=== PATIENT | female | born 1940 | race Caucasian/White ===

== ENCOUNTER 2017-06-07 06:56 | Day surgery (SDC) | payer MEDICARE, OTHER, MEDICAID ==
[~2017-06-07] VITALS: Ht 157.5 cm; Wt 77.1 kg
[2017-06-07] VITALS (12 sets, daily range): BP systolic 109–137; BP diastolic 50–71
[~2017-06-07 06:56] MED LIST: ATEN25TA PO; CEPH-507 PO; CYCL1DRO OU; LEVO75TA6 PO; PANT40TA3 PO; PNEU0.5D SQ; TRAM50TA2 PO
[2017-06-07 07:28] LABS: MEAN PLATELET VOLUME 9.7 FL (7.4-10.4); RED BLOOD COUNT 4.81 10^6/uL (4.35-5.85); RED CELL DISTRIBUTION WIDTH 12.9 % (10.0-14.5); WHITE BLOOD COUNT 6.4 10^3/uL (4.3-11.0)
[2017-06-07 07:37] LABS: INR 0.9 (0.8-1.4); PROTHROMBIN TIME PATIENT 11.8 SEC (12.2-14.7)
[2017-06-07] MEDS ORDERED: ACETAMINOPHEN 500 MG TAB (TYLENOL) PO PRN (09:30)
--- NOTE | 2017-06-07 13:57 | Diagnostic Imaging Report ---
EXAMINATION: CT of the cervical, thoracic, and lumbar spine with contrast. INDICATION: Back pain. TECHNIQUE: Contiguous axial sections were taken through the cervical, thoracic, and lumbar spine. Sagittal and coronal reconstructed images were also performed. This exam was performed after the myelogram conducted earlier today. FINDINGS: There are no previous CT examinations available for comparison. The MRI lumbar spine exam of 08/27/2007 did note postsurgical changes consistent with a fusion of L4 and L5. On this exam, the bilateral pedicle screws within L4 and L5 seen previously are again evident. The orthopedic hardware seems to be in good position. The interbody device at the L4-5 level is also unchanged when compared to the prior study. As noted on the prior exam, there is a disc bulge centrally at L5-S1. The disc flattens the ventral aspect of the thecal sac and narrows the AP diameter to 12.5 mm. On the prior exam, the AP diameter of the thecal sac at this level measured approximately 13.2 mm. There does not appear to be any significant neural foraminal narrowing at this level. At the L4-5 level, there is minimal anterior translation of L4 with respect to L5 as well as narrowing of the disc space. There is also some deformity of the thecal sac due to the prior surgical procedure, but there is no sign of central stenosis. There is mild narrowing of the neural foramen bilaterally, particularly on the left. At the L3-4 level, there is borderline trefoil stenosis. The AP diameter of the thecal sac is narrowed to 10.5 mm as opposed to 15.6 mm on the prior study. There is also at least moderate narrowing of the neural foramen bilaterally, and there may be encroachment of both exiting nerve roots at this level. The remainder of the lumbar spine is unremarkable for spinal stenosis or nerve root encroachment. The thecal sac in the thoracic region is fairly generous. There is no evidence for spinal stenosis or nerve root encroachment at any level. The images through the cervical spine show that there is severe degenerative disc and bony disease at C6-7. Specifically, there is marked narrowing of the disc space, and there are osteophytes along the opposing surfaces of the endplates of C6 and C7. There is also a disc bulge centrally at this level. The disc flattens the ventral aspect of the thecal sac and narrows the AP diameter to approximately 9.7 mm. There is also narrowing of the neural foramen bilaterally, particularly on the left. There could be encroachment of the exiting left nerve root at this level. There is only mild narrowing of the neural foramen on the right. There is no evidence for spinal stenosis or nerve root encroachment at the C5-6 level. At the C4-5 level, there is slight anterior translation of C4 with respect to C5. There is a disc bulge centrally at this level as well, but the disc narrows the AP diameter of the thecal sac to 11.4 mm. There does not appear to be any significant neural foraminal narrowing at this level. The remainder of the cervical spine is unremarkable for spinal stenosis or nerve root encroachment. There is no fracture or acute bony abnormality of the cervical, thoracic, or lumbar spine. There is no mass or adenopathy involving the neck. The thyroid gland was not well visualized. The lungs, where visualized, are generally clear. There is no paraspinal mass in the lower thoracic and lumbar region. However, there is a calcified 0.9 x 1.1 cm area along the lateral aspect of the mid portion of the left kidney. This finding may well represent a benign process, and this could be a sequela of a prior inflammatory/infectious process or trauma. It would be possible, although unlikely, that this is neoplastic in nature. If previous studies are available, they would be helpful for comparison. If there are no prior studies, then a follow-up CT abdomen and pelvis exam would be recommended for further study. There is a dorsal stimulator device in place with the battery pack located in the subcutaneous fat along the posterior aspect of the L2-3 level on the right. The leads from the dorsal stimulator device extend between the spinous processes of T12 and L1 and course along the posterior aspect of the thecal sac. The tip of the leads terminates at the T8 level. IMPRESSION: 1. The postsurgical changes at L4-5 seen previously seem stable. There is no evidence for recurrent spinal stenosis or nerve root encroachment at this level. 2. There is borderline trefoil stenosis at L3-4, and there is narrowing of the neural foramen bilaterally. There may be encroachment of both exiting nerve roots at this level. 3. The remainder of the lumbar spine is unremarkable for spinal stenosis. There is no sign of spinal stenosis or nerve root encroachment involving the thoracic spine. 4. There is severe degenerative disc and bony disease at C6-7, and there is mild central stenosis at this level. There is also narrowing of the neural foramen bilaterally at this level, particularly on the left. There may be encroachment of the exiting left nerve root at C6-7. 5. The remainder of the cervical spine is unremarkable for spinal stenosis or nerve root encroachment. 6. There is no sign of an acute bony abnormality, and there is no paraspinal mass identified. 7. The small calcified area along the lateral aspect of the left kidney is of uncertain etiology. Considerations and recommendations as above. 8. There is a dorsal stimulator device in place with the leads terminating at the level of T8. Dictated by: Dictated on workstation # [id number]
--- NOTE | 2017-06-07 14:47 | Diagnostic Imaging Report ---
Lumbar myelogram. INDICATION: Back pain. The previous MRI lumbar spine exam performed on 08/27/2007, noted that there had been a fusion of L4 and L5. On this study the bilateral pedicle screws at L4 and L5 seem to be in good position. Also, in the interval since the prior study, a dorsal stimulator device has been inserted on the right. The leads extend to approximately T8. Following aseptic preparation of the skin and administration of local anesthesia a lumbar puncture was made at the L2-L3 level. Clear CSF was retrieved, and approximately 15 cc of Omnipaque-240 was infused. AP, oblique, and lateral images were obtained. There does appear to be a disc bulge centrally at the L3-L4 level. This produces mild spinal stenosis. There is also narrowing of the neural foramina bilaterally at this level. The remainder of the lumbar spine is unremarkable for spinal stenosis or nerve root encroachment although the L4-L5 and L5-S1 levels were not well opacified. Following the procedure, the patient was positioned so that the contrast in the lumbar spine could be transferred into the thoracic and cervical regions by gravity for further evaluation of the thecal sac and exiting nerve roots in the thoracic and cervical spine. The patient tolerated the procedure well and was transferred to the CT suite in good condition. IMPRESSION: 1. There is mild spinal stenosis at L3-L4, and there may be encroach of both nerve roots at this level. CT of the lumbar spine is pending for further evaluation. 2. CT of the thoracic and cervical spine is also pending. Dictated by: Dictated on workstation # [id number]
== END 2017-06-07 13:35 | disposition home or self-care (01) ==
LOC: RAD 06:56 → SURG 09:27 → RAD 13:35
PROVIDERS: ATTEND Orthopaedic Surgery
DX: M48.06 Spinal stenosis, lumbar region (principal); M51.26 Other intervertebral disc displacement, lumbar region; M50.323 Other cervical disc degeneration at C6-C7 level; Z98.1 Arthrodesis status; I10 Essential (primary) hypertension
CPT/HCPCS: 36415; 62304; 72126; 72129; 72132; 85027; 85610; 85730

== ENCOUNTER 2018-10-01 09:00 | Outpatient (CLI) | payer MEDICARE, OTHER, MEDICAID ==
[~2018-10-01] VITALS: Ht 157.5 cm; Wt 72.6 kg
[2018-10-01] MEDS ORDERED: ASPI-586 PO (10:45)
[2018-10-01] MEDS ORDERED: GABA-488 PO (10:45)
== END 2018-10-01 10:46 | disposition home or self-care (01) ==
LOC: PREOP 09:00
PROVIDERS: ATTEND Surgery
DX: Z01.818 Encounter for other preprocedural examination (principal)

== ENCOUNTER 2018-10-02 10:06 | Day surgery (SDC) | payer MEDICARE, OTHER ==
[~2018-10-02] VITALS: Ht 157.5 cm; Wt 72.6 kg
[~2018-10-02 10:06] MED LIST changes: +ASPI-586 PO; +GABA-488 PO
[2018-10-02 10:12] VITALS: BP 128/64
[2018-10-02] MEDS ORDERED: NS IV 500 ML 500 ML IV PRN (10:16)
[2018-10-02] MEDS ORDERED: MIDAZOLAM 2 MG/2 ML (VERSED) VIAL IVP ONE (10:30)
[2018-10-02] MEDS ORDERED: LIDOCAINE JELLY 2% 6 ML SYRINGE MM PRN (10:30)
[2018-10-02] MEDS ORDERED: fentaNYL INJECTION 100 MCG/2 ML AMP IVP ONE (10:30)
[2018-10-02] MEDS ORDERED: HURRICAINE EXT TUBE (BENZOCAINE) XX PRN (10:30)
--- NOTE | 2018-10-02 10:33 | Progress Note-Pre Operative ---
Pre-Operative Progress Note H&P Reviewed The H&P was reviewed, patient examined and no changes noted. Date Seen by Provider: Oct 02, 2018 Time Seen by Provider: 10:30 Date H&P Reviewed: Oct 02, 2018 Time H&P Reviewed: 10:30 Pre-Operative Diagnosis: heme positive stools SHEREE JORDAN MD Oct 02, 2018 10:33
--- NOTE | 2018-10-02 10:33 | Conscious Sedation/ASA ---
Conscious Sedation Pre-Proced Time 10:30 ASA Score 2 For ASA 3 and 4: Consider anesthesia and medical clearance. Also, for patients with a history of failed moderate sedation consider anesthesia. Airway Lungs Heart ASA score ASA 1: a normal healthy patient ASA 2: a patient with a mild systemic disease (mid diabetes, controlled hypertension, obesity ASA 3: a patient with a severe systemic disease that limits activity (angina , COPD, prior Myocardial infarction) ASA 4: a patient with an incapacitating disease that is a constant threat to life (CHF, renal failure) ASA 5: a moribund patient not expected to survive 24 hrs. (ruptured aneurysm) ASA 6: a declared brain patient whose organs are being harvested. For emergent operations, add the letter E after the classification Mallampati Classification Grade 2 Sedation Plan Analgesia, Amnesia, Plan communicated to team members, Discussed options with patient/fam, Discussed risks with patient/fam The patient is an appropriate candidate to undergo the planned procedure, sedation, and anesthesia. The patient immediately re-assessed prior to indication. SHEREE JORDAN MD Oct 02, 2018 10:33
[2018-10-02] MEDS ORDERED: morphine INJ 10 MG/ML 1ML (SYR OR VIAL) IV PRN (10:45)
[2018-10-02] MEDS ORDERED: HYDROcodone/APAP 5 MG/325 MG (LORTAB) TAB PO PRN (10:45)
[2018-10-02] MEDS ORDERED: ONDANSETRON 4 MG/2 ML (SDV) Z0FRAN IV PRN (10:45)
[2018-10-02] MEDS ORDERED: ACETAMINOPHEN 325 MG TABLET PO PRN (10:45)
[2018-10-02] MEDS ORDERED: MIDAZOLAM 2 MG/2 ML (VERSED) VIAL ONE ×4 (11:20)
[2018-10-02] MEDS ORDERED: fentaNYL INJECTION 100 MCG/2 ML AMP ONE ×2 (11:20)
[2018-10-02] MEDS ORDERED: LIDOCAINE JELLY 2% 6 ML SYRINGE ONE (11:20)
[2018-10-02] MEDS ORDERED: proPOfol 200 MG/20 ML (DIPRIVAN) VIAL IV ONE (12:09)
--- NOTE | 2018-10-02 13:08 | Progress Note-Post Operative ---
Post-Operative Progess Note Surgeon (s)/Plant Controller (s) Surgeon SHEREE JORDAN MD Plant Controller: none Pre-Operative Diagnosis heme positive stools Post-Operative Diagnosis chronic stage 2 ext and int hemorrhoids, mod-severe sigmoid diverticulosis, tortuous sigmoid colon. Procedure & Operative Findings Date of Procedure 10/02/18 Procedure Performed/Findings Colonoscopy. Anesthesia Type MAC Estimated Blood Loss Estimated blood loss (mL): minimal Specimens/Packing Specimens Removed none SHEREE JORDAN MD Oct 02, 2018 13:08
--- NOTE | 2018-10-02 13:09 | Discharge Inst-Surgical ---
D/C Lap Instructions-JULIAN Follow Up PRN Activity as tolerated High Fiber Diet 25g or more per day Avoid Alcohol, Caffeine, Spicy [place] and Acid foods. Drink 64 fluid oz or more of fluids per day. Symptoms to Report: Fever over 101 degree F, Nausea/Vomiting If any problems/questions: Contact your physician or go to Emergency Room SHEREE JORDAN MD Oct 02, 2018 13:09
[2018-10-02 13:20] VITALS: BP 97/68
--- OUTSIDE RECORDS SUMMARY | 2018-10-02 13:35 | XMS REPORT ---
Author Author MICHELLE MARTELL [facility] Address [address] [place] [address] Care Team Providers Care Acting Section Chief Name Role Phone MICHELLE MARTELL Unavailable PROBLEMS Unknown Problems ALLERGIES Substance Reaction Event Type Date Status Demerol vomiting Drug Allergy Jun, Active ENCOUNTERS Encounter Location Date Diagnosis [facility] [id number] [place] [phone] Jun, Acute bacterial conjunctivitis of left eye H10.32 [facility] [place] [id number] [place] [phone] Sep, [facility] [id number] [place] [phone] Aug, Decreased breath sounds R06.89 and Community acquired pneumonia J18.9 IMMUNIZATIONS No Known Immunizations SOCIAL HISTORY Never Assessed REASON FOR VISIT left eye is swollen et had yellow drainage. been like this since yesterday afternoon...reports it has gotten worse. not as much drainage this am. also has a slight cough. xiomy, denies pain et itching in left eye, pt reports she has been helping a friend move...thinks maybe she touched something et then touched her eye PLAN OF CARE Activity Details Follow Up prn Reason: VITAL SIGNS Height 62.5 in 2018-07-08 Weight 160.0 lbs 2018-07-08 Temperature 97.4 degrees Fahrenheit 2018-07-08 Heart Rate 80 bpm 2018-07-08 Respiratory Rate 20 2018-07-08 BMI 28.79 kg/m2 2018-07-08 Blood pressure systolic 116 mmHg 2018-07-08 Blood pressure diastolic 78 mmHg 2018-07-08 MEDICATIONS Medication Instructions Dosage Frequency Start Date End Date Duration Status Atenolol 100 MG Orally Once a day 1 tablet 24h Active Synthroid 25 MCG Orally Once a day 1 tablet 24h Active Gabapentin 300 MG Orally Once a day 1 capsule before bedtime 24h Active Gentamicin Sulfate 0.3 % Ophthalmic every 4 hrs while awake 1 drop into affected eye Jun, 5 days Active Ventolin HFA 108 (90 Base) MCG/ACT Inhalation every 6 hrs 2 puffs as needed 6h Aug, 14 days Active Restasis 0.05 % Ophthalmic Twice a day 1 drop into affected eye 12h Active Josie Allergy 60 MG Orally Twice a day 1 tablet as needed 12h Active RESULTS No Results PROCEDURES Procedure Date Ordered Result Body Site [facility] VISIT ESTABLISHED PATIENT Jul 08, 2018 INSTRUCTIONS MEDICATIONS ADMINISTERED No Known Medications MEDICAL (GENERAL) HISTORY Type Description Date Medical History hypothryoid Medical History hypertension Medical History allergies Medical History nerve pain Surgical History hernia 2006 Surgical History hemorrhoidectomy Surgical History back surgery Surgical History appendectomy Surgical History tonsillectomy Surgical History Back surgery 11/2017 Surgical History Back surgery 02/2018 Hospitalization History with surgeries
--- OUTSIDE RECORDS SUMMARY | 2018-10-02 13:35 | XMS REPORT ---
Author Author KRYSTAL EVANS Organization [facility] Address [address] [place] [address] Care Team Providers Care Inspector Filters Name Role Phone KRYSTAL EVANS Unavailable PROBLEMS Unknown Problems ALLERGIES No Information ENCOUNTERS Encounter Location Date Diagnosis [facility] [address] [facility] [id number] [place] [address] Sep, [facility] [address] [facility] [id number] [place] [address] Aug, Decreased breath sounds R06.89 and Community acquired pneumonia J18.9 IMMUNIZATIONS No Known Immunizations SOCIAL HISTORY Never Assessed REASON FOR VISIT Refill request PLAN OF CARE VITAL SIGNS MEDICATIONS Unknown Medications RESULTS No Results PROCEDURES No Known procedures INSTRUCTIONS MEDICATIONS ADMINISTERED No Known Medications MEDICAL (GENERAL) HISTORY Type Description Date Medical History hypothryoid Medical History hypertension Medical History allergies Medical History nerve pain Surgical History hernia 2007 Surgical History hemorrhoidectomy Surgical History back surgery Surgical History appendectomy Surgical History tonsillectomy Hospitalization History with surgeries
--- OUTSIDE RECORDS SUMMARY | 2018-10-02 13:35 | XMS REPORT | Clinical Summary ---
Author Author [facility] Organization [facility] Address Unknown Phone Unavailable Care Team Providers Care Campaign Analyst Name Role Phone Arie Whitmore PCP Source Comments Some departments are not documenting in the electronic medical record. If you do not see the information that you expected, contact Release of Information in the Health Information Management department at [phone] for further assistance in locating additional records.[facility] Allergies Comments Active Allergy Reactions Severity Noted Date Adhesive BLISTERS High 03/07/2018 Meperidine VOMITING Low 09/12/2017 Medications End Date Status Medication Sig Dispensed Refills Start Date Active levothyroxine (SYNTHROID) Take 75 mcg 0 75 mcg tablet by mouth at bedtime daily. Active atenolol (TENORMIN) 25 mg Take 25 mg by 0 tablet mouth at bedtime daily. Active cetirizine (ZYRTEC) 10 mg Take 10 mg by 0 tablet mouth twice daily. Active gabapentin (NEURONTIN) Take by 0 300 mg capsule mouth twice daily. 300mg in AM and 600mg at bedtime Active aspirin EC 81 mg tablet Take 81 mg by 0 mouth every 48 hours. Take with food. Administered at night Active triamcinolone (NASACORT) Apply 1-2 0 55 mcg nasal inhaler sprays to each nostril as directed at bedtime daily. Active Cholecalciferol (VITAMIN Take 5,000 0 D3) 5,000 unit capsule Units by mouth daily. Active ascorbic acid-vitamin Chew 1 tablet 0 E-biotin (HAIR, SKIN, by mouth NAILS WITH BIOTIN) daily. 7.5-7.5-1,250 mg-unit-mcg chew Active ascorbic acid(+) 1,000 mg Take 1 tablet 0 tablet by mouth daily. Active other medication Take 1 Dose 0 by mouth daily. [place] red oil Active docusate (COLACE) 100 mg Take 1 180 capsule 3 capsule capsule by 8 mouth twice daily. Active Biotin 5 mg cap Take 5 mg by 0 mouth daily. Active RESTASIS 0.05 % Apply 1 drop 0 ophthalmic emulsion to both eyes 8 twice daily. Active acetaminophen (TYLENOL) Take 2 0 325 mg tablet tablets by 8 mouth every 4 hours as needed. Active oxyCODONE (ROXICODONE, Take 1-2 150 tablet 0 OXY-IR) 5 mg tablet tablets by 8 mouth every 3 hours as needed Active HYDROcodone/acetaminophen Take 1 tablet 100 tablet 0 (NORCO) 5/325 mg tablet by mouth 8 every 4 hours as needed for Pain Earliest Fill Date: 04/10/18 Max 6 tabs/day Active Problems Problem Noted Date Lumbar stenosis with neurogenic claudication 02/14/2018 Overview: Added automatically from request for surgery [id number] Cervical spinal stenosis 10/23/2017 Overview: Added automatically from request for surgery [id number] Social History Date Tobacco Use Types Packs/Day Years Used Quit: 1991 Former Smoker Cigarettes 1 20 Smokeless Tobacco: Never Used Comments: QUIT SMOKING 30 YEARS AGO Alcohol Use Drinks/Week oz/Week Comments No Sex Assigned at Date Recorded Not on file Industry Job Start Date Occupation Not on file Not on file Not on file Travel End Travel History Travel Start No recent travel history available. 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 Respiratory Rate 16 06/20/2018 11:03 AM CDT Oxygen Saturation 98% - Inhaled Oxygen - Concentration 06/20/2018 11:03 AM CDT Weight 70.3 kg (155 lb) 06/20/2018 11:03 AM CDT Height 157.5 cm (5' 2.01") 06/20/2018 11:03 AM CDT Body Mass Index 28.34 Plan of Treatment Health Maintenance Due Date Last Done Comments PHYSICAL (COMPREHENSIVE) 1949 EXAM DTAP/TDAP VACCINES (1 - 1960 Tdap) SHINGLES RECOMBINANT 1992 VACCINE (1 of 2) OSTEOPOROSIS 2007 SCREENING/MONITORING PNEUMONIA (PCV13/PPSV23) 2007 VACCINES (1 of 2 - PCV13) INFLUENZA VACCINE 05/22/2018 Implants Device Identifier Shelf Expiration Date Model / Serial / Lot Implanted Type Area Manufactur er 12/29/2018 [id number] / [id number] / [id number] Graft Bone Cancellous Lordotic N/A: Spine ASHIA:ST Allograft [id number] Cervical - Cervical KARL MED [id number] Implanted: Qty: 1 on 11/09/2017 by Eduardo Mathis MD 01/02/2020 [id number] / [id number] / [id number] Graft Bone Allocraft Cancellous N/A: Spine ASHIA:ST Lordotic Allograft [id number] - Cervical KARL MED [id number] Implanted: Qty: 1 on 11/09/2017 by Eduardo Mathis MD [id number] / N/A / N/A Screw Bone 4mm 14mm Reflex Hybrid N/A: Spine ASHIA:ST Titanium Flute Spine - Sn/A Cervical KARL Implanted: Qty: 6 on 11/09/2017 by Eduardo Vincent MD [id number] / N/A / N/A Plate 32mm Titanium Level 2 Reflex N/A: Spine ASHIA:ST Zero Profile Bone Spine - Sn/A Cervical KARL Implanted: Qty: 1 on 11/09/2017 by Eduardo Vincent MD [id number] / N/A / N/A Screw Set Titanium Spine 1 Inner N/A: Spine J and J Monoaxial Expedium - Sn/A Lumbar [employer]ALTHCARE Implanted: Qty: 5 on 03/13/2018 : DEPUY SPINE [id number] / N/A / N/A Screw Bone 6mm 45mm Expedium N/A: Spine JandJ:DEPU Titanium Spine Cortical Fix 5.5 - Lumbar Y:DEPUY Sn/A SPINE Implanted: Qty: 1 on 03/13/2018 [id number] / N/A / N/A Screw Bone 7mm 45mm Expedium N/A: Spine UNIDENTIFI Titanium Spine Cortical Fix 5.5 - Lumbar ED MFG Sn/A Implanted: Qty: 2 on 03/13/2018 01/19/2019 [id number] / [id number] / [id number] Graft Bone 20ga Infuse Medium N/A: Spine MEDTRONIC: Bovine Collagen Rhbmp-2 Vial - Lumbar SOFAMOR [id number] Implanted: Qty: 1 on 03/13/2018 [id number] / N/A / N/A Anthony Spinal 60mm 5.5mm Expedium N/A: Spine J and J Titanium Prebent Line - Sn/A Lumbar HEALTHCARE Implanted: Qty: 1 on 03/13/2018 : DEPUY SPINE [id number] / N/A / N/A Anthony Spinal 65mm 5.5mm Expedium N/A: Spine UNIDENTIFI Titanium Prebent Line - Sn/A Lumbar ED MFG Implanted: Qty: 1 on 03/13/2018 01/01/2021 [id number] / [id number] / [id number] Filler Bone Void 30ml .1-4mm N/A: Spine MUSCULOSKE Cancellous Allograft Freeze - Lumbar LETAL [id number] TRANSPLANT Implanted: Qty: 1 on 03/13/2018 FND [id number] / N/A / N/A Connector Anthony Matrix 7 [id number] N/A: Spine SYNTHES:SY Od5.5/6mm Spine Trnsv Snapon - Sn/A Lumbar NTHES [facility] Implanted: Qty: 1 on 03/13/2018 [id number] / N/A / N/A Screw Bone 6mm 40mm Expedium N/A: Spine UNIDENTIFI Titanium Spine Cortical Fix 5.5 - Lumbar ED MFG Sn/A Implanted: Qty: 2 on 03/13/2018 Device Identifier Shelf Expiration Date Model / Serial / Lot Explanted Type Area Manufactur er / N/A / N/A Spinal Cord Stimulator N/A: Spine Explanted: Qty: 1 on 03/13/2018 by Eduardo Pierre MD / N/A / N/A Screw N/A: Spine Explanted: Qty: 4 on 03/13/2018 Lumbar / N/A / N/A Cap N/A: Spine Explanted: Qty: 4 on 03/13/2018 Lumbar / N/A / N/A Anthony N/A: Spine Explanted: Qty: 2 on 03/13/2018 Lumbar / N/A / N/A Cross Connector N/A: Spine Explanted: Qty: 1 on 03/13/2018 Lumbar Results Not on filefrom Last 3 Months Insurance Payer Benefit Subscriber ID Type Phone Address Plan / Group MEDICARE MEDICARE xxxxxxxxxxx Medicare PART A AND B GENERIC COMMERCIAL GENERIC xxxxxxxxxx Indemnity COMMERCIAL Advance Directives Patient has advance care planning documents, and code status on file. For more information, please contact: [facility] [address] [place] [address] Date Inactivated Comments Code Status Date Activated 03/17/2018 5:11 PM Full Code 03/13/2018 5:08 PM Provider has discussed Code Status No, more discussion w/Patient or Family? needed 11/10/2017 3:24 PM Full Code 11/09/2017 10:53 AM Provider has discussed Code Status No, more discussion w/Patient or Family? needed
[2018-10-02 13:50] VITALS: BP 110/65
--- NOTE | 2018-10-02 14:38 | Progress Note-Standard ---
Standard Progress Note Progress Notes/Assess & Plan Date Seen by a Provider: Oct 02, 2018 Time Seen by a Provider: 12:11 Progress/Assessment & Plan Anesthesia Note ([id number]) Called to endoscopy for a rescue sedation during colonoscopy. Pt already given Versed 6 mg IV and Fentanyl 150 mg IV prior to my arrival. Dr Estrada was attempting colonoscopy and pt not tolerating the procedure, per him and endo staff. Brief history obtained from Dr Estrada on my arrival. Propofol 75 mg IV given in divided doses for the remainder of the procedure and she tolerated the procedure well. VS remained stable throughout. Spontaneous ventilation monitored by EtCO2. Anesthesia Type: MAC (rescue sedation) ASA Class: 2 RUFINO DUMONT DO Oct 02, 2018 14:38
[2018-10-02 15:09] VITALS: BP 110/65
--- NOTE | 2018-10-02 19:47 | OPERATIVE REPORT ---
DATE OF SERVICE: 10/02/2018 ATTENDING PRIMARY CARE PHYSICIAN: Dr. Whitmore. PREOPERATIVE DIAGNOSIS: Heme positive stools. POSTOPERATIVE DIAGNOSES: Chronic stage II external and internal hemorrhoids, [id number] sigmoid diverticulosis, tortuous sigmoid colon, no polyps or any neoplasms identified. PROCEDURE: Colonoscopy. SURGEON: Sheree Estrada MD ANESTHESIA: Conscious sedation. ESTIMATED BLOOD LOSS: Minimal. ANESTHESIA: Monitored anesthesia care. ESTIMATED BLOOD LOSS: Minimal. FINDINGS: Chronic stage II external and internal hemorrhoids, not actively edematous nor inflamed and no bleeding. Moderate to severe sigmoid diverticulosis with redundant and tortuous sigmoid colon. The remainder of the colon was normal. There were no polyps or any neoplasms identified. No active bleeding identified. DISPOSITION: The patient tolerated the procedure well. INDICATIONS: The patient is a 78-year-old female known to us. She has had a longstanding history of gastroesophageal reflux disease, underwent a Jose A fundoplication in 2002. She did have issues with dysphagia and which required multiple EGDs as well as dilatations with the last one in 2014. She also had a colonoscopy at that time was found to have chronic stage II external and internal hemorrhoids as well as moderate sigmoid diverticulosis. She does not report any red blood per rectum nor any dark tarry stools. She also does not report any family history of colon cancer; however, she did have heme occult stool test, which was positive recently. DESCRIPTION OF PROCEDURE: The patient was brought to the endoscopy suite, laid in the left lateral decubitus position. After adequate IV pain and sedating medications and monitored anesthesia care administered by anesthesia, a digital rectal examination was performed. Chronic stage II external and internal hemorrhoids were identified, which were not actively edematous nor inflamed and no bleeding. Normal sphincter tone was felt and there were no palpable masses. The endoscope was then intubated to the anus and rectum gently insufflated. The endoscope was then advanced to the [facility] in the rectum. There was moderate to severe sigmoid diverticulosis identified. There was also a tortuous and redundant sigmoid colon. Multiple attempts were made to pass along this with a pediatric colonoscope; however, unsuccessful. The patient also had abdominal distention, most likely secondary to an insufflation induced volvulus. We then proceeded with proceeding with using a gastroscope. Under direct visualization, we were able to get passed through the tortuous sigmoid colon where no signs of diverticulosis identified as well as no active bleeding. We then proceeded to the descending, transverse, ascending colon to the cecum. These segments were normal. There were no polyps or any neoplasms identified. As we withdrew the endoscope, residual air was suctioned out and the abdominal distention decreased appropriately. The patient tolerated the procedure well. We will recommend continued medical management with a high fiber diet with at least 25 to 30 grams of fiber per day as well as 64 fluid ounces of water daily to promote soft stools on a daily basis. She does not have any family history of colon cancer and she does have diverticulosis as well as hemorrhoids, which are most likely the cause of intermittent episodes of heme positive stools. If she is not symptomatic, we will recommend a followup colonoscopies as needed for there were no polyps identified on this colonoscopy as well as what we believed to be previous colonoscopies; however, sooner if she becomes symptomatic in any way. Job ID: [id number] DocumentID: [id number] Dictated Date: 10/02/2018 13:00:48 Heat Treat Supervisor Date: 10/02/2018 19:47:09 Dictated By: SHEREE ESTRADA MD [facility]
== END 2018-10-02 15:00 | disposition home or self-care (01) ==
LOC: ENDO 10:06
PROVIDERS: ATTEND Surgery
DX: K57.30 Diverticulosis of large intestine without perforation or abscess without bleeding (principal); K64.1 Second degree hemorrhoids; K21.9 Gastro-esophageal reflux disease without esophagitis; E03.9 Hypothyroidism, unspecified; I10 Essential (primary) hypertension; F32.9 Major depressive disorder, single episode, unspecified; M79.7 Fibromyalgia; R19.7 Diarrhea, unspecified; K59.00 Constipation, unspecified; Z87.891 Personal history of nicotine dependence; Z98.1 Arthrodesis status; Z88.5 Allergy status to narcotic agent; Z80.1 Family history of malignant neoplasm of trachea, bronchus and lung; Z86.010 Personal history of colon polyps

== ENCOUNTER → 2019-03-08 | Outpatient (CLI) | payer MEDICARE, OTHER ==
--- NOTE | 2019-03-08 13:03 | Diagnostic Imaging Report ---
INDICATION: Cough and weakness. No prior examinations are available for comparison. PA and lateral views were obtained. FINDINGS: The heart size, mediastinal configuration, and pulmonary vascularity are within normal limits. There is no pleural effusion, pneumothorax, or pneumonia. The osseous structures are unremarkable. IMPRESSION: No acute cardiopulmonary abnormality. Dictated by: Dictated on workstation # [id number]
== END ==
LOC: RAD 12:44
PROVIDERS: ATTEND Nurse Practitioner Family
DX: R06.2 Wheezing (principal); R05 Cough; R53.1 Weakness
CPT/HCPCS: 71046

== ENCOUNTER → 2022-05-10 | Outpatient (CLI) | payer MEDICARE, OTHER ==
[~2022-05-10] VITALS: Ht 157.5 cm; Wt 77.6 kg
[~2022-05-10] MED LIST changes: -PANT40TA3 PO; +PANT40TA52 PO; -TRAM50TA2 PO; +TRM50T PO
== END | disposition home or self-care (01) ==
LOC: PREOP 05:34
PROVIDERS: ATTEND Surgery
DX: Z01.818 Encounter for other preprocedural examination (principal)

== ENCOUNTER 2022-05-18 17:53 | Inpatient (IN) | payer MEDICARE, OTHER ==
[~2022-05-18] VITALS: Ht 157.5 cm; Wt 87.7 kg
[2022-05-18] MEDS ORDERED: ONDANSETRON 4 MG/2 ML (SDV) Z0FRAN IV PRN (18:30)
[2022-05-18] MEDS ORDERED: ANTACID SUSP 30 ML UDC (MYLANTA) PO PRN (18:30)
[2022-05-18] MEDS ORDERED: MELATONIN 3 MG TABLET PO PRN (18:30)
[2022-05-18] MEDS ORDERED: BISACODYL 10 MG SUPP (DULCOLAX) PR PRN (18:30)
[2022-05-18] MEDS ORDERED: polyethylene glycoL POWDER 17 GM (MIRALAX) PACK PO PRN (18:30)
[2022-05-18] MEDS ORDERED: MILK OF MAGNESIA 400 MG/5 ML 30 ML UDC PO PRN (18:30)
[2022-05-18] MEDS ORDERED: diphenhydrAMINE 25 MG TAB (BENADRYL) PO PRN (18:30)
[2022-05-18] MEDS ORDERED: ACETAMINOPHEN 325 MG TABLET PO PRN (18:30)
[2022-05-18] MEDS ORDERED: LACTULOSE SYRUP 10GM/15ML (ENULOSE) 30ML UDC PO PRN (18:30)
[2022-05-18] MEDS ORDERED: diphenhydrAMINE 50 MG/ML INJ (BENADRYL) IVP PRN (18:30)
[2022-05-18] MEDS ORDERED: ONDANSETRON 4 MG (ZOFRAN) ORAL DISSOLVE TAB PO PRN (18:30)
[2022-05-18 20:05] VITALS: BP 148/58
[2022-05-18] MEDS ORDERED: PIPERACILLIN/TAZO 4.5 GM VIAL (ZOSYN) IV ONE (20:18)
[2022-05-18] MEDS ORDERED: NS IV 1000 ML 1,000 ML ONE (20:18)
[2022-05-18] MEDS ORDERED: NS (IVPB) 100 ML ONE (20:19)
[2022-05-18] MEDS: NS IV 1000 ML 1,000 ML IV SCH (20:28)
[2022-05-18] MEDS: PIPERACILLIN SODIUM/TAZOBACTAM 4.5 GM in NS (IVPB) 100 ML IV SCH (20:29)
[2022-05-18] MEDS ORDERED: DOCUSATE SODIUM 100 MG (COLACE) CAP PO ONE (20:35)
[2022-05-18] MEDS ORDERED: SENNOSIDES 8.6 MG (SENOKOT) TAB ONE (20:35)
[2022-05-18] MEDS: DOCUSATE SODIUM 100 MG (COLACE) CAP PO SCH (20:37)
[2022-05-18] MEDS: SENNOSIDES 8.6 MG (SENOKOT) TAB PO SCH (20:37)
[2022-05-18] MEDS ORDERED: metroNIDAZOLE 500MG/100ML IVPB 100 ML ONE (21:12)
[2022-05-18] MEDS: metroNIDAZOLE 500MG/100ML IVPB 100 ML IV SCH (21:45)
[2022-05-18] MEDS ORDERED: metroNIDAZOLE 500MG/100ML IVPB 100 ML IV SCH (22:00)
[2022-05-19] VITALS (17 sets, daily range): BP systolic 107–148; BP diastolic 59–78
[2022-05-19] MEDS: HYDROmorphone 2 MG/ML VIAL (DILAUDID) IVP PRN ×2 (00:22→22:06)
[2022-05-19] MEDS: PIPERACILLIN SODIUM/TAZOBACTAM 4.5 GM in NS (IVPB) 100 ML IV SCH ×4 (04:11→22:29)
[2022-05-19 05:49] LABS: BASOPHILS # (AUTO) 0.1 10^3/uL (0.0-0.1); BASOPHILS % (AUTO) 0 % (0-10); EOSINOPHILS # (AUTO) 0.2 10^3/uL (0.0-0.3); EOSINOPHILS % (AUTO) 1 % (0-10); HEMATOCRIT 26 % (35-52); HEMOGLOBIN 8.6 g/dL (11.5-16.0); LYMPHOCYTES # (AUTO) 1.2 10^3/uL (1.0-4.0); LYMPHOCYTES % (AUTO) 9 % (12-44); MEAN CORPUSCULAR HEMOGLOBIN 30 pg (25-34); MEAN CORPUSCULAR HGB CONC 34 g/dL (32-36); MEAN CORPUSCULAR VOLUME 90 fL (80-99); MEAN PLATELET VOLUME 9.5 fL (9.0-12.2); MONOCYTES # (AUTO) 0.8 10^3/uL (0.0-1.0); MONOCYTES % (AUTO) 6 % (0-12); NEUTROPHILS # (AUTO) 11.1 10^3/uL (1.8-7.8); NEUTROPHILS % (AUTO) 83 % (42-75); PLATELET COUNT 571 10^3/uL (130-400); WHITE BLOOD COUNT 13.4 10^3/uL (4.3-11.0)
[2022-05-19 06:11] LABS: BILIRUBIN,TOTAL 0.4 MG/DL (0.1-1.0); CALCIUM 7.8 MG/DL (8.5-10.1); CREATININE SERUM 0.63 MG/DL (0.60-1.30); POTASSIUM 3.1 MMOL/L (3.6-5.0)
[2022-05-19 06:12] LABS: ALBUMIN 2.4 GM/DL (3.2-4.5); TOTAL PROTEIN 5.1 GM/DL (6.4-8.2)
--- NOTE | 2022-05-19 08:39 | Progress Note - Surgery ---
STERLING COOMBS 05/19/22 0839: Subjective Date Seen by a Provider: May 19, 2022 Time Seen by a Provider: 07:48 Subjective/Events-last exam Ms. Wheatley is being seen after a partial colon resection and colostomy done at [facility]. She was recovering well initially but her ostomy output decreased and her abdominal pain increased. Imaging from [place] showed an abdominal abscess. Today she reports no ostomy output, pain in her LLQ in her abdomen, and distension of her abdomen. Otherwise she has no complaints. She says she is ready for surgery and ready to feel better. Review of Systems General: No Chills, No Fatigue HEENT: No Head Aches, No Visual Changes Pulmonary: No Dyspnea, No Cough Cardiovascular: No: Chest Pain, Palpitations Gastrointestinal: Abdominal Pain; No: Nausea, Vomiting Neurological: No: Weakness, Confusion Objective Exam Vital Signs Date Time Temp Pulse Resp B/P (MAP) Pulse Ox O2 Delivery O2 Flow Rate FiO2 05/19/22 08:00 Room Air 05/19/22 07:42 37.2 89 18 148/67 (94) 99 Room Air 05/19/22 04:18 36.7 88 18 130/59 (82) 95 Room Air 05/19/22 00:21 36.5 90 20 139/65 (89) 96 Room Air 05/18/22 21:11 Room Air 05/18/22 20:05 36.6 104 18 148/58 (88) 98 Room Air I & O 05/19/22 07:00 Intake Total 300 ml Output Total 1150 ml Balance -850 ml Capillary Refill : General Appearance: No Apparent Distress, WD/WN HEENT: PERRL/EOMI, Moist Mucous Membranes Neck: Non Tender, Supple Respiratory: Chest Non Tender, Lungs Clear, Normal Breath Sounds, No Accessory Muscle Use, No Respiratory Distress Cardiovascular: Regular Rate, Rhythm, No Murmur Peripheral Pulses: 2+ Radial Pulses (R), 2+ Radial Pulses (L) Gastrointestinal: distended; No guarding, No rebound; tenderness (More tender in LLQ) Extremity: Non Tender, No Calf Tenderness Neurologic/Psychiatric: Alert, Oriented x3, Normal Mood/Affect Skin: Normal Color, Warm/Dry Results Lab Laboratory Tests 05/19/22 05:40: White Blood Count 13.4H, Red Blood Count 2.87L, Hemoglobin 8.6L, Hematocrit 26L, Mean Corpuscular Volume 90, Mean Corpuscular Hemoglobin 30, Mean Corpuscular Hemoglobin Concent 34, Red Cell Distribution Width 15.1H, Platelet Count 571H, Mean Platelet Volume 9.5, Immature Granulocyte % (Auto) 1, Neutrophils (%) (Auto) 83H, Lymphocytes (%) (Auto) 9L, Monocytes (%) (Auto) 6, Eosinophils (%) (Auto) 1, Basophils (%) (Auto) 0, Neutrophils # (Auto) 11.1H, Lymphocytes # (Auto) 1.2, Monocytes # (Auto) 0.8, Eosinophils # (Auto) 0.2, Basophils # (Auto) 0.1, Immature Granulocyte # (Auto) 0.1, Sodium Level 137, Potassium Level 3.1L, Chloride Level 104, Carbon Dioxide Level 18L, Anion Gap 15H, Blood Urea Nitrogen 5L, Creatinine 0.63, Estimat Glomerular Filtration Rate 90, BUN/Creatinine Ratio 8, Glucose Level 68L, Calcium Level 7.8L, Corrected Calcium 9.1, Total Bilirubin 0.4, Aspartate Amino Transf (AST/SGOT) 14, Alanine Aminotransferase (ALT/SGPT) 9, Alkaline Phosphatase 102, Total Protein 5.1L, Albumin 2.4L Assessment/Plan Assessment/Plan Assessment/Plan S/p partial colon resection with colostomy Done at [facility] Abdominal abscess Abdominal tenderness Anemia Leukocytosis Hypokalemia Pain control and fluids as needed Plan for OR today for abdominal washout with possible colon resection Clinical Quality Measures DVT/VTE Risk/Contraindication: Contraindications-Pharm: Other *list below* Other: ALEJANDRO HERBERT DO 05/19/22 0937: Subjective Time Seen by a Provider: 08:59 Subjective/Events-last exam Pt seen and examined, she states she is actually feeling better today. Does have some pain in upper abd with deep breaths. States her urine is now brown. Review of Systems General: No Chills Pulmonary: No Dyspnea, No Cough Cardiovascular: No: Chest Pain, Palpitations Gastrointestinal: Abdominal Pain; No: Nausea, Vomiting Objective Exam General Appearance: No Apparent Distress, WD/WN HEENT: PERRL/EOMI, Moist Mucous Membranes Respiratory: Lungs Clear, Normal Breath Sounds, No Accessory Muscle Use, No Respiratory Distress Cardiovascular: Regular Rate, Rhythm, No Murmur Gastrointestinal: soft, distended; No guarding, No rebound; tenderness (More tender in LLQ), other (Ostomy has pulled away from skin edges, midline with drainage and starting to open) Assessment/Plan Assessment/Plan Assessment/Plan S/p partial colon resection with colostomy Done at [facility] Abdominal abscess Abdominal tenderness Anemia Leukocytosis Hypokalemia Plan for OR today for abdominal washout with possible colon resection and colostomy revision. Discussed the procedure with pt and went over risks and complications not limited to pain, bleeding, infection, scar damage to bowel and need for further procedure. All questions answered to her satisfaction. I reviewed the images myself and that is why she got transferred over to [place], my assessment was the same as Radiologist. Supervisory-Addendum Brief Verification & Attestation Participated in pt care: history, MDM, physical Personally performed: exam, history, MDM, supervision of care Care discussed with: Medical Student Procedures: n/a Verification and Attestation of Medical Student E/M Service A medical student performed and documented this service. I then reviewed and verified all information documented by the medical student and made modifications to such information, when appropriate. I personally performed a physical exam, medical decision making and then discussed any differences between the notes and made revisions as necessary to create one note. Alejandro Dumont , 05/19/22 , 09:36 STERLING COOMBS May 19, 2022 08:39 ALEJANDRO DUMONT DO May 19, 2022 09:37
--- NOTE | 2022-05-19 09:13 | History & Physical-Hospitalist ---
LATONYA MCLEAN A MED STUDENT 05/19/22 0913: History of Present Illness HPI/Chief Complaint Samantha is a 81 yo female who was admitted yesterday 05/18 from [facility]. Pt has past medical hx of GERD, HTN, COPD, hypothyroidism and osteoarthritis. She was [place] [facility] [place] for abdominal pain and distention and reportedly had not had a BM in 3 weeks. At [facility] she had a decompressive colonoscopy and partial colon resection with colostomy. She continued to have abdominal pain and distention and was found to have an abscess and she was transferred to [facility]. General surgery is following and plans to do washout with possible colon resection today. Pt reports she has minimal pain this morning and is ready for surgery so she can begin to feel better. Source: patient, other ([facility] Records) Date Seen 05/19/22 Time Seen by a Provider: 08:35 Attending Physician Arie Whitmore DO PCP Admitting Physician: Aurea Camp DO Attending Physician: Aurea Camp DO Referring Physician Date of Admission May 18, 2022 at 20:05 Home Medications & Allergies Home Medications Reviewed patient Home Medication Reconciliation performed by pharmacy medication reconciliations natural resources technician and/or nursing. Patients Allergies have been reviewed. Allergies Allergies Coded Allergies meperidine (Verified Allergy, Unknown, 12/15/08) Past Bzuhixq-Rtqptz-Nasjlo Hx Patient Social History Tobacco Use?: No Substance use?: No Alcohol Use?: No Pt feels they are or have been: No Immunizations Up To Date Date of Influenza Vaccine: Aug 01, 2018 Tetanus Booster (TDap): Unknown Date of Pneumonia Vaccine: Aug 01, 2018 Seasonal Allergies Seasonal Allergies: Yes Current Status status: No Advance Directives: No Communicates: Verbally Primary Language: French Is interpretation needed?: No Implanted or Applied Medical D: Orthopedic hardware Past Medical History Surgeries: Appendectomy, Gallbladder, 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, Tonsillectomy, Tubal Ligation 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 Sexually Transmitted Disease: No UTI-Chronic Gastroesophageal Reflux, Diverticulosis, Hemorrhoids, Irritable Bowel Arthritis, Chronic Back Pain Hypothyroidsim Adverse Reaction/Blood Tranf: No Review of Systems Constitutional: No chills, No fever EENTM: hearing loss (chronic); No blurred vision Respiratory: No cough, No short of breath Cardiovascular: No chest pain, No palpitations Gastrointestinal: abdominal pain (LLQ), nausea; No vomiting Genitourinary: No dysuria, No frequency Musculoskeletal: No muscle pain, No muscle weakness Skin: No lesions, No lumps Psychiatric/Neurological: Denies Anxiety, Denies Depressed Physical Exam Physical Exam Vital Signs Vital Signs - First Documented 05/18/22 20:05 Temp 36.6 Pulse 104 Resp 18 B/P (MAP) 148/58 (88) Pulse Ox 98 O2 Delivery Room Air Capillary Refill : Height, Weight, BMI Height: 5'2.00" Weight: 160lbs. 0.0oz. [id number]; 33.62 BMI Method:Stated General Appearance: No Apparent Distress, WD/WN HEENT: PERRL/EOMI, Pharynx Normal Neck: Full Range of Motion, Non Tender Respiratory: Chest Non Tender, Lungs Clear, Normal Breath Sounds Cardiovascular: Regular Rate, Rhythm, No Murmur Gastrointestinal: Other (midline abdominal incision banaged, colostomy) Extremity: Non Tender, Pedal Edema (nonpitting edema) Neurologic/Psychiatric: Alert, Oriented x3, Normal Mood/Affect Skin: Normal Color, Warm/Dry Lymphatic: No Adenopathy Results Results/Procedures Labs Laboratory Tests 05/19/22 05:40 Patient resulted labs reviewed. Assessment/Plan Admission Diagnosis Abdominal abscess Assessment and Plan S/p partial colon resection with colostomy -Done at [facility] Abdominal abscess -Flagyl and Zosyn -Cardiology consulted, plan to do washout and possible resection today -NaCl at 125 mls/hr -Pain control Acute blood loss anemia -Likely secondary to surgical blood loss -Will continue to monitor with daily labs Hypokalemia -K+ protocol Diet: NPO DVT prophylaxis: SCDs Disposition: Likely to stay 1-2 more days post surgery to monitor oral intake and BMs. Clinical Quality Measures DVT/VTE Risk/Contraindication: Contraindications-Pharm: Other *list below* Other: OR AUREA CMAP DO 05/19/222043: History of Present Illness HPI/Chief Complaint Patient well-known to me from prior 1 week at [facility] following colon resection with diverting colostomy Source: patient Exam Limitations: no limitations Past Ijolktr-Bdufop-Czutlk Hx Patient Social History Marrital Status: single Employed/Student: retired Physical Exam Physical Exam General Appearance: No Apparent Distress, Chronically ill Respiratory: Lungs Clear, Normal Breath Sounds Cardiovascular: Regular Rate, Rhythm Neurologic/Psychiatric: Alert, Oriented x3, No Motor/Sensory Deficits, Normal Mood/Affect Assessment/Plan Admission Diagnosis Washout abscess today Supportive care IV antibiotics Pain control Admission Status: Inpatient Order (span 2 midnights) Reason for Inpatient Admission: Abdominal abscess Supervisory-Addendum Brief Verification & Attestation Participated in pt care: history, MDM, physical Personally performed: exam, history, MDM, supervision of care Care discussed with: Medical Student Procedures: n/a Results interpretation: Verified all documentation Verification and Attestation of Medical Student E/M Service A medical student performed and documented this service in my presence. I reviewed and verified all information documented by the medical student and made modifications to such information, when appropriate. I personally performed the physical exam and medical decision making. Aurea Camp, May 19, 2022,20:44 LATONYA MCLEAN MED STUDENT May 19, 2022 09:13 AUREA CAMP DO May 19, 2022 20:44
[2022-05-19] MEDS: DOCUSATE SODIUM 100 MG (COLACE) CAP PO SCH ×2 (09:17→21:05)
[2022-05-19] MEDS: NS IV 1000 ML 1,000 ML IV SCH ×4 (09:17→21:21)
[2022-05-19] MEDS: SENNOSIDES 8.6 MG (SENOKOT) TAB PO SCH ×2 (09:17→21:05)
[2022-05-19] MEDS ORDERED: LIDOCAINE/EPI 2% 1:200,00 (XYLOCAINE) 20 ML VIAL ONE (09:34)
[2022-05-19] MEDS: metroNIDAZOLE 500MG/100ML IVPB 100 ML IV SCH ×2 (09:36→21:20)
[2022-05-19] MEDS ORDERED: LIDOCAINE PF 2% 5 ML (XYLOCAINE) VIAL ONE (09:58)
[2022-05-19] MEDS ORDERED: ROCURONIUM 50 MG/5 ML (ZEMURON) VIAL IV ONE (09:58)
[2022-05-19] MEDS ORDERED: SEVOFLURANE (ULTANE) 15 ML INHAL SOLN ONE ×2 (09:58→12:17)
[2022-05-19] MEDS ORDERED: fentaNYL INJ 100 MCG/2 ML AMP ONE ×2 (09:58→12:44)
[2022-05-19] MEDS ORDERED: proPOfol 200 MG/20 ML (DIPRIVAN) VIAL IV ONE (09:58)
[2022-05-19] MEDS ORDERED: ONDANSETRON 4 MG/2 ML (SDV) Z0FRAN ONE (09:58)
[2022-05-19] MEDS ORDERED: MIDAZOLAM 2 MG/2 ML (VERSED) VIAL ONE (09:58)
[2022-05-19] MEDS ORDERED: RT-ALBUTEROL SULF 2.5 MG/3 ML PRE-MIX VIAL INH ONE (10:00)
[2022-05-19] MEDS: LACTATED RINGERS 1,000 ML IV PRN ×2 (10:07→11:02)
[2022-05-19 10:55] LABS: CLARITY,URINE TURBID; COLOR,URINE BROWN; GLUCOSE, URINE (UA) NEGATIVE (NEGATIVE); KETONES,URINE 3+ (NEGATIVE); LEUKOCYTE ESTERASE ,URINE 3+ (NEGATIVE); NITRITE,URINE POSITIVE (NEGATIVE); PH,URINE 6.5 (5-9); PROTEIN,URINE 1+ (NEGATIVE)
[2022-05-19] MEDS ORDERED: RT-ALBUTEROL/IPRATROPIUM 3 ML (DUONEB) VIAL INH PRN (11:00)
[2022-05-19 11:08] LABS: AMORPHOUS SEDIMENT,UR LARGE AMOR URATES /LPF; BACTERIA,URINE LARGE /HPF; BILIRUBIN,URINE 3+ (NEGATIVE)
[2022-05-19] MEDS ORDERED: ROPIVACAINE 5MG/ML 30ML VIAL ONE (11:11)
[2022-05-19] MEDS ORDERED: NEOSTIGMINE (BLOXIVERZ ) 1 MG/1ML 10 ML VIAL ONE (12:18)
[2022-05-19] MEDS ORDERED: GLYCOPYRROLATE 0.2 MG/ML (ROBINUL) 2 ML VIAL ONE (12:18)
[2022-05-19] MEDS ORDERED: fentaNYL INJ 100 MCG/2 ML AMP IVP ONE (12:45)
[2022-05-19] MEDS ORDERED: PROMETHAZINE INJ 25 MG/ML (PHENERGAN) AMP IVP ONE (12:45)
[2022-05-19] MEDS ORDERED: ONDANSETRON 4 MG/2 ML (SDV) Z0FRAN IVP PRN (12:45)
--- NOTE | 2022-05-19 12:45 | Anesthesia-General Post-Op ---
General Patient Condition Mental Status/LOC: Same as Preop Cardiovascular: Satisfactory Nausea/Vomiting: Absent Respiratory: Satisfactory Pain: Controlled Complications: Absent Post Op Complications Complications None Follow Up Care/Instructions Patient Instructions None needed. Anesthesia/Patient Condition Patient Condition Patient is doing well, no complaints, stable vital signs, no apparent adverse anesthesia problems. No complications reported per nursing. JESSICA FARMER CRNA May 19, 2022 12:45
[2022-05-19] MEDS ORDERED: HYDROmorphone 2 MG/ML VIAL (DILAUDID) ONE (13:06)
[2022-05-19] MEDS ORDERED: HYDROmorphone 2 MG/ML VIAL (DILAUDID) IV ONE (13:15)
[2022-05-19] MEDS ORDERED: ASPI-1238 PO (15:24)
[2022-05-19] MEDS ORDERED: MELO7.5T46 PO (15:24)
[2022-05-19] MEDS ORDERED: LEVO100T7 PO (15:24)
[2022-05-19] MEDS ORDERED: MAGN400T39 PO (15:24)
[2022-05-19] MEDS ORDERED: TIOT4MIS2 IH (15:24)
[2022-05-19] MEDS ORDERED: SUCR1TAB36 PO (15:24)
[2022-05-19] MEDS ORDERED: CETI-458 PO (15:24)
[2022-05-19] MEDS ORDERED: TRIA10.8 NSEACH (15:24)
[2022-05-19] MEDS ORDERED: ASCO-262 PO (15:24)
[2022-05-19] MEDS ORDERED: CALC600T91 PO (15:24)
[2022-05-19] MEDS ORDERED: PANT40TA52 PO (15:24)
[2022-05-19] MEDS ORDERED: ATEN25TA PO (15:25)
--- NOTE | 2022-05-19 17:06 | OPERATIVE REPORT ---
DATE OF SERVICE: 05/19/2022 PREOPERATIVE DIAGNOSES: Abdominal abscess, possible UTI. POSTOPERATIVE DIAGNOSES: Abdominal abscess, cecal perforation, ischemic colostomy, and fascial dehiscence. PROCEDURES PERFORMED: 1. Partial colon resection, cecectomy. 2. Abdominal washout with drain placement. 3. Colostomy revision with partial colon resection. 4. Placement of abdominal wound VAC 23 cm long x 4 cm wide. SURGEON: Sofia Coulter DO SHIPFITTER: John Clifford DO. ANESTHESIA: General endotracheal tube. SPECIMEN: 1. Portion of cecum. 2. Portion of colostomy. 3. Urine sent for urinalysis. BLOOD LOSS: Less than 20 mL. FLUIDS: Per anesthesia. POSTOPERATIVE CONDITION: Stable. INDICATION FOR PROCEDURE: The patient is a 81-year-old female, who had a colon obstruction and had a colon resection with end colostomy at [facility], had gotten better on day #1, but then slowly got a little bit worse and then just never really progressed. CT initially showed a little bit of fluid in the pelvis. Repeat yesterday showed increased fluid and possibly contrast and abscess in the pelvis. She had always had some drainage from the midline of the incision and her colostomy had pulled away from the skin edges. FINDINGS: The patient had a colon perforation. She had a large abscess with stool in the pelvis and she had a colostomy that had pulled way. PROCEDURE NOTE: After informed consent was obtained, the patient was brought to the operating room and placed on the operating table in a supine position. She was sterilely prepped and draped in a normal fashion. The bartolo were removed from the skin. The skin was opened and we could see that there was a fascial dehiscence. The suture had torn right through the fascia. The previous PDS was removed. We then got into the abdomen and carefully moved the intestine out of the way and get down into the pelvis, got a little bit of purulent fluid and then down in the pelvis, we found basim fecal material and then we saw a hole in the cecum, able to clamp this with a [place] and then carefully finger fracture and pulled the cecum up out of the way as well as pulled the rest of the intestine out of the way. I then proceeded to get all of the fecal material out of the pelvis, copiously irrigated with about 7 liters of warm normal saline to wash this out. There was no fecal material anywhere in the upper abdomen. The urine had looked a little bit brown. We looked in the bladder in the peritoneal side and I could feel the balloon, I did not feel any holes. At this point, once we had gotten everything out of the pelvis, I then placed two gelfoams in the pelvis and then the Surgicel up under the cecum. We cut the distal portion of the cecum off with a TA, clamped, held for 30 seconds, fired and then cut this portion off, passed this off the table, this portion of the colon looked good. The rest of the intestine looked okay, let it fall back into the abdomen and at this point, then I also checked on the descending colon. We had good length, pulled this up a little bit more into the colostomy. At this point, we then closed the fascia. It was very ratty and weak, closed with a #1 double stranded PDS suture, one from the superior portion, one from the inferior portion running together very lightly and then tying to itself, closed the fascia very lightly with PDS and then placed a sponge in this opening. We went over to the colostomy, cut the rest of the sutures off, pulled up the colon a little bit more plenty of length, elected to cut the distal portion of the colostomy off, cut this off and then recreated the colostomy suturing at the 3, 9, and 12 o'clock position, a [place] type [place], sutured at the distal portion of the intestine and then along the intestine and then on the skin, the point at 6 o'clock was a little bit too firm, could not this portion of it. This was then sutured to the skin and then sutured in between with two to three simple sutures to mature this colostomy. I used 3-0 Vicryl popoff to do this. Once this was done, I covered this and then placed a wound VAC in the midline, black sponge and then protect the edges with adhesive within the adhesive barrier and then put over the top and put another adhesive barrier over the sponge and then hooked this up to suction nicely and then applied a colostomy device. The patient tolerated the procedure. Sponge and needle counts were correct at the end of the case. Dr. Clifford assisted in this case helping to make incisions, close incisions, identify anatomy, and help with the wound VAC. Job ID: [id number] DocumentID: [id number] Dictated Date: 05/19/2022 12:24:21 Ultrasonographer Date: 05/19/2022 17:05:01 Dictated By: SOFIA COULTER DO
[2022-05-19] MEDS: ALPRAZolam 0.25 MG (XANAX) TAB PO PRN (18:10)
[2022-05-19] MEDS: RT-ALBUTEROL/IPRATROPIUM 3 ML (DUONEB) VIAL INH SCH (21:06)
[2022-05-20] VITALS (7 sets, daily range): BP systolic 106–137; BP diastolic 58–88
[2022-05-20] MEDS: PIPERACILLIN SODIUM/TAZOBACTAM 4.5 GM in NS (IVPB) 100 ML IV SCH ×3 (05:09→22:22)
[2022-05-20] MEDS: HYDROmorphone 2 MG/ML VIAL (DILAUDID) IVP PRN ×3 (05:17→14:27)
[2022-05-20 05:54] LABS: BASOPHILS # (AUTO) 0.1 10^3/uL (0.0-0.1); BASOPHILS % (AUTO) 0 % (0-10); EOSINOPHILS % (AUTO) 0 % (0-10); HEMATOCRIT 25 % (35-52); HEMOGLOBIN 8.4 g/dL (11.5-16.0); LYMPHOCYTES # (AUTO) 1.3 10^3/uL (1.0-4.0); LYMPHOCYTES % (AUTO) 6 % (12-44); MEAN CORPUSCULAR HEMOGLOBIN 30 pg (25-34); MEAN CORPUSCULAR HGB CONC 33 g/dL (32-36); MEAN CORPUSCULAR VOLUME 89 fL (80-99); MEAN PLATELET VOLUME 9.1 fL (9.0-12.2); MONOCYTES # (AUTO) 0.8 10^3/uL (0.0-1.0); MONOCYTES % (AUTO) 3 % (0-12); NEUTROPHILS # (AUTO) 21.1 10^3/uL (1.8-7.8); NEUTROPHILS % (AUTO) 90 % (42-75); PLATELET COUNT 665 10^3/uL (130-400); WHITE BLOOD COUNT 23.5 10^3/uL (4.3-11.0)
[2022-05-20 06:03] LABS: ALBUMIN 2.1 GM/DL (3.2-4.5); POTASSIUM 3.2 MMOL/L (3.6-5.0)
--- NOTE | 2022-05-20 06:03 | Progress Note - Hospitalist ---
Subjective HPI/CC On Admission Date Seen by Provider: May 20, 2022 Time Seen by Provider: 06:00 Patient well-known to me from prior 1 week at [facility] following colon resection with diverting colostomy Subjective/Events-last exam Patient doing well postop Labs reviewed Pain better controlled on fentanyl so we will discontinue Dilaudid Minimal nausea Review of Systems Gastrointestinal: Nausea, Abdominal Pain Objective Exam Vital Signs Vital Signs Date Time Temp Pulse Resp B/P (MAP) Pulse Ox O2 Delivery O2 Flow Rate FiO2 05/20/22 18:38 98 Nasal Cannula 0.00 05/20/22 15:38 37.0 103 20 130/77 (94) 05/19/22 10:29 21 Capillary Refill : Less Than 3 Seconds General Appearance: No Apparent Distress, WD/WN, Chronically ill Respiratory: Lungs Clear, Normal Breath Sounds Cardiovascular: Regular Rate, Rhythm Neurologic/Psychiatric: Alert, Oriented x3, No Motor/Sensory Deficits, Normal Mood/Affect Results/Procedures Lab Laboratory Tests 05/20/22 05:19 Patient resulted labs reviewed. Assessment/Plan Assessment and Plan Assess & Plan/Chief Complaint Assessment: S/p partial colon resection with colostomy -Done at [facility] Abdominal abscess -Flagyl and Zosyn -Cardiology consulted, s/p washout and resection yesterday -NaCl at 125 mls/hr -Pain control Acute blood loss anemia -Likely secondary to surgical blood loss -Will continue to monitor with daily labs Hypokalemia -K+ protocol Plan: Supportive care Fentanyl for pain Clinical Quality Measures DVT/VTE Risk/Contraindication: Contraindications-Pharm: Other *list below* Other: OR MIKEY CAMP DO May 20, 2022 06:03
[2022-05-20 06:05] LABS: CALCIUM 7.6 MG/DL (8.5-10.1)
[2022-05-20 06:06] LABS: TOTAL PROTEIN 4.6 GM/DL (6.4-8.2)
[2022-05-20 06:08] LABS: BILIRUBIN,TOTAL 0.4 MG/DL (0.1-1.0)
[2022-05-20 06:09] LABS: CREATININE SERUM 0.76 MG/DL (0.60-1.30)
[2022-05-20] MEDS ORDERED: fentaNYL INJ 100 MCG/2 ML AMP IVP PRN (06:15)
[2022-05-20] MEDS: RT-ALBUTEROL/IPRATROPIUM 3 ML (DUONEB) VIAL INH SCH ×2 (06:35→18:37)
[2022-05-20] MEDS: SENNOSIDES 8.6 MG (SENOKOT) TAB PO SCH ×2 (08:13→19:50)
[2022-05-20] MEDS: DOCUSATE SODIUM 100 MG (COLACE) CAP PO SCH ×2 (08:13→19:50)
[2022-05-20] MEDS: NS IV 1000 ML 1,000 ML IV SCH ×2 (08:30→18:46)
[2022-05-20] MEDS: metroNIDAZOLE 500MG/100ML IVPB 100 ML IV SCH ×2 (09:12→21:19)
--- NOTE | 2022-05-20 12:12 | Progress Note - Surgery ---
Subjective Date Seen by a Provider: May 20, 2022 Time Seen by a Provider: 11:28 Subjective/Events-last exam Patient not having any bowel function yet. She is having little bit of nausea. Her pain is not quite controlled. It was earlier but then she tried taking some pain pills which did not seem to cover it. Patient white blood cell count increased. Her ostomy has normal appearance slightly edematous. Wound VAC in place. GILBERT drain as well. Objective Exam Vital Signs Date Time Temp Pulse Resp B/P (MAP) Pulse Ox O2 Delivery O2 Flow Rate FiO2 05/20/22 11:42 37.6 104 22 123/59 (80) 96 Room Air 05/20/22 08:38 37.2 105 18 137/70 (92) 97 Room Air 05/20/22 08:00 Room Air 05/20/22 06:35 98 Nasal Cannula 2.00 05/20/22 03:38 36.7 101 18 127/58 (81) 97 Room Air 05/19/22 23:45 37.2 103 18 107/61 (76) 98 Room Air 05/19/22 21:06 96 Nasal Cannula 2.00 05/19/22 20:54 37.9 104 18 134/77 (96) 98 Nasal Cannula 2.00 05/19/22 20:50 Room Air 05/19/22 16:11 36.5 101 18 147/77 (100) 97 Nasal Cannula 2.00 05/19/22 14:22 36.2 94 18 139/74 (95) 96 Room Air 05/19/22 13:55 Nasal Cannula 3.00 05/19/22 13:55 36.5 20 136/76 (96) 100 Nasal Cannula 3.00 05/19/22 13:45 Nasal Cannula 3.00 05/19/22 13:40 20 134/76 (95) 100 Nasal Cannula 3.00 05/19/22 13:30 Nasal Cannula 3.00 05/19/22 13:30 20 136/70 (92) 100 Nasal Cannula 3.00 05/19/22 13:20 20 146/78 (100) 100 Nasal Cannula 3.00 05/19/22 13:15 OxyMask 3.00 05/19/22 13:10 20 143/77 (99) 96 OxyMask 4.00 05/19/22 13:00 20 143/77 (99) 100 OxyMask 4.00 05/19/22 13:00 OxyMask 4.00 05/19/22 12:50 20 136/75 (95) 100 OxyMask 6.00 05/19/22 12:45 OxyMask 6.00 05/19/22 12:40 20 122/70 (87) 100 OxyMask 6.00 05/19/22 12:37 36.1 20 127/67 (87) 100 OxyMask 6.00 05/19/22 12:37 OxyMask 6.00 I & O 05/20/22 07:00 Intake Total 2200 ml Output Total 1505 ml Balance 695 ml Capillary Refill : Less Than 3 Seconds General Appearance: No Apparent Distress, Chronically ill HEENT: PERRL/EOMI, Moist Mucous Membranes Neck: Full Range of Motion, Non Tender Respiratory: Chest Non Tender, Normal Breath Sounds Cardiovascular: Regular Rate, Rhythm, No JVD Peripheral Pulses: 2+ Radial Pulses (R), 2+ Radial Pulses (L) Gastrointestinal: soft, distended; No guarding, No rebound; tenderness (More tender in LLQ), other (Slightly edematous ostomy pink no output) Extremity: Non Tender, Pedal Edema (nonpitting edema) Neurologic/Psychiatric: Alert, Oriented x3, No Motor/Sensory Deficits, Normal Mood/Affect Skin: Normal Color, Warm/Dry Lymphatic: No Adenopathy Results Lab Laboratory Tests 05/20/22 05:19: White Blood Count 23.5H, Red Blood Count 2.82L, Hemoglobin 8.4L, Hematocrit 25L, Mean Corpuscular Volume 89, Mean Corpuscular Hemoglobin 30, Mean Corpuscular Hemoglobin Concent 33, Red Cell Distribution Width 15.2H, Platelet Count 665H, Mean Platelet Volume 9.1, Immature Granulocyte % (Auto) 1, Neutrophils (%) (Auto) 90H, Lymphocytes (%) (Auto) 6L, Monocytes (%) (Auto) 3, Eosinophils (%) (Auto) 0, Basophils (%) (Auto) 0, Neutrophils # (Auto) 21.1H, Lymphocytes # (Auto) 1.3, Monocytes # (Auto) 0.8, Eosinophils # (Auto) 0.0, Basophils # (Auto) 0.1, Immature Granulocyte # (Auto) 0.2H, Sodium Level 138, Potassium Level 3.2L, Chloride Level 107, Carbon Dioxide Level 18L, Anion Gap 13, Blood Urea Nitrogen 5L, Creatinine 0.76, Estimat Glomerular Filtration Rate 80, BUN/Creatinine Ratio 7, Glucose Level 88, Calcium Level 7.6L, Corrected Calcium 9.1, Total Bilirubin 0.4, Aspartate Amino Transf (AST/SGOT) 14, Alanine Aminotransferase (ALT/SGPT) 6, Alkaline Phosphatase 91, Total Protein 4.6L, Albumin 2.1L Assessment/Plan Assessment/Plan Assessment/Plan S/p partial colon resection with colostomy Done at [facility] Abdominal abscess Abdominal tenderness Anemia Leukocytosis Hypokalemia Status post exploratory laparotomy with partial cecectomy revision of colostomy drainage of intra-abdominal abscess with drain placement and wound VAC placement. Patient pain" controlled. Adjust her pain medications. Patient NPO. IV fluids. Continue antibiotics. Await output from colostomy. Wound VAC management. Clinical Quality Measures DVT/VTE Risk/Contraindication: Contraindications-Pharm: Other *list below* Other: OR MONICA COYLE DO May 20, 2022 12:12
[2022-05-20] MEDS ORDERED: ATENOLOL 25 MG (TENORMIN) TAB ONE (21:03)
[2022-05-20] MEDS: ATENOLOL 25 MG (TENORMIN) TAB PO SCH (21:04)
[2022-05-21] MEDS: NS IV 1000 ML 1,000 ML IV SCH ×3 (01:17→23:13)
[2022-05-21 03:36] VITALS: BP 125/64
[2022-05-21] MEDS: ALPRAZolam 0.25 MG (XANAX) TAB PO PRN (03:42)
[2022-05-21] MEDS: PIPERACILLIN SODIUM/TAZOBACTAM 4.5 GM in NS (IVPB) 100 ML IV SCH ×3 (05:28→22:20)
[2022-05-21 05:58] LABS: BASOPHILS % (AUTO) 0 % (0-10); EOSINOPHILS % (AUTO) 0 % (0-10); HEMATOCRIT 25 % (35-52); LYMPHOCYTES # (AUTO) 1.1 10^3/uL (1.0-4.0); LYMPHOCYTES % (AUTO) 7 % (12-44); MEAN CORPUSCULAR HEMOGLOBIN 29 pg (25-34); MEAN CORPUSCULAR HGB CONC 33 g/dL (32-36); MEAN CORPUSCULAR VOLUME 90 fL (80-99); MEAN PLATELET VOLUME 8.9 fL (9.0-12.2); MONOCYTES # (AUTO) 0.7 10^3/uL (0.0-1.0); MONOCYTES % (AUTO) 4 % (0-12); NEUTROPHILS # (AUTO) 14.3 10^3/uL (1.8-7.8); NEUTROPHILS % (AUTO) 88 % (42-75); PLATELET COUNT 711 10^3/uL (130-400); WHITE BLOOD COUNT 16.3 10^3/uL (4.3-11.0)
--- NOTE | 2022-05-21 06:09 | Progress Note - Hospitalist ---
Subjective HPI/CC On Admission Date Seen by Provider: May 21, 2022 Time Seen by Provider: 06:00 Patient well-known to me from prior 1 week at [facility] following colon resection with diverting colostomy Subjective/Events-last exam Patient doing a lot better Oxycodone does not help with the pain much Start long-acting narcotic Restarted all meds yesterday Review of Systems General: Fatigue, Malaise Gastrointestinal: Abdominal Pain Objective Exam Vital Signs Vital Signs Date Time Temp Pulse Resp B/P (MAP) Pulse Ox O2 Delivery O2 Flow Rate FiO2 05/21/22 19:12 37.2 90 20 126/68 (87) 96 Room Air 05/21/22 18:13 0.00 05/19/22 10:29 21 Capillary Refill : Less Than 3 Seconds General Appearance: No Apparent Distress, WD/WN, Chronically ill Respiratory: Lungs Clear, Normal Breath Sounds Cardiovascular: Regular Rate, Rhythm Neurologic/Psychiatric: Alert, Oriented x3, No Motor/Sensory Deficits, Normal Mood/Affect Results/Procedures Lab Laboratory Tests 05/21/22 05:33 Patient resulted labs reviewed. Assessment/Plan Assessment and Plan Assess & Plan/Chief Complaint Assessment: S/p partial colon resection with colostomy -Done at [facility] Abdominal abscess -Flagyl and Zosyn -Cardiology consulted, s/p washout and resection yesterday -NaCl at 125 mls/hr -Pain control Acute blood loss anemia -Likely secondary to surgical blood loss -Will continue to monitor with daily labs Hypokalemia -K+ protocol Plan: Supportive care Fentanyl for pain Long-acting oxycodone with rapid acting for breakthrough Clinical Quality Measures DVT/VTE Risk/Contraindication: Contraindications-Pharm: Other *list below* Other: OR MIKEY CAMP DO May 21, 2022 06:09
[2022-05-21 06:16] LABS: ALBUMIN 2.1 GM/DL (3.2-4.5); POTASSIUM 2.9 MMOL/L (3.6-5.0)
[2022-05-21 06:18] LABS: CALCIUM 7.5 MG/DL (8.5-10.1)
[2022-05-21 06:19] LABS: TOTAL PROTEIN 4.8 GM/DL (6.4-8.2)
[2022-05-21 06:21] LABS: BILIRUBIN,TOTAL 0.4 MG/DL (0.1-1.0)
[2022-05-21 06:22] LABS: CREATININE SERUM 0.7 MG/DL (0.60-1.30)
[2022-05-21] MEDS: CALCIUM CARBONATE 500 MG (TUMS) TAB.CHEW PO PRN ×4 (06:55→17:25)
[2022-05-21] MEDS: SENNOSIDES 8.6 MG (SENOKOT) TAB PO SCH ×2 (08:08→20:06)
[2022-05-21] MEDS: oxyCODONE ER 10 MG (OxyCONTIN CR) TAB PO SCH ×2 (08:08→20:06)
[2022-05-21] MEDS: ATENOLOL 25 MG (TENORMIN) TAB PO SCH (08:08)
[2022-05-21] MEDS: DOCUSATE SODIUM 100 MG (COLACE) CAP PO SCH ×2 (08:08→20:06)
[2022-05-21] MEDS: LEVOTHYROXINE 100 MCG (LEVOTHROID) TAB PO SCH (08:08)
[2022-05-21 08:17] VITALS: BP 135/69
[2022-05-21] MEDS: metroNIDAZOLE 500MG/100ML IVPB 100 ML IV SCH ×2 (10:14→21:22)
[2022-05-21] MEDS: UMECLIDINIUM BROMIDE (INCRUSE ELLIPTA) 7'S IH SCH (11:06)
[2022-05-21] MEDS: RT-ALBUTEROL/IPRATROPIUM 3 ML (DUONEB) VIAL INH SCH ×2 (11:07→18:12)
[2022-05-21 12:53] VITALS: BP 120/78
[2022-05-21 15:36] VITALS: BP 126/77
[2022-05-21 19:12] VITALS: BP 126/68
--- NOTE | 2022-05-21 22:02 | Progress Note - Surgery ---
Subjective Date Seen by a Provider: May 21, 2022 Time Seen by a Provider: 11:44 Subjective/Events-last exam Patient feeling a littl better today. Sitting in chair. No colostomy output yet. Pain slightly better controlled today. Denies n/v fever sweats chills shortness of breath or chest pain. NPO carloen tlgraciela. Objective Exam Vital Signs Date Time Temp Pulse Resp B/P (MAP) Pulse Ox O2 Delivery O2 Flow Rate FiO2 05/21/22 20:05 Room Air 05/21/22 19:12 37.2 90 20 126/68 (87) 96 Room Air 05/21/22 18:13 97 Nasal Cannula 0.00 05/21/22 15:36 36.9 84 18 126/77 (93) 97 Room Air 05/21/22 12:53 36.9 92 19 120/78 (92) 95 Room Air 05/21/22 08:17 36.8 90 20 135/69 (91) 96 Room Air 05/21/22 08:00 Room Air 05/21/22 03:36 37.0 94 18 125/64 (84) 95 Room Air 05/20/22 23:30 36.8 99 18 128/88 (101) 95 Room Air I & O 05/21/22 07:00 Output Total 1085 ml Balance -1085 ml Capillary Refill : Less Than 3 Seconds General Appearance: No Apparent Distress, WD/WN, Chronically ill HEENT: PERRL/EOMI, Moist Mucous Membranes Neck: Full Range of Motion, Non Tender Respiratory: Chest Non Tender, No Accessory Muscle Use, No Respiratory Distress Cardiovascular: Regular Rate, Rhythm, No JVD Peripheral Pulses: 2+ Radial Pulses (R), 2+ Radial Pulses (L) Gastrointestinal: non tender, soft, distended; No guarding, No rebound; tenderness (More tender midline, wound vac at midline, marcy drain slgihtly brownish/serous fluid), other (Slightly edematous ostomy pink no output) Extremity: Non Tender, Pedal Edema (nonpitting edema) Neurologic/Psychiatric: Alert, Oriented x3, No Motor/Sensory Deficits, Normal Mood/Affect Skin: Normal Color, Warm/Dry Lymphatic: No Adenopathy Results Lab Laboratory Tests 05/21/22 05:33: White Blood Count 16.3H, Red Blood Count 2.75L, Hemoglobin 8.0L, Hematocrit 25L, Mean Corpuscular Volume 90, Mean Corpuscular Hemoglobin 29, Mean Corpuscular Hemoglobin Concent 33, Red Cell Distribution Width 15.4H, Platelet Count 711H, Mean Platelet Volume 8.9L, Immature Granulocyte % (Auto) 1, Neutrophils (%) (Auto) 88H, Lymphocytes (%) (Auto) 7L, Monocytes (%) (Auto) 4, Eosinophils (%) (Auto) 0, Basophils (%) (Auto) 0, Neutrophils # (Auto) 14.3H, Lymphocytes # (Auto) 1.1, Monocytes # (Auto) 0.7, Eosinophils # (Auto) 0.0, Basophils # (Auto) 0.0, Immature Granulocyte # (Auto) 0.1, Sodium Level 139, Potassium Level 2.9L, Chloride Level 107, Carbon Dioxide Level 19L, Anion Gap 13, Blood Urea Nitrogen 6L, Creatinine 0.70, Estimat Glomerular Filtration Rate 88, BUN/Creatinine Ratio 9, Glucose Level 81, Calcium Level 7.5L, Corrected Calcium 9.0, Total Bilirubin 0.4, Aspartate Amino Transf (AST/SGOT) 13, Alanine Aminotransferase (ALT/SGPT) 6, Alkaline Phosphatase 94, Total Protein 4.8L, Albumin 2.1L Microbiology 05/19/22 Urine Culture - Preliminary, Resulted YEAST Escherichia coli Enterococcus faecalis 05/19/22 MRSA Screen - Final, Complete Assessment/Plan Assessment/Plan Assessment/Plan S/p partial colon resection with colostomy Done at [facility] Abdominal abscess Abdominal tenderness Anemia Leukocytosis Hypokalemia Status post exploratory laparotomy with partial cecectomy revision of colostomy drainage of intra-abdominal abscess with drain placement and wound VAC placement. Patient NPO. IV fluids. Continue antibiotics. Await output from colostomy. Encourage IS Ambulate Wound VAC management. Clinical Quality Measures DVT/VTE Risk/Contraindication: Contraindications-Pharm: Other *list below* Other: OR MONICA COYLE DO May 21, 2022 22:02
[2022-05-22] VITALS (7 sets, daily range): BP systolic 127–159; BP diastolic 63–76
[2022-05-22] MEDS: NS IV 1000 ML 1,000 ML IV SCH ×4 (03:36→22:21)
[2022-05-22 05:57] LABS: BASOPHILS % (AUTO) 0 % (0-10); EOSINOPHILS # (AUTO) 0.1 10^3/uL (0.0-0.3); EOSINOPHILS % (AUTO) 1 % (0-10); HEMATOCRIT 24 % (35-52); HEMOGLOBIN 7.7 g/dL (11.5-16.0); LYMPHOCYTES # (AUTO) 1.1 10^3/uL (1.0-4.0); LYMPHOCYTES % (AUTO) 10 % (12-44); MEAN CORPUSCULAR HEMOGLOBIN 29 pg (25-34); MEAN CORPUSCULAR HGB CONC 33 g/dL (32-36); MEAN CORPUSCULAR VOLUME 89 fL (80-99); MONOCYTES # (AUTO) 0.7 10^3/uL (0.0-1.0); MONOCYTES % (AUTO) 6 % (0-12); NEUTROPHILS # (AUTO) 9.7 10^3/uL (1.8-7.8); NEUTROPHILS % (AUTO) 83 % (42-75); PLATELET COUNT 702 10^3/uL (130-400); WHITE BLOOD COUNT 11.7 10^3/uL (4.3-11.0)
[2022-05-22] MEDS: LEVOTHYROXINE 100 MCG (LEVOTHROID) TAB PO SCH (06:12)
[2022-05-22] MEDS: CALCIUM CARBONATE 500 MG (TUMS) TAB.CHEW PO PRN ×3 (06:12→20:38)
[2022-05-22] MEDS: PIPERACILLIN SODIUM/TAZOBACTAM 4.5 GM in NS (IVPB) 100 ML IV SCH ×3 (06:13→21:39)
[2022-05-22 06:39] LABS: ALBUMIN 2.2 GM/DL (3.2-4.5); BILIRUBIN,TOTAL 0.3 MG/DL (0.1-1.0); CREATININE SERUM 0.64 MG/DL (0.60-1.30); POTASSIUM 2.9 MMOL/L (3.6-5.0)
[2022-05-22] MEDS: RT-ALBUTEROL/IPRATROPIUM 3 ML (DUONEB) VIAL INH SCH ×2 (08:00→21:18)
[2022-05-22] MEDS: oxyCODONE ER 10 MG (OxyCONTIN CR) TAB PO SCH ×2 (08:35→19:33)
[2022-05-22] MEDS: DOCUSATE SODIUM 100 MG (COLACE) CAP PO SCH ×2 (08:35→19:32)
[2022-05-22] MEDS: SENNOSIDES 8.6 MG (SENOKOT) TAB PO SCH ×2 (08:35→19:32)
[2022-05-22] MEDS: metroNIDAZOLE 500MG/100ML IVPB 100 ML IV SCH ×3 (08:35→22:44)
[2022-05-22] MEDS: ATENOLOL 25 MG (TENORMIN) TAB PO SCH (08:35)
--- NOTE | 2022-05-22 09:13 | Physical Therapy Evaluation ---
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 9-Eaoyzmfwgx-wbrbdto completes the activity by him/herself with no assistance from a helper. 5-Set-up or Clean-up Assistance-helper sets up or cleans up; patient completes activity. Virgie assists only prior to or following the activity. 4-Supervision or Touching Assistance-helper provides verbal cues and/or touching/steadying and/or contact guard assistance as patient completes activity. Assistance may be provided throughout the activity or intermittently. 3-Partial/Moderate Assistance-helper does LESS THAN HALF the effort. Virgie lifts, holds or supports trunk or limbs, but provides less than half the effort. 2-Substantial/Maximal Assistance-helper does MORE THAN HALF the effort. Virgie lifts or holds trunk or limbs and provides more than half the effort. 1-Prjmaguqw-enmbdc does ALL the effort. Patient does none of the effort to complete the activity. Or, the assistance of 2 or more helpers is required for the patient to complete the activity. If activity was not attempted, code reason: 7-Patient Refused. 9-Not Applicable-not attempted and the patient did not perform the activity before the current illness, exacerbation or injury. 10-Not Attempted due to Environmental Limitations-(lack of equipment, weather restraints, etc.). 88-Not Attempted due to Medical Conditions or Safety Concerns. Bed Mobility: 6 Transfers (B,C,W/C): 6 Gait: 6 Stairs: 6 Indoor Mobility (Ambulation): Independent Stairs: Independent Prior Devices Use: Walker PT Evaluation-Current Subjective Patient in recliner pre tx, agrees to PT, has 5/10 pain in abdomen Pt/Family Goals to be independent at home Objective Patient Orientation: Person, Place, Mumbles Attachments: Colostomy/Ileostomy, Hunter Catheter, IV wound vac ROM/Strength ROM Lower Extremities WNL Strength Lower Extremities unable to test due to pain Sensory Hearing: Functional Sensation Right Lower Extremit: Intact Sensation Left Lower Extremity: Intact Transfers Patient is able to scoot to the edge of the recliner and stand with CGA but needs assist of 2 to scoot back into the recliner Balance Sitting Static: Fair Sitting Dynamic: Fair Standing Static: Fair Standing Dynamic: Fair Treatment sanding heel raises x10 Assessment/Needs Patient gets SOB easily, needs significant time to recover Rehab Potential: Fair PT Fdc Goals Fdc Goals PT Fdc Goals Time Frame: May 29, 2022 Roll Left & Right (QC): 4 Sit to Lying (QC): 4 Lying-Sitting on Side/Bed(QC): 4 Sit to Stand (QC): 6 Chair/Omg-ts-Pbefr Xfer(QC): 6 Walk 10 feet (QC): 6 Walk 50ft with 2 Turns (QC): 6 Walk 150 ft (QC): 6 PT Plan Problem List Problem List: Activity Tolerance, Functional Strength, Safety, Balance, Gait, Transfer, Bed Mobility, ROM Treatment/Plan Treatment Plan: Continue Plan of Care Treatment Plan: Bed Mobility, Education, Functional Activity Tj, Functional Strength, Gait, Safety, Therapeutic Exercise, Transfers Treatment Duration: May 29, 2022 Frequency: 6 times per week Estimated Hrs Per Day: .25 hour per day Patient and/or Family Agrees t: Yes Safety Risks/Education Patient Education: Correct Positioning, Safety Issues Teaching Recipient: Patient Teaching Methods: Demonstration, Discussion Response to Teaching: Reinforcement Needed Discharge Recommendations Plan Patient will perform bed mobility and transfer training, balance and endurance training, functional strengthening, stair training, gait training, and education, to improve functional mobility and independence at home. Therapy Discharge Recommendati: Home & Family, Post Acute PT Time/GCodes Time In: 0836 Time Out: 08 Total Billed Treatment Time: 15 Total Billed Treatment 1 visit BETSY 15' EVELYN GARCIA PT May 22, 2022 09:13
--- NOTE | 2022-05-22 10:54 | Occupational Therapy Eval ---
OT Evaluation-General/PLF Medical Diagnosis Admission Date May 18, 2022 at 20:05 Medical Diagnosis: colon resection with colostomy Onset Date: May 18, 2022 Therapy Diagnosis Therapy Diagnosis: reduced adl status Height/Weight Height (Feet): 5 Height (Inches): 2.00 Weight (Pounds): 160 Weight (Ounces): 0.0 Precautions Precautions/Isolations: Fall Prevention, Standard Precautions Referral Physician: Aurea Bell DO Referral Reason: Evaluation/Treatment Medical History Pertinent Medical History: COPD, GERD, HTN, OA Current History Pt admitted with abdominal pain and distension. Reports no BM in >3 weeks. Currently s/p partial colon resection with colostomy. Per patient, she lives with her daughter and granddaughter in a single story home. Even though her family lives with her, she reports that they are not able to provide any assistance. She was indep with adls and iadls prior to admission. She was using a walker or cane intermittently with fatigue. She reports owning a shower chair but was not using prior. Reviewed History: Yes Social History Home: Single Level Current Living Status: Children Entry Into Home: Stairs With Railing Steps Into Home: 3 ADL-Prior Level of Function SCALE: Activities may be completed with or without assistive devices. 7-Bxasyddvrt-usqivzz completes the activity by him/herself with no assistance from a helper. 5-Set-up or Clean-up Assistance-helper sets up or cleans up; patient completes activity. Matewan assists only prior to or following the activity. 4-Supervision or Touching Assistance-helper provides verbal cues and/or touching/steadying and/or contact guard assistance as patient completes activity. Assistance may be provided throughout the activity or intermittently. 3-Partial/Moderate Assistance-helper does LESS THAN HALF the effort. Matewan lifts, holds or supports trunk or limbs, but provides less than half the effort. 2-Substantial/Maximal Assistance-helper does MORE THAN HALF the effort. Matewan lifts or holds trunk or limbs and provides more than half the effort. 2-Hhfescsxe-nvnncd does ALL the effort. Patient does none of the effort to complete the activity. Or, the assistance of 2 or more helpers is required for the patient to complete the activity. If activity was not attempted, code reason: 7-Patient Refused. 9-Not Applicable-not attempted and the patient did not perform the activity before the current illness, exacerbation or injury. 10-Not Attempted due to Environmental Limitations-(lack of equipment, weather restraints, etc.). 88-Not Attempted due to Medical Conditions or Safety Concerns. Self Care: Independent Functional Cognition: Independent DME/Equipment: Bath Chair, Shower, Toilet/R[address] Drive Self: Yes OT Current Status Mental Status/Objective Patient Orientation: Person, Place, Situation Attachments: Colostomy/Ileostomy, IV, Other-See Comments (Wound vac) Current Glasses/Contacts: Yes Hearing Aids: No Dentures/Partials: No Hand Dominance: Right Upper Extremity ROM WNL ADL-Treatment Eating (QC): 88 (NPO, anticipate no physical assistance will be needed) Oral Hygiene (QC): 5 On/Off Footwear (QC): 1 Toileting Hygiene (QC): 1 (Colostomy) Pt sitting in chair at OT arrival. Dependent to don bilateral sock secondary to poor flexibility and increased incisional pain with slight bending. OT (verbally) educated pt on different forms of adaptive equipment and compensatory strategies to reduce bending until pain resolves. Further practice and education with AE will be provided in future sessions. Pt reports that she was finally comfortable in the chair and did not want to move. Significant swelling notable in BLE's. Per physical therapy, pt is CGA to stand but required 2 people to scoot self back into recliner. Education OT Patient Education: Correct positioning, Modified ADL techniques, Purpose of tx/functional activities, Reviewed precautions, Safety issues, Use of adapted equipment Teaching Recipient: Patient Teaching Methods: Demonstration, Discussion Response to Teaching: Verbalize Understanding, Reinforcement Needed OT Mold Construction Supervisor Goals Retirement Goals Time Frame: Jun 05, 2022 Eating (QC): 6 Oral Hygiene (QC): 6 Toileting Hygiene (QC): 4 Shower/Bathe Self (QC): 3 Upper Body Dressing (QC): 5 Lower Body Dressing (QC): 4 On/Off Footwear (QC): 3 1=Demonstrate adherence to instructed precautions during ADL tasks. 2=Patient will verbalize/demonstrate understanding of assistive devices/modifications for ADL. 3=Patient will improve strength/tolerance for activity to enable patient to perform ADL's. OT Education/Plan Problem List/Assessment Assessment: Decreased Activ Tolerance, Decreased UE Strength, Edema, Impaired Funct Balance, Impaired I ADL's, Impaired Self-Care Skills Discharge Recommendations Plan/Recommendations: Continue POC Therapy Discharge Recommendati: Post Acute OT Equpiment Recommendations-D/C: Staff Physical Therapy Assistant, Sock Aide Treatment Plan/Plan of Care Treatment,Training & Education: Yes Patient would benefit from OT for education, treatment and training to promote independence in ADL's, mobility, safety and/or upper extremity function for ADL's. Plan of Care: ADL Retraining, Functional Mobility, Group Exercise/Act as Ind, UE Funct Exercise/Act Treatment Duration: Jun 05, 2022 Frequency: 3 times per week (3-5x/week) Estimated Hrs Per Day: .25 hour per day Agreement: Yes Rehab Potential: Fair Time/GCodes Start Time: 09:32 Stop Time: 09:52 Total Time Billed (hr/min): 20 Billed Treatment Time 1 Tosha Sepulveda OT May 22, 2022 10:54
[2022-05-22] MEDS: UMECLIDINIUM BROMIDE (INCRUSE ELLIPTA) 7'S IH SCH (11:10)
--- NOTE | 2022-05-22 14:39 | Progress Note - Surgery ---
Subjective Date Seen by a Provider: May 22, 2022 Time Seen by a Provider: 14:33 Subjective/Events-last exam Pt s/p exploratory laporatory with partial cecetomy and revision of colostomy. Pt is comfortable sitting in chair. States that her pain is well controlled with medications at rest and has been ambulating with medical staff. Patient with colostomy output. Denies n/v fever sweats chills shortness of breath or chest pain. Objective Exam Vital Signs Date Time Temp Pulse Resp B/P (MAP) Pulse Ox O2 Delivery O2 Flow Rate FiO2 05/22/22 11:58 36.7 88 20 150/63 (92) 94 Room Air 05/22/22 08:01 36.8 88 18 155/67 (96) 97 Room Air 05/22/22 08:00 96 Room Air 05/22/22 08:00 Room Air 05/22/22 04:23 36.9 90 16 127/69 (88) 95 Room Air 05/22/22 00:00 37.2 88 16 127/76 (93) 95 Room Air 05/21/22 20:05 Room Air 05/21/22 19:12 37.2 90 20 126/68 (87) 96 Room Air 05/21/22 18:13 97 Nasal Cannula 0.00 05/21/22 15:36 36.9 84 18 126/77 (93) 97 Room Air I & O 05/22/22 07:00 Intake Total 120 ml Output Total 1310 ml Balance -1190 ml Capillary Refill : Less Than 3 Seconds General Appearance: No Apparent Distress, WD/WN, Chronically ill HEENT: PERRL/EOMI, Moist Mucous Membranes Neck: Full Range of Motion, Non Tender Respiratory: Chest Non Tender, No Accessory Muscle Use, No Respiratory Distress Cardiovascular: No JVD, Other (irregular HR) Peripheral Pulses: 2+ Radial Pulses (R), 2+ Radial Pulses (L) Gastrointestinal: non tender, soft, distended (less); No guarding, No rebound; tenderness (More tender midline, wound vac at midline, marcy drain slgihtly brownish/serous fluid, b/l flank tenderness), other (Slightly edematous ostomy pink with output) Extremity: Non Tender, Pedal Edema (nonpitting edema) Neurologic/Psychiatric: Alert, Oriented x3, No Motor/Sensory Deficits, Normal Mood/Affect Skin: Normal Color, Warm/Dry Lymphatic: No Adenopathy Results Lab Laboratory Tests 05/22/22 05:40: White Blood Count 11.7H, Red Blood Count 2.65L, Hemoglobin 7.7L, Hematocrit 24L, Mean Corpuscular Volume 89, Mean Corpuscular Hemoglobin 29, Mean Corpuscular Hemoglobin Concent 33, Red Cell Distribution Width 15.4H, Platelet Count 702H, Mean Platelet Volume 9.0, Immature Granulocyte % (Auto) 1, Neutrophils (%) (Auto) 83H, Lymphocytes (%) (Auto) 10L, Monocytes (%) (Auto) 6, Eosinophils (%) (Auto) 1, Basophils (%) (Auto) 0, Neutrophils # (Auto) 9.7H, Lymphocytes # (Auto) 1.1, Monocytes # (Auto) 0.7, Eosinophils # (Auto) 0.1, Basophils # (Auto) 0.0, Immature Granulocyte # (Auto) 0.1, Sodium Level 139, Potassium Level 2.9L, Chloride Level 105, Carbon Dioxide Level 18L, Anion Gap 16H, Blood Urea Nitrogen 5L, Creatinine 0.64, Estimat Glomerular Filtration Rate 90, BUN/Creatinine Ratio 8, Glucose Level 68L, Calcium Level 8.0L, Corrected Calcium 9.4, Total Bilirubin 0.3, Aspartate Amino Transf (AST/SGOT) 21, Alanine Aminotransferase (ALT/SGPT) 9, Alkaline Phosphatase 85, Total Protein 5.0L, Albumin 2.2L Microbiology 05/19/22 Urine Culture - Final, Complete YEAST Escherichia coli Enterococcus faecalis 05/19/22 MRSA Screen - Final, Complete Assessment/Plan Assessment/Plan Assessment/Plan S/p partial colon resection with colostomy Done at [facility] Abdominal abscess Abdominal tenderness Anemia Leukocytosis Hypokalemia Status post exploratory laparotomy with partial cecectomy revision of colostomy drainage of intra-abdominal abscess with drain placement and wound VAC placement. + stool out colostomy start clears IV fluids. Continue antibiotics. Encourage IS Ambulate Wound VAC management. Pt had colostomy output, can start liquid diet Clinical Quality Measures DVT/VTE Risk/Contraindication: Contraindications-Pharm: Other *list below* Other: OR MONICA COYLE DO May 22, 2022 14:39
[2022-05-22] MEDS ORDERED: MAGNESIUM 1 GM/100 ML IVPB 100 ML IV ONE (14:45)
--- NOTE | 2022-05-22 15:23 | Progress Note ---
DELANONARARILEY 05/22/22 1523: Subjective Date Seen by a Provider: May 22, 2022 Time Seen by a Provider: 14:37 Subjective/Events-last exam Samantha Wheatley is a 81y/o F being seen for follow up for partial colon resection w/ colostomy. Pt reports that her pain has been controlled recently. She is just having some abdominal discomfort. Denies passing any gas through her colostomy but she was burping while I was in the room with her. Has been eating ice chips. States that she has been having some SOB with activity. Review of Systems General: No Chills, No Other (fever) HEENT: No Head Aches, No Eye Pain Pulmonary: Dyspnea (w/ activity); No Cough Cardiovascular: No: Chest Pain, Palpitations Gastrointestinal: Abdominal Pain (discomfort); No: Nausea, Vomiting Genitourinary: Other (catheter in place) Musculoskeletal: back pain; No: neck pain Neurological: No: Numbness, Change in speech Objective Exam Last Set of Vital Signs Vital Signs Date Time Temp Pulse Resp B/P (MAP) Pulse Ox O2 Delivery O2 Flow Rate FiO2 05/22/22 11:58 36.7 88 20 150/63 (92) 94 Room Air 05/21/22 18:13 0.00 05/19/22 10:29 21 Capillary Refill : Less Than 3 Seconds I&O Intake and Output 05/22/22 00:00 Intake Total 120 ml Output Total 1050 ml Balance -930 ml Intake Oral 120 ml Output Urine Total 950 ml Drainage Total 100 ml General: Alert, Oriented X3 HEENT: PERRLA, EOMI Neck: Supple, No Thyromegaly Lungs: Clear to Auscultation, Normal Air Movement Heart: No Murmurs, Other (irregular rhythema heard) Abdomen: Soft, Other (colostomy was pink and appears viable) Extremities: No Cyanosis, Normal Pulses Skin: No Rashes, Other (b/l legs cool to touch) Neuro: Normal Speech Psych/Mental Status: Mental Status NL, Mood NL Results Lab Laboratory Tests 05/22/22 05:40: White Blood Count 11.7H, Red Blood Count 2.65L, Hemoglobin 7.7L, Hematocrit 24L, Mean Corpuscular Volume 89, Mean Corpuscular Hemoglobin 29, Mean Corpuscular Hemoglobin Concent 33, Red Cell Distribution Width 15.4H, Platelet Count 702H, Mean Platelet Volume 9.0, Immature Granulocyte % (Auto) 1, Neutrophils (%) (Auto) 83H, Lymphocytes (%) (Auto) 10L, Monocytes (%) (Auto) 6, Eosinophils (%) (Auto) 1, Basophils (%) (Auto) 0, Neutrophils # (Auto) 9.7H, Lymphocytes # (Auto) 1.1, Monocytes # (Auto) 0.7, Eosinophils # (Auto) 0.1, Basophils # (Auto) 0.0, Immature Granulocyte # (Auto) 0.1, Sodium Level 139, Potassium Level 2.9L, Chloride Level 105, Carbon Dioxide Level 18L, Anion Gap 16H, Blood Urea Nitrogen 5L, Creatinine 0.64, Estimat Glomerular Filtration Rate 90, BUN/Creatinine Ratio 8, Glucose Level 68L, Calcium Level 8.0L, Corrected Calcium 9.4, Total Bilirubin 0.3, Aspartate Amino Transf (AST/SGOT) 21, Alanine Aminotransferase (ALT/SGPT) 9, Alkaline Phosphatase 85, Total Protein 5.0L, Albumin 2.2L Microbiology 05/19/22 Urine Culture - Final, Complete YEAST Escherichia coli Enterococcus faecalis 05/19/22 MRSA Screen - Final, Complete Assessment/Plan Assessment/Plan Assess & Plan/Chief Complaint Assessment and Plan: S/p partial colon resection with colostomy -Done at [facility] -Followed by surgery -Continue incentive spirometer use Abdominal abscess -Flagyl (day 5/6) and Zosyn (day 4/) -Cardiology consulted, s/p washout and resection on 05/19 -NaCl at 125 mls/hr -Continue Pain control Acute blood loss anemia -Likely secondary to surgical blood loss -Will continue to monitor with daily labs Hypokalemia -K+ protocol, ordered 40 mEq of K+ via IV today -Magnesium supplementation to be given also -Continue to monitor Irregular heart beat -EKG done -Continue to monitor for changes -Will discontinue urinary catheter and start purewick -SCD for DVT prophylaxis Clinical Quality Measures DVT/VTE Risk/Contraindication: Contraindications-Pharm: Other *list below* Other: OR AUREA CAMP DO 05/23/22 0558: Subjective Subjective/Events-last exam Patient doing well We will discontinue catheter in place external catheter Ice chips only Labs reviewed Review of Systems Gastrointestinal: Abdominal Pain (discomfort) Objective Exam General: Alert, Oriented X3, Cooperative, No Acute Distress Lungs: Clear to Auscultation, Normal Air Movement Heart: Regular Rate, Normal S1, Normal S2, No Murmurs Psych/Mental Status: Mental Status NL, Mood NL Assessment/Plan Assessment/Plan Assess & Plan/Chief Complaint Discontinue catheter and replaced with external catheter Inpatient rehab soon Supervisory-Addendum Brief Verification & Attestation Participated in pt care: history, MDM, physical Personally performed: exam, history, MDM, supervision of care Care discussed with: Medical Student Procedures: n/a Results interpretation: Verified all documentation Verification and Attestation of Medical Student E/M Service A medical student performed and documented this service in my presence. I reviewed and verified all information documented by the medical student and made modifications to such information, when appropriate. I personally performed the physical exam and medical decision making. Aurea Camp May 23, 2022,05:56 RILEY REVELES May 22, 2022 15:23 AUREA CAMP DO May 23, 2022 05:58
[2022-05-22] MEDS: POTASSIUM CL 10MEQ/50ML IVPB 50 ML IV SCH ×4 (17:55→20:38)
[2022-05-22] MEDS: MICONAZOLE 2% POWDER (DESENEX AF) 90 GM TOP SCH (19:33)
[2022-05-23 00:54] VITALS: BP 116/68
[2022-05-23] MEDS: CALCIUM CARBONATE 500 MG (TUMS) TAB.CHEW PO PRN ×2 (03:21→08:49)
[2022-05-23 03:53] VITALS: BP 128/72
[2022-05-23] MEDS: PIPERACILLIN SODIUM/TAZOBACTAM 4.5 GM in NS (IVPB) 100 ML IV SCH (05:34)
[2022-05-23] MEDS: LEVOTHYROXINE 100 MCG (LEVOTHROID) TAB PO SCH (05:34)
[2022-05-23 05:44] LABS: BASOPHILS # (AUTO) 0.1 10^3/uL (0.0-0.1); BASOPHILS % (AUTO) 1 % (0-10); EOSINOPHILS # (AUTO) 0.2 10^3/uL (0.0-0.3); EOSINOPHILS % (AUTO) 2 % (0-10); HEMATOCRIT 24 % (35-52); HEMOGLOBIN 7.8 g/dL (11.5-16.0); LYMPHOCYTES % (AUTO) 10 % (12-44); MEAN CORPUSCULAR HEMOGLOBIN 29 pg (25-34); MEAN CORPUSCULAR HGB CONC 32 g/dL (32-36); MEAN CORPUSCULAR VOLUME 89 fL (80-99); MEAN PLATELET VOLUME 8.8 fL (9.0-12.2); MONOCYTES # (AUTO) 0.7 10^3/uL (0.0-1.0); MONOCYTES % (AUTO) 7 % (0-12); NEUTROPHILS # (AUTO) 7.8 10^3/uL (1.8-7.8); NEUTROPHILS % (AUTO) 80 % (42-75); PLATELET COUNT 726 10^3/uL (130-400); WHITE BLOOD COUNT 9.9 10^3/uL (4.3-11.0)
[2022-05-23 05:57] LABS: ALBUMIN 2.2 GM/DL (3.2-4.5)
[2022-05-23 05:58] LABS: CALCIUM 7.7 MG/DL (8.5-10.1)
[2022-05-23 05:59] LABS: TOTAL PROTEIN 4.8 GM/DL (6.4-8.2)
[2022-05-23 06:01] LABS: BILIRUBIN,TOTAL 0.3 MG/DL (0.1-1.0)
[2022-05-23 06:03] LABS: CREATININE SERUM 0.57 MG/DL (0.60-1.30)
[2022-05-23 07:30] VITALS: BP 135/72
--- NOTE | 2022-05-23 07:57 | Progress Note - Surgery ---
KARUNA GUZMAN 05/23/22 0756: Subjective Date Seen by a Provider: May 23, 2022 Time Seen by a Provider: 07:52 Subjective/Events-last exam Pt is relaxed and sitting in chair. Pt states that her pain is being well controlled with pain medication. Pt had 225ml of urine present in catheter bag. Pt states that she is till having colostomy output. MARCY drain is still draining brownish liquid but is decreased from yesterday. Objective Exam Vital Signs Date Time Temp Pulse Resp B/P (MAP) Pulse Ox O2 Delivery O2 Flow Rate FiO2 05/23/22 03:53 36.8 81 20 128/72 (90) 95 Room Air 05/23/22 00:54 36.9 78 18 116/68 (84) 96 Room Air 05/22/22 21:18 97 Room Air 05/22/22 20:10 36.4 85 20 141/64 (89) 97 Room Air 05/22/22 19:30 Room Air 05/22/22 15:43 36.4 86 20 159/69 (99) 98 Room Air 05/22/22 15:03 36.7 88 94 21 05/22/22 11:58 36.7 88 20 150/63 (92) 94 Room Air 05/22/22 08:01 36.8 88 18 155/67 (96) 97 Room Air 05/22/22 08:00 96 Room Air 05/22/22 08:00 Room Air I & O 05/23/22 07:00 Intake Total 400 ml Output Total 2365 ml Balance -1965 ml Capillary Refill : Less Than 3 Seconds General Appearance: No Apparent Distress, WD/WN, Chronically ill HEENT: PERRL/EOMI, Moist Mucous Membranes Neck: Full Range of Motion, Non Tender Respiratory: Chest Non Tender, No Accessory Muscle Use, No Respiratory Distress Cardiovascular: No JVD, Other (irregular HR) Peripheral Pulses: 2+ Radial Pulses (R), 2+ Radial Pulses (L) Gastrointestinal: non tender, soft, distended (less); No guarding, No rebound; tenderness (More tender midline, wound vac at midline, marcy drain slgihtly brownish/serous fluid, b/l flank tenderness), other (Slightly edematous ostomy pink with output) Extremity: Non Tender, Pedal Edema (nonpitting edema) Neurologic/Psychiatric: Alert, Oriented x3, No Motor/Sensory Deficits, Normal Mood/Affect Skin: Normal Color, Warm/Dry Lymphatic: No Adenopathy Results Lab Laboratory Tests 05/23/22 05:36: White Blood Count 9.9, Red Blood Count 2.71L, Hemoglobin 7.8L, Hematocrit 24L, Mean Corpuscular Volume 89, Mean Corpuscular Hemoglobin 29, Mean Corpuscular Hemoglobin Concent 32, Red Cell Distribution Width 15.4H, Platelet Count 726H, Mean Platelet Volume 8.8L, Immature Granulocyte % (Auto) 1, Neutrophils (%) (Auto) 80H, Lymphocytes (%) (Auto) 10L, Monocytes (%) (Auto) 7, Eosinophils (%) (Auto) 2, Basophils (%) (Auto) 1, Neutrophils # (Auto) 7.8, Lymphocytes # (Auto) 1.0, Monocytes # (Auto) 0.7, Eosinophils # (Auto) 0.2, Basophils # (Auto) 0.1, Immature Granulocyte # (Auto) 0.1, Sodium Level 136, Potassium Level 3.0L, Chloride Level 104, Carbon Dioxide Level 16L, Anion Gap 16H, Blood Urea Nitrogen 3L, Creatinine 0.57L, Estimat Glomerular Filtration Rate 92, BUN/Creatinine Ratio 5, Glucose Level 70, Calcium Level 7.7L, Corrected Calcium 9.1, Total Bilirubin 0.3, Aspartate Amino Transf (AST/SGOT) 14, Alanine Aminotransferase (ALT/SGPT) 8, Alkaline Phosphatase 67, Total Protein 4.8L, Albumin 2.2L Microbiology 05/19/22 Urine Culture - Final, Complete YEAST Escherichia coli Enterococcus faecalis 05/19/22 MRSA Screen - Final, Complete Assessment/Plan Assessment/Plan Assessment/Plan Discontinue catheter and replaced with external catheter Inpatient rehab soon continue with current plan Clinical Quality Measures DVT/VTE Risk/Contraindication: Contraindications-Pharm: Other *list below* Other: OR MONICA CLIFFORD DO 05/23/222103: Subjective Subjective/Events-last exam Sitting in chair. Pain controlled. Patient with colostomy output. Tolerating liquid diet. MARCY drain with brownish liquid drainage still. No new complaints. Denies nausea vomiting fever sweats chills shortness of breath or chest pain. Objective Exam General Appearance: No Apparent Distress, WD/WN, Chronically ill HEENT: PERRL/EOMI, Normal ENT Inspection Neck: Full Range of Motion, Non Tender Respiratory: Chest Non Tender, No Accessory Muscle Use, No Respiratory Distress Cardiovascular: Regular Rate, Rhythm, No JVD Gastrointestinal: non tender, soft, distended (less); No guarding, No rebound; tenderness (Minimal tender midline, wound vac at midline, marcy drain slgihtly brownish/serous fluid, b/l flank tenderness, ostomy productive with stool output) Extremity: Non Tender, Pedal Edema (nonpitting edema) Neurologic/Psychiatric: Alert, Oriented x3, No Motor/Sensory Deficits, Normal Mood/Affect Skin: Normal Color, Warm/Dry Lymphatic: No Adenopathy Assessment/Plan Assessment/Plan Assessment/Plan Status post cectomy with revision of colostomy and drainage of intra-abdominal abscess. Continue antibiotics Wound VAC change DC catheter Inpatient rehab Continue incentive spirometer Supervisory-Addendum Brief Verification & Attestation Participated in pt care: history, MDM, physical Personally performed: exam, history, MDM, supervision of care Care discussed with: Medical Student Procedures: n/a Results interpretation: Verified all documentation Verification and Attestation of Medical Student E/M Service A medical student performed and documented this service in my presence. I reviewed and verified all information documented by the medical student and made modifications to such information, when appropriate. I personally performed the physical exam and medical decision making. Monica Clifford, May 23, 2022,21:03 KARUNA GUZMAN May 23, 2022 07:56 MONICA CLIFFORD DO May 23, 2022 21:04
[2022-05-23] MEDS: RT-ALBUTEROL/IPRATROPIUM 3 ML (DUONEB) VIAL INH SCH (07:59)
[2022-05-23] MEDS: MICONAZOLE 2% POWDER (DESENEX AF) 90 GM TOP SCH (08:47)
[2022-05-23] MEDS: DOCUSATE SODIUM 100 MG (COLACE) CAP PO SCH (08:47)
[2022-05-23] MEDS: ATENOLOL 25 MG (TENORMIN) TAB PO SCH (08:47)
[2022-05-23] MEDS: oxyCODONE ER 10 MG (OxyCONTIN CR) TAB PO SCH (08:47)
[2022-05-23] MEDS: SENNOSIDES 8.6 MG (SENOKOT) TAB PO SCH (08:47)
[2022-05-23] MEDS: NS IV 1000 ML 1,000 ML IV SCH (08:49)
[2022-05-23] MEDS ORDERED: MAGNESIUM 1 GM/100 ML IVPB 100 ML IV ONE (09:45)
--- NOTE | 2022-05-23 09:46 | Occupational Ther Daily Note ---
OT Current Status-Daily Note Subjective Pt alert, sitting in recliner. Pt stated that she has just been able to drink liquids, getting Tums and pain pills from nrsg and would listen to MARTÍNEZ educate on AE for lower body dressing. Mental Status/Objective Patient Orientation: Person, Place, Time, Situation Attachments: Colostomy/Ileostomy, Hunter Catheter, IV, Telemetry ADL-Treatment Therapy Code Descriptions/Definitions Functional [place] Measure: 0=Not Assessed/NA 4=Minimal Assistance 1=Total Assistance 5=Supervision or Setup 2=Maximal Assistance 6=Modified [place] 3=Moderate Assistance 7=Complete IndependenceSCALE: Activities may be completed with or without assistive devices. 7-Vtxrnczzed-hodtjjw completes the activity by him/herself with no assistance from a helper. 5-Set-up or Clean-up Assistance-helper sets up or cleans up; patient completes activity. [place] assists only prior to or following the activity. 4-Supervision or Touching Assistance-helper provides verbal cues and/or touching/steadying and/or contact guard assistance as patient completes activity. Assistance may be provided throughout the activity or intermittently. 3-Partial/Moderate Assistance-helper does LESS THAN HALF the effort. [place] lifts, holds or supports trunk or limbs, but provides less than half the effort. 2-Substantial/Maximal Assistance-helper does MORE THAN HALF the effort. [place] lifts or holds trunk or limbs and provides more than half the effort. 4-Tnbwpnxqo-gzwojb does ALL the effort. Patient does none of the effort to complete the activity. Or, the assistance of 2 or more helpers is required for the patient to complete the activity. If activity was not attempted, code reason: 7-Patient Refused. 9-Not Applicable-not attempted and the patient did not perform the activity before the current illness, exacerbation or injury. 10-Not Attempted due to Environmental Limitations-(lack of equipment, weather restraints, etc.). 88-Not Attempted due to Medical Conditions or Safety Concerns. Other Treatment Pt educated on using commercial accountant for doffing socks and completing lower body dressing. Educated on using sock aide to don socks. Pt verbalized understanding of each piece of equipment and did attempt to use sock aide to don sock with feet elevated. Pt states that she has reachers at home. After session, pt made comfortable in recliner with call light/phone in reach. All needs met in room. OT [facility] Goals Sales Service Coordinator Goals Time Frame: Jun 05, 2022 Eating (QC): 6 Oral Hygiene (QC): 6 Toileting Hygiene (QC): 4 Shower/Bathe Self (QC): 3 Upper Body Dressing (QC): 5 Lower Body Dressing (QC): 4 On/Off Footwear (QC): 3 1=Demonstrate adherence to instructed precautions during ADL tasks. 2=Patient will verbalize/demonstrate understanding of assistive devices/modifications for ADL. 3=Patient will improve strength/tolerance for activity to enable patient to per form ADL's. OT Education/Plan Problem List/Assessment Assessment: Decreased Activ Tolerance, Decreased UE Strength, Impaired Self- Care Skills Discharge Recommendations Plan/Recommendations: Continue POC Treatment Plan/Plan of Care Patient would benefit from OT for education, treatment and training to promote independence in ADL's, mobility, safety and/or upper extremity function for ADL's. Plan of Care: ADL Retraining, Functional Mobility, Group Exercise/Act as Ind, UE Funct Exercise/Act Treatment Duration: Jun 05, 2022 Frequency: 3 times per week (3-5x/week) Estimated Hrs Per Day: .25 hour per day Agreement: Yes Rehab Potential: Fair Time/GCodes Start Time: 09:20 Stop Time: 09:35 Total Time Billed (hr/min): 15 Billed Treatment Time 1 visit-FA 1 (15 min) BRENDAN GONZALES May 23, 2022 09:46
--- NOTE | 2022-05-23 10:11 | Physical Therapy Daily Note ---
PT Daily Note-Current Subjective Patient sitting in chair upon PT arrival, agreeable to treatment. When asked about her pain patient states "I feel good, my doctor has really gotten my pain under control." Transfers SCALE: Activities may be completed with or without assistive devices. 7-Zqtnweboyo-jggxfuo completes the activity by him/herself with no assistance from a helper. 5-Set-up or Clean-up Assistance-helper sets up or cleans up; patient completes activity. [place] assists only prior to or following the activity. 4-Supervision or Touching Assistance-helper provides verbal cues and/or touching/steadying and/or contact guard assistance as patient completes activity. Assistance may be provided throughout the activity or intermittently. 3-Partial/Moderate Assistance-helper does LESS THAN HALF the effort. [place] lifts, holds or supports trunk or limbs, but provides less than half the effort. 2-Substantial/Maximal Assistance-helper does MORE THAN HALF the effort. [place] lifts or holds trunk or limbs and provides more than half the effort. 8-Bqsfweemt-wmszcg does ALL the effort. Patient does none of the effort to complete the activity. Or, the assistance of 2 or more helpers is required for the patient to complete the activity. If activity was not attempted, code reason: 7-Patient Refused. 9-Not Applicable-not attempted and the patient did not perform the activity before the current illness, exacerbation or injury. 10-Not Attempted due to Environmental Limitations-(lack of equipment, weather restraints, etc.). 88-Not Attempted due to Medical Conditions or Safety Concerns. Sit to Stand (QC): 4 Chair/Dgq-ju-Eqapc Xfer(QC): 4 Gait Training Does the Patient Walk?: Yes Distance: 150 feet Walk 10 feet (QC): 4 Walk 50 ft with 2 Turns(QC): 4 Walk 150 ft (QC): 4 Gait Persons Needed: 1 Gait Assistive Device: FWW Assessment Current Status: Fair Progress Patient performs all observed transfers with CGA. Patient ambulates 150 feet with 4WW, with CGA and verbal cues for posture, progression and conservation of energy. Patient ambulates with mild forward trunk posture, with wide ARLINE and fair endurance. Patient becomes mildly short of breath and requests to return to the room. Patient breathing improved upon sitting in bed. Patient returns to bed post treatment with all needs met, nursing notified, call light in reach. PT Piping Engineer Goals Piping Engineer Goals PT Correction Goals Time Frame: May 29, 2022 Roll Left & Right (QC): 4 Sit to Lying (QC): 4 Lying-Sitting on Side/Bed(QC): 4 Sit to Stand (QC): 6 Chair/Xgz-iv-Onleg Xfer(QC): 6 Walk 10 feet (QC): 6 Walk 50ft with 2 Turns (QC): 6 Walk 150 ft (QC): 6 PT Plan Treatment/Plan Treatment Plan: Continue Plan of Care Treatment Plan: Bed Mobility, Education, Functional Activity Tj, Functional Strength, Gait, Safety, Therapeutic Exercise, Transfers Treatment Duration: May 29, 2022 Frequency: 6 times per week Estimated Hrs Per Day: .25 hour per day Patient and/or Family Agrees t: Yes Safety Risks/Education Patient Education: Gait Training Teaching Recipient: Patient, Family Teaching Methods: Demonstration, Discussion Response to Teaching: Verbalize Understanding, Return Demonstration Time/GCodes Time In: 0942 Time Out: 1006 Total Billed Treatment Time: 24 Total Billed Treatment Visit, Gait (2) MARIA R MORENO PT May 23, 2022 10:11
[2022-05-23] MEDS: POTASSIUM CL 10MEQ/50ML IVPB 50 ML IV SCH ×3 (10:32→13:00)
--- NOTE | 2022-05-23 10:32 | Discharge Summary ---
Diagnosis/Chief Complaint Date of Admission May 18, 2022 at 20:05 Date of Discharge Discharge Date: May 23, 2022 Discharge Diagnosis Assessment: S/p partial colon resection with colostomy -Done at [facility] Abdominal abscess -Franco and [place] -Cardiology consulted, s/p washout and resection yesterday -NaCl at 125 mls/hr -Pain control Acute blood loss anemia -Likely secondary to surgical blood loss -Will continue to monitor with daily labs Hypokalemia -K+ protocol Plan: Supportive care Fentanyl for pain Long-acting oxycodone with rapid acting for breakthrough Discharge Summary Discharge Physical Examination Allergies: Coded Allergies: meperidine (Verified Allergy, Unknown, 12/15/08) Vitals & I&Os Vital Signs Date Time Temp Pulse Resp B/P (MAP) Pulse Ox O2 Delivery O2 Flow Rate FiO2 05/23/22 13:26 36.8 91 18 131/66 95 Room Air 0.00 05/22/22 15:03 21 General Appearance: Alert, Oriented X3, Cooperative Respiratory: Clear to Auscultation Cardiovascular: Regular Rate Psych/Mental Status: Mental Status NL Hospital Course Was the Problem List Reviewed?: Yes Lengthy course after admitted from [facility] to higher level of care due to abdominal abscess following a complex colon resection with diverting colostomy performed at [facility]. She had done well until abdominal pain increased and CT revealed abscess. Patient underwent wash out and revision of colostomy and was maintained on IV abx and aggressive IVF. Home meds were ultimately restarted and patient was deemed stable for transfer to IRF. Labs (last 24 hrs) Laboratory Tests 05/19/22 05:40: White Blood Count 13.4H, Red Blood Count 2.87L, Hemoglobin 8.6L, Hematocrit 26L, Mean Corpuscular Volume 90, Mean Corpuscular Hemoglobin 30, Mean Corpuscular Hemoglobin Concent 34, Red Cell Distribution Width 15.1H, Platelet Count 571H, Mean Platelet Volume 9.5, Immature Granulocyte % (Auto) 1, Neutrophils (%) (Auto) 83H, Lymphocytes (%) (Auto) 9L, Monocytes (%) (Auto) 6, Eosinophils (%) (Auto) 1, Basophils (%) (Auto) 0, Neutrophils # (Auto) 11.1H, Lymphocytes # (Auto) 1.2, Monocytes # (Auto) 0.8, Eosinophils # (Auto) 0.2, Basophils # (Auto) 0.1, Immature Granulocyte # (Auto) 0.1, Sodium Level 137, Potassium Level 3.1L, Chloride Level 104, Carbon Dioxide Level 18L, Anion Gap 15H, Blood Urea Nitrogen 5L, Creatinine 0.63, Estimat Glomerular Filtration Rate 90, BUN/Creatinine Ratio 8, Glucose Level 68L, Calcium Level 7.8L, Corrected Calcium 9.1, Total Bilirubin 0.4, Aspartate Amino Transf (AST/SGOT) 14, Alanine Aminotransferase (ALT/SGPT) 9, Alkaline Phosphatase 102, Total Protein 5.1L, Albumin 2.4L 05/19/22 10:44: Urine Color BROWNH, Urine Clarity TURBID, Urine pH 6.5, Urine Specific [place] 1.020, Urine Protein 1+H, Urine Glucose (UA) NEGATIVE, Urine Ketones 3+H, Urine Nitrite POSITIVEH, Urine Bilirubin 3+H, Urine Urobilinogen 4.0, Urine Leukocyte Esterase 3+H, Urine RBC (Auto) 3+H, Urine RBC 2-5H, Urine WBC 10-25H, Urine Squamous Epithelial Cells NONE, Urine Crystals NONE, Urine Amorphous Sediment LARGE SAIMA URATESH, Urine Bacteria LARGEH, Urine Casts NONE, Urine Mucus NEGATIVE, Urine Culture Indicated YES 05/20/22 05:19: White Blood Count 23.5H, Red Blood Count 2.82L, Hemoglobin 8.4L, Hematocrit 25L, Mean Corpuscular Volume 89, Mean Corpuscular Hemoglobin 30, Mean Corpuscular Hemoglobin Concent 33, Red Cell Distribution Width 15.2H, Platelet Count 665H, Mean Platelet Volume 9.1, Immature Granulocyte % (Auto) 1, Neutrophils (%) (Auto) 90H, Lymphocytes (%) (Auto) 6L, Monocytes (%) (Auto) 3, Eosinophils (%) (Auto) 0, Basophils (%) (Auto) 0, Neutrophils # (Auto) 21.1H, Lymphocytes # (Auto) 1.3, Monocytes # (Auto) 0.8, Eosinophils # (Auto) 0.0, Basophils # (Auto) 0.1, Immature Granulocyte # (Auto) 0.2H, Sodium Level 138, Potassium Level 3.2L, Chloride Level 107, Carbon Dioxide Level 18L, Anion Gap 13, Blood Urea Nitrogen 5L, Creatinine 0.76, Estimat Glomerular Filtration Rate 80, BUN/Creatinine Ratio 7, Glucose Level 88, Calcium Level 7.6L, Corrected Calcium 9.1, Total Bilirubin 0.4, Aspartate Amino Transf (AST/SGOT) 14, Alanine Aminotransferase (ALT/SGPT) 6 , Alkaline Phosphatase 91, Total Protein 4.6L, Albumin 2.1L 05/21/22 05:33: White Blood Count 16.3H, Red Blood Count 2.75L, Hemoglobin 8.0L, Hematocrit 25L, Mean Corpuscular Volume 90, Mean Corpuscular Hemoglobin 29, Mean Corpuscular Hemoglobin Concent 33, Red Cell Distribution Width 15.4H, Platelet Count 711H, Mean Platelet Volume 8.9L, Immature Granulocyte % (Auto) 1, Neutrophils (%) (Auto) 88H, Lymphocytes (%) (Auto) 7L, Monocytes (%) (Auto) 4, Eosinophils (%) (Auto) 0, Basophils (%) (Auto) 0, Neutrophils # (Auto) 14.3H, Lymphocytes # (Auto) 1.1, Monocytes # (Auto) 0.7, Eosinophils # (Auto) 0.0, Basophils # (Auto) 0.0, Immature Granulocyte # (Auto) 0.1, Sodium Level 139, Potassium Level 2.9L, Chloride Level 107, Carbon Dioxide Level 19L, Anion Gap 13, Blood Urea Nitrogen 6L, Creatinine 0.70, Estimat Glomerular Filtration Rate 88, BUN/Creatinine Ratio 9, Glucose Level 81, Calcium Level 7.5L, Corrected Calcium 9.0, Total Bilirubin 0.4, Aspartate Amino Transf (AST/SGOT) 13, Alanine Aminotransferase (ALT/SGPT) 6, Alkaline Phosphatase 94, Total Protein 4.8L, Albumin 2.1L 05/22/22 05:40: White Blood Count 11.7H, Red Blood Count 2.65L, Hemoglobin 7.7L, Hematocrit 24L, Mean Corpuscular Volume 89, Mean Corpuscular Hemoglobin 29, Mean Corpuscular Hemoglobin Concent 33, Red Cell Distribution Width 15.4H, Platelet Count 702H, Mean Platelet Volume 9.0, Immature Granulocyte % (Auto) 1, Neutrophils (%) (Auto) 83H, Lymphocytes (%) (Auto) 10L, Monocytes (%) (Auto) 6, Eosinophils (%) (Auto) 1, Basophils (%) (Auto) 0, Neutrophils # (Auto) 9.7H, Lymphocytes # (Auto) 1.1, Monocytes # (Auto) 0.7, Eosinophils # (Auto) 0.1, Basophils # (Auto) 0.0, Immature Granulocyte # (Auto) 0.1, Sodium Level 139, Potassium Level 2.9L, Chloride Level 105, Carbon Dioxide Level 18L, Anion Gap 16H, Blood Urea Nitrogen 5L, Creatinine 0.64, Estimat Glomerular Filtration Rate 90, BUN/Creatinine Ratio 8, Glucose Level 68L, Calcium Level 8.0L, Corrected Calcium 9.4, Total Bilirubin 0.3, Aspartate Amino Transf (AST/SGOT) 21, Alanine Aminotransferase (ALT/SGPT) 9, Alkaline Phosphatase 85, Total Protein 5.0L, Albumin 2.2L 05/23/22 05:36: White Blood Count 9.9, Red Blood Count 2.71L, Hemoglobin 7.8L, Hematocrit 24L, Mean Corpuscular Volume 89, Mean Corpuscular Hemoglobin 29, Mean Corpuscular Hemoglobin Concent 32, Red Cell Distribution Width 15.4H, Platelet Count 726H, Mean Platelet Volume 8.8L, Immature Granulocyte % (Auto) 1, Neutrophils (%) (Auto) 80H, Lymphocytes (%) (Auto) 10L, Monocytes (%) (Auto) 7, Eosinophils (%) (Auto) 2, Basophils (%) (Auto) 1, Neutrophils # (Auto) 7.8, Lymphocytes # (Auto) 1.0, Monocytes # (Auto) 0.7, Eosinophils # (Auto) 0.2, Basophils # (Auto) 0.1, Immature Granulocyte # (Auto) 0.1, Sodium Level 136, Potassium Level 3.0L, Chloride Level 104, Carbon Dioxide Level 16L, Anion Gap 16H, Blood Urea Nitrogen 3L, Creatinine 0.57L, Estimat Glomerular Filtration Rate 92, BUN/Creatinine Ratio 5, Glucose Level 70, Calcium Level 7.7L, Corrected Calcium 9.1, Total Bilirubin 0.3, Aspartate Amino Transf (AST/SGOT) 14, Alanine Aminotransferase (ALT/SGPT) 8, Alkaline Phosphatase 67, Total Protein 4.8L, Albumin 2.2L, Ferritin 212.6H Microbiology 05/19/22 Urine Culture - Final, Complete YEAST Escherichia coli Enterococcus faecalis 05/19/22 MRSA Screen - Final, Complete Pending Labs Microbiology Date/Time Source Procedure Growth Status 05/19/22 10:44 Urine Hunter Cath Urine Culture - Final YEAST Escherichia coli Enterococcus faecalis Complete 05/19/22 00:10 Nasal MRSA Screen - Final Complete Laboratory Tests 05/19/22 05:40: White Blood Count 13.4, Red Blood Count 2.87, Hemoglobin 8.6, Hematocrit 26, Mean Corpuscular Volume 90, Mean Corpuscular Hemoglobin 30, Mean Corpuscular Hemoglobin Concent 34, Red Cell Distribution Width 15.1, Platelet Count 571, Mean Platelet Volume 9.5, Immature Granulocyte % (Auto) 1, Neutrophils (%) (Auto) 83, Lymphocytes (%) (Auto) 9, Monocytes (%) (Auto) 6, Eosinophils (%) (Au to) 1, Basophils (%) (Auto) 0, Neutrophils # (Auto) 11.1, Lymphocytes # (Auto) 1.2, Monocytes # (Auto) 0.8, Eosinophils # (Auto) 0.2, Basophils # (Auto) 0.1, Immature Granulocyte # (Auto) 0.1, Sodium Level 137, Potassium Level 3.1, Chloride Level 104, Carbon Dioxide Level 18, Anion Gap 15, Blood Urea Nitrogen 5, Creatinine 0.63, Estimat Glomerular Filtration Rate 90, BUN/Creatinine Ratio 8, Glucose Level 68, Calcium Level 7.8, Corrected Calcium 9.1, Total Bilirubin 0.4, Aspartate Amino Transf (AST/SGOT) 14, Alanine Aminotransferase (ALT/SGPT) 9, Alkaline Phosphatase 102, Total Protein 5.1, Albumin 2.4 05/19/22 10:44: Urine Color BROWN, Urine Clarity TURBID, Urine pH 6.5, Urine Specific [place] 1.020, Urine Protein 1+, Urine Glucose (UA) NEGATIVE, Urine Ketones 3+, Urine Nitrite POSITIVE, Urine Bilirubin 3+, Urine Urobilinogen 4.0, Urine Leukocyte Esterase 3+, Urine RBC (Auto) 3+, Urine RBC 2-5, Urine WBC 10-25, Urine Squamous Epithelial Cells NONE, Urine Crystals NONE, Urine Amorphous Sediment LARGE SAIMA URATES, Urine Bacteria LARGE, Urine Casts NONE, Urine Mucus NEGATIVE, Urine Culture Indicated YES 05/20/22 05:19: White Blood Count 23.5, Red Blood Count 2.82, Hemoglobin 8.4, Hematocrit 25, Mean Corpuscular Volume 89, Mean Corpuscular Hemoglobin 30, Mean Corpuscular Hemoglobin Concent 33, Red Cell Distribution Width 15.2, Platelet Count 665, M heidi Platelet Volume 9.1, Immature Granulocyte % (Auto) 1, Neutrophils (%) (Auto) 90, Lymphocytes (%) (Auto) 6, Monocytes (%) (Auto) 3, Eosinophils (%) (Auto) 0, Basophils (%) (Auto) 0, Neutrophils # (Auto) 21.1, Lymphocytes # (Auto) 1.3, Monocytes # (Auto) 0.8, Eosinophils # (Auto) 0.0, Basophils # (Auto) 0.1, Immature Granulocyte # (Auto) 0.2, Sodium Level 138, Potassium Level 3.2, Chloride Level 107, Carbon Dioxide Level 18, Anion Gap 13, Blood Urea Nitrogen 5, Creatinine 0.76, Estimat Glomerular Filtration Rate 80, BUN/Creatinine Ratio 7, Glucose Level 88, Calcium Level 7.6, Corrected Calcium 9.1, Total Bilirubin 0.4, Aspartate Amino Transf (AST/SGOT) 14, Alanine Aminotransferase (ALT/SGPT) 6, Alkaline Phosphatase 91, Total Protein 4.6, Albumin 2.1 05/21/22 05:33: White Blood Count 16.3, Red Blood Count 2.75, Hemoglobin 8.0, Hematocrit 25, Mean Corpuscular Volume 90, Mean Corpuscular Hemoglobin 29, Mean Corpuscular Hemoglobin Concent 33, Red Cell Distribution Width 15.4, Platelet Count 711, Mean Platelet Volume 8.9, Immature Granulocyte % (Auto) 1, Neutrophils (%) (Auto) 88, Lymphocytes (%) (Auto) 7, Monocytes (%) (Auto) 4, Eosinophils (%) (Auto) 0, Basophils (%) (Auto) 0, Neutrophils # (Auto) 14.3, Lymphocytes # (Auto) 1.1, Monocytes # (Auto) 0.7, Eosinophils # (Auto) 0.0, Basophils # (Auto) 0.0, Immature Granulocyte # (Auto) 0.1, Sodium Level 139, Potassium Level 2.9, Chloride Level 107, Carbon Dioxide Level 19, Anion Gap 13, Blood Urea Nitrogen 6, Creatinine 0.70, Estimat Glomerular Filtration Rate 88, BUN/Creatinine Ratio 9, Glucose Level 81, Calcium Level 7.5, Corrected Calcium 9.0, Total Bilirubin 0.4, Aspartate Amino Transf (AST/SGOT) 13, Alanine Aminotransferase (ALT/SGPT) 6, Alkaline Phosphatase 94, Total Protein 4.8, Albumin 2.1 05/22/22 05:40: White Blood Count 11.7, Red Blood Count 2.65, Hemoglobin 7.7, Hematocrit 24, Mean Corpuscular Volume 89, Mean Corpuscular Hemoglobin 29, Mean Corpuscular Hemoglobin Concent 33, Red Cell Distribution Width 15.4, Platelet Count 702, Mean Platelet Volume 9.0, Immature Granulocyte % (Auto) 1, Neutrophils (%) (Auto) 83, Lymphocytes (%) (Auto) 10, Monocytes (%) (Auto) 6, Eosinophils (%) (Auto) 1, Basophils (%) (Auto) 0, Neutrophils # (Auto) 9.7, Lymphocytes # (Auto) 1.1, Monocytes # (Auto) 0.7, Eosinophils # (Auto) 0.1, Basophils # (Auto) 0.0, Immature Granulocyte # (Auto) 0.1, Sodium Level 139, Potassium Level 2.9, Chloride Level 105, Carbon Dioxide Level 18, Anion Gap 16, Blood Urea Nitrogen 5, Creatinine 0.64, Estimat Glomerular Filtration Rate 90, BUN/Creatinine Ratio 8, Glucose Level 68, Calcium Level 8.0, Corrected Calcium 9.4, Total Bilirubin 0.3, Aspartate Amino Transf (AST/SGOT) 21, Alanine Aminotransferase (ALT/SGPT) 9, Alkaline Phosphatase 85, Total Protein 5.0, Albumin 2.2 05/23/22 05:36: White Blood Count 9.9, Red Blood Count 2.71, Hemoglobin 7.8, Hematocrit 24, Mean Corpuscular Volume 89, Mean Corpuscular Hemoglobin 29, Mean Corpuscular Hemoglobin Concent 32, Red Cell Distribution Width 15.4, Platelet Count 726, Mean Platelet Volume 8.8, Immature Granulocyte % (Auto) 1, Neutrophils (%) (Auto) 80, Lymphocytes (%) (Auto) 10, Monocytes (%) (Auto) 7, Eosinophils (%) (Auto) 2, Basophils (%) (Auto) 1, Neutrophils # (Auto) 7.8, Lymphocytes # (Auto) 1.0, Monocytes # (Auto) 0.7, Eosinophils # (Auto) 0.2, Basophils # (Auto) 0.1, Immature Granulocyte # (Auto) 0.1, Sodium Level 136, Potassium Level 3.0, Chloride Level 104, Carbon Dioxide Level 16, Anion Gap 16, Blood Urea Nitrogen 3, Creatinine 0.57, Estimat Glomerular Filtration Rate 92, BUN/Creatinine Ratio 5, Glucose Level 70, Calcium Level 7.7, Corrected Calcium 9.1, Total Bilirubin 0.3, Aspartate Amino Transf (AST/SGOT) 14, Alanine Aminotransferase (ALT/SGPT) 8, Alkaline Phosphatase 67, Total Protein 4.8, Albumin 2.2, Iron Level [Pending], Total Iron Binding Capacity [Pending], Unsaturated Iron Binding Capacity [Pending], Transferrin % Saturation [Pending], Ferritin 212.6, Vitamin B12 Level [Pending] Discharge Home Medications: Active Scripts Active Reported Atenolol 25 Mg Tablet 25 Mg PO DAILY Spiriva Respimat 2.5MCG/ACTUATION (Tiotropium Bellflower) 2.5 Mcg/Actuation Mist.inhal 2 Puff IH DAILY Nasacort (Triamcinolone Acetonide) 55 Mcg Woodridge 1 Woodridge NSEACH BID Aspirin EC (Aspirin) 81 Mg Tablet.dr 81 Mg PO DAILY Allergy Relief (Cetirizine HCl) 10 Mg Tablet 10 Mg PO HS Magnesium (Magnesium Oxide) 400 Mg Magnesium Tablet 400 Mg PO DAILY Calcium (Calcium Carbonate) 600 Mg Calcium (1500 Mg) Tablet 600 Mg PO DAILY Vitamin C (Ascorbate Calcium) 500 Mg Tablet 1,000 Mg PO DAILY Pantoprazole Sodium 40 Mg Tablet.dr 40 Mg PO DAILY Levothyroxine Sodium 100 Mcg Tablet 100 Mcg PO DAILY Meloxicam 7.5 Mg Tablet 7.5 Mg PO BID Carafate (Sucralfate) 1 Gram Tablet 1 Gm PO QID Instructions to patient/family Please see electronic discharge instructions given to patient. Clinical Quality Measures DVT/VTE Risk/Contraindication: Contraindications-Pharm: Other *list below* Other: OR MIKEY CAMP DO May 23, 2022 10:32
[2022-05-23] MEDS: metroNIDAZOLE 500MG/100ML IVPB 100 ML IV SCH (10:40)
[2022-05-23 11:18] VITALS: BP 131/66
--- NOTE | 2022-05-23 12:12 | Progress Note ---
RILEY REVELES 05/23/22 1212: Progress Note CC: Abdominal pain HPI: Samantha is a 81 yo female who was admitted 05/18 from [facility]. Pt has past medical hx of GERD, HTN, COPD, hypothyroidism and osteoarthritis. She was admitted to [facility] on 05/09 for abdominal pain and distention and reportedly had not had a BM in 3 weeks. At [facility] she had a dec ompressive colonoscopy and partial colon resection with colostomy. She continued to have abdominal pain and distention and was found to have an abscess and she was transferred to [facility]. On 05/19 she underwent an exlap abdominal washout, partial cecectomy, colostomy revision, wound vac placement. She was placed on a NPO diet until today (05/23) and she has started to be on liquids. Pain has been well controlled in the last few days since she was started on oxycotin CR 10mg BID on 05/21. She will be moving down to the inpt rehab floor today. PMH: diverticulosis hemorrhoids irritable bowel HTN arthritis hypothyroidism chronic back pain PSH: Appendectomy cholecystectomy hysterectomy tonsillectomy tubal ligation All: meperidine Med: dilaudid 0.25mg Q2 PRN, metronidazole Q12h for 6 days, calcium carbonate 500mg PRN, miconazole nitrate topical BID, oxycotin CR 10mg BID, atenolol 25mg QD, senna 8.6mg BID, colace 100mg BID, duoneb TID, levothyroxine 100mcg QD, zosyn Q8H for 5 days, potassium chloride 40mEQ IV on 05/22 and 80mEq on 05/23, magnesium sulfate 1 gram on 05/23, xanex 0.25mg Q4H PRN SH: no tobacco, substance, or alcohol use lives at home FH ROS gen: no fevers, chills heent: no vision changes, eye pain cardiac: no chest pain, palpitations lungs: endorses SOB and cough GI: no abdominal pain, N/V : no dysuria, hematuria MSK: endorses weakness, no joint pains neuro: no numbness or tingling in extremities Exam vitals: T-36.8, P-81, RR-20, BP-128/72, SpO2- 95% gen: appears stated age, well groomed heent: EOMI, PERRL cardiac: irregular rhythym, no murmurs lungs: CTAB, normal rate GI- RLQ and LLQ tender to palpitation, abdomen soft LE- b/l pedal edema, rt calf tender neuro: A&Ox3, speech normal Labs WBC- 23.5 (05/20), 16.3 (05/21), 11.7 (05/22), 9.9 (05/23) Hgb- 8.4 (05/20), 8.0 (05/21), 7.7 (05/22), 7.8 (05/23) Platelets- 655(05/20), 711 (05/21), 702 (05/22), 726 (05/23) Potassium- 3.2 (05/20), 2.9 (05/21), 2.9 (05/22), 3 (05/23) A&P S/p partial colon resection with colostomy -Done at [facility] -started on liquids today -vit B12 to be checked today -continue incentive spirometer use -will be moving down to inpt rehab floor today Abdominal abscess -Flagyl (day 03/27) and Zosyn (day 02/23) --On 05/19 she underwent an exlap abdominal washout, partial cecectomy, colostomy revision, wound vac placement here at [facility] -NaCl at 125 mls/hr -Continue current pain control medications Acute blood loss anemia -Likely secondary to surgical blood loss -iron studies have been ordered, results pending -Will continue to monitor with daily labs Hypokalemia -K+ protocol, ordered 40 mEq of K+ via IV on 05/22 -80mEq of K+ given via IV today (05/23) -Magnesium supplementation given also -Magnesium was 1.8 today -Continue to monitor Irregular heart beat -EKG done -Continue to monitor for changes HTN -continue atenolol -Started on Purewick for incontinence -SCD for DVT prophylaxis AUREA CAMP DO 05/23/222051: Supervisory-Addendum Brief Verification & Attestation Participated in pt care: history, MDM, physical Personally performed: exam, history, MDM, supervision of care Care discussed with: Medical Student Procedures: n/a Results interpretation: Verified all documentation Verification and Attestation of Medical Student E/M Service A medical student performed and documented this service in my presence. I reviewed and verified all information documented by the medical student and made modifications to such information, when appropriate. I personally performed the physical exam and medical decision making. Aurea Camp, May 23, 2022,20:51 RILEY REVELES May 23, 2022 12:12 AUREA CAMP DO May 23, 2022 20:52
[2022-05-23] MEDS: HYDROmorphone 2 MG/ML VIAL (DILAUDID) IVP PRN (12:20)
[2022-05-23 13:26] VITALS: BP 131/66
== END 2022-05-23 13:10 | DRG 330 ==
LOC: 4TH 20:05
PROVIDERS: ADMIT Internal Medicine; ATTEND Internal Medicine
PROC: 0H97X0Z Drainage of Abdomen Skin with Drainage Device, External Approach (ICD-10-PCS; 2022-05-19)
PROC: 0DBH0ZZ Excision of Cecum, Open Approach (ICD-10-PCS; principal; 2022-05-19 10:26)
DX: K94.02 Colostomy infection (principal); D62 Acute posthemorrhagic anemia; L02.211 Cutaneous abscess of abdominal wall; K21.9 Gastro-esophageal reflux disease without esophagitis; I10 Essential (primary) hypertension; J44.9 Chronic obstructive pulmonary disease, unspecified; E03.9 Hypothyroidism, unspecified; M19.90 Unspecified osteoarthritis, unspecified site; K57.90 Diverticulosis of intestine, part unspecified, without perforation or abscess without bleeding; G89.29 Other chronic pain; M54.9 Dorsalgia, unspecified; K58.9 Irritable bowel syndrome, unspecified; E87.6 Hypokalemia
CPT/HCPCS: 36415; 80053; 81000; 82607; 82728; 83540; 83550; 85025; 86850; 86900; 86901; 87077; 87081; 87088; 87186; 93005; 94640; 94664; 94760

== ENCOUNTER 2022-05-23 10:09 | Inpatient (IN) | payer MEDICARE, OTHER ==
[~2022-05-23] VITALS: Ht 157.5 cm; Wt 89.5 kg
[~2022-05-23 10:09] MED LIST changes: +ASCO-262 PO; +ASPI-1238 PO; +CALC600T91 PO; +CETI-458 PO; +LEVO100T7 PO; +MAGN400T39 PO; +MELO7.5T46 PO; +SUCR1TAB36 PO; +TIOT4MIS2 IH; +TRIA10.8 NSEACH
[2022-05-23 13:52] VITALS: BP 131/85
[2022-05-23] MEDS ORDERED: FLEET ENEMA ADULT 1 EA BTL PR PRN (14:15)
[2022-05-23] MEDS ORDERED: ACETAMINOPHEN 325 MG TABLET PO PRN ×2 (14:15→15:00)
[2022-05-23] MEDS ORDERED: diphenhydrAMINE 25 MG TAB (BENADRYL) PO PRN ×2 (14:15→15:00)
[2022-05-23] MEDS ORDERED: LACTULOSE SYRUP 10GM/15ML (ENULOSE) 30ML UDC PO PRN ×2 (14:15→15:00)
[2022-05-23] MEDS ORDERED: guaiFENesin/CODEINE (ROBITUSSIN AC) 10ML UDC PO PRN (14:15)
[2022-05-23] MEDS ORDERED: ONDANSETRON 4 MG (ZOFRAN) ORAL DISSOLVE TAB PO PRN ×2 (14:15→15:00)
[2022-05-23] MEDS ORDERED: BISACODYL 10 MG SUPP (DULCOLAX) PR PRN ×2 (14:15→15:00)
[2022-05-23] MEDS ORDERED: DOCUSATE SODIUM 100 MG (COLACE) CAP PO PRN (14:15)
[2022-05-23] MEDS ORDERED: LOPERAMIDE 2 MG (IMODIUM) TABLET PO PRN (14:15)
[2022-05-23] MEDS ORDERED: MELATONIN 3 MG TABLET PO PRN ×2 (14:15→15:00)
--- NOTE | 2022-05-23 14:18 | PM&R Post Admission Assessment ---
PM&R HP Date of Visit: May 23, 2022 Time of Visit: 14:00 History of Present Illness CC: Myopathy following complicated bowel surgery HPI: This is a 81yoWF clinic patient of Dr Whitmore who I transferred over from [facility] due to abdominal abscess complication following a partial colon resection due to severe diverticulitis with adhesions causing severe obstruction. No evidence of cancer noted on pathology. Patient underwent washout and is currently still on broad spectrum abx and remains on IVF and is slowly advancing to a CLD. She remains very weak and is in need of aggressive therapy in order to return to independent living. PLOF was independent without the use of any AD. RILEY REVELES 05/23/22 1212: CC: Abdominal pain HPI: Samantha is a 81 yo female who was admitted 05/18 from [facility]. Pt has past medical hx of GERD, HTN, COPD, hypothyroidism and osteoarthritis. She was admitted to [facility] on 05/09 for abdominal pain and distention and reportedly had not had a BM in 3 weeks. At [facility] she had a decompressive colonoscopy and partial colon resection with colostomy. She continued to have abdominal pain and distention and was found to have an abscess and she was transferred to [facility] [place], operated by [facility]. On 05/19 she underwent an exlap abdominal washout, partial cecectomy, colostomy revision, wound vac placement. She was placed on a NPO diet until today (05/23) and she has started to be on liquids. Pain has been well controlled in the last few days since she was started on oxycotin CR 10mg BID on 05/21. She will be moving down to the inpt rehab floor today. PMH: diverticulosis hemorrhoids irritable bowel HTN arthritis hypothyroidism chronic back pain PSH: Appendectomy cholecystectomy hysterectomy tonsillectomy tubal ligation All: meperidine Med: dilaudid 0.25mg Q2 PRN, metronidazole Q12h for 6 days, calcium carbonate 500mg PRN, miconazole nitrate topical BID, oxycotin CR 10mg BID, atenolol 25mg QD, senna 8.6mg BID, colace 100mg BID, duoneb TID, levothyroxine 100mcg QD, zosyn Q8H for 5 days, potassium chloride 40mEQ IV on 05/22 and 80mEq on 05/23, magnesium sulfate 1 gram on 8/2, xanex 0.25mg Q4H PRN SH: no tobacco, substance, or alcohol use lives at home FH ROS gen: no fevers, chills heent: no vision changes, eye pain cardiac: no chest pain, palpitations lungs: endorses SOB and cough GI: no abdominal pain, N/V : no dysuria, hematuria MSK: endorses weakness, no joint pains neuro: no numbness or tingling in extremities Exam vitals: T-36.8, P-81, RR-20, BP-128/72, SpO2- 95% gen: appears stated age, well groomed heent: EOMI, PERRL cardiac: irregular rhythym, no murmurs lungs: CTAB, normal rate GI- RLQ and LLQ tender to palpitation, abdomen soft LE- b/l pedal edema, rt calf tender neuro: A&Ox3, speech normal Labs WBC- 23.5 (05/20), 16.3 (05/21), 11.7 (05/22), 9.9 (05/23) Hgb- 8.4 (05/20), 8.0 (05/21), 7.7 (05/22), 7.8 (05/23) Platelets- 655(05/20), 711 (05/21), 702 (05/22), 726 (05/23) Potassium- 3.2 (05/20), 2.9 (05/21), 2.9 (05/22), 3 (05/23) A&P S/p partial colon resection with colostomy -Done at [facility] -started on liquids today -vit B12 to be checked today -continue incentive spirometer use -will be moving down to inpt rehab floor today Abdominal abscess -Flagyl (day 03/27) and Zosyn (day 02/23) --On 05/19 she underwent an exlap abdominal washout, partial cecectomy, colostomy revision, wound vac placement here at [facility] -NaCl at 125 mls/hr -Continue current pain control medications Acute blood loss anemia -Likely secondary to surgical blood loss -iron studies have been ordered, results pending -Will continue to monitor with daily labs Hypokalemia -K+ protocol, ordered 40 mEq of K+ via IV on 05/22 -80mEq of K+ given via IV today (05/23) -Magnesium supplementation given also -Magnesium was 1.8 today -Continue to monitor Irregular heart beat -EKG done -Continue to monitor for changes HTN -continue atenolol -Started on Purewick for incontinence -SCD for DVT prophylaxis Past Bhnxsgh-Fsuste-Pdsgxj Hx Past Med/Social Hx: Reviewed Nursing Past Med/Soc Hx, Reviewed and Corrections made Patient Social History Marrital Status: single Employed/Student: retired Alcohol Use: Denies Use Smoking Status: Former Smoker Former Smoker, Quit: Oct 01, 1986 Recent Hopitalizations: No Immunizations Up To Date Tetanus Booster (TDap): Unknown Date of Pneumonia Vaccine: Aug 01, 2018 Date of Influenza Vaccine: Aug 01, 2018 Seasonal Allergies Seasonal Allergies: Yes Past Medical History Surgeries: Abdominal, Appendectomy, Gallbladder, 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, Tonsillectomy, Tubal Ligation Currently Using CPAP: No Currently Using BIPAP: No Cardiac: Hypertension Reproductive: No Sexually Transmitted Disease: No 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 Genitourinary: UTI-Chronic Gastrointestinal: Gastroesophageal Reflux, Diverticulosis, Hemorrhoids, Irritable Bowel Musculoskeletal: Arthritis, Chronic Back Pain Endocrine: Hypothyroidsim Adverse Reaction to Blood Pro: No PM&R Allergy/Meds/Data Review Allergies Coded Allergies: meperidine (Verified Allergy, Unknown, 12/15/08) Home Medications Scheduled Ascorbate Calcium (Vitamin C), 1,000 MG PO DAILY, (Reported) Aspirin (Aspirin EC), 81 MG PO DAILY, (Reported) Atenolol (Atenolol), 25 MG PO DAILY, (Reported) Calcium Carbonate (Calcium), 600 MG PO DAILY, (Reported) Cetirizine HCl (Allergy Relief), 10 MG PO HS, (Reported) Levothyroxine Sodium (Levothyroxine Sodium), 100 MCG PO DAILY, (Reported) Magnesium Oxide (Magnesium), 400 MG PO DAILY, (Reported) Meloxicam (Meloxicam), 7.5 MG PO BID, (Reported) Pantoprazole Sodium (Pantoprazole Sodium), 40 MG PO DAILY, (Reported) Sucralfate (Carafate), 1 GM PO QID, (Reported) Tiotropium [place] (Spiriva Respimat 2.5MCG/ACTUATION), 2 PUFF IH DAILY, (Reported) Triamcinolone Acetonide (Nasacort), 1 SPRAY NSEACH BID, (Reported) Discontinued Medications Aspirin (Aspir 81), 81 MG PO Q48H, (Reported) Discontinued Reason: No Longer Taking Atenolol (Atenolol), 25 MG PO HS, (Reported) Discontinued Reason: No Longer Taking Cyclosporine (Restasis), 1 DROP OU BID, (Reported) Discontinued Reason: No Longer Taking Gabapentin (Gabapentin), 600 MG PO HS, (Reported) Discontinued Reason: No Longer Taking Levothyroxine Sodium (Levothyroxine Sodium), 75 MCG PO HS, (Reported) Discontinued Reason: No Longer Taking Current Medications Current Medications Reviewed Review of Systems Constitutional: see HPI, malaise, weakness EENTM: no symptoms reported Respiratory: no symptoms reported Cardiovascular: no symptoms reported Gastrointestinal: abdominal pain, loss of appetite, nausea Genitourinary: no symptoms reported Musculoskeletal: back pain, joint pain Skin: no symptoms reported Psychiatric/Neurological: Depressed All Other Systems Reviewed Negative Unless Noted: Yes Physical Exam Physical Exam Vital Signs Vital Signs - First Documented 05/23/22 13:52 Temp 36.8 Pulse 101 Resp 20 B/P (MAP) 131/85 (100) Pulse Ox 95 O2 Delivery Room Air Capillary Refill : Height, Weight, BMI Height: 5'2.00" Weight: 160lbs. 0.0oz. [id number]; 35.35 BMI Method:Stated General Appearance: No Apparent Distress, WD/WN, Chronically ill Eyes: Bilateral Eye Normal Inspection, Bilateral Eye PERRL HEENT: PERRL/EOMI, Normal ENT Inspection, Pharynx Normal Neck: Full Range of Motion, Normal Inspection, Non Tender, Supple, Carotid Bruit Respiratory: Chest Non Tender, Lungs Clear, Normal Breath Sounds, No Accessory Muscle Use, No Respiratory Distress Cardiovascular: Regular Rate, Rhythm, No Edema, No Gallop, No JVD, No Murmur, Normal Peripheral Pulses Gastrointestinal: Normal Bowel Sounds, No Organomegaly, No Pulsatile Mass, Soft, Other (colostomy) Back: Normal Inspection, No CVA Tenderness, No Vertebral Tenderness Extremity: Normal Capillary Refill, Normal Inspection, Normal Range of Motion, Non Tender, No Calf Tenderness, No Pedal Edema Neurologic/Psychiatric: Alert, Oriented x3, 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 Norm as Tested, Abnormal Gait, Depressed Affect, Motor Weakness (generalized) Skin: Normal Color, Warm/Dry Lymphatic: No Adenopathy PM&R Medical Assessment & Plan REHAB/MEDICAL ASSESSMENT AND PLAN: REHAB IMPAIRMENT GROUP: Myopathy ETIOLOGIC DIAGNOSIS: Myopathy The comorbidities that impact the patients function and/or functional outcome by: recent complicated bowel surgery then complication of abscess, severe protein deficit, COPD REHAB PLAN: The patient is being admitted to our comprehensive inpatient rehabilitation facility and can tolerate the intensity of service consisting of at least: 180 minutes of therapy a day, 5 out of 7 days a week Rehab treatment will consist of: PT OT will focus on regaining function in order to return to independent living with use of AD and increasing stamina in order to ambulate safely The patient/family has a good understanding of our discharge process and will benefit from an interdisciplinary inpatient rehabilitation program. The patient has potential to make improvement and is in need of at least two of the following multidisciplinary therapies including but not limited to physical, occupational, speech, and prosthetics and orthotics. Additionally the patient will need services from respiratory, nutritional services, wound care, psychology, etc. (Customize this to each patient). Given the patients complex condition and risk of further medical complications, rehabilitation services cannot be safely or effectively provided at a lower level of care such as a retirement facility. BARRIERS TO DISCHARGE: Severe debility ESTIMATED LOS: 12 days DISPOSITION: Home RELEVANT CHANGES SINCE PREADMISSION SCREENING: I have compared the patients medical and functional status at the time of the preadmission screening and there are: no changes PROGNOSIS: Good REHABILITATION GOALS: 1. PT OT will focus on regaining function in order to return to independent living with use of AD and increasing stamina in order to ambulate safely All the above goals were reviewed with the patient and he/she is in agreement. By signing this document, I acknowledge that I have personally performed a full physical examination on this patient within 24 hours of admission to this inpatient rehabilitation facility and have determined the patient to be able to tolerate the above course of treatment at an intensive level for a reasonable pe riod of time. I will be completing a detailed individualized Plan of Care for this patient by day #4 of the patients stay based upon the Preadmission Screen, the Post-Admission Evaluation, and the therapy evaluations. Admission Dx/Comorbidities: (1) Myopathy ICD Codes: G72.9 - Myopathy, unspecified (2) Abdominal abscess (3) COPD (chronic obstructive pulmonary disease) ICD Codes: J44.9 - Chronic obstructive pulmonary disease, unspecified Assessment/Plan Assessment and Plan Assess & Plan/Chief Complaint Assessment: S/p partial colon resection with colostomy due to severe colon obstruction from adhesions from recurrent silent diverticulitis -Done at [facility] Abdominal abscess -Flagyl and Zosyn maintained -s/p washout -NaCl at 125 mls/hr -Pain control Acute blood loss anemia -Likely secondary to surgical blood loss -Will await iron studies Hypokalemia -K+ protocol COPD Plan: Pain control Monitor closely IRF protocol MIKEY CAMP DO May 23, 2022 14:18
--- NOTE | 2022-05-23 14:29 | Physical Therapy Evaluation ---
PT Evaluation-General Medical Diagnosis Admission Date May 23, 2022 at 13:00 Medical Diagnosis: colon resection with colostomy Onset Date: May 18, 2022 Therapy Diagnosis Therapy Diagnosis: impaired mobility Height/Weight Height (Feet): 5 Height (Inches): 2.00 Weight (Pounds): 160 Weight (Ounces): 0.0 Precautions Precautions/Isolations: Fall Prevention, Standard Precautions Referral Physician: Aurea Bell DO Reason for Referral: Evaluation/Treatment Medical History Pertinent Medical History: COPD, GERD, HTN, OA Additional Medical History Past Medical History Surgeries: Appendectomy, Gallbladder, 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, Tonsillectomy, Tubal Ligation 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 4-Ceqeajdgxb-vevhiqw completes the activity by him/herself with no assistance from a helper. 5-Set-up or Clean-up Assistance-helper sets up or cleans up; patient completes activity. [place] assists only prior to or following the activity. 4-Supervision or Touching Assistance-helper provides verbal cues and/or touching/steadying and/or contact guard assistance as patient completes activity. Assistance may be provided throughout the activity or intermittently. 3-Partial/Moderate Assistance-helper does LESS THAN HALF the effort. [place] lifts, holds or supports trunk or limbs, but provides less than half the effort. 2-Substantial/Maximal Assistance-helper does MORE THAN HALF the effort. [place] lifts or holds trunk or limbs and provides more than half the effort. 3-Blcdwdilz-cfvthj does ALL the effort. Patient does none of the effort to complete the activity. Or, the assistance of 2 or more helpers is required for the patient to complete the activity. If activity was not attempted, code reason: 7-Patient Refused. 9-Not Applicable-not attempted and the patient did not perform the activity before the current illness, exacerbation or injury. 10-Not Attempted due to Environmental Limitations-(lack of equipment, weather restraints, etc.). 88-Not Attempted due to Medical Conditions or Safety Concerns. Bed Mobility: 6 Transfers (B,C,W/C): 6 Gait: 6 Stairs: 6 Indoor Mobility (Ambulation): Independent Stairs: Independent Prior Devices Use: Walker PT Evaluation-Current Subjective Patient in bed pre tx, agrees to PT, has 2/10 pain in abdomen. Will be co- treating with OT for part of tx due to poor patient mobility, strength, endurance, severe debility, coordinate UE and LE during activity, safety and reduce risk of falls. Pre tx, patient's BP is 131/85, HR 101bpm, O2 95% Pt/Family Goals to be independent at home Objective Patient Orientation: Person, Place, Situation Attachments: Colostomy/Ileostomy, Drains, IV wound vac ROM/Strength ROM Lower Extremities WNL Strength Lower Extremities grossly 3+/5 BLE Sensory Hearing: Impaired Sensation Right Lower Extremit: Intact Sensation Left Lower Extremity: Intact Transfers Roll Left & Right (QC): 3 Sit to Lying (QC): 3 Lying to Sitting/Side of Bed(Q: 3 Sit to Stand (QC): 3 Chair/Kmx-lc-Jshwv Xfer(QC): 4 Toilet Transfer (QC): 4 Car Transfer (QC): 3 Patient performs rolling and supine <-> sit with min assist, sit <-> stand min assist, transfers CGA, car transfer mod assist. Patient needs occasional cues for positioning and safety. Gait Does the Patient Walk?: Yes Mode of Locomotion: Walk Anticipated Mode of Locomotion: Walk Walk 10 feet (QC): 4 Walk 50 ft with 2 Turns(QC): 4 Walk 150 ft (QC): 4 Walking 10ft/uneven surface-QC: 4 Distance: 150'x2, 100' Gait Assistive Device: FWW Comments/Gait Description Patient can ambulate 150' with a rolling walker with CGA (including 50' with at least 2 turns of 90 degrees and 10' over an uneven surface), patient ambulates very slowly, needs occasional standing rest breaks due to fatigue Wheelchair Training Does the Pt Use a Wheelchair?: No Wheel 50 ft with 2 turns (QC): 9 Wheel 150 ft (QC): 9 Stairs 1 Step (curb) (QC): 88 4 Steps (QC): 88 12 Steps (QC): 88 Balance Sitting Static: Fair Sitting Dynamic: Fair Standing Static: Fair Standing Dynamic: Fair Picking up an Object (QC): 4 (CGA using a range manager) Treatment Patient also bathed and dressed, used the toilet for a BM twice. PT performed bed mobility and transfers, ambulation, standing and positioning during dressing and bathing, toilet transfers, OT performed bathing, dressing, toileting, UE positioning and safety during activity. Assessment/Needs Patient in bed post tx with nurse call, phone, tray, all needs met. Patient has impaired mobility, strength, endurance. Needs some assist with supine <-> sit and sit <-> stand. Rehab Potential: Fair PT Short Term Goals Short Term Goals Time Frame: May 30, 2022 Roll Left & Right: 4 (SBA) Sit to lyin (SBA) Lying to sitting on side of be: 4 (SBA) Sit to stand: 4 (CGA) Chair/tjq-sg-rhcpi transfer: 4 (SBA) Toilet transfer: 4 (SBA) Walk 10 feet: 4 (SBA) Walk 50 feet with two turns: 4 (SBA) Walk 150 feet: 4 (SBA) PT Usp Goals Operator Prefinish Goals PT Usp Goals Time Frame: Jun 13, 2022 Roll Left & Right (QC): 6 Sit to Lying (QC): 6 Lying-Sitting on Side/Bed(QC): 6 Sit to Stand (QC): 6 Chair/Ewm-zi-Ywahc Xfer(QC): 6 Toilet Transfer (QC): 6 Car Transfer (QC): 4 Does the Patient Walk: Yes Walk 10 feet (QC): 6 Walk 50ft with 2 Turns (QC): 6 Walk 150 ft (QC): 6 Walking 10ft on Uneven Surface: 6 1 Step (curb) (QC): 4 4 Steps (QC): 4 12 Steps (QC): 88 Picking up an Object (QC): 6 (using range manager) Wheel 50 feet with 2 turns (QC: 9 Wheel 150 feet: 9 PT Plan Problem List Problem List: Activity Tolerance, Functional Strength, Safety, Balance, Gait, Transfer, Bed Mobility, ROM Treatment/Plan Treatment Plan: Continue Plan of Care Treatment Plan: Bed Mobility, Education, Functional Activity Tj, Functional Strength, Group Therapy, Gait, Safety, Therapeutic Exercise, Transfers Treatment Duration: Jun 13, 2022 Frequency: At least 5 of 7 days/Wk (IRF) Estimated Hrs Per Day: 1.5 hours per day Patient and/or Family Agrees t: Yes Safety Risks/Education Patient Education: Gait Training, Transfer Techniques, Correct Positioning, Safety Issues Teaching Recipient: Patient Teaching Methods: Demonstration, Discussion Response to Teaching: Reinforcement Needed Discharge Recommendations Plan Patient will perform bed mobility and transfer training, balance and endurance training, functional strengthening, stair training, gait training, and education, to improve functional mobility and independence at home. Therapy Discharge Recommendati: Scheduled Assistance, Home & Family, Post Acute PT Time/GCodes Time In: 1300 Time Out: 1425 Total Billed Treatment Time: 75 Total Billed Treatment 1 visit EVM 10' FA 65' PT eval from [id number], OT eval from [id number], co-treat from [id number] EVELYN GARCIA PT May 23, 2022 14:29
--- NOTE | 2022-05-23 14:32 | Occupational Therapy Eval ---
OT Evaluation-General/PLF Medical Diagnosis Admission Date May 23, 2022 at 13:00 Medical Diagnosis: debility Onset Date: May 23, 2022 Therapy Diagnosis Therapy Diagnosis: decreased ADL status and weakness Height/Weight Height (Feet): 5 Height (Inches): 2.00 Weight (Pounds): 160 Weight (Ounces): 0.0 Precautions Precautions/Isolations: Fall Prevention, Standard Precautions Referral Physician: Arabella Referral Reason: Evaluation/Treatment Medical History Pertinent Medical History: COPD, GERD, HTN, OA Additional Medical History HTN, chronic UTI, GERD, diverticulitis, IBS, CBP, hypothyroidism, hemorrhoids, COPD, and osteoarthritis. Current History Pt admitted on 05/18 fron [facility] for abdominal pain and distention and no BM for ~3weeks. s/p partial colon resection with colostomy Social History Home: Single Level Current Living Status: Other Family (Granddaughter and great granddaughter ) Steps Into Home: 3 (in the garage) ADL-Prior Level of Function SCALE: Activities may be completed with or without assistive devices. 8-Jmidkbdgqc-yaiqwrs completes the activity by him/herself with no assistance from a helper. 5-Set-up or Clean-up Assistance-helper sets up or cleans up; patient completes activity. [place] assists only prior to or following the activity. 4-Supervision or Touching Assistance-helper provides verbal cues and/or touching/steadying and/or contact guard assistance as patient completes activity. Assistance may be provided throughout the activity or intermittently. 3-Partial/Moderate Assistance-helper does LESS THAN HALF the effort. [place] lifts, holds or supports trunk or limbs, but provides less than half the effort. 2-Substantial/Maximal Assistance-helper does MORE THAN HALF the effort. [place] lifts or holds trunk or limbs and provides more than half the effort. 8-Xbcabmepu-elconv does ALL the effort. Patient does none of the effort to complete the activity. Or, the assistance of 2 or more helpers is required for the patient to complete the activity. If activity was not attempted, code reason: 7-Patient Refused. 9-Not Applicable-not attempted and the patient did not perform the activity before the current illness, exacerbation or injury. 10-Not Attempted due to Environmental Limitations-(lack of equipment, weather restraints, etc.). 88-Not Attempted due to Medical Conditions or Safety Concerns. ADL PLOF Comments Pt reports being IND with ADLs and IADLs at PLOF, although she has had increasing difficulty with LBD and footwear d/t L knee pain. She uses a SPC for functional mobility when she feels dizzy or unsteady, but she has been using a 4WW since she's been hospitalized. Pt says she does all the cooking, cleaning, laundry, and errands for the household. Her granddaughter (24yrs) and great granddaughter (7yrs) do not provide any assistance. 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 She has misdraw hand and sock aide from L knee surgery, but says she's "too independent" to use them. 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 Mental Status/Objective Patient Orientation: Person, Place, Situation Attachments: Drains, IV, Other-See Comments (wound vac) Current Glasses/Contacts: Yes Hearing Aids: Yes Dentures/Partials: Yes Hand Dominance: Right Upper Extremity ROM WFL bilaterally Upper Extremity Sensation Pt denies any BUE numbness or tingling Upper Extremity Strength grossly 3+/5 bilaterally ADL-Treatment Eating (QC): 5 Oral Hygiene (QC): 4 (CGA-SBA for standing balance) Shower/Bathe Self (QC): 3 (Min A to wash buttocks and below the knees bilaterally) Upper Body Dressing (QC): 5 Lower Body Dressing (QC): 3 (Min A to thread BLE through briefs, CGA for standing balance during hike) On/Off Footwear (QC): 2 (Max A per clinical judgement ) Toileting Hygiene (QC): 3 (Min A to wipe buttocks and for standing balance while wiping periarea and pant hike) Other Treatments OT evaluation complete, OT/PT cotreat due to skill of 2 clinicians required that a rehabilitation program manager could not perform in order to coordinate UE/LEs, decrease fall risk, focus on higher level balance tasks, and due to pt's limitations in strength, activity tolerance, mobility, and transfers. OT focused on UE placement, cues for sequencing and safety and ADLs, PT focused on LE placement, gross overall movement, and transfers/mobility. Pt required min A to transfer supine<>seated EOB. Pt walked into bathroom to complete toileting, sponge bath, dressing, and oral care. Afterwards, she took a seated RB on EOB and provided information about PLOF and living situation. She walked to therapy gym with 4WW, CGA, and participated in functional mobility/transfer assessments and BUE screen. Pt required several standing RBs to catch breath and she was noticeably SOB. She declined seated RB during walk to/from therapy gym. Pt also educated on 4WW safety during transfers as pt would keep 4WW at a distance from herself and would push 4WW away prior to sitting down. Pt requested to use restroom again, so she returned to room. Post tx, pt left in recliner with call light in reach and all needs met. Education OT Patient Education: Correct positioning, Energy conservation, Exercise program, Modified ADL techniques, Progress toward Goal/Update tx plan, Purpose of tx/functional activities, Rehab process, Safety issues, Transfer techniques, Use of adapted equipment Teaching Recipient: Patient Teaching Methods: Discussion Response to Teaching: Verbalize Understanding OT Short Term Goals Short Term Goals Time Frame: May 31, 2022 Toileting hygiene: 4 Shower/bathe self: 4 Lower body dressin Putting on/taking off footwear: 3 OT Supervisor Cutting And Boning Goals Supervisor Cutting And Boning Goals Time Frame: Jun 16, 2022 Eating (QC): 6 Oral Hygiene (QC): 6 Toileting Hygiene (QC): 6 Shower/Bathe Self (QC): 5 Upper Body Dressing (QC): 6 Lower Body Dressing (QC): 6 On/Off Footwear (QC): 6 Additional Goals: 1-Demonstrate ADL Tasks, 2-Verbalize Understanding, 3- ImproveStrength/Tj 1=Demonstrate adherence to instructed precautions during ADL tasks. 2=Patient will verbalize/demonstrate understanding of assistive devices/modifications for ADL. 3=Patient will improve strength/tolerance for activity to enable patient to perform ADL's. OT Education/Plan Problem List/Assessment Assessment: Decreased Activ Tolerance, Decreased UE Strength, Impaired Funct Balance, Impaired I ADL's, Impaired Self-Care Skills Discharge Recommendations Plan/Recommendations: Continue POC Treatment Plan/Plan of Care Patient would benefit from OT for education, treatment and training to promote independence in ADL's, mobility, safety and/or upper extremity function for ADL's. Plan of Care: ADL Retraining, Functional Mobility, Group Exercise/Act as Ind, UE Funct Exercise/Act Treatment Duration: Jun 16, 2022 Frequency: At least 5 of 7 days/Wk (IRF) Estimated Hrs Per Day: 1.5 hours per day Rehab Potential: Fair Time/GCodes Start Time: 13:10 Stop Time: 14:25 Total Time Billed (hr/min): 75 Billed Treatment Time OT eval: 2848-2879, OT/PT cotreat: 3500-5877 1, EVM (10'), ADL 2 (35'), FA 2 (30') AMARILIS MONTIEL OT May 23, 2022 14:32
[2022-05-23] MEDS ORDERED: HYDROmorphone 2 MG/ML VIAL (DILAUDID) IVP PRN (15:00)
[2022-05-23] MEDS ORDERED: ALPRAZolam 0.25 MG (XANAX) TAB PO PRN (15:00)
[2022-05-23] MEDS ORDERED: diphenhydrAMINE 50 MG/ML INJ (BENADRYL) IVP PRN (15:00)
[2022-05-23] MEDS ORDERED: MILK OF MAGNESIA 400 MG/5 ML 30 ML UDC PO PRN (15:00)
[2022-05-23] MEDS ORDERED: ANTACID SUSP 30 ML UDC (MYLANTA) PO PRN (15:00)
[2022-05-23] MEDS ORDERED: ONDANSETRON 4 MG/2 ML (SDV) Z0FRAN IV PRN (15:00)
[2022-05-23] MEDS ORDERED: polyethylene glycoL POWDER 17 GM (MIRALAX) PACK PO PRN (15:00)
[2022-05-23] MEDS ORDERED: CALCIUM CARBONATE 500 MG (TUMS) TAB.CHEW PO PRN (15:00)
--- NOTE | 2022-05-23 15:11 | ST Cognitive Linguistic Eval ---
Speech Evaluation-General Medical Diagnosis Abdominal Abcess Onset Date: May 23, 2022 Therapy Diagnosis Therapy Diagnosis: Intact Neurocognitive Skills Precautions Precautions: Fall, Pressure Ulcer Precautions/Isolations: Fall Prevention, Standard Precautions, Pressure Ulcer Referral Referring Physician: Dr. Bell Reason for Referral: Evaluation/Treatment Medical History Pertinent Medical History: COPD, GERD, HTN, OA Current History The patient is a 81 year-old female with a past medical history of COPD, GERD, HTN, OA, HTN, chronic UTI, diverticulitis, IBS, CBP, hypothyroidism, hemorrhoids, and osteoarthritis, who presented to acute rehabilitation following a partial colon resection with colostomy. Reviewed History: Yes Social History Current Living Status: Other Family (Granddaughter and great granddaughter ) Speech PLF-Current Status Prior Level of Function The patient denied any challenges or concerns with her speech, language or cognition. Subjective The patient was seated upright in her recliner, awake and alert upon entrance to her room by the clinician. The patient greeted the clinician appropriately and was agreeable to participation in the cognitive linguistic assessment. Language Eval: Auditory Comprehends Simple Yes/No Ques: Functional Indent/Objects Multiple Qureshi: Functional Ident/Pics in Multiple Qureshi: Functional Follows 1-Step Commands: Functional Follows Complex Directions: Functional Follows General Conversations: Functional Language Eval: Verbal Language Completes Spontaneous Greeting: Functional Produces Auto, Serial Info: Functional Imitates Simple Words/Phrases: Functional Word Finding: Functional Requests Basic Needs: Functional States Basic Personal Info: Functional Expresses Complex Ideas: Functional Language Evaluation: Reading Follows Simple Written Direct: Functional Cognitive Patient Orientation The patient was independently oriented to self, location, month, day of week, date, and year. Objective Cognitive Domain Attention: WNL Memory: WNL Problem Solving: Functional Executive Functions: WNL Visuospatial Skills: WNL Composite Severity Rating: WNL Objective Formal/Standardized Tests [facility] Mental Status Exam (UMS) Results The patient demonstrated a result of +30/30 on the SLUMS correlating to a result of neurocognitive skills within normal limits. Oral Motor/Speech Production The patient does not demonstrate dysarthria or apraxia of speech. The patient is 100% intelligible in known and unknown contexts. Impression The patient demonstrated neurocognitive skills within normal limits. Speech Patient Assess Expression of Ideas/Wants: Expression (4) Understanding Verbal Content: Understands (4) Brief Interview-Mental Status: Yes Repetition of Three Words: Three (3) Temporal Orientation: Year: Correct (3) Temporal Orientation: Month: Accurate within 5 days(2) Temporal Orientation: Day: Correct (1) Recall : Wear to say "Sock": Yes, no cue required (2) Recall : Color: Yes, no cue required (2) Recall : Bed: Yes, no cue required (2) Memory/Recall Ability: Current season, That he or she is in a hsp/hsp unit Speech-Plan Patient/Family Goals Patient/Family Goals: The patient wishes to return home independently. Treatment Plan Speech Therapy Treatment Plan: Discontinue ST Treatment Duration: May 23, 2022 Frequency: 1 time per week Estimated Hrs Per Day: .5 hour per day Rehab Potential: Fair Safety Risks/Education Teaching Recipient: Patient Teaching Methods: Discussion Response to Teaching: Verbalize Understanding Education Topics Provided: Results of BRENNON MENDEZ Speech Therapy Time In: 14:25 Speech Therapy Time Out: 14:55 Total Billed Time: 30 Billed Treatment Time 1, OLIVE SÁNCHEZ ELIZ[address] ST May 23, 2022 15:11
[2022-05-23] MEDS: POTASSIUM CL 10MEQ/50ML IVPB 50 ML IV SCH ×9 (15:49→23:00)
[2022-05-23] MEDS: ENOXAPARIN 40 MG/0.4 ML (LOVENOX) SYR SC SCH (15:49)
[2022-05-23] MEDS: NS IV 1000 ML 1,000 ML IV SCH (15:56)
[2022-05-23] MEDS: metroNIDAZOLE 500MG/100ML IVPB 100 ML IV SCH (16:14)
[2022-05-23] MEDS: CALCIUM CARBONATE 500 MG (TUMS) TAB.CHEW PO PRN ×2 (16:17→18:45)
[2022-05-23] MEDS: PIPERACILLIN SODIUM/TAZOBACTAM 4.5 GM in NS (IVPB) 100 ML IV SCH ×2 (18:00→23:44)
[2022-05-23 20:00] VITALS: BP 143/72
[2022-05-23] MEDS: DOCUSATE SODIUM 100 MG (COLACE) CAP PO SCH (20:00)
[2022-05-23] MEDS: polyethylene glycoL POWDER 17 GM (MIRALAX) PACK PO SCH (20:00)
[2022-05-23] MEDS: MICONAZOLE 2% POWDER (DESENEX AF) 90 GM TOP SCH (20:01)
[2022-05-23] MEDS: oxyCODONE ER 10 MG (OxyCONTIN CR) TAB PO SCH (20:49)
[2022-05-23] MEDS: SENNOSIDES 8.6 MG (SENOKOT) TAB PO SCH (21:00)
[2022-05-23] MEDS: SENNA W/DOCUSATE (SENOKOT S) TABLET PO SCH (21:00)
[2022-05-23] MEDS ORDERED: DOCUSATE SODIUM 100 MG (COLACE) CAP PO SCH (21:00)
[2022-05-23] MEDS: RT-ALBUTEROL/IPRATROPIUM 3 ML (DUONEB) VIAL INH SCH (21:50)
[2022-05-24] MEDS: POTASSIUM CL 10MEQ/50ML IVPB 50 ML IV SCH ×10 (00:03→18:24)
[2022-05-24] MEDS: NS IV 1000 ML 1,000 ML IV SCH ×3 (00:04→10:05)
[2022-05-24] MEDS: metroNIDAZOLE 500MG/100ML IVPB 100 ML IV SCH ×2 (05:05→17:08)
--- NOTE | 2022-05-24 06:03 | PM&R Progress Note ---
Subjective HPI/CC On Admission Date Seen by Provider: May 24, 2022 Time Seen by Provider: 09:00 Subjective/Events-last exam 05/24/2022: Doing better IVF decreased to 30cc/hr Third spacing will require CYNTHIA wraps Potassium low so IV supplement Pain improved Working with therapy Review of Systems General: Fatigue, Malaise Objective Exam Vital Signs Vital Signs Date Time Temp Pulse Resp B/P (MAP) Pulse Ox O2 Delivery O2 Flow Rate FiO2 05/24/22 15:10 Room Air 05/24/22 09:20 95 05/24/22 07:37 36.7 100 18 108/51 (70) Capillary Refill : General Appearance: No Apparent Distress, WD/WN, Chronically ill HEENT: PERRL/EOMI, Normal ENT Inspection, Pharynx Normal Neck: Full Range of Motion, Normal Inspection, Non Tender, Supple, Carotid B ruit Respiratory: Chest Non Tender, Lungs Clear, Normal Breath Sounds, No Accessory Muscle Use, No Respiratory Distress Cardiovascular: Regular Rate, Rhythm, No Edema, No Gallop, No JVD, No Murmur, Normal Peripheral Pulses Gastrointestinal: Normal Bowel Sounds, No Organomegaly, No Pulsatile Mass, Soft, Other (colostomy) Back: Normal Inspection, No CVA Tenderness, No Vertebral Tenderness Extremity: Normal Capillary Refill, Normal Inspection, Normal Range of Motion, Non Tender, No Calf Tenderness, No Pedal Edema Neurologic/Psychiatric: Alert, Oriented x3, watch hairspring assembler II-XII Norm as Tested, Abnormal Gait, Depressed Affect, Motor Weakness (generalized) Skin: Normal Color, Warm/Dry Lymphatic: No Adenopathy Results/Procedures Lab Laboratory Tests 05/24/22 05:55 Patient resulted labs reviewed. FIM Transfers Therapy Code Descriptions/Definitions Functional [place] Measure: 0=Not Assessed/NA 4=Minimal Assistance 1=Total Assistance 5=Supervision or Setup 2=Maximal Assistance 6=Modified [place] 3=Moderate Assistance 7=Complete IndependenceSCALE: Activities may be completed with or without assistive devices. 1-Fxpywonxls-xkkxawk completes the activity by him/herself with no assistance from a helper. 5-Set-up or Clean-up Assistance-helper sets up or cleans up; patient completes activity. [place] assists only prior to or following the activity. 4-Supervision or Touching Assistance-helper provides verbal cues and/or touching/steadying and/or contact guard assistance as patient completes activity. Assistance may be provided throughout the activity or intermittently. 3-Partial/Moderate Assistance-helper does LESS THAN HALF the effort. [place] lifts, holds or supports trunk or limbs, but provides less than half the effort. 2-Substantial/Maximal Assistance-helper does MORE THAN HALF the effort. [place] lifts or holds trunk or limbs and provides more than half the effort. 4-Oxlcanyde-bmmabw does ALL the effort. Patient does none of the effort to complete the activity. Or, the assistance of 2 or more helpers is required for the patient to complete the activity. If activity was not attempted, code reason: 7-Patient Refused. 9-Not Applicable-not attempted and the patient did not perform the activity before the current illness, exacerbation or injury. 10-Not Attempted due to Environmental Limitations-(lack of equipment, weather restraints, etc.). 88-Not Attempted due to Medical Conditions or Safety Concerns. Roll Left to Right (QC): 3 Sit to Lying (QC): 3 Sit to Stand (QC): 3 Chair/Xwq-to-Khwsv Xfer(QC): 4 Car Transfer (QC): 3 Gait Training Does the Patient Walk?: Yes Walk 10 feet (QC): 4 Walk 50 ft with 2 Turns(QC): 4 Walk 150 ft (QC): 4 Walking 10ft/uneven surface-QC: 4 Gait Assistive Device: FWW Wheelchair Training Does the Pt Use a Wheelchair?: No Wheel 50 ft with 2 turns (QC): 9 Wheel 150 ft (QC): 9 Stair Training 1 Step (curb) (QC): 88 4 Steps (QC): 88 12 Steps (QC): 88 Balance Picking up an Object (QC): 4 (CGA using a foil operator) ADL-Treatment Eating (QC): 5 Oral Hygiene (QC): 4 (CGA-SBA for standing balance) Shower/Bathe Self (QC): 3 (Min A to wash buttocks and below the knees bilaterally) Upper Body Dressing (QC): 5 Lower Body Dressing (QC): 3 (Min A to thread BLE through briefs, CGA for standing balance during hike) On/Off Footwear (QC): 2 (Max A per clinical judgement ) Toileting Hygiene (QC): 3 (Min A to wipe buttocks and for standing balance while wiping periarea and pant hike) Assessment/Plan Assessment and Plan Assess & Plan/Chief Complaint Assessment: S/p partial colon resection with colostomy due to severe colon obstruction from adhesions from recurrent silent diverticulitis -Done at [facility] Abdominal abscess -Flagyl and Zosyn maintained -s/p washout at [facility] -NaCl at 125 mls/hr decreased to 30cc/hr -Pain control Acute blood loss anemia -Likely secondary to surgical blood loss -Iron studies show low Iron so ordered IV Venofer, B12 ok Hypokalemia -K+ protocol via IV COPD Plan: Pain control Monitor closely IRF protocol 05/24/2022: IVF decrease CYNTHIA wraps (1) Myopathy (2) Abdominal abscess (3) COPD (chronic obstructive pulmonary disease) MIKEY CAMP DO May 24, 2022 06:03
[2022-05-24 06:04] LABS: BASOPHILS % (AUTO) 1 % (0-10); EOSINOPHILS # (AUTO) 0.1 10^3/uL (0.0-0.3); EOSINOPHILS % (AUTO) 1 % (0-10); HEMATOCRIT 24 % (35-52); HEMOGLOBIN 7.8 g/dL (11.5-16.0); LYMPHOCYTES # (AUTO) 0.9 10^3/uL (1.0-4.0); LYMPHOCYTES % (AUTO) 14 % (12-44); MEAN CORPUSCULAR HEMOGLOBIN 29 pg (25-34); MEAN CORPUSCULAR HGB CONC 33 g/dL (32-36); MEAN CORPUSCULAR VOLUME 89 fL (80-99); MEAN PLATELET VOLUME 8.6 fL (9.0-12.2); MONOCYTES # (AUTO) 0.6 10^3/uL (0.0-1.0); MONOCYTES % (AUTO) 9 % (0-12); NEUTROPHILS # (AUTO) 4.8 10^3/uL (1.8-7.8); NEUTROPHILS % (AUTO) 75 % (42-75); PLATELET COUNT 681 10^3/uL (130-400); WHITE BLOOD COUNT 6.4 10^3/uL (4.3-11.0)
--- NOTE | 2022-05-24 06:04 | Individualized Plan of Care ---
Individualized Plan of Care Rehab Nursing IPOC Order Admission Date May 23, 2022 at 13:00 Current Orders Orders Admission Arrival Bed Request (05/23/22 13:16) Admission Order(Inpt,Obs,Sdc) (05/23/22 14:15) Vital Signs: Per Unit Policy ( 08,16,00 (05/23/22 14:15) Sekou [place] (05/23/22 14:15) Sequential Compression Device (05/23/22 14:15) Bicycle Repair Technician-Inpt Rehab Con (05/23/22 14:15) Rehab Nursing Orders-Ipoc (05/23/22 14:15) Physical Therapy Rehab Orders (05/23/22 14:15) Occupational Therapy Rehab Ord (05/23/22 14:15) Speech Therapy Rehab Orders (05/23/22 14:15) Cbc With Automated Diff (05/24/22 06:00) Comprehensive Metabolic Panel (05/24/22 06:00) Precautions (Aru) (05/23/22 14:15) Weekly Weight WEEK (05/23/22 14:15) Rehab-Intensity Of Therapy (05/23/22 14:15) Initiate Admission Nursing Pro .admission (05/23/22 14:15) Alprazolam Tablet (Xanax Tablet) (05/23/22 14:15) Calcium Carbonate Chew Tablet (Antacid C (05/23/22 14:15) Diphenhydramine Tablet (Benadryl Tablet) (05/23/22 14:15) Docusate Sodium Capsule (Colace Capsule) (05/23/22 21:00) Docusate Sodium Capsule (Colace Capsule) (05/23/22 14:15) Bisacodyl Suppository (Dulcolax Supposit (05/23/22 14:15) Lactulose Oral Solution (Enulose Oral So (05/23/22 14:15) Na Phos/Na Biphos Enema (Fleet Enema Todd (05/23/22 14:15) Guaifenesin/Codeine Syrup (Robitussin Ac (05/23/22 14:15) Loperamide Tablet (Imodium Tablet) (05/23/22 14:15) Enoxaparin Injection (Lovenox Injection) (05/23/22 15:00) Melatonin Tablet (Melatonin Tablet) (05/23/22 14:15) Polyethylene Glycol Powder Pkt (Miralax (05/23/22 21:00) Ondansetron Oral Dissolve Tab (Zofran (05/23/22 14:15) Senna S Tablet (Senokot S Tablet) (05/23/22 21:00) Acetaminophen Tablet/Caplet (Tylenol T (05/23/22 14:15) Initiate Admission Nursing Pro .admission (05/23/22 14:15) Code/Resuscitation (05/23/22 14:51) Incentive Spirometry (Nursing) Q2H (05/23/22 14:51) Sekou Hose (05/23/22 14:51) Clear Liquid (05/23/22 Lunch) Alprazolam Tablet (Xanax Tablet) (05/23/22 15:00) Albuterol/Ipra Inhalation Soln (Duoneb I (05/23/22 21:00) Atenolol Tablet (Tenormin Tablet) (05/24/22 09:00) Diphenhydramine Injection (Benadryl Inje (05/23/22 15:00) Diphenhydramine Tablet (Benadryl Tablet) (05/23/22 15:00) Docusate Sodium Capsule (Colace Capsule) (05/23/22 21:00) Bisacodyl Suppository (Dulcolax Supposit (05/23/22 15:00) Lactulose Oral Solution (Enulose Oral So (05/23/22 15:00) Hydromorphone Injection (Dilaudid Inject (05/23/22 15:00) Levothyroxine Tablet (Synthroid Tablet) (05/24/22 07:00) Melatonin Tablet (Melatonin Tablet) (05/23/22 15:00) Miconazole 2% Powder (Phytoplex Af 2% Po (05/23/22 21:00) Magnesium Hydroxide Oral Susp (Mom Oral (05/23/22 15:00) Polyethylene Glycol Powder Pkt (Miralax (05/23/22 15:00) Antacid Suspension (Mylanta Suspension (05/23/22 15:00) Ns Iv 1000 Ml (Sodium Chloride 0.9%) (05/23/22 15:00) Potassium Cl 10meq/50ml Ivpb (Kcl 10 Meq (05/23/22 15:00) Piperacillin Sodium/Tazobactam (Zosyn Vi (05/23/22 15:00) Sennosides Tablet (Senokot Tablet) (05/23/22 21:00) Calcium Carbonate Chew Tablet (Antacid C (05/23/22 15:00) Acetaminophen Tablet/Caplet (Tylenol T (05/23/22 15:00) Ondansetron Injection (Zofran Injectio (05/23/22 15:00) Ondansetron Oral Dissolve Tab (Zofran (05/23/22 15:00) Metronidazole 500mg/100ml Ivpb (Flagyl 5 (05/23/22 15:00) Oxycodone Extended Release Tab (Oxyconti (05/23/22 21:00) Oxycodone Immediate Rel Tablet (Oxyir Ta (05/23/22 15:00) Consult General Surgery (05/23/22 14:51) Incentive Spirometry Initial (05/23/22 14:51) Mat Initiate Protocol (05/23/22 14:51) Oxygen Delivery Set Up (05/23/22 14:51) Svn Small Volume Nebulizer (05/23/22 14:51) Svn Small Volume Nebulizer (05/23/22 14:51) Incentive Spirometry (Nursing) Q2H (05/23/22 14:51) Patient Visit (05/23/22 ) Pt Eval Moderate Complexity (05/23/22 ) Functional Activities, Ea 15 (05/23/22 ) Patient Visit (05/23/22 ) Speech Sound Lang Comp (05/23/22 ) Treat. Speech/Lang/Voice (05/23/22 ) Dys2 Mechanically Altered (05/24/22 Breakfast) Potassium Cl 10meq/50ml Ivpb (Kcl 10 Meq (05/24/22 09:30) Venous Access Request Order (05/24/22 09:19) Magnesium (05/24/22 09:19) Magnesium 1 Gm/100 Ml Ivpb (Magnesium [place] (05/24/22 09:30) Iron Sucrose Injection (Venofer Injectio (05/24/22 09:30) Potassium Cl 10meq/50ml Ivpb (Kcl 10 Meq (05/24/22 10:01) Patient Visit (05/24/22 ) Functional Activities, Ea 15 (05/24/22 ) Exercise Therap, Ea 15 Min (05/24/22 ) Gait Training, Ea 15 Min (05/24/22 ) Picc Dressing/Securement Devic Q7D (05/31/22 16:30) Picc Cap(S) Change Q7D (05/31/22 17:01) Rehab Nursing Orders: Ongoing Assess. of Cognitive Status, Ongoing Assess. of Function Status, Bladder Management, Bladder Scan, Bladder Training, Bowel Management, Bowel Training, Disease Management & Educaiton, DVT Prophylaxis, Fall Prevention, Fluid/Electrolyte/Nutrition Mgmt, Infection Prevention, Medication Management & Education, Management of Risks & Complications, Nutrition Management, Pain Management, Patient/Family Support, Safety Management, Wound Management Intensity of Therapy to be met Patient to be seen: Min.3h per day/5 of 7d PT IPOC Problem List: Activity Tolerance, Functional Strength, Safety, Balance, Gait, Transfer, Bed Mobility, ROM Treatment Plan: Continue Plan of Care Bed Mobility, Education, Functional Activity Tj, Functional Strength, Group Therapy, Gait, Safety, Therapeutic Exercise, Transfers Treatment Duration: Jun 13, 2022 Frequency: At least 5 of 7 days/Wk (IRF) Estimated Hrs Per Day: 1.5 hours per day OT IPOC Problems: Decreased Activ Tolerance, Decreased UE Strength, Impaired Funct Balance, Impaired I ADL's, Impaired Self-Care Skills OT Treatment, Training and Edu: Yes Plan of Care: ADL Retraining, Functional Mobility, Group Exercise/Act as Ind, UE Funct Exercise/Act Treatment Duration: Jun 16, 2022 Frequency: At least 5 of 7 days/Wk (IRF) Estimated Hrs Per Day: 1.[address] IPOC Speech Therapy Treatment Plan: Discontinue ST Treatment Duration: May 23, 2022 Frequency: 1 time per week Estimated Hrs Per Day: .5 hour per day Bicycle Repair Technician/Case Mgmt Bicycle Repair Technician/Case Managemen: Discharge Planning Dietitian/Junior Copywriter Dietitian/Junior Copywriter to monitor nutritional status and make changes and/or recommendations as needed and work with speech pathology on dietary upgrades as the occur. Physician IPOC Medical Issues being managed closely and that require the 24 hour availability of a physician: Recent complicated abdominal surgeries x [address] and third spacing and high risk for decompensation Medical Issues: Bowel/Bladder Function, DVT Prophylaxis, Falls Precautions, Fluid/Electrolyte/Nutrition Balance, Infection Protection, Pain Management, Wound Care Brief Synthesis of Preadmission Screen, Post-Admission Evaluation, and Therapy Evaluations: PT OT will focus on regaining function and strength along with wound vac management in order to return back to independent living Medical Prognosis: Good Anticipated Length of Stay: 14 days MIKEY CAMP DO May 24, 2022 06:03
[2022-05-24] MEDS: LEVOTHYROXINE 100 MCG (LEVOTHROID) TAB PO SCH (06:06)
[2022-05-24] MEDS: PIPERACILLIN SODIUM/TAZOBACTAM 4.5 GM in NS (IVPB) 100 ML IV SCH ×3 (06:06→23:45)
[2022-05-24 06:15] LABS: ALBUMIN 2.1 GM/DL (3.2-4.5); POTASSIUM 3.2 MMOL/L (3.6-5.0)
[2022-05-24 06:16] LABS: CALCIUM 7.8 MG/DL (8.5-10.1)
[2022-05-24] MEDS: RT-ALBUTEROL/IPRATROPIUM 3 ML (DUONEB) VIAL INH SCH ×3 (06:16→21:47)
[2022-05-24 06:17] LABS: TOTAL PROTEIN 4.6 GM/DL (6.4-8.2)
[2022-05-24 06:19] LABS: BILIRUBIN,TOTAL 0.3 MG/DL (0.1-1.0)
[2022-05-24 06:21] LABS: CREATININE SERUM 0.58 MG/DL (0.60-1.30)
--- NOTE | 2022-05-24 07:17 | Progress Note - Surgery ---
LANCEKARUNA Alcaraz 05/24/22 0717: Subjective Date Seen by a Provider: May 24, 2022 Time Seen by a Provider: 07:11 Subjective/Events-last exam Pt is awake and states that she is in no pain. Had 700ml of dark yellow fluid out of MARCY drain overnight. Pt has had numerous liquid stools via colostomy and s tates that her feet have become swollen. Pt notes that she has been voiding urine but is unsure how much. Pt has been tolerating clear liquid diet. Pt denies n/v, and sweats. Objective Exam Vital Signs Date Time Temp Pulse Resp B/P (MAP) Pulse Ox O2 Delivery O2 Flow Rate FiO2 05/24/22 06:19 98 Room Air 05/23/22 21:51 95 Room Air 05/23/22 21:00 95 Room Air 05/23/22 20:00 37.0 92 18 143/72 (95) 97 Room Air 05/23/22 15:17 Room Air 05/23/22 13:52 36.8 101 20 131/85 (100) 95 Room Air I & O 05/24/22 07:00 Intake Total 600 ml Output Total 335 ml Balance 265 ml Capillary Refill : General Appearance: No Apparent Distress, WD/WN, Chronically ill HEENT: PERRL/EOMI, Normal ENT Inspection Neck: Full Range of Motion, Normal Inspection, Non Tender, Supple Respiratory: Chest Non Tender, No Accessory Muscle Use, No Respiratory Distress Cardiovascular: Regular Rate, Rhythm, No Edema, No JVD Gastrointestinal: other (wound vac present and colostomy that is product and MARCY drain is yellow/serous color fluid) Extremity: Normal Range of Motion, Swelling (b/l LE ) Neurologic/Psychiatric: Alert, Oriented x3 Skin: Normal Color, Warm/Dry Lymphatic: No Adenopathy Results Lab Laboratory Tests 05/24/22 05:55: White Blood Count 6.4, Red Blood Count 2.70L, Hemoglobin 7.8L, Hematocrit 24L, Mean Corpuscular Volume 89, Mean Corpuscular Hemoglobin 29, Mean Corpuscular Hemoglobin Concent 33, Red Cell Distribution Width 15.4H, Platelet Count 681H, Mean Platelet Volume 8.6L, Immature Granulocyte % (Auto) 1, Neutrophils (%) (Auto) 75, Lymphocytes (%) (Auto) 14, Monocytes (%) (Auto) 9, Eosinophils (%) (Auto) 1, Basophils (%) (Auto) 1, Neutrophils # (Auto) 4.8, Lymphocytes # (Auto) 0.9L, Monocytes # (Auto) 0.6, Eosinophils # (Auto) 0.1, Basophils # (Auto) 0.0, Immature Granulocyte # (Auto) 0.0, Sodium Level 131L, Potassium Level 3.2L, Chloride Level 103, Carbon Dioxide Level 18L, Anion Gap 10, Blood Urea Nitrogen 3L, Creatinine 0.58L, Estimat Glomerular Filtration Rate 92, BUN/Creatinine Ratio 5, Glucose Level 74, Calcium Level 7.8L, Corrected Calcium 9.3, Total Bilirubin 0.3, Aspartate Amino Transf (AST/SGOT) 13, Alanine Aminotransferase (ALT/SGPT) 8, Alkaline Phosphatase 59, Total Protein 4.6L, Albumin 2.1L Assessment/Plan Assessment/Plan Assessment/Plan S/p partial colon resection with colostomy Abdominal abscess Anemia Hypokalemia S/P exploratory laparotomy with partial cecetomy revision of colostomy drainage of intra-abdominal abscess with drain placement and wound VAC placement COPD Slowly advance diet Monitor MARCY drain output Continue with medical management MONICA CLIFFORD DO 05/24/22 1138: Subjective Subjective/Events-last exam Patient pain controlled. Dark yellow output from marcy. Large stool from colostomy. Wound vac midline. Denies n/v fever sweats chills shortness of breath or chest pain. Objective Exam General Appearance: No Apparent Distress, Chronically ill HEENT: PERRL/EOMI, Normal ENT Inspection Neck: Normal Inspection, Non Tender Respiratory: Chest Non Tender, No Accessory Muscle Use, No Respiratory Distress Cardiovascular: Regular Rate, Rhythm, No JVD Gastrointestinal: non tender, soft, other (wound vac present and colostomy that is product and MARCY drain is yellow/serous color fluid) Extremity: Normal Range of Motion Neurologic/Psychiatric: Alert, Oriented x3 Skin: Normal Color, Warm/Dry Lymphatic: No Adenopathy Assessment/Plan Assessment/Plan Assessment/Plan S/p partial colon resection with colostomy Abdominal abscess Anemia Hypokalemia S/P exploratory laparotomy with partial cecetomy revision of colostomy drainage of intra-abdominal abscess with drain placement and wound VAC placement COPD Slowly advance diet Monitor MARCY drain output Continue with medical management Supervisory-Addendum Brief Verification & Attestation Participated in pt care: history, MDM, physical Personally performed: exam, history, MDM, supervision of care Care discussed with: Medical Student Procedures: n/a Results interpretation: Verified all documentation Verification and Attestation of Medical Student E/M Service A medical student performed and documented this service in my presence. I reviewed and verified all information documented by the medical student and made modifications to such information, when appropriate. I personally performed the physical exam and medical decision making. Monica Clifford, May 24, 2022,11:38 KARUNA GUZMAN May 24, 2022 07:17 MONICA CLIFFORD DO May 24, 2022 11:38
[2022-05-24 07:37] VITALS: BP 108/51
[2022-05-24] MEDS: MICONAZOLE 2% POWDER (DESENEX AF) 90 GM TOP SCH ×2 (08:26→19:59)
[2022-05-24] MEDS: ATENOLOL 25 MG (TENORMIN) TAB PO SCH (08:32)
[2022-05-24] MEDS: oxyCODONE ER 10 MG (OxyCONTIN CR) TAB PO SCH ×2 (08:32→19:56)
[2022-05-24] MEDS: CALCIUM CARBONATE 500 MG (TUMS) TAB.CHEW PO PRN (08:37)
[2022-05-24] MEDS ORDERED: MAGNESIUM 1 GM/100 ML IVPB 100 ML IV ONE (09:30)
[2022-05-24] MEDS ORDERED: POTASSIUM CL 10MEQ/50ML IVPB 300 ML IV ONE (10:01)
[2022-05-24] MEDS: SENNA W/DOCUSATE (SENOKOT S) TABLET PO SCH ×2 (11:04→19:47)
[2022-05-24] MEDS: polyethylene glycoL POWDER 17 GM (MIRALAX) PACK PO SCH ×2 (11:04→19:47)
[2022-05-24] MEDS: DOCUSATE SODIUM 100 MG (COLACE) CAP PO SCH ×2 (11:05→19:46)
[2022-05-24] MEDS: SENNOSIDES 8.6 MG (SENOKOT) TAB PO SCH ×2 (11:05→19:47)
--- NOTE | 2022-05-24 11:09 | Physical Therapy Daily Note ---
PT Daily Note-Current Subjective Pt sitting in recliner upon arrival. Pt agrees to PT. Mental Status Patient Orientation: Person, Place, Time, Situation Attachments: Colostomy/Ileostomy, Drains, IV Transfers SCALE: Activities may be completed with or without assistive devices. 9-Mqlaaaqemv-rhqypwp completes the activity by him/herself with no assistance from a helper. 5-Set-up or Clean-up Assistance-helper sets up or cleans up; patient completes activity. [place] assists only prior to or following the activity. 4-Supervision or Touching Assistance-helper provides verbal cues and/or touching/steadying and/or contact guard assistance as patient completes activity. Assistance may be provided throughout the activity or intermittently. 3-Partial/Moderate Assistance-helper does LESS THAN HALF the effort. [place] lifts, holds or supports trunk or limbs, but provides less than half the effort. 2-Substantial/Maximal Assistance-helper does MORE THAN HALF the effort. [place] lifts or holds trunk or limbs and provides more than half the effort. 8-Vkiftrfvh-bbvzuc does ALL the effort. Patient does none of the effort to complete the activity. Or, the assistance of 2 or more helpers is required for the patient to complete the activity. If activity was not attempted, code reason: 7-Patient Refused. 9-Not Applicable-not attempted and the patient did not perform the activity before the current illness, exacerbation or injury. 10-Not Attempted due to Environmental Limitations-(lack of equipment, weather restraints, etc.). 88-Not Attempted due to Medical Conditions or Safety Concerns. Exercises Supine Ex: Ankle pumps, Quad Set, Glut sets, Heel Slides Supine Reps: 15 Treatments CORPORATE LAWYER has known pt for sometime so pt gives more recent medical history that led to hospital stay. Pt is able to complete Supine EX w/instruction from CORPORATE LAWYER and frequent RB. Dr Bell checks on pt and orders CYNTHIA wraps for B LE swelling and pt will have PIC line put in later today. CORPORATE LAWYER and pt discuss ARU expectations and what Therapy is hoping to accomplish for progress during ARU stay. Pt is concerned as while pt & granddaughter live together, granddaughter is not expected to assist in any way with pt as was prior arrangement. Pt is resting in recliner, all needs met & OT is arriving for tx. Assessment Current Status: Fair Progress Pain and B LE swelling limits what pt is capable to do at this time. CYNTHIA wraps ordered at this time to aid with swelling. Pt reports discomfort in abdomen with some EX. PT Short Term Goals Short Term Goals Time Frame: May 30, 2022 Roll Left & Right: 4 (SBA) Sit to lyin (SBA) Lying to sitting on side of be: 4 (SBA) Sit to stand: 4 (CGA) Chair/gbd-bu-hudew transfer: 4 (SBA) Toilet transfer: 4 (SBA) Walk 10 feet: 4 (SBA) Walk 50 feet with two turns: 4 (SBA) Walk 150 feet: 4 (SBA) PT Child Health Associate Goals Alf Goals PT Child Health Associate Goals Time Frame: Jun 13, 2022 Roll Left & Right (QC): 6 Sit to Lying (QC): 6 Lying-Sitting on Side/Bed(QC): 6 Sit to Stand (QC): 6 Chair/Hqg-dy-Qvloo Xfer(QC): 6 Toilet Transfer (QC): 6 Car Transfer (QC): 4 Does the Patient Walk: Yes Walk 10 feet (QC): 6 Walk 50ft with 2 Turns (QC): 6 Walk 150 ft (QC): 6 Walking 10ft on Uneven Surface: 6 1 Step (curb) (QC): 4 4 Steps (QC): 4 12 Steps (QC): 88 Picking up an Object (QC): 6 (using weed controller) Wheel 50 feet with 2 turns (QC: 9 Wheel 150 feet: 9 PT Plan Problem List Problem List: Activity Tolerance, Functional Strength, Gait, Transfer Treatment/Plan Treatment Plan: Continue Plan of Care Treatment Plan: Bed Mobility, Education, Functional Activity Tj, Functional Strength, Group Therapy, Gait, Safety, Therapeutic Exercise, Transfers Treatment Duration: Jun 13, 2022 Frequency: At least 5 of 7 days/Wk (IRF) Estimated Hrs Per Day: 1.5 hours per day Patient and/or Family Agrees t: Yes Safety Risks/Education Patient Education: Transfer Techniques, Correct Positioning Teaching Recipient: Patient Teaching Methods: Discussion Response to Teaching: Verbalize Understanding Time/GCodes Time In: 900 Time Out: 1000 Total Billed Treatment Time: 60 Total Billed Treatment 1, FA x2 (30m) & EX x2 (30m) CHANDA GUALLPA CORPORATE LAWYER May 24, 2022 11:09
[2022-05-24] MEDS: IRON SUCROSE 200 MG/10 ML (VENOFER) VIAL IV SCH (11:15)
--- NOTE | 2022-05-24 12:07 | Occupational Ther Daily Note ---
OT Current Status-Daily Note Subjective Pt seated in recliner with nursing staff and PT present, agreeable to tx. Pt c/o BLE edema and rates her pain at 5/10. Mental Status/Objective Patient Orientation: Person, Place, Situation Attachments: Colostomy/Ileostomy, Drains, IV (x2), Other-See Comments (wound vac) ADL-Treatment Therapy Code Descriptions/Definitions Functional [place] Measure: 0=Not Assessed/NA 4=Minimal Assistance 1=Total Assistance 5=Supervision or Setup 2=Maximal Assistance 6=Modified [place] 3=Moderate Assistance 7=Complete IndependenceSCALE: Activities may be completed with or without assistive devices. 2-Qpxrzoouem-bwgvohb completes the activity by him/herself with no assistance from a helper. 5-Set-up or Clean-up Assistance-helper sets up or cleans up; patient completes activity. [place] assists only prior to or following the activity. 4-Supervision or Touching Assistance-helper provides verbal cues and/or touching/steadying and/or contact guard assistance as patient completes activity. Assistance may be provided throughout the activity or intermittently. 3-Partial/Moderate Assistance-helper does LESS THAN HALF the effort. [place] lifts, holds or supports trunk or limbs, but provides less than half the effort. 2-Substantial/Maximal Assistance-helper does MORE THAN HALF the effort. [place] lifts or holds trunk or limbs and provides more than half the effort. 2-Wxmoicsez-xclqnq does ALL the effort. Patient does none of the effort to complete the activity. Or, the assistance of 2 or more helpers is required for the patient to complete the activity. If activity was not attempted, code reason: 7-Patient Refused. 9-Not Applicable-not attempted and the patient did not perform the activity before the current illness, exacerbation or injury. 10-Not Attempted due to Environmental Limitations-(lack of equipment, weather restraints, etc.). 88-Not Attempted due to Medical Conditions or Safety Concerns. Shower/Bathe Self (QC): 3 (Mod A overall. Pt required assistance to wash both feet and her buttocks as well as CGA-Min A for standing balance during periarea hygiene.) Upper Body Dressing (QC): 5 (Thread IV) Lower Body Dressing (QC): 3 (Min A to thread BLE through brief) On/Off Footwear: 2 (Max A to don both gripper socks) Other Treatment Pt required CGA to stand from recliner, and then she walked with 4WW into bathroom, CGA, to complete sponge bath seated at sink and dressing. Pt required increased time to complete tasks today d/t maneuvering multiple attachments throughout self-care tasks. Pt's IV in R hand came lose during dressing and her abdominal drain filled up, nursing was notified of both. After she completed self-care tasks in the bathroom, pt walked back to bed to apply cream to periarea rash and to don BLE CYNTHIA wraps. Pt remained in bed for rest of tx duration. She participated in several bed-level exercises to increase BUE strength and endurance needed for ADLs and functional transfers. She completed 2x10 RUE bicep curls with 2lb dumbbell and 2x10 BUE shoulder flexion with 1lb wrist weights. Pt is in agreement that she needs to do BUE exercises because she can tell she is using them more during functional transfers with her 4WW. Post tx, pt left in bed with call light in reach and all needs met. Education OT Patient Education: Correct positioning, Energy conservation, Exercise program, Modified ADL techniques, Progress toward Goal/Update tx plan, Purpose of tx/functional activities, Rehab process, Safety issues, Use of adapted equipment Teaching Recipient: Patient Teaching Methods: Discussion Response to Teaching: Verbalize Understanding OT Short Term Goals Short Term Goals Time Frame: May 31, 2022 Toileting hygiene: 4 Shower/bathe self: 4 Lower body dressin Putting on/taking off footwear: 3 OT Custodial Goals Custodial Goals Time Frame: Jun 16, 2022 Eating (QC): 6 Oral Hygiene (QC): 6 Toileting Hygiene (QC): 6 Shower/Bathe Self (QC): 5 Upper Body Dressing (QC): 6 Lower Body Dressing (QC): 6 On/Off Footwear (QC): 6 Additional Goals: 1-Demonstrate ADL Tasks, 2-Verbalize Understanding, 3- ImproveStrength/Tj 1=Demonstrate adherence to instructed precautions during ADL tasks. 2=Patient will verbalize/demonstrate understanding of assistive devices/modifications for ADL. 3=Patient will improve strength/tolerance for activity to enable patient to perform ADL's. OT Education/Plan Problem List/Assessment Assessment: Decreased Activ Tolerance, Decreased UE Strength, Impaired Funct Balance, Impaired I ADL's, Impaired Self-Care Skills Discharge Recommendations Plan/Recommendations: Continue POC Treatment Plan/Plan of Care Patient would benefit from OT for education, treatment and training to promote independence in ADL's, mobility, safety and/or upper extremity function for ADL's. Plan of Care: ADL Retraining, Functional Mobility, Group Exercise/Act as Ind, UE Funct Exercise/Act Treatment Duration: Jun 16, 2022 Frequency: At least 5 of 7 days/Wk (IRF) Estimated Hrs Per Day: 1.5 hours per day Rehab Potential: Fair Time/GCodes Start Time: 10:00 Stop Time: 11:30 Total Time Billed (hr/min): 90 Billed Treatment Time 1, ADL 5 (75'), Ex (15') AMARILIS MONTIEL OT May 24, 2022 12:07
--- NOTE | 2022-05-24 15:14 | Physical Therapy Daily Note ---
PT Daily Note-Current Subjective Pt laying Supine in bed upon arrival. Pt agrees to PT and asks to use BR. Pain Location Body Site: Abdomen Pain Description: Ache Mental Status Patient Orientation: Person, Place, Time, Situation Attachments: Colostomy/Ileostomy, Drains, IV Transfers SCALE: Activities may be completed with or without assistive devices. 8-Wdqbohwiqb-gqtcxic completes the activity by him/herself with no assistance from a helper. 5-Set-up or Clean-up Assistance-helper sets up or cleans up; patient completes activity. [place] assists only prior to or following the activity. 4-Supervision or Touching Assistance-helper provides verbal cues and/or touching/steadying and/or contact guard assistance as patient completes activity. Assistance may be provided throughout the activity or intermittently. 3-Partial/Moderate Assistance-helper does LESS THAN HALF the effort. [place] lifts, holds or supports trunk or limbs, but provides less than half the effort. 2-Substantial/Maximal Assistance-helper does MORE THAN HALF the effort. [place] lifts or holds trunk or limbs and provides more than half the effort. 3-Lnrqlafof-doiwdq does ALL the effort. Patient does none of the effort to c omplete the activity. Or, the assistance of 2 or more helpers is required for the patient to complete the activity. If activity was not attempted, code reason: 7-Patient Refused. 9-Not Applicable-not attempted and the patient did not perform the activity before the current illness, exacerbation or injury. 10-Not Attempted due to Environmental Limitations-(lack of equipment, weather restraints, etc.). 88-Not Attempted due to Medical Conditions or Safety Concerns. Lying to Sitting/Side of Bed(Q: 3 Sit to Stand (QC): 4 Toilet Transfer (QC): 4 Weight Bearing Full Weight Bearing Full Weight Bearing Gait Training Does the Patient Walk?: Yes Distance: 10' x2, 100' Walk 10 feet (QC): 4 Walk 50 ft with 2 Turns(QC): 4 Walk 150 ft (QC): 4 Gait Persons Needed: 1 Gait Assistive Device: Walker 4 Wheeled Treatments TF to EOB then to Standing and amb. to BR. Pt amb. in hallway before returning to recliner as pt fatigues. All needs met, call light in hand. Assessment Current Status: Good Progress Pt needs RB as pt fatigues. PT Short Term Goals Short Term Goals Time Frame: May 30, 2022 Roll Left & Right: 4 (SBA) Sit to lyin (SBA) Lying to sitting on side of be: 4 (SBA) Sit to stand: 4 (CGA) Chair/jfc-br-bpkcd transfer: 4 (SBA) Toilet transfer: 4 (SBA) Walk 10 feet: 4 (SBA) Walk 50 feet with two turns: 4 (SBA) Walk 150 feet: 4 (SBA) PT Counseling Psychologist Goals Counseling Psychologist Goals PT Counseling Psychologist Goals Time Frame: Jun 13, 2022 Roll Left & Right (QC): 6 Sit to Lying (QC): 6 Lying-Sitting on Side/Bed(QC): 6 Sit to Stand (QC): 6 Chair/Gsa-hv-Wjdhu Xfer(QC): 6 Toilet Transfer (QC): 6 Car Transfer (QC): 4 Does the Patient Walk: Yes Walk 10 feet (QC): 6 Walk 50ft with 2 Turns (QC): 6 Walk 150 ft (QC): 6 Walking 10ft on Uneven Surface: 6 1 Step (curb) (QC): 4 4 Steps (QC): 4 12 Steps (QC): 88 Picking up an Object (QC): 6 (using complaint clerk) Wheel 50 feet with 2 turns (QC: 9 Wheel 150 feet: 9 PT Plan Problem List Problem List: Activity Tolerance, Functional Strength Treatment/Plan Treatment Plan: Continue Plan of Care Treatment Plan: Bed Mobility, Education, Functional Activity Tj, Functional Strength, Group Therapy, Gait, Safety, Therapeutic Exercise, Transfers Treatment Duration: Jun 13, 2022 Frequency: At least 5 of 7 days/Wk (IRF) Estimated Hrs Per Day: 1.5 hours per day Patient and/or Family Agrees t: Yes Safety Risks/Education Patient Education: Gait Training, Transfer Techniques, Correct Positioning Teaching Recipient: Patient Teaching Methods: Discussion Response to Teaching: Verbalize Understanding Time/GCodes Time In: 1300 Time Out: 1330 Total Billed Treatment Time: 30 Total Billed Treatment 1, FA (15m) & GT (15m) CHANDA GUALLPA NURSE COORDINATOR May 24, 2022 15:14
[2022-05-24] MEDS: ENOXAPARIN 40 MG/0.4 ML (LOVENOX) SYR SC SCH (17:08)
[2022-05-24 19:45] VITALS: BP 132/60
[2022-05-25] MEDS: metroNIDAZOLE 500MG/100ML IVPB 100 ML IV SCH ×2 (03:39→15:15)
--- NOTE | 2022-05-25 05:44 | PM&R Progress Note ---
Subjective HPI/CC On Admission Date Seen by Provider: May 25, 2022 Subjective/Events-last exam 05/25/2022: Patient tearful today Dr Clifford at chairside reassuring Labs good CYNTHIA wraps for 2 hours then off 2 hours due to uncomfortable DC abx 05/24/2022: Doing better IVF decreased to 30cc/hr Third spacing will require CYNTHIA wraps Potassium low so IV supplement Pain improved Working with therapy Review of Systems General: Fatigue, Malaise Gastrointestinal: Abdominal Pain Objective Exam Vital Signs Vital Signs Date Time Temp Pulse Resp B/P (MAP) Pulse Ox O2 Delivery O2 Flow Rate FiO2 05/25/22 09:57 36.4 80 98 21 05/25/22 09:51 Room Air 0.00 05/25/22 07:49 16 163/81 (108) Capillary Refill : General Appearance: No Apparent Distress, WD/WN, Chronically ill HEENT: PERRL/EOMI, Normal ENT Inspection, Pharynx Normal Neck: Full Range of Motion, Normal Inspection, Non Tender, Supple, Carotid Bruit Respiratory: Chest Non Tender, Lungs Clear, Normal Breath Sounds, No Accessory Muscle Use, No Respiratory Distress Cardiovascular: Regular Rate, Rhythm, No Gallop, No JVD, No Murmur, Normal Peripheral Pulses Gastrointestinal: Normal Bowel Sounds, No Organomegaly, No Pulsatile Mass, Soft, Other (colostomy) Back: Normal Inspection, No CVA Tenderness, No Vertebral Tenderness Extremity: Normal Capillary Refill, Normal Inspection, Normal Range of Motion, Non Tender, No Calf Tenderness, Pedal Edema Neurologic/Psychiatric: Alert, Oriented x3, food mixer repairer II-XII Norm as Tested, Abnormal Gait, Depressed Affect, Motor Weakness (generalized) Skin: Normal Color, Warm/Dry Lymphatic: No Adenopathy Results/Procedures Lab Laboratory Tests 05/25/22 06:20 Patient resulted labs reviewed. FIM Transfers Therapy Code Descriptions/Definitions Functional [place] Measure: 0=Not Assessed/NA 4=Minimal Assistance 1=Total Assistance 5=Supervision or Setup 2=Maximal Assistance 6=Modified [place] 3=Moderate Assistance 7=Complete IndependenceSCALE: Activities may be completed with or without assistive devices. 6-Yabcqxhlyx-esyzdvl completes the activity by him/herself with no assistance from a helper. 5-Set-up or Clean-up Assistance-helper sets up or cleans up; patient completes activity. [place] assists only prior to or following the activity. 4-Supervision or Touching Assistance-helper provides verbal cues and/or touching/steadying and/or contact guard assistance as patient completes activity . Assistance may be provided throughout the activity or intermittently. 3-Partial/Moderate Assistance-helper does LESS THAN HALF the effort. [place] lifts, holds or supports trunk or limbs, but provides less than half the effort. 2-Substantial/Maximal Assistance-helper does MORE THAN HALF the effort. [place] lifts or holds trunk or limbs and provides more than half the effort. 2-Rbtihkzlw-omgbgi does ALL the effort. Patient does none of the effort to complete the activity. Or, the assistance of 2 or more helpers is required for the patient to complete the activity. If activity was not attempted, code reason: 7-Patient Refused. 9-Not Applicable-not attempted and the patient did not perform the activity before the current illness, exacerbation or injury. 10-Not Attempted due to Environmental Limitations-(lack of equipment, weather restraints, etc.). 88-Not Attempted due to Medical Conditions or Safety Concerns. Roll Left to Right (QC): 3 Sit to Lying (QC): 3 Sit to Stand (QC): 4 Chair/Muh-gr-Mobnq Xfer(QC): 4 Car Transfer (QC): 3 Gait Training Does the Patient Walk?: Yes Distance: 10' x2, 100' Walk 10 feet (QC): 4 Walk 50 ft with 2 Turns(QC): 4 Walk 150 ft (QC): 4 Walking 10ft/uneven surface-QC: 4 Gait Persons Needed: 1 Gait Assistive Device: Walker 4 Wheeled Wheelchair Training Does the Pt Use a Wheelchair?: No Wheel 50 ft with 2 turns (QC): 9 Wheel 150 ft (QC): 9 Stair Training 1 Step (curb) (QC): 88 4 Steps (QC): 88 12 Steps (QC): 88 Balance Picking up an Object (QC): 4 (CGA using a certified medical assistant) ADL-Treatment Eating (QC): 5 Oral Hygiene (QC): 4 (CGA-SBA for standing balance) Shower/Bathe Self (QC): 3 (Mod A overall. 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 recurrent silent diverticulitis -Done at [facility] Abdominal abscess -Flagyl and Zosyn maintained -s/p washout at [facility] -NaCl at 125 mls/hr decreased to 30cc/hr -Pain control Acute blood loss anemia -Likely secondary to surgical blood loss -Iron studies show low Iron so ordered IV Venofer, B12 ok Hypokalemia -K+ protocol via IV COPD Plan: Pain control Monitor closely IRF protocol 05/24/2022: IVF decrease CYNTHIA wraps 05/25/2022: DC abx CYNTHIA wraps (1) Myopathy (2) Abdominal abscess (3) COPD (chronic obstructive pulmonary disease) MIKEY CAMP DO May 25, 2022 05:44
[2022-05-25] MEDS: PIPERACILLIN SODIUM/TAZOBACTAM 4.5 GM in NS (IVPB) 100 ML IV SCH ×2 (06:35→15:15)
[2022-05-25] MEDS: LEVOTHYROXINE 100 MCG (LEVOTHROID) TAB PO SCH (06:35)
[2022-05-25 06:36] LABS: BASOPHILS % (AUTO) 0 % (0-10); EOSINOPHILS # (AUTO) 0.1 10^3/uL (0.0-0.3); EOSINOPHILS % (AUTO) 2 % (0-10); HEMATOCRIT 23 % (35-52); HEMOGLOBIN 7.6 g/dL (11.5-16.0); LYMPHOCYTES # (AUTO) 0.8 10^3/uL (1.0-4.0); LYMPHOCYTES % (AUTO) 13 % (12-44); MEAN CORPUSCULAR HEMOGLOBIN 29 pg (25-34); MEAN CORPUSCULAR HGB CONC 33 g/dL (32-36); MEAN CORPUSCULAR VOLUME 88 fL (80-99); MEAN PLATELET VOLUME 8.7 fL (9.0-12.2); MONOCYTES # (AUTO) 0.7 10^3/uL (0.0-1.0); MONOCYTES % (AUTO) 10 % (0-12); NEUTROPHILS % (AUTO) 74 % (42-75); PLATELET COUNT 677 10^3/uL (130-400); WHITE BLOOD COUNT 6.7 10^3/uL (4.3-11.0)
[2022-05-25 06:45] LABS: ALBUMIN 2.2 GM/DL (3.2-4.5); POTASSIUM 3.6 MMOL/L (3.6-5.0)
[2022-05-25 06:46] LABS: CALCIUM 8.1 MG/DL (8.5-10.1)
[2022-05-25 06:47] LABS: TOTAL PROTEIN 4.5 GM/DL (6.4-8.2)
[2022-05-25 06:49] LABS: BILIRUBIN,TOTAL 0.2 MG/DL (0.1-1.0)
[2022-05-25 06:51] LABS: CREATININE SERUM 0.63 MG/DL (0.60-1.30)
[2022-05-25 06:54] LABS: MAGNESIUM 1.7 MG/DL (1.6-2.4)
--- NOTE | 2022-05-25 07:20 | Progress Note - Surgery ---
[place] 05/25/22 0720: Subjective Date Seen by a Provider: May 25, 2022 Time Seen by a Provider: 07:16 Subjective/Events-last exam Pt is awake and resting in bed comfortably. Pt notes an slight increase in pain from yesterday and rates it a 3/10 but states that she is still comfortable. Pt had 750ml output from GILBERT drain overnight. Fluid is financial services education consultant yellow and clearer than yesterday, per nurse. Pt's urine output is .42ml/kg/hr. Pt continues to colostomy output. Pt has been having difficulties with diet and would like to try ensure again. Denies n/v, SOB, CP. Objective Exam Vital Signs Date Time Temp Pulse Resp B/P (MAP) Pulse Ox O2 Delivery O2 Flow Rate FiO2 05/24/22 20:03 97 Room Air 05/24/22 19:45 36.9 94 18 132/60 (84) 97 Room Air 05/24/22 15:10 Room Air 05/24/22 09:20 95 Room Air 05/24/22 07:37 36.7 100 18 108/51 (70) 95 Room Air I & O 05/25/22 07:00 Intake Total 2880 ml Output Total 3715 ml Balance -835 ml Capillary Refill : General Appearance: No Apparent Distress, WD/WN, Chronically ill HEENT: PERRL/EOMI, Normal ENT Inspection Neck: Full Range of Motion, Normal Inspection, Non Tender, Supple, Carotid Bruit Respiratory: No Accessory Muscle Use, No Respiratory Distress Cardiovascular: Regular Rate, Rhythm, No JVD Gastrointestinal: soft, tenderness (over colostomy (LLQ)), other (wound vac present and colostomy that is product and GILBERT drain is yellow/serous color fluid) Extremity: Normal Capillary Refill, Normal Inspection, Normal Range of Motion, Non Tender, No Calf Tenderness, No Pedal Edema Neurologic/Psychiatric: Alert, Oriented x3, Depressed Affect, Motor Weakness (generalized) Skin: Normal Color, Warm/Dry Lymphatic: No Adenopathy Results Lab Laboratory Tests 05/25/22 06:20: White Blood Count 6.7, Red Blood Count 2.64L, Hemoglobin 7.6L, Hematocrit 23L, Mean Corpuscular Volume 88, Mean Corpuscular Hemoglobin 29, Mean Corpuscular Hemoglobin Concent 33, Red Cell Distribution Width 15.7H, Platelet Count 677H, Mean Platelet Volume 8.7L, Immature Granulocyte % (Auto) 1, Neutrophils (%) (Auto) 74, Lymphocytes (%) (Auto) 13, Monocytes (%) (Auto) 10, Eosinophils (%) (Auto) 2, Basophils (%) (Auto) 0, Neutrophils # (Auto) 5.0, Lymphocytes # (Auto) 0.8L, Monocytes # (Auto) 0.7, Eosinophils # (Auto) 0.1, Basophils # (Auto) 0.0, Immature Granulocyte # (Auto) 0.1, Sodium Level 135, Potassium Level 3.6, Chloride Level 102, Carbon Dioxide Level 19L, Anion Gap 14, Blood Urea Nitrogen 2L, Creatinine 0.63, Estimat Glomerular Filtration Rate 90, BUN/Creatinine Ratio 3, Glucose Level 79, Calcium Level 8.1L, Corrected Calcium 9.5, Magnesium Level 1.7, Total Bilirubin 0.2, Aspartate Amino Transf (AST/SGOT) 16, Alanine Aminotransferase (ALT/SGPT) 9, Alkaline Phosphatase 64, Total Protein 4.5L, Albumin 2.2L Assessment/Plan Assessment/Plan Assessment/Plan S/p partial colon resection with colostomy Abdominal abscess Anemia Hypokalemia S/P exploratory laparotomy with partial cecetomy revision of colostomy drainage of intra-abdominal abscess with drain placement and wound VAC placement COPD Monitor GILBERT drain output Continue with diet Discontinue antibiotics MONICA CLIFFORD DO 05/25/22 1650: Subjective Subjective/Events-last exam Patient a little more pain today. Comes and goes. She has had a lot of serous output from her GILBERT drain. She states that she is having a hard time tolerating diet currently. She states that she tried salmon and it was lower cooked and not palatable. She realized that she needs to try to increase her oral intake nutritionally. She states that she would like to try Ensure. She is having colostomy output. Her wound VAC is in place. No other complaints except for lower extremity edema. Denies nausea vomiting fever sweats chills shortness of breath or chest pain at this time. Objective Exam General Appearance: No Apparent Distress, Chronically ill HEENT: PERRL/EOMI, Normal ENT Inspection Neck: Full Range of Motion, Normal Inspection, Non Tender, Supple Respiratory: Chest Non Tender, No Accessory Muscle Use, No Respiratory Distress Cardiovascular: Regular Rate, Rhythm, No JVD Gastrointestinal: soft, tenderness (over colostomy (LLQ)), other (wound vac pre sent and colostomy that is product and GILBERT drain is yellow/serous color fluid) Extremity: Non Tender, Swelling Neurologic/Psychiatric: Alert, Oriented x3, Depressed Affect, Motor Weakness (generalized) Skin: Normal Color, Warm/Dry Lymphatic: No Adenopathy Assessment/Plan Assessment/Plan Assessment/Plan S/p partial colon resection with colostomy Abdominal abscess Anemia Hypokalemia S/P exploratory laparotomy with partial cecetomy revision of colostomy drainage of intra-abdominal abscess with drain placement and wound VAC placement COPD Continue wound vac PT can dc abx IS pain control Supervisory-Addendum Brief Verification & Attestation Participated in pt care: history, MDM, physical Personally performed: exam, history, MDM, supervision of care Care discussed with: Medical Student Procedures: n/a Results interpretation: Verified all documentation Verification and Attestation of Medical Student E/M Service A medical student performed and documented this service in my presence. I reviewed and verified all information documented by the medical student and made modifications to such information, when appropriate. I personally performed the physical exam and medical decision making. Monica Clifford, May 25, 2022,16:50 KARUNA GUZMAN May 25, 2022 07:20 MONICA CLIFFORD DO May 25, 2022 16:50
[2022-05-25 07:49] VITALS: BP 163/81
--- NOTE | 2022-05-25 09:03 | Occupational Ther Daily Note ---
OT Current Status-Daily Note Subjective Pt reclining in bed on phone call upon OT arrival, agreeable to tx. Pt reports continued BLE edema and discomfort, n/v after breakfast, and concerns of sepsis. Nurse notified of concerns. Mental Status/Objective Patient Orientation: Person, Place Attachments: Colostomy/Ileostomy, Drains, IV (PICC), Other-See Comments (wound vac) ADL-Treatment Therapy Code Descriptions/Definitions Functional [place] Measure: 0=Not Assessed/NA 4=Minimal Assistance 1=Total Assistance 5=Supervision or Setup 2=Maximal Assistance 6=Modified [place] 3=Moderate Assistance 7=Complete IndependenceSCALE: Activities may be completed with or without assistive devices. 4-Jxiaryzjpy-qqvkiis completes the activity by him/herself with no assistance from a helper. 5-Set-up or Clean-up Assistance-helper sets up or cleans up; patient completes activity. [place] assists only prior to or following the activity. 4-Supervision or Touching Assistance-helper provides verbal cues and/or touching/steadying and/or contact guard assistance as patient completes activity. Assistance may be provided throughout the activity or intermittently. 3-Partial/Moderate Assistance-helper does LESS THAN HALF the effort. [place] lifts, holds or supports trunk or limbs, but provides less than half the effort. 2-Substantial/Maximal Assistance-helper does MORE THAN HALF the effort. [place] lifts or holds trunk or limbs and provides more than half the effort. 8-Teckglegs-zbzbkp does ALL the effort. Patient does none of the effort to complete the activity. Or, the assistance of 2 or more helpers is required for the patient to complete the activity. If activity was not attempted, code reason: 7-Patient Refused. 9-Not Applicable-not attempted and the patient did not perform the activity before the current illness, exacerbation or injury. 10-Not Attempted due to Environmental Limitations-(lack of equipment, weather restraints, etc.). 88-Not Attempted due to Medical Conditions or Safety Concerns. Oral Hygiene (QC): 4 (SBA for standing balance) Shower/Bathe Self (QC): 3 (Mod A. Pt requires assistance to wipe buttocks and below the knees bilaterally) Upper Body Dressing (QC): 3 (Min A to thread RUE d/t IV line) Lower Body Dressing (QC): 3 (Mod A. Pt required assistance to doff brief and thread BLE through brief. Able to hike brief once past knees.) On/Off Footwear: 2 (Max A) Toileting Hygiene (QC): 3 (Min A. Assistance to wipe buttocks) Other Treatment Pt required Mod A to transfer supine<>EOB. Pt walked to bathroom, SBA, to complete toileting, sponge bath, dressing, and oral care. After completing tasks, pt walked back to recliner to don BLE CYNTHIA wraps. OT/PT cotreat due to s kill of 2 clinicians required that a regional rehabilitation director could not perform in order to coordinate UE/LEs, decrease fall risk, focus on higher level balance tasks, and due to pt's limitations in strength, activity tolerance, mobility, and transfers. OT focused on UE placement, cues for sequencing and safety and ADLs, PT focused on LE placement, gross overall movement, and transfers/mobility. Pt performed functional mobility in the halls, SBA, from her room to ARU hr receptionist desk before needing a seated RB. Pt requested to use bathroom, so she walked back to room. After completing toileting, pt transferred back to recliner. Pt left with PT, end of cotreat, all needs met. Education OT Patient Education: Correct positioning, Energy conservation, Exercise program, Modified ADL techniques, Progress toward Goal/Update tx plan, Purpose of tx/functional activities, Rehab process, Transfer techniques Teaching Recipient: Patient Teaching Methods: Discussion Response to Teaching: Verbalize Understanding OT Short Term Goals Short Term Goals Time Frame: May 31, 2022 Toileting hygiene: 4 Shower/bathe self: 4 Lower body dressin Putting on/taking off footwear: 3 OT Lavatory Attendant Goals [place] Goals Time Frame: Jun 16, 2022 Eating (QC): 6 Oral Hygiene (QC): 6 Toileting Hygiene (QC): 6 Shower/Bathe Self (QC): 5 Upper Body Dressing (QC): 6 Lower Body Dressing (QC): 6 On/Off Footwear (QC): 6 Additional Goals: 1-Demonstrate ADL Tasks, 2-Verbalize Understanding, 3-Improv eStrength/Tj 1=Demonstrate adherence to instructed precautions during ADL tasks. 2=Patient will verbalize/demonstrate understanding of assistive devices/modifications for ADL. 3=Patient will improve strength/tolerance for activity to enable patient to p erform ADL's. OT Education/Plan Problem List/Assessment Assessment: Decreased Activ Tolerance, Decreased UE Strength, Impaired Funct Balance, Impaired I ADL's, Impaired Self-Care Skills Discharge Recommendations Plan/Recommendations: Continue POC Treatment Plan/Plan of Care Patient would benefit from OT for education, treatment and training to promote independence in ADL's, mobility, safety and/or upper extremity function for ADL's. Plan of Care: ADL Retraining, Functional Mobility, Group Exercise/Act as Ind, U E Funct Exercise/Act Treatment Duration: Jun 16, 2022 Frequency: At least 5 of 7 days/Wk (IRF) Estimated Hrs Per Day: 1.5 hours per day Rehab Potential: Fair Time/GCodes Start Time: 08:00 Stop Time: 09:00 Total Time Billed (hr/min): 60 Billed Treatment Time 6053-3469: OT tx, 8042-5120: OT/PT cotreat 1, ADL 3 (50'), FA (10') AMARILIS MONTIEL OT May 25, 2022 09:03
[2022-05-25] MEDS: ATENOLOL 25 MG (TENORMIN) TAB PO SCH (09:15)
[2022-05-25] MEDS: MICONAZOLE 2% POWDER (DESENEX AF) 90 GM TOP SCH ×2 (09:15→21:22)
[2022-05-25] MEDS: SENNA W/DOCUSATE (SENOKOT S) TABLET PO SCH ×2 (09:24→20:52)
[2022-05-25] MEDS: DOCUSATE SODIUM 100 MG (COLACE) CAP PO SCH ×2 (09:24→20:52)
[2022-05-25] MEDS: polyethylene glycoL POWDER 17 GM (MIRALAX) PACK PO SCH ×2 (09:24→20:52)
[2022-05-25] MEDS: SENNOSIDES 8.6 MG (SENOKOT) TAB PO SCH ×2 (09:24→20:52)
[2022-05-25] MEDS: oxyCODONE ER 10 MG (OxyCONTIN CR) TAB PO SCH ×2 (09:26→20:20)
--- NOTE | 2022-05-25 09:26 | Physical Therapy Daily Note ---
PT Daily Note-Current Subjective Pt in BR with OT present upon arrival. Pt agrees to PT/OT co-treat. Pt reports continued BLE edema and discomfort, n/v after breakfast, and concerns of sepsis. Nurse notified of concerns. Mental Status Attachments: Colostomy/Ileostomy, Other-See Comments (Wound Vac.), IV (PICC) Transfers SCALE: Activities may be completed with or without assistive devices. 6-Aklwwvhuhp-ogudxbw completes the activity by him/herself with no assistance from a helper. 5-Set-up or Clean-up Assistance-helper sets up or cleans up; patient completes activity. [place] assists only prior to or following the activity. 4-Supervision or Touching Assistance-helper provides verbal cues and/or touching/steadying and/or contact guard assistance as patient completes activity. Assistance may be provided throughout the activity or intermittently. 3-Partial/Moderate Assistance-helper does LESS THAN HALF the effort. [place] lifts, holds or supports trunk or limbs, but provides less than half the effort. 2-Substantial/Maximal Assistance-helper does MORE THAN HALF the effort. [place] lifts or holds trunk or limbs and provides more than half the effort. 3-Pctoxakjv-gnavze does ALL the effort. Patient does none of the effort to complete the activity. Or, the assistance of 2 or more helpers is required for the patient to complete the activity. If activity was not attempted, code reason: 7-Patient Refused. 9-Not Applicable-not attempted and the patient did not perform the activity before the current illness, exacerbation or injury. 10-Not Attempted due to Environmental Limitations-(lack of equipment, weather restraints, etc.). 88-Not Attempted due to Medical Conditions or Safety Concerns. Sit to Stand (QC): 4 Toilet Transfer (QC): 3 Weight Bearing Full Weight Bearing Full Weight Bearing Gait Training Does the Patient Walk?: Yes Distance: 100' x2 Walk 10 feet (QC): 4 Walk 50 ft with 2 Turns(QC): 4 Gait Assistive Device: FWW Exercises Supine Ex: Quad Set, Heel Slides, Hip abd/add Supine Reps: 10 Seated Therapy Exercises: Ankle pumps, Long arc quads, Hip flexion, Glut set Seated Reps: 10 Treatments 830-930: Pt walked to bathroom, SBA, to complete toileting, sponge bath, dressing, and oral care. After completing tasks, pt walked back to recliner to don BLE CYNTHIA wraps. OT/PT cotreat due to skill of 2 clinicians required that a rehabilitation assistant could not perform in order to coordinate UE/LEs, decrease fall risk, focus on higher level balance tasks, and due to pt's limitations in strength, activity tolerance, mobility, and transfers. OT focused on UE placement, cues for sequencing and safety and ADLs, PT focused on LE placement, gross overall movement, and transfers/mobility. Pt performed functional mobility in the halls, SBA, from her room to ARU office manager receptionist desk before needing a seated RB. Pt requested to use bathroom, so she walked back to room. After completing toiletin g, pt transferred back to recliner. End of co-treat & OT departs. Pt completes Seated & Supine EX at recliner to pt's toleration. Pt resting in recliner with all needs met, call light in hand. [id number]: After ST departs, GUEST SERVICES ASSISTANT checks on pt & pt wants to use BR. GUEST SERVICES ASSISTANT assists pt with managing IV pole & Wound Vac. Pt requires assistance for pericare. All needs met, call light in hand. Assessment Current Status: Fair Progress Pt remains anxious and and concerned about feet burning as well as continued nausea & vomiting. PT Short Term Goals Short Term Goals Time Frame: May 30, 2022 Roll Left & Right: 4 (SBA) Sit to lyin (SBA) Lying to sitting on side of be: 4 (SBA) Sit to stand: 4 (CGA) Chair/dgw-dh-bhuyv transfer: 4 (SBA) Toilet transfer: 4 (SBA) Walk 10 feet: 4 (SBA) Walk 50 feet with two turns: 4 (SBA) Walk 150 feet: 4 (SBA) PT Superintendent Custodian Janitor Goals [facility] Goals PT Superintendent Custodian Janitor Goals Time Frame: Jun 13, 2022 Roll Left & Right (QC): 6 Sit to Lying (QC): 6 Lying-Sitting on Side/Bed(QC): 6 Sit to Stand (QC): 6 Chair/Cfo-mn-Yymdi Xfer(QC): 6 Toilet Transfer (QC): 6 Car Transfer (QC): 4 Does the Patient Walk: Yes Walk 10 feet (QC): 6 Walk 50ft with 2 Turns (QC): 6 Walk 150 ft (QC): 6 Walking 10ft on Uneven Surface: 6 1 Step (curb) (QC): 4 4 Steps (QC): 4 12 Steps (QC): 88 Picking up an Object (QC): 6 (using firefighting equipment specialist) Wheel 50 feet with 2 turns (QC: 9 Wheel 150 feet: 9 PT Plan Problem List Problem List: Activity Tolerance, Functional Strength Treatment/Plan Treatment Plan: Continue Plan of Care Treatment Plan: Bed Mobility, Education, Functional Activity Tj, Functional Strength, Group Therapy, Gait, Safety, Therapeutic Exercise, Transfers Treatment Duration: Jun 13, 2022 Frequency: At least 5 of 7 days/Wk (IRF) Estimated Hrs Per Day: 1.5 hours per day Patient and/or Family Agrees t: Yes Safety Risks/Education Patient Education: Gait Training, Transfer Techniques, Correct Positioning, Safety Issues Teaching Recipient: Patient Teaching Methods: Discussion Response to Teaching: Verbalize Understanding Time/GCodes Time In: 830 Time Out: 930 Total Billed Treatment Time: 60 Total Billed Treatment Co-treat w/ OT for 30m (830-900) 1, FA x2 (25m), GT (20m) & EX (15m) 0219-2841: 1, FA (15m) CHANDA GUALLPA GUEST SERVICES ASSISTANT May 25, 2022 09:26
[2022-05-25] MEDS: RT-ALBUTEROL/IPRATROPIUM 3 ML (DUONEB) VIAL INH SCH ×2 (09:51→21:43)
[2022-05-25 09:57] VITALS: BP 163/81
[2022-05-25] MEDS ORDERED: RT-ALBUTEROL/IPRATROPIUM 3 ML (DUONEB) VIAL INH PRN (11:00)
--- NOTE | 2022-05-25 12:00 | Occupational Ther Daily Note ---
OT Current Status-Daily Note Subjective Pt seated in recliner on phone call upon OT arrival, agreeable to tx. Mental Status/Objective Patient Orientation: Person, Place, Situation Attachments: Colostomy/Ileostomy, Drains, IV (PICC), Other-See Comments (wound vac) ADL-Treatment Therapy Code Descriptions/Definitions Functional [place] Measure: 0=Not Assessed/NA 4=Minimal Assistance 1=Total Assistance 5=Supervision or Setup 2=Maximal Assistance 6=Modified [place] 3=Moderate Assistance 7=Complete IndependenceSCALE: Activities may be completed with or without assistive devices. 2-Zqcnvrueup-vqlnzlj completes the activity by him/herself with no assistance from a helper. 5-Set-up or Clean-up Assistance-helper sets up or cleans up; patient completes activity. [place] assists only prior to or following the activity. 4-Supervision or Touching Assistance-helper provides verbal cues and/or touching/steadying and/or contact guard assistance as patient completes activity. Assistance may be provided throughout the activity or intermittently. 3-Partial/Moderate Assistance-helper does LESS THAN HALF the effort. [place] lifts, holds or supports trunk or limbs, but provides less than half the effort. 2-Substantial/Maximal Assistance-helper does MORE THAN HALF the effort. [place] lifts or holds trunk or limbs and provides more than half the effort. 4-Ccxxoiqzg-kgrxhj does ALL the effort. Patient does none of the effort to complete the activity. Or, the assistance of 2 or more helpers is required for the patient to complete the activity. If activity was not attempted, code reason: 7-Patient Refused. 9-Not Applicable-not attempted and the patient did not perform the activity before the current illness, exacerbation or injury. 10-Not Attempted due to Environmental Limitations-(lack of equipment, weather restraints, etc.). 88-Not Attempted due to Medical Conditions or Safety Concerns. Lower Body Dressing (QC): 4 (V/c's to use director of physical education appropriately to don/doff brief up to knee level) On/Off Footwear: 4 (V/c's to use sock aide appropriately) Other Treatment Pt remained in recliner for duration of tx. OT provided skilled instruction on use of AE (sock aide and director of physical education) to increase IND with LBD and footwear, pt verbalized understanding and used AE appropriately to don/doff brief and gripper socks. Pt then completed nuts and bolts board while sitting in recliner to increase BUE activity tolerance. Pt did not take RB during task but verbalized that she "could feel it in her arms" and that her "arms felt heavy" after activity. Post tx, pt left in recliner with call light in reach and all needs met. Education OT Patient Education: Correct positioning, Energy conservation, Exercise program, Modified ADL techniques, Progress toward Goal/Update tx plan, Purpose of tx/functional activities, Rehab process, Use of adapted equipment Teaching Recipient: Patient Teaching Methods: Demonstration, Discussion Response to Teaching: Verbalize Understanding, Return Demonstration OT Short Term Goals Short Term Goals Time Frame: May 31, 2022 Toileting hygiene: 4 Shower/bathe self: 4 Lower body dressin Putting on/taking off footwear: 3 OT [facility] Goals Promotion Manager Goals Time Frame: Jun 16, 2022 Eating (QC): 6 Oral Hygiene (QC): 6 Toileting Hygiene (QC): 6 Shower/Bathe Self (QC): 5 Upper Body Dressing (QC): 6 Lower Body Dressing (QC): 6 On/Off Footwear (QC): 6 Additional Goals: 1-Demonstrate ADL Tasks, 2-Verbalize Understanding, 3- ImproveStrength/Tj 1=Demonstrate adherence to instructed precautions during ADL tasks. 2=Patient will verbalize/demonstrate understanding of assistive de vices/modifications for ADL. 3=Patient will improve strength/tolerance for activity to enable patient to perform ADL's. OT Education/Plan Problem List/Assessment Assessment: Decreased Activ Tolerance, Decreased UE Strength, Impaired Funct Balance, Impaired I ADL's, Impaired Self-Care Skills Discharge Recommendations Plan/Recommendations: Continue POC Treatment Plan/Plan of Care Patient would benefit from OT for education, treatment and training to promote independence in ADL's, mobility, safety and/or upper extremity function for AD L's. Plan of Care: ADL Retraining, Functional Mobility, Group Exercise/Act as Ind, UE Funct Exercise/Act Treatment Duration: Jun 16, 2022 Frequency: At least 5 of 7 days/Wk (IRF) Estimated Hrs Per Day: 1.5 hours per day Rehab Potential: Fair Time/GCodes Start Time: 11:30 Stop Time: 12:00 Total Time Billed (hr/min): 30 Billed Treatment Time 1, ADL (20'), FA (10') AMARILIS MONTIEL OT May 25, 2022 12:00
[2022-05-25] MEDS: ALPRAZolam 0.25 MG (XANAX) TAB PO PRN (12:40)
--- NOTE | 2022-05-25 13:50 | ST Dysphagia Evaluation ---
Speech Evaluation-General Medical Diagnosis Abdominal Abcess Onset Date: May 23, 2022 Therapy Diagnosis Therapy Diagnosis: Globus Sensation Precautions Precautions: Fall, Pressure Ulcer, Aspiration Precautions/Isolations: Aspiration, Fall Prevention, Standard Precautions, Pressure Ulcer Referral Referring Physician: Dr. Bell Reason for Referral: Evaluation/Treatment Medical History Pertinent Medical History: COPD, GERD, HTN, OA Current History The patient is a 81 year-old female with a past medical history of COPD, GERD, HTN, OA, HTN, chronic UTI, diverticulitis, IBS, CBP, hypothyroidism, hemorrhoids, and osteoarthritis, who presented to acute rehabilitation following a partial colon resection with colostomy. Reviewed History: Yes Social History Current Living Status: Other Family (Granddaughter and great granddaughter ) Speech PLF/Current-Dysphagia Prior Level of Function The patient's RN contacted the clinician requesting the appropriateness and safety of upgrading the patient's diet consistency from a dysphagia two to a regular. Per patient, "I would like to chew my food by myself." As the clinician has not made diet modifications or assessments of the patient's oropharyngeal swallowing function, the clinician completed a chart review prior to visiting with the patient. Following a chart review, the patient mentioned "difficulty with swallowing" throughout her discussion with the elementary reading tutor. The clinician followed up with the patient, who described a globus sensation to the laryngeal region "every so often" with dry, hard consistencies. Additionally, the patient stated she has undergone two dilation procedures and has a known hiatal hernia as she recently completed an upper GI series. The patient stated hard, dry consistencies with intermittently "get stuck" near the laryngeal region. When this occurs, she uses todd emilee to remove the item or regurgitates the item. The patient stated the occurrences do not happen when she consumes small bites and sips. The patient denied s/s of suspected aspiration with any consistency she currently consumes. Subjective The patient was seated upright in her recliner, awake and alert upon entrance to her room by the clinician. The patient greeted the clinician and was agreeable to participation in the clinical bedside swallowing evaluation. Cognitive Status Patient Orientation: Person, Place, Situation Oral Motor Skills Dentition: Natural Current Food Consistancy: Dysphagia Soft, Thin Liquids Ability to Follow Directions: Excellent Oral Expression Ability: No Impairment Voice Voice Phonatory-Based Quality: Normal Voice Pitch: Normal Voice Loudness: Normal Face Facial Symmetry: Symmetrical Oral-Facial Assessment Oral-Facial Dentition: Normal Labial Seal Description: Normal Smile: Normal Puff Cheeks: Normal Lingual Protrusion: Normal Lingual ROM: Normal Lingual Strength: Normal Volitional Dry Swallow: Yes Voluntary Cough: Yes Can Clear Throat Volitionally: Yes Productive Cough: Yes Productive Throat Clear: Yes Dysphagia Evaluation Consistencies Presented: Regular, Thin Liquid, Pureed The patient does not demonstrate oral deficits to the swallowing function. The patient does not display pharyngeal deficits to the swallowing function. Additionally, the patient does not report the presence of a globus sensation. Dietary Recommendations: Regular (Pending surgery team's approval.) Liquid Recommendations: Thin * All recommendations are pending approval of the patient's surgeon. Recommendations: - Regular consistency diet with thin liquids, as tolerated. - Fully upright and alert for all P.O. intake. - Small, single bites and sips, only. - Alternate bites and sips on a 1:1 ratio to ease pharyngeal transport. - Provide additional sauces and gravies to dry solid consistencies to ease pharyngeal transport. - Avoid problematic consistencies. - Crush medication and place in puree for administration (the patient politely refused this recommendation). - Remain upright for a minimum of 30 minutes following P.O. intake. - Monitor for s/s of suspected aspiration with P.O. intake. If demonstrated, contact speech pathology. The patient's reports (previous esophageal dilations) and known medical conditions (hiatal hernia) lead the clinician to suspect esophageal etiology of the patient's swallowing discomforts. The patient stated she follows the above recommendations closely and experiences the globus sensation during periods where she does not following the above strategies. The patient verbalized comprehension of the material. The information was discussed with the RN following completion. If the patient's globus sensation continues, a referral to GI would be appropriate. Dysphagia Evaluation Summary The patient demonstrated an intact oropharyngeal swallow function at this time. Speech-Plan Treatment Plan Speech Therapy Treatment Plan: Discontinue ST Treatment Duration: May 25, 2022 Frequency: 1 time per week Estimated Hrs Per Day: .5 hour per day Rehab Potential: Fair Safety Risks/Education Teaching Recipient: Patient Teaching Methods: Discussion Response to Teaching: Verbalize Understanding Education Topics Provided: Results, S/s of Suspected Aspiration, Swallowing Strategies Time Speech Therapy Time In: 13:00 Speech Therapy Time Out: 13:30 Total Billed Time: 30 Billed Treatment Time 1, LAURA ERNST ELIZABETH ST May 25, 2022 13:50
[2022-05-25] MEDS: ENOXAPARIN 40 MG/0.4 ML (LOVENOX) SYR SC SCH (15:15)
[2022-05-25 20:08] VITALS: BP 115/56
[2022-05-25] MEDS: NS IV 1000 ML 1,000 ML IV SCH (20:20)
[2022-05-25] MEDS: CALCIUM CARBONATE 500 MG (TUMS) TAB.CHEW PO PRN (21:21)
[2022-05-26] MEDS: LEVOTHYROXINE 100 MCG (LEVOTHROID) TAB PO SCH (06:09)
--- NOTE | 2022-05-26 06:31 | PM&R Progress Note ---
Subjective HPI/CC On Admission Date Seen by Provider: May 26, 2022 Time Seen by Provider: 12:30 Subjective/Events-last exam 05/26/2022: Pt dramatically improved No N/V on regular diet CYNTHIA wraps are tolerated now Wound vac changed by Leo at wound care A lot of output on the drain still Morale is better 05/25/2022: Patient tearful today Dr Clifford at chairside reassuring Labs good CYNTHIA wraps for 2 hours then off 2 hours due to uncomfortable DC abx 05/24/2022: Doing better IVF decreased to 30cc/hr Third spacing will require CYNTHIA wraps Potassium low so IV supplement Pain improved Working with therapy Review of Systems General: Fatigue, Malaise Objective Exam Vital Signs Vital Signs Date Time Temp Pulse Resp B/P (MAP) Pulse Ox O2 Delivery O2 Flow Rate FiO2 05/26/22 09:55 Room Air 05/26/22 08:32 97 05/26/22 07:42 37.0 102 18 136/71 (92) 05/25/22 21:43 0.00 05/25/22 09:57 21 Capillary Refill : General Appearance: No Apparent Distress, WD/WN, Chronically ill HEENT: PERRL/EOMI, Normal ENT Inspection, Pharynx Normal Neck: Full Range of Motion, Normal Inspection, Non Tender, Supple, Carotid Bruit Respiratory: Chest Non Tender, Lungs Clear, Normal Breath Sounds, No Accessory Muscle Use, No Respiratory Distress Cardiovascular: Regular Rate, Rhythm, No Gallop, No JVD, No Murmur, Normal Peripheral Pulses Gastrointestinal: Normal Bowel Sounds, No Organomegaly, No Pulsatile Mass, Soft, Other (colostomy) Back: Normal Inspection, No CVA Tenderness, No Vertebral Tenderness Extremity: Normal Capillary Refill, Normal Inspection, Normal Range of Motion, Non Tender, No Calf Tenderness, Pedal Edema Neurologic/Psychiatric: Alert, Oriented x3, senior writer II-XII Norm as Tested, Abnormal Gait, Depressed Affect, Motor Weakness (generalized) Skin: Normal Color, Warm/Dry Lymphatic: No Adenopathy Results/Procedures Lab Patient resulted labs reviewed. FIM Transfers Therapy Code Descriptions/Definitions Functional [place] Measure: 0=Not Assessed/NA 4=Minimal Assistance 1=Total Assistance 5=Supervision or Setup 2=Maximal Assistance 6=Modified [place] 3=Moderate Assistance 7=Complete IndependenceSCALE: Activities may be completed with or without assistive devices. 3-Rsvkapvtzo-zdjixii completes the activity by him/herself with no assistance from a helper. 5-Set-up or Clean-up Assistance-helper sets up or cleans up; patient completes activity. [place] assists only prior to or following the activity. 4-Supervision or Touching Assistance-helper provides verbal cues and/or touching/steadying and/or contact guard assistance as patient completes activity. Assistance may be provided throughout the activity or intermittently. 3-Partial/Moderate Assistance-helper does LESS THAN HALF the effort. [place] lifts, holds or supports trunk or limbs, but provides less than half the effort. 2-Substantial/Maximal Assistance-helper does MORE THAN HALF the effort. [place] lifts or holds trunk or limbs and provides more than half the effort. 8-Vvmfsgvao-qfsdxl does ALL the effort. Patient does none of the effort to complete the activity. Or, the assistance of 2 or more helpers is required for the patient to complete the activity. If activity was not attempted, code reason: 7-Patient Refused. 9-Not Applicable-not attempted and the patient did not perform the activity before the current illness, exacerbation or injury. 10-Not Attempted due to Environmental Limitations-(lack of equipment, weather restraints, etc.). 88-Not Attempted due to Medical Conditions or Safety Concerns. Roll Left to Right (QC): 3 Sit to Lying (QC): 3 Sit to Stand (QC): 4 Chair/Dod-sd-Rfoqx Xfer(QC): 4 Car Transfer (QC): 3 Gait Training Does the Patient Walk?: Yes Distance: 100' x2 Walk 10 feet (QC): 4 Walk 50 ft with 2 Turns(QC): 4 Walk 150 ft (QC): 4 Walking 10ft/uneven surface-QC: 4 Gait Assistive Device: FWW Wheelchair Training Does the Pt Use a Wheelchair?: No Wheel 50 ft with 2 turns (QC): 9 Wheel 150 ft (QC): 9 Stair Training 1 Step (curb) (QC): 88 4 Steps (QC): 88 12 Steps (QC): 88 Balance Picking up an Object (QC): 4 (CGA using a priming mixture carrier) ADL-Treatment Eating (QC): 5 Oral Hygiene (QC): 4 (SBA for standing balance) Shower/Bathe Self (QC): 3 (Mod A. Pt requires assistance to wipe buttocks and below the knees bilaterally) Upper Body Dressing (QC): 3 (Min A to thread RUE d/t IV line) Lower Body Dressing (QC): 4 (V/c's to use priming mixture carrier appropriately to don/doff brief up to knee level) On/Off Footwear (QC): 4 (V/c's to use sock aide appropriately) Toileting Hygiene (QC): 3 (Min A. Assistance to wipe buttocks) Assessment/Plan Assessment and Plan Assess & Plan/Chief Complaint Assessment: S/p partial colon resection with colostomy due to severe colon obstruction from adhesions from recurrent silent diverticulitis -Done at [facility] Abdominal abscess -Flagyl and Zosyn maintained -s/p washout at [facility] -NaCl at 125 mls/hr decreased to 30cc/hr -Pain control Acute blood loss anemia -Likely secondary to surgical blood loss -Iron studies show low Iron so ordered IV Venofer, B12 ok Hypokalemia -K+ protocol via IV COPD Plan: Pain control Monitor closely IRF protocol 05/24/2022: IVF decrease CYNTHIA wraps 05/25/2022: DC abx CYNTHIA wraps 05/26/2022: Dramatically improved Venofer (1) Myopathy (2) Abdominal abscess (3) COPD (chronic obstructive pulmonary disease) MIKEY CAMP DO May 26, 2022 06:31
[2022-05-26 07:42] VITALS: BP 136/71
[2022-05-26] MEDS: RT-ALBUTEROL/IPRATROPIUM 3 ML (DUONEB) VIAL INH SCH ×2 (08:30→19:57)
[2022-05-26] MEDS: IRON SUCROSE 200 MG/10 ML (VENOFER) VIAL IV SCH (08:50)
[2022-05-26] MEDS: oxyCODONE ER 10 MG (OxyCONTIN CR) TAB PO SCH ×2 (08:50→20:28)
[2022-05-26] MEDS: DOCUSATE SODIUM 100 MG (COLACE) CAP PO SCH ×2 (09:02→21:27)
[2022-05-26] MEDS: polyethylene glycoL POWDER 17 GM (MIRALAX) PACK PO SCH ×2 (09:04→21:27)
[2022-05-26] MEDS: SENNA W/DOCUSATE (SENOKOT S) TABLET PO SCH ×2 (09:04→21:28)
[2022-05-26] MEDS: SENNOSIDES 8.6 MG (SENOKOT) TAB PO SCH ×2 (09:05→21:28)
[2022-05-26] MEDS: ATENOLOL 25 MG (TENORMIN) TAB PO SCH (09:08)
[2022-05-26] MEDS: MICONAZOLE 2% POWDER (DESENEX AF) 90 GM TOP SCH ×2 (09:08→22:37)
--- NOTE | 2022-05-26 09:10 | Occupational Ther Daily Note ---
OT Current Status-Daily Note Subjective Pt alert, sitting in recliner. Pt agrees to therapy. No c/o pain. Mental Status/Objective Patient Orientation: Person, Place, Time, Situation Attachments: IV ADL-Treatment Pt agrees to shower. Pt ambulates to bathroom using 4WW by self though assist for IV and tubing. Pt transferred into shower with SBA uisng grabbars. Sitting on shower bench, pt able to complete shower sitting on shower bench 100% of the time using grabbars, hand held shower and LH sponge. Pt demonstrated ability to dry lower legs with modified technique. Assist to complete upper body dressing due to IV tubing. Pt declined to don lower body clothing. Assist to lift B LE's into bed then to position knees in flexed position to push self up in bed. MARTÍNEZ completed edema massage to B LE's prior to applying CYNTHIA wraps. After therapy, pt lying in bed with call light/phone in reach. Nrsg in room. All needs met. Therapy Code Descriptions/Definitions Functional [place] Measure: 0=Not Assessed/NA 4=Minimal Assistance 1=Total Assistance 5=Supervision or Setup 2=Maximal Assistance 6=Modified [place] 3=Moderate Assistance 7=Complete IndependenceSCALE: Activities may be completed with or without assistive devices. 1-Vejxjjyprq-drpepbs completes the activity by him/herself with no assistance from a helper. 5-Set-up or Clean-up Assistance-helper sets up or cleans up; patient completes activity. [place] assists only prior to or following the activity. 4-Supervision or Touching Assistance-helper provides verbal cues and/or touching/steadying and/or contact guard assistance as patient completes activity. Assistance may be provided throughout the activity or intermittently. 3-Partial/Moderate Assistance-helper does LESS THAN HALF the effort. [place] lifts, holds or supports trunk or limbs, but provides less than half the effort. 2-Substantial/Maximal Assistance-helper does MORE THAN HALF the effort. [place] lifts or holds trunk or limbs and provides more than half the effort. 6-Klqzwffmg-qtzqpw does ALL the effort. Patient does none of the effort to complete the activity. Or, the assistance of 2 or more helpers is required for the patient to complete the activity. If activity was not attempted, code reason: 7-Patient Refused. 9-Not Applicable-not attempted and the patient did not perform the activity before the current illness, exacerbation or injury. 10-Not Attempted due to Environmental Limitations-(lack of equipment, weather restraints, etc.). 88-Not Attempted due to Medical Conditions or Safety Concerns. Eating (QC): 6 Oral Hygiene (QC): 6 (Per clinical judgment, pt able to stand at sink with support of counter to complete oral care.) Shower/Bathe Self (QC): 4 (SBA for safety) Upper Body Dressing (QC): 3 Lower Body Dressing (QC): 7 On/Off Footwear: 7 OT Short Term Goals Short Term Goals Time Frame: May 31, 2022 Toileting hygiene: 4 Shower/bathe self: 4 Lower body dressin Putting on/taking off footwear: 3 OT Land Agent Goals Land Agent Goals Time Frame: Jun 16, 2022 Eating (QC): 6 Oral Hygiene (QC): 6 Toileting Hygiene (QC): 6 Shower/Bathe Self (QC): 5 Upper Body Dressing (QC): 6 Lower Body Dressing (QC): 6 On/Off Footwear (QC): 6 Additional Goals: 1-Demonstrate ADL Tasks, 2-Verbalize Understanding, 3- ImproveStrength/Tj 1=Demonstrate adherence to instructed precautions during ADL tasks. 2=Patient will verbalize/demonstrate understanding of assistive devices/modifications for ADL. 3=Patient will improve strength/tolerance for activity to enable patient to perform ADL's. OT Education/Plan Problem List/Assessment Assessment: Decreased Activ Tolerance, Decreased UE Strength, Impaired Bed Mobility, Impaired Self-Care Skills Discharge Recommendations Plan/Recommendations: Continue POC Treatment Plan/Plan of Care Patient would benefit from OT for education, treatment and training to promote independence in ADL's, mobility, safety and/or upper extremity function for ADL's. Plan of Care: ADL Retraining, Functional Mobility, Group Exercise/Act as Ind, UE Funct Exercise/Act Treatment Duration: Jun 16, 2022 Frequency: At least 5 of 7 days/Wk (IRF) Estimated Hrs Per Day: 1.5 hours per day Rehab Potential: Fair Time/GCodes Start Time: 07:30 Stop Time: 09:00 Total Time Billed (hr/min): 90 Billed Treatment Time 1 visit-ADL 6 (90 min) BRENDAN GONZALES May 26, 2022 09:10
[2022-05-26] MEDS: CALCIUM CARBONATE 500 MG (TUMS) TAB.CHEW PO PRN ×2 (09:19→18:45)
--- NOTE | 2022-05-26 11:20 | Progress Note - Surgery ---
THOM[place]UNA 05/26/22 1120: Subjective Date Seen by a Provider: May 26, 2022 Time Seen by a Provider: 11:05 Subjective/Events-last exam Pt is resting comfortably in bed. Pt is in good spirits. States that her pain is improved from yesterday. Pt has some tenderness around the MARCY drain but notes improvement once it was pinned to her side. Pt was able to eat solid food last night and this morning with no difficulties. Pt continues to have colostomy output and void. Per wound care nurse, pt's colostomy revision is granulating well. Wound care nurse notes that there is remnants of a yeast infection located in the fold between the patient's stomach and leg directly under her colostomy that is currently being controlled with stroma powder. Pt had 535ml of light yellow fluid from MARCY drain from 7am this morning to 11am. Pt denies n/v, CP, SOB,and sweats. Objective Exam Vital Signs Date Time Temp Pulse Resp B/P (MAP) Pulse Ox O2 Delivery O2 Flow Rate FiO2 05/26/22 09:55 Room Air 05/26/22 08:32 97 Room Air 05/26/22 07:42 37.0 102 18 136/71 (92) 94 Room Air 05/25/22 21:43 97 Room Air 0.00 05/25/22 21:00 Room Air 05/25/22 20:08 36.8 83 20 115/56 (75) 96 Room Air I & O 05/26/22 06:59 Intake Total 1155 ml Output Total 2260 ml Balance -1105 ml Capillary Refill : General Appearance: No Apparent Distress, WD/WN, Chronically ill HEENT: PERRL/EOMI, Normal ENT Inspection Neck: Full Range of Motion, Normal Inspection, Carotid Bruit Respiratory: No Accessory Muscle Use, No Respiratory Distress Cardiovascular: Regular Rate, Rhythm, No JVD, Normal Peripheral Pulses Gastrointestinal: soft, tenderness (over colostomy (LLQ) and MARCY drain (RLQ)), other (wound vac present and colostomy that is product and MARCY drain is yellow/serous color fluid) Extremity: Normal Capillary Refill, Normal Inspection, Normal Range of Motion, Non Tender, No Calf Tenderness, Pedal Edema Neurologic/Psychiatric: Alert, Oriented x3, Abnormal Gait, Motor Weakness (generalized) Skin: Normal Color, Warm/Dry Lymphatic: No Adenopathy Assessment/Plan Assessment/Plan Assessment/Plan S/p partial colon resection with colostomy Abdominal abscess Anemia Hypokalemia S/P exploratory laparotomy with partial cecetomy revision of colostomy drainage of intra-abdominal abscess with drain placement and wound VAC placement COPD Continue wound vac PT IS pain control MONICA CLIFFORD DO 05/26/222040: Subjective Subjective/Events-last exam Feeling better than yesterday. Better mentally as well she states. Large output from marcy drain. having colostomy output. She is urinating good she states. Tolerating diet today. Denies n/v fever sweats chills shortness of breath or ch est pain at this time. Objective Exam General Appearance: No Apparent Distress, Chronically ill HEENT: PERRL/EOMI, Normal ENT Inspection Neck: Full Range of Motion, Normal Inspection Respiratory: Chest Non Tender, No Accessory Muscle Use, No Respiratory Distress Cardiovascular: Regular Rate, Rhythm, No JVD Gastrointestinal: soft, tenderness (over colostomy (LLQ) and MARCY drain (RLQ), wound vac at midline), other (wound vac present and colostomy that is product and MRACY drain is yellow/serous color fluid) Extremity: Pedal Edema, Swelling Neurologic/Psychiatric: Alert, Oriented x3, Motor Weakness (generalized) Skin: Normal Color, Warm/Dry Lymphatic: No Adenopathy Assessment/Plan Assessment/Plan Assessment/Plan S/p partial colon resection with colostomy Abdominal abscess Anemia Hypokalemia S/P exploratory laparotomy with partial cecetomy revision of colostomy drainage of intra-abdominal abscess with drain placement and wound VAC placement COPD Continue wound vac PT IS pain control diet as tolerates high output drain, feel it will improve with improvement of diet Supervisory-Addendum Brief Verification & Attestation Participated in pt care: history, MDM, physical Personally performed: exam, history, MDM, supervision of care Care discussed with: Medical Student Procedures: n/a Results interpretation: Verified all documentation Verification and Attestation of Medical Student E/M Service A medical student performed and documented this service in my presence. I reviewed and verified all information documented by the medical student and made modifications to such information, when appropriate. I personally performed the physical exam and medical decision making. Monica Clifford, May 26, 2022,20:43 KARUNA GUZMAN May 26, 2022 11:20 MONICA CLIFFORD DO May 26, 2022 20:41
--- NOTE | 2022-05-26 11:56 | Physical Therapy Daily Note ---
PT Daily Note-Current Subjective Pt. agrees to Rx but states she is getting tired and has pain in abdomen at 6/10 and increasing. Pain Numeric Pain Scale: 6 Location: Medial Location Body Site: Abdomen Pain Description: Pressure, Burning Mental Status Patient Orientation: Normal For Age Attachments: Other-See Comments ([place]), IV Transfers SCALE: Activities may be completed with or without assistive devices. 3-Wxfreewtww-ifzmxgw completes the activity by him/herself with no assistance from a helper. 5-Set-up or Clean-up Assistance-helper sets up or cleans up; patient completes activity. [place] assists only prior to or following the activity. 4-Supervision or Touching Assistance-helper provides verbal cues and/or touching/steadying and/or contact guard assistance as patient completes activity. Assistance may be provided throughout the activity or intermittently. 3-Partial/Moderate Assistance-helper does LESS THAN HALF the effort. [place] lifts, holds or supports trunk or limbs, but provides less than half the effort. 2-Substantial/Maximal Assistance-helper does MORE THAN HALF the effort. [place] lifts or holds trunk or limbs and provides more than half the effort. 2-Kbkhdyiip-avztec does ALL the effort. Patient does none of the effort to complete the activity. Or, the assistance of 2 or more helpers is required for the patient to complete the activity. If activity was not attempted, code reason: 7-Patient Refused. 9-Not Applicable-not attempted and the patient did not perform the activity before the current illness, exacerbation or injury. 10-Not Attempted due to Environmental Limitations-(lack of equipment, weather restraints, etc.). 88-Not Attempted due to Medical Conditions or Safety Concerns. Roll Left & Right (QC): 5 Lying to Sitting/Side of Bed(Q: 4 Sit to Stand (QC): 4 Chair/Svb-ht-Nsrlc Xfer(QC): 4 uses rail and HOB up to get out of bed Weight Bearing Full Weight Bearing Full Weight Bearing Gait Training Does the Patient Walk?: Yes Walk 10 feet (QC): 4 Walk 50 ft with 2 Turns(QC): 4 Walk 150 ft (QC): 4 Gait Persons Needed: 1 Gait Assistive Device: Walker 4 Wheeled slow, pt. fatiguing with gait and has increased pain c/o Exercises Supine Ex: Bridging, Ankle pumps, Quad Set, Rolling, Glut sets, Heel Slides, Hip abd/add Supine Reps: 15 Seated Therapy Exercises: Ankle pumps, Sit to stand, Long arc quads, Hip abd/add Seated Reps: 15 Treatments sup ex, rollng and log roll TRFs, gait , up in recliner aftr Rx Assessment Current Status: Good Progress PT Short Term Goals Short Term Goals Time Frame: May 30, 2022 Roll Left & Right: 4 (SBA) Sit to lyin (SBA) Lying to sitting on side of be: 4 (SBA) Sit to stand: 4 (CGA) Chair/adc-od-yxegp transfer: 4 (SBA) Toilet transfer: 4 (SBA) Walk 10 feet: 4 (SBA) Walk 50 feet with two turns: 4 (SBA) Walk 150 feet: 4 (SBA) PT Asphalt Smoother Goals Penitentiary Goals PT Asphalt Smoother Goals Time Frame: Jun 13, 2022 Roll Left & Right (QC): 6 Sit to Lying (QC): 6 Lying-Sitting on Side/Bed(QC): 6 Sit to Stand (QC): 6 Chair/Dqi-rb-Pxatd Xfer(QC): 6 Toilet Transfer (QC): 6 Car Transfer (QC): 4 Does the Patient Walk: Yes Walk 10 feet (QC): 6 Walk 50ft with 2 Turns (QC): 6 Walk 150 ft (QC): 6 Walking 10ft on Uneven Surface: 6 1 Step (curb) (QC): 4 4 Steps (QC): 4 12 Steps (QC): 88 Picking up an Object (QC): 6 (using head of visual merchandising) Wheel 50 feet with 2 turns (QC: 9 Wheel 150 feet: 9 PT Plan Treatment/Plan Treatment Plan: Continue Plan of Care Treatment Plan: Bed Mobility, Education, Functional Activity Tj, Functional Strength, Group Therapy, Gait, Safety, Therapeutic Exercise, Transfers Treatment Duration: Jun 13, 2022 Frequency: At least 5 of 7 days/Wk (IRF) Estimated Hrs Per Day: 1.5 hours per day Patient and/or Family Agrees t: Yes Safety Risks/Education Patient Education: Gait Training, Transfer Techniques, Correct Positioning, Disease Process, Safety Issues Teaching Recipient: Patient Teaching Methods: Demonstration, Discussion Response to Teaching: Verbalize Understanding, Return Demonstration, Reinforcement Needed Time/GCodes Time In: 1100 Time Out: 1200 Total Billed Treatment Time: 60 Total Billed Treatment 1,EX25m,FA15m,GT20 TERE GOMEZ COAL CUTTING MACHINE OPERATOR May 26, 2022 11:56
--- NOTE | 2022-05-26 14:37 | Therapy Group Daily Note ---
Therapy Daily Group Note Patient Education Topic Home Safety Exercises Sit to/from Stand Session Ratio (pt:therapist): 4:1 Goal of Session: Education on ARU Expectations, Home Safety Strategies Goal Met for this Session: Yes Pt Benefit of Group: Contributions to Others, F/U Use of Strategies @Home, Socialization Other/Notes Pt participated in group PT OT session this date . Pt. c/o feeling weak and a little lightheaded this PM and was transported to from group via wheel chiar. Pt did walk in room from door of room to bed and to bathroom after group. Pt. introduced self and shared appropriately with group . Education regarding purpose and goals of ARU were explained, Home safety spanning many different topic was covered with pts sharing their strategies for home safety. Pts participated in memory activity matching images from memory. Pt. in room in bathroom after Rx leyva at hand, needs met Start Time: 13:00 Stop Time: 14:15 Total Billed Treatment Time: 75 Total Billed Treatment 1,GRP TERE GOMEZ CLOTHING PATTERN PREPARER May 26, 2022 14:37
[2022-05-26] MEDS: ENOXAPARIN 40 MG/0.4 ML (LOVENOX) SYR SC SCH (15:53)
[2022-05-26 20:16] VITALS: BP 102/55
[2022-05-27] MEDS: NS IV 1000 ML 1,000 ML IV SCH (05:25)
[2022-05-27] MEDS: LEVOTHYROXINE 100 MCG (LEVOTHROID) TAB PO SCH (05:59)
--- NOTE | 2022-05-27 06:56 | PM&R Progress Note ---
Subjective HPI/CC On Admission Date Seen by Provider: May 27, 2022 Time Seen by Provider: 10:00 Subjective/Events-last exam 05/27/2022: Patient doing well Potassium 2.7 so we will be receiving aggressive supplementation IV and p.o. Pain is controlled Ambulating around really well 05/26/2022: Pt dramatically improved No N/V on regular diet CYNTHIA wraps are tolerated now Wound vac changed by Leo at wound care A lot of output on the drain still Morale is better 05/25/2022: Patient tearful today Dr Clifford at chairside reassuring Labs good CYNTHIA wraps for 2 hours then off 2 hours due to uncomfortable DC abx 05/24/2022: Doing better IVF decreased to 30cc/hr Third spacing will require CYNTHIA wraps Potassium low so IV supplement Pain improved Working with therapy Review of Systems General: Fatigue, Malaise Gastrointestinal: Abdominal Pain Objective Exam Vital Signs Vital Signs Date Time Temp Pulse Resp B/P (MAP) Pulse Ox O2 Delivery O2 Flow Rate FiO2 05/27/22 08:58 Room Air 05/27/22 07:11 36.9 84 18 150/67 (94) 99 05/25/22 21:43 0.00 05/25/22 09:57 21 Capillary Refill : General Appearance: No Apparent Distress, Chronically ill HEENT: PERRL/EOMI, Normal ENT Inspection Neck: Full Range of Motion, Normal Inspection Respiratory: Chest Non Tender, Lungs Clear, Normal Breath Sounds, No Accessory Muscle Use, No Respiratory Distress Cardiovascular: Regular Rate, Rhythm, No JVD Gastrointestinal: Normal Bowel Sounds, No Organomegaly, No Pulsatile Mass, Soft, Other (colostomy) Back: Normal Inspection, No CVA Tenderness, No Vertebral Tenderness Extremity: Pedal Edema, Swelling Neurologic/Psychiatric: Alert, Oriented x3, Normal Mood/Affect, cemetery workers supervisor II-XII Norm as Tested, Motor Weakness (generalized) Skin: Normal Color, Warm/Dry Lymphatic: No Adenopathy Results/Procedures Lab Laboratory Tests 05/27/22 07:49 Patient resulted labs reviewed. FIM Transfers Therapy Code Descriptions/Definitions Functional [place] Measure: 0=Not Assessed/NA 4=Minimal Assistance 1=Total Assistance 5=Supervision or Setup 2=Maximal Assistance 6=Modified [place] 3=Moderate Assistance 7=Complete IndependenceSCALE: Activities may be completed with or without assistive devices. 9-Magzctdean-wyigpzz completes the activity by him/herself with no assistance from a helper. 5-Set-up or Clean-up Assistance-helper sets up or cleans up; patient completes activity. [place] assists only prior to or following the activity. 4-Supervision or Touching Assistance-helper provides verbal cues and/or touching/steadying and/or contact guard assistance as patient completes acti vity. Assistance may be provided throughout the activity or intermittently. 3-Partial/Moderate Assistance-helper does LESS THAN HALF the effort. [place] lifts, holds or supports trunk or limbs, but provides less than half the effort. 2-Substantial/Maximal Assistance-helper does MORE THAN HALF the effort. [place] lifts or holds trunk or limbs and provides more than half the effort. 7-Gowislibb-itnsgb does ALL the effort. Patient does none of the effort to complete the activity. Or, the assistance of 2 or more helpers is required for the patient to complete the activity. If activity was not attempted, code reason: 7-Patient Refused. 9-Not Applicable-not attempted and the patient did not perform the activity before the current illness, exacerbation or injury. 10-Not Attempted due to Environmental Limitations-(lack of equipment, weather restraints, etc.). 88-Not Attempted due to Medical Conditions or Safety Concerns. Roll Left to Right (QC): 5 Sit to Lying (QC): 3 Sit to Stand (QC): 4 Chair/Wfl-dj-Husoc Xfer(QC): 4 Car Transfer (QC): 3 Gait Training Does the Patient Walk?: Yes Distance: 100' x2 Walk 10 feet (QC): 4 Walk 50 ft with 2 Turns(QC): 4 Walk 150 ft (QC): 4 Walking 10ft/uneven surface-QC: 4 Gait Persons Needed: 1 Gait Assistive Device: Walker 4 Wheeled Wheelchair Training Does the Pt Use a Wheelchair?: No Wheel 50 ft with 2 turns (QC): 9 Wheel 150 ft (QC): 9 Stair Training 1 Step (curb) (QC): 88 4 Steps (QC): 88 12 Steps (QC): 88 Balance Picking up an Object (QC): 4 (CGA using a caregiver services home) ADL-Treatment Eating (QC): 6 Oral Hygiene (QC): 6 (Per clinical judgment, pt able to stand at sink with support of counter to complete oral care.) Shower/Bathe Self (QC): 4 (SBA for safety) Upper Body Dressing (QC): 3 Lower Body Dressing (QC): 7 On/Off Footwear (QC): 7 Toileting Hygiene (QC): 3 (Min A. 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 COPD Plan: Pain control Monitor closely IRF protocol 05/24/2022: IVF decrease CYNTHIA wraps 05/25/2022: DC abx CYNTHIA wraps 05/26/2022: Dramatically improved Venofer 05/27/2022: Supplement potassium IV iron (1) Myopathy (2) Abdominal abscess (3) COPD (chronic obstructive pulmonary disease) MIKEY CAMP DO May 27, 2022 06:55
[2022-05-27] MEDS: RT-ALBUTEROL/IPRATROPIUM 3 ML (DUONEB) VIAL INH SCH ×2 (07:07→21:07)
[2022-05-27 07:11] VITALS: BP 150/67
[2022-05-27] MEDS: DOCUSATE SODIUM 100 MG (COLACE) CAP PO SCH ×2 (08:32→20:16)
[2022-05-27] MEDS: oxyCODONE ER 10 MG (OxyCONTIN CR) TAB PO SCH ×2 (08:32→20:16)
[2022-05-27] MEDS: SENNA W/DOCUSATE (SENOKOT S) TABLET PO SCH ×2 (08:32→20:16)
[2022-05-27] MEDS: MICONAZOLE 2% POWDER (DESENEX AF) 90 GM TOP SCH ×2 (08:33→20:17)
[2022-05-27 08:34] LABS: BASOPHILS % (AUTO) 0 % (0-10); EOSINOPHILS # (AUTO) 0.1 10^3/uL (0.0-0.3); EOSINOPHILS % (AUTO) 2 % (0-10); HEMATOCRIT 25 % (35-52); HEMOGLOBIN 8.3 g/dL (11.5-16.0); LYMPHOCYTES # (AUTO) 1.5 10^3/uL (1.0-4.0); LYMPHOCYTES % (AUTO) 17 % (12-44); MEAN CORPUSCULAR HEMOGLOBIN 29 pg (25-34); MEAN CORPUSCULAR HGB CONC 33 g/dL (32-36); MEAN CORPUSCULAR VOLUME 89 fL (80-99); MEAN PLATELET VOLUME 9.3 fL (9.0-12.2); MONOCYTES # (AUTO) 0.8 10^3/uL (0.0-1.0); MONOCYTES % (AUTO) 9 % (0-12); NEUTROPHILS # (AUTO) 6.1 10^3/uL (1.8-7.8); NEUTROPHILS % (AUTO) 71 % (42-75); PLATELET COUNT 683 10^3/uL (130-400); WHITE BLOOD COUNT 8.6 10^3/uL (4.3-11.0)
[2022-05-27] MEDS: polyethylene glycoL POWDER 17 GM (MIRALAX) PACK PO SCH ×3 (08:35→20:17)
[2022-05-27] MEDS: SENNOSIDES 8.6 MG (SENOKOT) TAB PO SCH ×2 (08:36→20:17)
[2022-05-27 08:48] LABS: ALBUMIN 2.3 GM/DL (3.2-4.5); BILIRUBIN,TOTAL 0.2 MG/DL (0.1-1.0); CALCIUM 8.5 MG/DL (8.5-10.1); CREATININE SERUM 0.7 MG/DL (0.60-1.30); POTASSIUM 2.7 MMOL/L (3.6-5.0)
[2022-05-27] MEDS: ATENOLOL 25 MG (TENORMIN) TAB PO SCH (09:19)
--- NOTE | 2022-05-27 12:30 | Physical Therapy Daily Note ---
PT Daily Note-Current Subjective Pt sitting in recliner upon arrival. Pt agrees to PT. Pt reports "I really just need to walk. I will do more at home." Mental Status Patient Orientation: Person, Place, Situation Attachments: Colostomy/Ileostomy, Drains, Other-See Comments (Wound Vac.), IV Transfers SCALE: Activities may be completed with or without assistive devices. 0-Jqxmihxayz-hpmoeeb completes the activity by him/herself with no assistance from a helper. 5-Set-up or Clean-up Assistance-helper sets up or cleans up; patient completes activity. [place] assists only prior to or following the activity. 4-Supervision or Touching Assistance-helper provides verbal cues and/or touching/steadying and/or contact guard assistance as patient completes activity. Assistance may be provided throughout the activity or intermittently. 3-Partial/Moderate Assistance-helper does LESS THAN HALF the effort. [place] lifts, holds or supports trunk or limbs, but provides less than half the effort. 2-Substantial/Maximal Assistance-helper does MORE THAN HALF the effort. [place] lifts or holds trunk or limbs and provides more than half the effort. 1-Kqohptmkm-gxaoma does ALL the effort. Patient does none of the effort to complete the activity. Or, the assistance of 2 or more helpers is required for the patient to complete the activity. If activity was not attempted, code reason: 7-Patient Refused. 9-Not Applicable-not attempted and the patient did not perform the activity before the current illness, exacerbation or injury. 10-Not Attempted due to Environmental Limitations-(lack of equipment, weather restraints, etc.). 88-Not Attempted due to Medical Conditions or Safety Concerns. Sit to Stand (QC): 4 Toilet Transfer (QC): 4 Weight Bearing Full Weight Bearing Full Weight Bearing Gait Training Does the Patient Walk?: Yes Distance: 15' Walk 10 feet (QC): 4 Gait Persons Needed: 1 Gait Assistive Device: FWW Pt needs assistance managing IV pole & Wound Vac. Exercises Supine Ex: Ankle pumps, Quad Set, Glut sets, Heel Slides Supine Reps: 10 Treatments Pt & RIBBON LAP MACHINE TENDER discuss pt will need to continue to move to continue to make progress to get home. Pt uses BR before returning to recliner to rest. Pt completes limited Seated EX. All needs met, call light in hand. Assessment Current Status: Fair Progress Lack of motivation demonstrated during tx. PT Short Term Goals Short Term Goals Time Frame: May 30, 2022 Roll Left & Right: 4 (SBA) Sit to lyin (SBA) Lying to sitting on side of be: 4 (SBA) Sit to stand: 4 (CGA) Chair/pfx-ww-lqgvr transfer: 4 (SBA) Toilet transfer: 4 (SBA) Walk 10 feet: 4 (SBA) Walk 50 feet with two turns: 4 (SBA) Walk 150 feet: 4 (SBA) PT Social Media Marketer Goals Social Media Marketer Goals PT Social Media Marketer Goals Time Frame: Jun 13, 2022 Roll Left & Right (QC): 6 Sit to Lying (QC): 6 Lying-Sitting on Side/Bed(QC): 6 Sit to Stand (QC): 6 Chair/Zfn-bs-Frlna Xfer(QC): 6 Toilet Transfer (QC): 6 Car Transfer (QC): 4 Does the Patient Walk: Yes Walk 10 feet (QC): 6 Walk 50ft with 2 Turns (QC): 6 Walk 150 ft (QC): 6 Walking 10ft on Uneven Surface: 6 1 Step (curb) (QC): 4 4 Steps (QC): 4 12 Steps (QC): 88 Picking up an Object (QC): 6 (using shipping lead) Wheel 50 feet with 2 turns (QC: 9 Wheel 150 feet: 9 PT Plan Problem List Problem List: Activity Tolerance, Functional Strength Treatment/Plan Treatment Plan: Continue Plan of Care Treatment Plan: Bed Mobility, Education, Functional Activity Tj, Functional Strength, Group Therapy, Gait, Safety, Therapeutic Exercise, Transfers Treatment Duration: Jun 13, 2022 Frequency: At least 5 of 7 days/Wk (IRF) Estimated Hrs Per Day: 1.5 hours per day Patient and/or Family Agrees t: Yes Time/GCodes Time In: 1150 Time Out: 1215 Total Billed Treatment Time: 25 Total Billed Treatment 1, FA (15m) & EX (10m) CHANDA GUALLPA RIBBON LAP MACHINE TENDER May 27, 2022 12:30
[2022-05-27] MEDS: KCL 20 MEQ TAB (K-DUR) PO SCH ×2 (12:51→17:36)
[2022-05-27] MEDS: POTASSIUM CL 10MEQ/50ML IVPB 50 ML IV SCH ×8 (12:52→21:09)
[2022-05-27] MEDS: CALCIUM CARBONATE 500 MG (TUMS) TAB.CHEW PO PRN ×2 (14:16→15:28)
[2022-05-27] MEDS: ENOXAPARIN 40 MG/0.4 ML (LOVENOX) SYR SC SCH (14:17)
[2022-05-27 20:54] VITALS: BP 139/63
[2022-05-28] MEDS: NS IV 1000 ML 1,000 ML IV SCH (06:37)
[2022-05-28] MEDS: LEVOTHYROXINE 100 MCG (LEVOTHROID) TAB PO SCH (06:37)
--- NOTE | 2022-05-28 06:39 | PM&R Progress Note ---
Subjective HPI/CC On Admission Date Seen by Provider: May 28, 2022 Time Seen by Provider: 12:00 Subjective/Events-last exam 05/28/2022: Doing well Improved ambulation Minimal pain Eating slowly 05/27/2022: Patient doing well Potassium 2.7 so we will be receiving aggressive supplementation IV and p.o. Pain is controlled Ambulating around really well 05/26/2022: Pt dramatically improved No N/V on regular diet CYNTHIA wraps are tolerated now Wound vac changed by Leo at wound care A lot of output on the drain still Morale is better 05/25/2022: Patient tearful today Dr Clifford at chairside reassuring Labs good CYNTHIA wraps for 2 hours then off 2 hours due to uncomfortable DC abx 05/24/2022: Doing better IVF decreased to 30cc/hr Third spacing will require CYNTHIA wraps Potassium low so IV supplement Pain improved Working with therapy Review of Systems General: Fatigue, Malaise Objective Exam Vital Signs Vital Signs Date Time Temp Pulse Resp B/P (MAP) Pulse Ox O2 Delivery O2 Flow Rate FiO2 05/28/22 21:52 99 Room Air 05/28/22 20:00 36.9 100 20 137/60 (85) 05/25/22 21:43 0.00 05/25/22 09:57 21 Capillary Refill : General Appearance: No Apparent Distress, Chronically ill HEENT: PERRL/EOMI, Normal ENT Inspection Neck: Full Range of Motion, Normal Inspection Respiratory: Chest Non Tender, Lungs Clear, Normal Breath Sounds, No Accessory Muscle Use, No Respiratory Distress Cardiovascular: Regular Rate, Rhythm, No JVD Gastrointestinal: Normal Bowel Sounds, No Organomegaly, No Pulsatile Mass, Soft, Other (colostomy) Back: Normal Inspection, No CVA Tenderness, No Vertebral Tenderness Extremity: Pedal Edema, Swelling Neurologic/Psychiatric: Alert, Oriented x3, Normal Mood/Affect, bladder changer II-XII Norm as Tested, Motor Weakness (generalized) Skin: Normal Color, Warm/Dry Lymphatic: No Adenopathy Results/Procedures Lab Laboratory Tests 05/28/22 08:00 Patient resulted labs reviewed. FIM Transfers Therapy Code Descriptions/Definitions Functional [place] Measure: 0=Not Assessed/NA 4=Minimal Assistance 1=Total Assistance 5=Supervision or Setup 2=Maximal Assistance 6=Modified [place] 3=Moderate Assistance 7=Complete IndependenceSCALE: Activities may be completed with or without assistive devices. 9-Zfqtxsoaxe-cfnydbp completes the activity by him/herself with no assistance from a helper. 5-Set-up or Clean-up Assistance-helper sets up or cleans up; patient completes activity. [place] assists only prior to or following the activity. 4-Supervision or Touching Assistance-helper provides verbal cues and/or touching/steadying and/or contact guard assistance as patient completes activity. Assistance may be provided throughout the activity or intermittently. 3-Partial/Moderate Assistance-helper does LESS THAN HALF the effort. [place] lifts, holds or supports trunk or limbs, but provides less than half the effort. 2-Substantial/Maximal Assistance-helper does MORE THAN HALF the effort. [place] lifts or holds trunk or limbs and provides more than half the effort. 7-Mumdeaocd-ogbarm does ALL the effort. Patient does none of the effort to complete the activity. Or, the assistance of 2 or more helpers is required for the patient to complete the activity. If activity was not attempted, code reason: 7-Patient Refused. 9-Not Applicable-not attempted and the patient did not perform the activity before the current illness, exacerbation or injury. 10-Not Attempted due to Environmental Limitations-(lack of equipment, weather restraints, etc.). 88-Not Attempted due to Medical Conditions or Safety Concerns. Roll Left to Right (QC): 5 Sit to Lying (QC): 3 Sit to Stand (QC): 4 Chair/Kol-er-Kluig Xfer(QC): 4 Car Transfer (QC): 3 Gait Training Does the Patient Walk?: Yes Distance: 15' Walk 10 feet (QC): 4 Walk 50 ft with 2 Turns(QC): 4 Walk 150 ft (QC): 4 Walking 10ft/uneven surface-QC: 4 Gait Persons Needed: 1 Gait Assistive Device: FWW Wheelchair Training Does the Pt Use a Wheelchair?: No Wheel 50 ft with 2 turns (QC): 9 Wheel 150 ft (QC): 9 Stair Training 1 Step (curb) (QC): 88 4 Steps (QC): 88 12 Steps (QC): 88 Balance Picking up an Object (QC): 4 (CGA using a wellness consultant) ADL-Treatment Eating (QC): 6 Oral Hygiene (QC): 6 (Per clinical judgment, pt able to stand at sink with support of counter to complete oral care.) Shower/Bathe Self (QC): 4 (SBA for safety) Upper Body Dressing (QC): 3 Lower Body Dressing (QC): 7 On/Off Footwear (QC): 7 Toileting Hygiene (QC): 3 (Min A. 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 -NaCl at 125 mls/hr decreased to 30cc/hr then DC completely -Pain control Acute blood loss anemia -Likely secondary to surgical blood loss -Iron studies show low Iron so ordered IV Venofer, B12 ok Hypokalemia -K+ protocol via IV and p.o. COPD Edema from third-spacing, encouraged PO nutrition Plan: Pain control Monitor closely IRF protocol 05/24/2022: IVF decrease CYNTHIA wraps 05/25/2022: DC abx CYNTHIA wraps 05/26/2022: Dramatically improved Venofer 05/27/2022: Supplement potassium IV iron 05/28/2022: Continue po potassium Labs in am (1) Myopathy (2) Abdominal abscess (3) COPD (chronic obstructive pulmonary disease) MIKEY CAMP DO May 28, 2022 06:39
[2022-05-28 07:12] VITALS: BP 130/66
[2022-05-28] MEDS: DOCUSATE SODIUM 100 MG (COLACE) CAP PO SCH ×2 (08:21→20:20)
[2022-05-28] MEDS: polyethylene glycoL POWDER 17 GM (MIRALAX) PACK PO SCH ×3 (08:21→20:25)
[2022-05-28] MEDS: IRON SUCROSE 200 MG/10 ML (VENOFER) VIAL IV SCH (08:21)
[2022-05-28] MEDS: oxyCODONE ER 10 MG (OxyCONTIN CR) TAB PO SCH ×2 (08:22→20:21)
[2022-05-28] MEDS: ATENOLOL 25 MG (TENORMIN) TAB PO SCH (08:22)
[2022-05-28] MEDS: KCL 20 MEQ TAB (K-DUR) PO SCH ×2 (08:22→18:45)
[2022-05-28] MEDS: SENNA W/DOCUSATE (SENOKOT S) TABLET PO SCH ×2 (08:22→20:20)
[2022-05-28] MEDS: SENNOSIDES 8.6 MG (SENOKOT) TAB PO SCH ×2 (08:22→20:20)
[2022-05-28] MEDS: MICONAZOLE 2% POWDER (DESENEX AF) 90 GM TOP SCH ×2 (08:30→20:21)
[2022-05-28 08:33] LABS: ALBUMIN 2.4 GM/DL (3.2-4.5); BILIRUBIN,TOTAL 0.3 MG/DL (0.1-1.0); CALCIUM 8.7 MG/DL (8.5-10.1); CREATININE SERUM 0.65 MG/DL (0.60-1.30); POTASSIUM 3.7 MMOL/L (3.6-5.0); TOTAL PROTEIN 5.2 GM/DL (6.4-8.2)
[2022-05-28] MEDS: CALCIUM CARBONATE 500 MG (TUMS) TAB.CHEW PO PRN ×2 (08:46→15:25)
[2022-05-28] MEDS: RT-ALBUTEROL/IPRATROPIUM 3 ML (DUONEB) VIAL INH SCH ×2 (10:12→21:52)
[2022-05-28] MEDS: ENOXAPARIN 40 MG/0.4 ML (LOVENOX) SYR SC SCH (15:28)
[2022-05-28 16:14] VITALS: BP 130/66
[2022-05-28 20:00] VITALS: BP 137/60
--- NOTE | 2022-05-29 05:53 | PM&R Progress Note ---
Subjective HPI/CC On Admission Date Seen by Provider: May 29, 2022 Time Seen by Provider: 08:30 Subjective/Events-last exam 05/29/2022: Pt is doing really well Hemoglobin is 8.6, Potassium is 3.6 Change Potassium to TID 05/28/2022: Doing well Improved ambulation Minimal pain Eating slowly 05/27/2022: Patient doing well Potassium 2.7 so we will be receiving aggressive supplementation IV and p.o. Pain is controlled Ambulating around really well 05/26/2022: Pt dramatically improved No N/V on regular diet CYNTHIA wraps are tolerated now Wound vac changed by Leo at wound care A lot of output on the drain still Morale is better 05/25/2022: Patient tearful today Dr Clifford at chairside reassuring Labs good CYNTHIA wraps for 2 hours then off 2 hours due to uncomfortable DC abx 05/24/2022: Doing better IVF decreased to 30cc/hr Third spacing will require CYNTHIA wraps Potassium low so IV supplement Pain improved Working with therapy Review of Systems General: Fatigue, Malaise Objective Exam Vital Signs Vital Signs Date Time Temp Pulse Resp B/P (MAP) Pulse Ox O2 Delivery O2 Flow Rate FiO2 05/29/22 19:56 36.9 96 18 139/65 (89) 95 Room Air 05/29/22 08:08 0.00 05/25/22 09:57 21 Capillary Refill : General Appearance: No Apparent Distress, Chronically ill HEENT: PERRL/EOMI, Normal ENT Inspection Neck: Full Range of Motion, Normal Inspection Respiratory: Chest Non Tender, Lungs Clear, Normal Breath Sounds, No Accessory Muscle Use, No Respiratory Distress Cardiovascular: Regular Rate, Rhythm, No JVD Gastrointestinal: Normal Bowel Sounds, No Organomegaly, No Pulsatile Mass, Soft, Other (colostomy) Back: Normal Inspection, No CVA Tenderness, No Vertebral Tenderness Extremity: Pedal Edema, Swelling Neurologic/Psychiatric: Alert, Oriented x3, Normal Mood/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 FIM Transfers Therapy Code Descriptions/Definitions Functional [place] Measure: 0=Not Assessed/NA 4=Minimal Assistance 1=Total Assistance 5=Supervision or Setup 2=Maximal Assistance 6=Modified [place] 3=Moderate Assistance 7=Complete IndependenceSCALE: Activities may be completed with or without assistive devices. 8-Nlpfajlzoe-awbabpa completes the activity by him/herself with no assistance from a helper. 5-Set-up or Clean-up Assistance-helper sets up or cleans up; patient completes activity. [place] assists only prior to or following the activity. 4-Supervision or Touching Assistance-helper provides verbal cues and/or touching/steadying and/or contact guard assistance as patient completes activity. Assistance may be provided throughout the activity or intermittently. 3-Partial/Moderate Assistance-helper does LESS THAN HALF the effort. [place] lifts, holds or supports trunk or limbs, but provides less than half the effort. 2-Substantial/Maximal Assistance-helper does MORE THAN HALF the effort. [place] lifts or holds trunk or limbs and provides more than half the effort. 3-Flfdqaxrw-wgwodj does ALL the effort. Patient does none of the effort to complete the activity. Or, the assistance of 2 or more helpers is required for the patient to complete the activity. If activity was not attempted, code reason: 7-Patient Refused. 9-Not Applicable-not attempted and the patient did not perform the activity before the current illness, exacerbation or injury. 10-Not Attempted due to Environmental Limitations-(lack of equipment, weather restraints, etc.). 88-Not Attempted due to Medical Conditions or Safety Concerns. Roll Left to Right (QC): 5 Sit to Lying (QC): 3 Sit to Stand (QC): 4 Chair/Tta-qk-Bpmzk Xfer(QC): 4 Car Transfer (QC): 3 Gait Training Does the Patient Walk?: Yes Distance: 15' Walk 10 feet (QC): 4 Walk 50 ft with 2 Turns(QC): 4 Walk 150 ft (QC): 4 Walking 10ft/uneven surface-QC: 4 Gait Persons Needed: 1 Gait Assistive Device: FWW Wheelchair Training Does the Pt Use a Wheelchair?: No Wheel 50 ft with 2 turns (QC): 9 Wheel 150 ft (QC): 9 Stair Training 1 Step (curb) (QC): 88 4 Steps (QC): 88 12 Steps (QC): 88 Balance Picking up an Object (QC): 4 (CGA using a saw maker) ADL-Treatment Eating (QC): 6 Oral Hygiene (QC): 6 (Per clinical judgment, pt able to stand at sink with support of counter to complete oral care.) Shower/Bathe Self (QC): 4 (SBA for safety) Upper Body Dressing (QC): 3 Lower Body Dressing (QC): 7 On/Off Footwear (QC): 7 Toileting Hygiene (QC): 3 (Min A. 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 COPD Edema from third-spacing, encouraged PO nutrition Plan: Pain control Monitor closely IRF protocol 05/24/2022: IVF decrease CYNTHIA wraps 05/25/2022: DC abx CYNTHIA wraps 05/26/2022: Dramatically improved Venofer 05/27/2022: Supplement potassium IV iron 05/28/2022: Continue po potassium Labs in am 05/29/2022: Monitor closely Increase potassium (1) Myopathy (2) Abdominal abscess (3) COPD (chronic obstructive pulmonary disease) MIKEY CAMP DO May 29, 2022 05:53
[2022-05-29 06:08] LABS: BASOPHILS % (AUTO) 1 % (0-10); EOSINOPHILS # (AUTO) 0.2 10^3/uL (0.0-0.3); EOSINOPHILS % (AUTO) 2 % (0-10); HEMATOCRIT 27 % (35-52); HEMOGLOBIN 8.6 g/dL (11.5-16.0); LYMPHOCYTES # (AUTO) 1.4 10^3/uL (1.0-4.0); LYMPHOCYTES % (AUTO) 19 % (12-44); MEAN CORPUSCULAR HEMOGLOBIN 30 pg (25-34); MEAN CORPUSCULAR HGB CONC 33 g/dL (32-36); MEAN CORPUSCULAR VOLUME 92 fL (80-99); MONOCYTES % (AUTO) 14 % (0-12); NEUTROPHILS # (AUTO) 4.8 10^3/uL (1.8-7.8); NEUTROPHILS % (AUTO) 64 % (42-75); PLATELET COUNT 574 10^3/uL (130-400); WHITE BLOOD COUNT 7.5 10^3/uL (4.3-11.0)
[2022-05-29 06:24] LABS: ALBUMIN 2.5 GM/DL (3.2-4.5)
[2022-05-29 06:25] LABS: CHLORIDE 101 MMOL/L (98-107); POTASSIUM 3.6 MMOL/L (3.6-5.0); SODIUM 135 MMOL/L (135-145)
[2022-05-29 06:26] LABS: CALCIUM 8.6 MG/DL (8.5-10.1)
[2022-05-29 06:27] LABS: GLUCOSE 102 MG/DL (70-105); TOTAL PROTEIN 5.3 GM/DL (6.4-8.2)
[2022-05-29 06:28] LABS: CARBON DIOXIDE 22 MMOL/L (21-32)
[2022-05-29 06:29] LABS: BILIRUBIN,TOTAL 0.3 MG/DL (0.1-1.0)
[2022-05-29] MEDS: NS IV 1000 ML 1,000 ML IV SCH (06:29)
[2022-05-29] MEDS: LEVOTHYROXINE 100 MCG (LEVOTHROID) TAB PO SCH (06:29)
[2022-05-29 06:30] LABS: ALKALINE PHOSPHATASE 65 U/L (40-136)
[2022-05-29 06:31] LABS: CREATININE SERUM 0.63 MG/DL (0.60-1.30); GFR ESTIMATED 90
[2022-05-29 06:32] LABS: BUN/CREATININE RATIO 3
[2022-05-29 06:33] LABS: ALANINE AMINOTRANSFERASE 10 U/L (0-55)
[2022-05-29 07:29] VITALS: BP 124/62
[2022-05-29] MEDS: KCL 20 MEQ TAB (K-DUR) PO SCH ×3 (07:57→17:19)
[2022-05-29] MEDS: ATENOLOL 25 MG (TENORMIN) TAB PO SCH (07:57)
[2022-05-29] MEDS: oxyCODONE ER 10 MG (OxyCONTIN CR) TAB PO SCH ×2 (07:57→21:06)
[2022-05-29] MEDS: SENNOSIDES 8.6 MG (SENOKOT) TAB PO SCH ×2 (07:58→19:46)
[2022-05-29] MEDS: polyethylene glycoL POWDER 17 GM (MIRALAX) PACK PO SCH ×2 (07:58→19:46)
[2022-05-29] MEDS: DOCUSATE SODIUM 100 MG (COLACE) CAP PO SCH ×2 (07:58→21:06)
[2022-05-29] MEDS: SENNA W/DOCUSATE (SENOKOT S) TABLET PO SCH ×2 (07:58→21:06)
[2022-05-29] MEDS: MICONAZOLE 2% POWDER (DESENEX AF) 90 GM TOP SCH ×2 (07:59→21:10)
[2022-05-29] MEDS: RT-ALBUTEROL/IPRATROPIUM 3 ML (DUONEB) VIAL INH SCH ×2 (08:08→19:15)
--- NOTE | 2022-05-29 09:49 | Occupational Ther Daily Note ---
OT Current Status-Daily Note Subjective Pt alert, sitting in recliner. Pt agrees to therapy. Mental Status/Objective Patient Orientation: Person, Place, Time, Situation Attachments: Drains (woundvac), IV ADL-Treatment Pt to have shower and wound vac change tomorrow. Pt states that she has already had sponge bath this morning. Independent with toileting, 2x's. Independent standing at sink to complete oral care and grooming. Pt able to doff socks with dressing stick and don socks after education with sock aide, assist to straighten socks. Therapy Code Descriptions/Definitions Functional [place] Measure: 0=Not Assessed/NA 4=Minimal Assistance 1=Total Assistance 5=Supervision or Setup 2=Maximal Assistance 6=Modified [place] 3=Moderate Assistance 7=Complete IndependenceSCALE: Activities may be completed with or without assistive devices. 8-Ygjdbqrmhc-suogkde completes the activity by him/herself with no assistance from a helper. 5-Set-up or Clean-up Assistance-helper sets up or cleans up; patient completes activity. [place] assists only prior to or following the activity. 4-Supervision or Touching Assistance-helper provides verbal cues and/or touching/steadying and/or contact guard assistance as patient completes activity. Assistance may be provided throughout the activity or intermittently. 3-Partial/Moderate Assistance-helper does LESS THAN HALF the effort. [place] lifts, holds or supports trunk or limbs, but provides less than half the effort. 2-Substantial/Maximal Assistance-helper does MORE THAN HALF the effort. [place] lifts or holds trunk or limbs and provides more than half the effort. 5-Pvcdvtmkk-xkbaaa does ALL the effort. Patient does none of the effort to complete the activity. Or, the assistance of 2 or more helpers is required for the patient to complete the activity. If activity was not attempted, code reason: 7-Patient Refused. 9-Not Applicable-not attempted and the patient did not perform the activity before the current illness, exacerbation or injury. 10-Not Attempted due to Environmental Limitations-(lack of equipment, weather restraints, etc.). 88-Not Attempted due to Medical Conditions or Safety Concerns. Eating (QC): 6 Oral Hygiene (QC): 6 On/Off Footwear: 4 Toileting Hygiene (QC): 6 Toilet Transfer (QC): 6 Other Treatment Pt takes increased time to complete all tasks due to decreased activity tolerance, slow movements and recovery breaks. Pt ambulated to therapy gym with 1 recovery break. Pt completed B UE exercises in therapy gym to increase gross/fine motor strength for daily functional tasks. Arm bike for 9 min at 10 webber resistance with 1 recovery break. Resistive clothes pins 2x's with each hand. Wrist flex/ext/rad dev/uln dev with 1/2# wt, 2 sets 15 reps. After therapy, pt sitting in recliner with call light/phone in reach. All needs met in room. Education OT Patient Education: Modified ADL techniques Teaching Recipient: Patient Teaching Methods: Demonstration, Discussion Response to Teaching: Verbalize Understanding, Return Demonstration, Reinforcement Needed OT Short Term Goals Short Term Goals Time Frame: May 31, 2022 Toileting hygiene: 4 Shower/bathe self: 4 Lower body dressin Putting on/taking off footwear: 3 OT Soft Metals Hand Engraver Goals Soft Metals Hand Engraver Goals Time Frame: Jun 16, 2022 Eating (QC): 6 Oral Hygiene (QC): 6 Toileting Hygiene (QC): 6 Shower/Bathe Self (QC): 5 Upper Body Dressing (QC): 6 Lower Body Dressing (QC): 6 On/Off Footwear (QC): 6 Additional Goals: 1-Demonstrate ADL Tasks, 2-Verbalize Understanding, 3-ImproveStrength/Tj 1=Demonstrate adherence to instructed precautions during ADL tasks. 2=Patient will verbalize/demonstrate understanding of assistive devices/modifications for ADL. 3=Patient will improve strength/tolerance for activity to enable patient to perform ADL's. OT Education/Plan Problem List/Assessment Assessment: Decreased Activ Tolerance, Decreased UE Strength, Impaired Self- Care Skills Discharge Recommendations Plan/Recommendations: Continue POC Treatment Plan/Plan of Care Patient would benefit from OT for education, treatment and training to promote independence in ADL's, mobility, safety and/or upper extremity function for ADL's. Plan of Care: ADL Retraining, Functional Mobility, Group Exercise/Act as Ind, UE Funct Exercise/Act Treatment Duration: Jun 16, 2022 Frequency: At least 5 of 7 days/Wk (IRF) Estimated Hrs Per Day: 1.5 hours per day Rehab Potential: Fair Time/GCodes Start Time: 08:20 Stop Time: 09:50 Total Time Billed (hr/min): 90 Billed Treatment Time 1 visit-ADL 3 (45 min) EX 3 (45 min) BRENDAN GONZALES May 29, 2022 09:49
--- NOTE | 2022-05-29 12:27 | Physical Therapy Daily Note ---
PT Daily Note-Current Subjective Pt sitting in recliner upon arrival. Pt agrees to PT. Pain Location: No Pain Reported Mental Status Patient Orientation: Person, Place, Time, Situation Attachments: Drains, Other-See Comments (Wound Vac.), IV Transfers SCALE: Activities may be completed with or without assistive devices. 5-Uszlspaeme-yscorrq completes the activity by him/herself with no assistance from a helper. 5-Set-up or Clean-up Assistance-helper sets up or cleans up; patient completes activity. [place] assists only prior to or following the activity. 4-Supervision or Touching Assistance-helper provides verbal cues and/or touching/steadying and/or contact guard assistance as patient completes activity. Assistance may be provided throughout the activity or intermittently. 3-Partial/Moderate Assistance-helper does LESS THAN HALF the effort. [place] lifts, holds or supports trunk or limbs, but provides less than half the effort. 2-Substantial/Maximal Assistance-helper does MORE THAN HALF the effort. [place] lifts or holds trunk or limbs and provides more than half the effort. 5-Xtqypvczt-cvitfb does ALL the effort. Patient does none of the effort to complete the activity. Or, the assistance of 2 or more helpers is required for the patient to complete the activity. If activity was not attempted, code reason: 7-Patient Refused. 9-Not Applicable-not attempted and the patient did not perform the activity before the current illness, exacerbation or injury. 10-Not Attempted due to Environmental Limitations-(lack of equipment, weather restraints, etc.). 88-Not Attempted due to Medical Conditions or Safety Concerns. Sit to Stand (QC): 5 Toilet Transfer (QC): 5 Weight Bearing Full Weight Bearing Full Weight Bearing Gait Training Does the Patient Walk?: Yes Distance: 150' x2 Walk 10 feet (QC): 5 Walk 50 ft with 2 Turns(QC): 5 Walk 150 ft (QC): 5 Gait Assistive Device: Walker 4 Wheeled Treatments Pt reports how food is affecting sometimes good & sometimes more difficult digestion and moving of bowels which affects activity tolerance. TF to standing and pt asks to use BR. HOSPITAL LIBRARIAN completes pericare as pt reports not being able to reach. Pt amb. in hallway, taking RB as needed. Pt amb in hallway, returning to room at end of tx to rest in recliner. Pt is repositioned to comfort with 2 pillows at back/head, 1 pillow at each arm & 1 pillow under each leg. All needs met, call light in hand. Assessment Current Status: Fair Progress Pt fatigues quickly and at times needs motivation. PT Short Term Goals Short Term Goals Time Frame: May 30, 2022 Roll Left & Right: 4 (SBA) Sit to lyin (SBA) Lying to sitting on side of be: 4 (SBA) Sit to stand: 4 (CGA) Chair/rkz-yy-nttek transfer: 4 (SBA) Toilet transfer: 4 (SBA) Walk 10 feet: 4 (SBA) Walk 50 feet with two turns: 4 (SBA) Walk 150 feet: 4 (SBA) PT Halfway Goals Halfway Goals PT Data Operations Leader Goals Time Frame: Jun 13, 2022 Roll Left & Right (QC): 6 Sit to Lying (QC): 6 Lying-Sitting on Side/Bed(QC): 6 Sit to Stand (QC): 6 Chair/Pto-gj-Lwuro Xfer(QC): 6 Toilet Transfer (QC): 6 Car Transfer (QC): 4 Does the Patient Walk: Yes Walk 10 feet (QC): 6 Walk 50ft with 2 Turns (QC): 6 Walk 150 ft (QC): 6 Walking 10ft on Uneven Surface: 6 1 Step (curb) (QC): 4 4 Steps (QC): 4 12 Steps (QC): 88 Picking up an Object (QC): 6 (using door to door salesman) Wheel 50 feet with 2 turns (QC: 9 Wheel 150 feet: 9 PT Plan Problem List Problem List: Activity Tolerance, Gait Treatment/Plan Treatment Plan: Continue Plan of Care Treatment Plan: Bed Mobility, Education, Functional Activity Tj, Functional Strength, Group Therapy, Gait, Safety, Therapeutic Exercise, Transfers Treatment Duration: Jun 13, 2022 Frequency: At least 5 of 7 days/Wk (IRF) Estimated Hrs Per Day: 1.5 hours per day Patient and/or Family Agrees t: Yes Safety Risks/Education Patient Education: Gait Training, Correct Positioning Teaching Recipient: Patient Teaching Methods: Discussion Response to Teaching: Verbalize Understanding Time/GCodes Time In: 1000 Time Out: 1100 Total Billed Treatment Time: 60 Total Billed Treatment 1, FA x2 (30m) & GT x2 (30m) CHANDA GUALLPA HOSPITAL LIBRARIAN May 29, 2022 12:27
--- NOTE | 2022-05-29 14:55 | Physical Therapy Daily Note ---
PT Daily Note-Current Subjective Pt reclined in chair upon arrival. Pt agrees to PT. Mental Status Patient Orientation: Person, Place, Time, Situation Attachments: Drains, Other-See Comments (Wound Vac.), IV Transfers SCALE: Activities may be completed with or without assistive devices. 2-Bclyazrani-rhwojig completes the activity by him/herself with no assistance from a helper. 5-Set-up or Clean-up Assistance-helper sets up or cleans up; patient completes activity. [place] assists only prior to or following the activity. 4-Supervision or Touching Assistance-helper provides verbal cues and/or touching/steadying and/or contact guard assistance as patient completes activity. Assistance may be provided throughout the activity or intermittently. 3-Partial/Moderate Assistance-helper does LESS THAN HALF the effort. [place] lifts, holds or supports trunk or limbs, but provides less than half the effort. 2-Substantial/Maximal Assistance-helper does MORE THAN HALF the effort. [place] lifts or holds trunk or limbs and provides more than half the effort. 2-Iwejltbhr-xutxao does ALL the effort. Patient does none of the effort to complete the activity. Or, the assistance of 2 or more helpers is required for the patient to complete the activity. If activity was not attempted, code reason: 7-Patient Refused. 9-Not Applicable-not attempted and the patient did not perform the activity before the current illness, exacerbation or injury. 10-Not Attempted due to Environmental Limitations-(lack of equipment, weather restraints, etc.). 88-Not Attempted due to Medical Conditions or Safety Concerns. Sit to Lying (QC): 2 Sit to Stand (QC): 5 Toilet Transfer (QC): 5 Weight Bearing Full Weight Bearing Full Weight Bearing Gait Training Does the Patient Walk?: Yes Distance: 100' x2 Walk 10 feet (QC): 5 Walk 50 ft with 2 Turns(QC): 5 Gait Persons Needed: 1 Gait Assistive Device: Walker 4 Wheeled Treatments TF to standing and uses BR. Pt completes pericare w/o assist from REGIONAL DIRECTOR OF FINANCE. Pt amb. in hallway, taking standing RB as needed. Pt returns to EOB to rest then REGIONAL DIRECTOR OF FINANCE assists lifting B LE into bed. Pt repositioned with 2 pillows at head & back, 1 pillow at each arm and 1 pillow under each leg to float heels for prevention of pressure sores. Pt resting at end of tx. All needs met, call l ight in hand. Assessment Current Status: Fair Progress Pt fatigues easily due to tiredness & poor nutrition as reported by pt. PT Short Term Goals Short Term Goals Time Frame: May 30, 2022 Roll Left & Right: 4 (SBA) Sit to lyin (SBA) Lying to sitting on side of be: 4 (SBA) Sit to stand: 4 (CGA) Chair/kcs-gi-cdrzo transfer: 4 (SBA) Toilet transfer: 4 (SBA) Walk 10 feet: 4 (SBA) Walk 50 feet with two turns: 4 (SBA) Walk 150 feet: 4 (SBA) PT White Sugar Syrup Operator Goals Custodial Goals PT White Sugar Syrup Operator Goals Time Frame: Jun 13, 2022 Roll Left & Right (QC): 6 Sit to Lying (QC): 6 Lying-Sitting on Side/Bed(QC): 6 Sit to Stand (QC): 6 Chair/Twu-vk-Pogiy Xfer(QC): 6 Toilet Transfer (QC): 6 Car Transfer (QC): 4 Does the Patient Walk: Yes Walk 10 feet (QC): 6 Walk 50ft with 2 Turns (QC): 6 Walk 150 ft (QC): 6 Walking 10ft on Uneven Surface: 6 1 Step (curb) (QC): 4 4 Steps (QC): 4 12 Steps (QC): 88 Picking up an Object (QC): 6 (using white mixing operator) Wheel 50 feet with 2 turns (QC: 9 Wheel 150 feet: 9 PT Plan Problem List Problem List: Activity Tolerance, Functional Strength Treatment/Plan Treatment Plan: Continue Plan of Care Treatment Plan: Bed Mobility, Education, Functional Activity Tj, Functional Strength, Group Therapy, Gait, Safety, Therapeutic Exercise, Transfers Treatment Duration: Jun 13, 2022 Frequency: At least 5 of 7 days/Wk (IRF) Estimated Hrs Per Day: 1.5 hours per day Patient and/or Family Agrees t: Yes Safety Risks/Education Patient Education: Transfer Techniques, Correct Positioning Teaching Recipient: Patient Teaching Methods: Discussion Response to Teaching: Verbalize Understanding Time/GCodes Time In: 1400 Time Out: 1430 Total Billed Treatment Time: 30 Total Billed Treatment 1, GT (15m) & FA (15m) CHANDA GUALLPA REGIONAL DIRECTOR OF FINANCE May 29, 2022 14:55
[2022-05-29] MEDS: ENOXAPARIN 40 MG/0.4 ML (LOVENOX) SYR SC SCH (15:33)
[2022-05-29] MEDS: CALCIUM CARBONATE 500 MG (TUMS) TAB.CHEW PO PRN (16:43)
[2022-05-29 19:56] VITALS: BP 139/65
[2022-05-29] MEDS: CATHETER FLUSH 10 ML SYR IVP SCH (21:10)
[2022-05-30] MEDS: CATHETER FLUSH 10 ML SYR IVP SCH ×3 (05:44→20:02)
[2022-05-30] MEDS: CALCIUM CARBONATE 500 MG (TUMS) TAB.CHEW PO PRN (05:44)
[2022-05-30] MEDS: LEVOTHYROXINE 100 MCG (LEVOTHROID) TAB PO SCH (05:44)
--- NOTE | 2022-05-30 05:52 | PM&R Progress Note ---
Subjective HPI/CC On Admission Date Seen by Provider: May 30, 2022 Time Seen by Provider: 12:30 Subjective/Events-last exam 05/30/2022: Patient doing much better Had a lot of abdominal pain and had some real difficulty earlier this morning and then she had an explosion and evacuation of bowel through her rectum Now she is doing much better Increased urination we will monitor closely but that is likely diuresis No concerns at this point otherwise 05/29/2022: Pt is doing really well Hemoglobin is 8.6, Potassium is 3.6 Change Potassium to TID 05/28/2022: Doing well Improved ambulation Minimal pain Eating slowly 05/27/2022: Patient doing well Potassium 2.7 so we will be receiving aggressive supplementation IV and p.o. Pain is controlled Ambulating around really well 05/26/2022: Pt dramatically improved No N/V on regular diet CYNTHIA wraps are tolerated now Wound vac changed by Leo at wound care A lot of output on the drain still Morale is better 05/25/2022: Patient tearful today Dr Clifford at chairside reassuring Labs good CYNTHIA wraps for 2 hours then off 2 hours due to uncomfortable DC abx 05/24/2022: Doing better IVF decreased to 30cc/hr Third spacing will require CYNTHIA wraps Potassium low so IV supplement Pain improved Working with therapy Review of Systems General: Fatigue, Malaise Objective Exam Vital Signs Vital Signs Date Time Temp Pulse Resp B/P (MAP) Pulse Ox O2 Delivery O2 Flow Rate FiO2 05/30/22 19:06 36.8 97 20 112/55 (74) 97 Room Air 05/29/22 08:08 0.00 05/25/22 09:57 21 Capillary Refill : General Appearance: No Apparent Distress, Chronically ill HEENT: PERRL/EOMI, Normal ENT Inspection Neck: Full Range of Motion, Normal Inspection Respiratory: Chest Non Tender, Lungs Clear, Normal Breath Sounds, No Accessory Muscle Use, No Respiratory Distress Cardiovascular: Regular Rate, Rhythm, No JVD Gastrointestinal: Normal Bowel Sounds, No Organomegaly, No Pulsatile Mass, Soft, Other (colostomy) Back: Normal Inspection, No CVA Tenderness, No Vertebral Tenderness Extremity: Pedal Edema, Swelling Neurologic/Psychiatric: Alert, Oriented x3, Normal Mood/Affect, powder guard II-XII Norm as Tested, Motor Weakness (generalized) Skin: Normal Color, Warm/Dry Lymphatic: No Adenopathy Results/Procedures Lab Patient resulted labs reviewed. FIM Transfers Therapy Code Descriptions/Definitions Functional [place] Measure: 0=Not Assessed/NA 4=Minimal Assistance 1=Total Assistance 5=Supervision or Setup 2=Maximal Assistance 6=Modified [place] 3=Moderate Assistance 7=Complete IndependenceSCALE: Activities may be completed with or without assistive devices. 4-Dvaucrgabj-lsqzyrs completes the activity by him/herself with no assistance from a helper. 5-Set-up or Clean-up Assistance-helper sets up or cleans up; patient completes activity. [place] assists only prior to or following the activity. 4-Supervision or Touching Assistance-helper provides verbal cues and/or touching/steadying and/or contact guard assistance as patient completes activity. Assistance may be provided throughout the activity or intermittently. 3-Partial/Moderate Assistance-helper does LESS THAN HALF the effort. [place] lifts, holds or supports trunk or limbs, but provides less than half the effort. 2-Substantial/Maximal Assistance-helper does MORE THAN HALF the effort. [place] lifts or holds trunk or limbs and provides more than half the effort. 3-Zggvciano-obpmwy does ALL the effort. Patient does none of the effort to complete the activity. Or, the assistance of 2 or more helpers is required for the patient to complete the activity. If activity was not attempted, code reason: 7-Patient Refused. 9-Not Applicable-not attempted and the patient did not perform the activity before the current illness, exacerbation or injury. 10-Not Attempted due to Environmental Limitations-(lack of equipment, weather restraints, etc.). 88-Not Attempted due to Medical Conditions or Safety Concerns. Roll Left to Right (QC): 5 Sit to Lying (QC): 2 Sit to Stand (QC): 5 Chair/Iur-zo-Lwguz Xfer(QC): 4 Car Transfer (QC): 3 Gait Training Does the Patient Walk?: Yes Distance: 100' x2 Walk 10 feet (QC): 5 Walk 50 ft with 2 Turns(QC): 5 Walk 150 ft (QC): 5 Walking 10ft/uneven surface-QC: 4 Gait Persons Needed: 1 Gait Assistive Device: Walker 4 Wheeled Wheelchair Training Does the Pt Use a Wheelchair?: No Wheel 50 ft with 2 turns (QC): 9 Wheel 150 ft (QC): 9 Stair Training 1 Step (curb) (QC): 88 4 Steps (QC): 88 12 Steps (QC): 88 Balance Picking up an Object (QC): 4 (CGA using a lining repairer) ADL-Treatment Eating (QC): 6 Oral Hygiene (QC): 6 Shower/Bathe Self (QC): 4 (SBA for safety) Upper Body Dressing (QC): 3 Lower Body Dressing (QC): 7 On/Off Footwear (QC): 4 Toileting Hygiene (QC): 6 Toilet Transfer (QC): 6 Assessment/Plan Assessment and Plan Assess & Plan/Chief Complaint Assessment: 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 COPD Edema from third-spacing, encouraged PO nutrition Plan: Pain control Monitor closely IRF protocol 05/24/2022: IVF decrease CYNTHIA wraps 05/25/2022: DC abx CYNTHIA wraps 05/26/2022: Dramatically improved Venofer 05/27/2022: Supplement potassium IV iron 05/28/2022: Continue po potassium Labs in am 05/29/2022: Monitor closely Increase potassium 05/30/2022: Supportive care Pain control (1) Myopathy (2) Abdominal abscess (3) COPD (chronic obstructive pulmonary disease) MIKEY CAMP DO May 30, 2022 05:52
[2022-05-30 07:40] VITALS: BP 114/54
[2022-05-30] MEDS: ATENOLOL 25 MG (TENORMIN) TAB PO SCH (08:14)
[2022-05-30] MEDS: SENNA W/DOCUSATE (SENOKOT S) TABLET PO SCH ×2 (08:14→20:01)
[2022-05-30] MEDS: DOCUSATE SODIUM 100 MG (COLACE) CAP PO SCH ×2 (08:14→20:01)
[2022-05-30] MEDS: oxyCODONE ER 10 MG (OxyCONTIN CR) TAB PO SCH ×2 (08:14→20:01)
[2022-05-30] MEDS: SENNOSIDES 8.6 MG (SENOKOT) TAB PO SCH ×2 (08:14→20:02)
[2022-05-30] MEDS: KCL 20 MEQ TAB (K-DUR) PO SCH ×3 (08:14→18:39)
[2022-05-30] MEDS: MICONAZOLE 2% POWDER (DESENEX AF) 90 GM TOP SCH ×2 (08:15→20:02)
[2022-05-30] MEDS: IRON SUCROSE 200 MG/10 ML (VENOFER) VIAL IV SCH (08:16)
[2022-05-30] MEDS: polyethylene glycoL POWDER 17 GM (MIRALAX) PACK PO SCH ×2 (08:17→19:39)
--- NOTE | 2022-05-30 08:53 | Occupational Ther Daily Note ---
OT Current Status-Daily Note Subjective Pt alert, sitting in recliner. Pt agrees to therapy. Pt stated that she had a rough night, pain 9/10 and needing to go to the bathroom frequently. Pt having difficulty with granddaughter coming to observe wound vac/ostomy change today, granddaughter let pt know that she has 100* temp and diarrhea. Reported this to SW. Mental Status/Objective Patient Orientation: Person, Place, Time, Situation Attachments: Drains (wound vac/drain), IV ADL-Treatment Pt able to void independently. Sitting in 4WW seat, completes oral care independently. Completes shower independently after areas are covered, assist to dry lower legs though did discuss letting air dry at home. Pt able to doff sock using dressing stick and has demonstrated ability to don with sock aide. Assist to CYNTHIA wrap lower legs/feet to decrease edema. Pt donned/doffed briefs by self, using library science instructor to don. Pt able to complete upper body dressing with assist only for tubing/IV. After session, pt lying in bed with call light/phone in reach. All needs met in room. Therapy Code Descriptions/Definitions Functional [place] Measure: 0=Not Assessed/NA 4=Minimal Assistance 1=Total Assistance 5=Supervision or Setup 2=Maximal Assistance 6=Modified [place] 3=Moderate Assistance 7=Complete IndependenceSCALE: Activities may be completed with or without assistive devices. 0-Cpdnqwpxxr-vtlwnlp completes the activity by him/herself with no assistance from a helper. 5-Set-up or Clean-up Assistance-helper sets up or cleans up; patient completes activity. [place] assists only prior to or following the activity. 4-Supervision or Touching Assistance-helper provides verbal cues and/or nadege elliot/steadying and/or contact guard assistance as patient completes activity. Assistance may be provided throughout the activity or intermittently. 3-Partial/Moderate Assistance-helper does LESS THAN HALF the effort. [place] lifts, holds or supports trunk or limbs, but provides less than half the effort. 2-Substantial/Maximal Assistance-helper does MORE THAN HALF the effort. [place] lifts or holds trunk or limbs and provides more than half the effort. 4-Ttorjniny-lsyati does ALL the effort. Patient does none of the effort to complete the activity. Or, the assistance of 2 or more helpers is required for the patient to complete the activity. If activity was not attempted, code reason: 7-Patient Refused. 9-Not Applicable-not attempted and the patient did not perform the activity before the current illness, exacerbation or injury. 10-Not Attempted due to Environmental Limitations-(lack of equipment, weather restraints, etc.). 88-Not Attempted due to Medical Conditions or Safety Concerns. Eating (QC): 6 Oral Hygiene (QC): 6 Shower/Bathe Self (QC): 6 Upper Body Dressing (QC): 3 Lower Body Dressing (QC): 5 On/Off Footwear: 5 Toileting Hygiene (QC): 6 (voiding only) Toilet Transfer (QC): 6 OT Short Term Goals Short Term Goals Time Frame: May 31, 2022 Toileting hygiene: 4 Shower/bathe self: 4 Lower body dressin Putting on/taking off footwear: 3 OT Half-Way Goals Computer Trainer Goals Time Frame: Jun 16, 2022 Eating (QC): 6 (met) Oral Hygiene (QC): 6 (met) Toileting Hygiene (QC): 6 (met) Shower/Bathe Self (QC): 5 (met) Upper Body Dressing (QC): 6 (not met) Lower Body Dressing (QC): 6 (not met) On/Off Footwear (QC): 6 (not met) Additional Goals: 1-Demonstrate ADL Tasks, 2-Verbalize Understanding, 3- ImproveStrength/Tj 1=Demonstrate adherence to instructed precautions during ADL tasks. 2=Patient will verbalize/demonstrate understanding of assistive devices/modifications for ADL. 3=Patient will improve strength/tolerance for activity to enable patient to perform ADL's. OT Education/Plan Problem List/Assessment Assessment: Decreased Activ Tolerance, Impaired Self-Care Skills Discharge Recommendations Plan/Recommendations: Continue POC Treatment Plan/Plan of Care Patient would benefit from OT for education, treatment and training to promote independence in ADL's, mobility, safety and/or upper extremity function for ADL's. Plan of Care: ADL Retraining, Functional Mobility, Group Exercise/Act as Ind, UE Funct Exercise/Act Treatment Duration: Jun 16, 2022 Frequency: At least 5 of 7 days/Wk (IRF) Estimated Hrs Per Day: 1.5 hours per day Rehab Potential: Fair Time/GCodes Start Time: 07:30 Stop Time: 09:00 Total Time Billed (hr/min): 90 Billed Treatment Time 1 visit-ADL 6 (90 min) BRENDAN GONZALES May 30, 2022 08:53
[2022-05-30] MEDS: RT-ALBUTEROL/IPRATROPIUM 3 ML (DUONEB) VIAL INH SCH ×2 (10:51→21:00)
--- NOTE | 2022-05-30 14:47 | Physical Therapy Daily Note ---
PT Daily Note-Current Subjective Pt finishing with Wound Care Nurse upon arrival. Pt's close friend is present. Pt agrees to PT but does report frequent trips to BR needed. Mental Status Patient Orientation: Person, Place, Situation Attachments: Colostomy/Ileostomy, Drains, Other-See Comments (Wound Vac.), IV Transfers SCALE: Activities may be completed with or without assistive devices. 1-Veyofjuxze-qpqvtbn completes the activity by him/herself with no assistance from a helper. 5-Set-up or Clean-up Assistance-helper sets up or cleans up; patient completes activity. [place] assists only prior to or following the activity. 4-Supervision or Touching Assistance-helper provides verbal cues and/or touching/steadying and/or contact guard assistance as patient completes activity. Assistance may be provided throughout the activity or intermittently. 3-Partial/Moderate Assistance-helper does LESS THAN HALF the effort. [place] lifts, holds or supports trunk or limbs, but provides less than half the effort. 2-Substantial/Maximal Assistance-helper does MORE THAN HALF the effort. [place] lifts or holds trunk or limbs and provides more than half the effort. 8-Znnnxugsy-zukqaz does ALL the effort. Patient does none of the effort to complete the activity. Or, the assistance of 2 or more helpers is required for the patient to complete the activity. If activity was not attempted, code reason: 7-Patient Refused. 9-Not Applicable-not attempted and the patient did not perform the activity before the current illness, exacerbation or injury. 10-Not Attempted due to Environmental Limitations-(lack of equipment, weather restraints, etc.). 88-Not Attempted due to Medical Conditions or Safety Concerns. Sit to Stand (QC): 5 Toilet Transfer (QC): 5 Weight Bearing Full Weight Bearing Full Weight Bearing Gait Training Does the Patient Walk?: Yes Distance: 15' x2, 200' x2 Walk 10 feet (QC): 4 Walk 50 ft with 2 Turns(QC): 4 Walk 150 ft (QC): 4 Gait Persons Needed: 1 Gait Assistive Device: Walker 4 Wheeled Exercises Seated Therapy Exercises: Ankle pumps, Long arc quads, Hip flexion, Hip abd/add Seated Reps: 15 Treatments [id number]: TF to standing and amb. to BR. Pt completes pericare but PIPE FITTER GAS PIPE assists w/donning & doffing brief change. Pt amb. back to recliner to rest. Pt & friend ask questions regarding food/nutrient needs, HH & Meals on Wheels set up. Advised pt that C[employer] Con[employer] Plant Worker can visit & did during tx as well as SW can visit about HH & Meals on Wheels set up. Pt again returns to BR. Pt returns to recliner and completes Seated Ex. All needs met, call light in hand. [id number]: TF to standing and amb to BR. Pt amb in hallway and returns room to rest in recliner. PIPE FITTER GAS PIPE assists pt with positioning with pillows (2 at head & back, 1 at each arm & 1 at each leg). All needs met, call light in hand. Assessment Current Status: Fair Progress Pt nervous about upcoming d/c in a couple days, hyperfocused about concerns stephenie. BM. PT Short Term Goals Short Term Goals Time Frame: May 30, 2022 Roll Left & Right: 4 (SBA) Sit to lyin (SBA) Lying to sitting on side of be: 4 (SBA) Sit to stand: 4 (CGA) Chair/vtc-sa-uqifb transfer: 4 (SBA) Toilet transfer: 4 (SBA) Walk 10 feet: 4 (SBA) Walk 50 feet with two turns: 4 (SBA) Walk 150 feet: 4 (SBA) PT Garage Worker Goals Group Home Goals PT Group Home Goals Time Frame: Jun 13, 2022 Roll Left & Right (QC): 6 Sit to Lying (QC): 6 Lying-Sitting on Side/Bed(QC): 6 Sit to Stand (QC): 6 Chair/Flc-gn-Etkwp Xfer(QC): 6 Toilet Transfer (QC): 6 Car Transfer (QC): 4 Does the Patient Walk: Yes Walk 10 feet (QC): 6 Walk 50ft with 2 Turns (QC): 6 Walk 150 ft (QC): 6 Walking 10ft on Uneven Surface: 6 1 Step (curb) (QC): 4 4 Steps (QC): 4 12 Steps (QC): 88 Picking up an Object (QC): 6 (using skin former) Wheel 50 feet with 2 turns (QC: 9 Wheel 150 feet: 9 PT Plan Problem List Problem List: Activity Tolerance Treatment/Plan Treatment Plan: Continue Plan of Care Treatment Plan: Bed Mobility, Education, Functional Activity Tj, Functional Strength, Group Therapy, Gait, Safety, Therapeutic Exercise, Transfers Treatment Duration: Jun 13, 2022 Frequency: At least 5 of 7 days/Wk (IRF) Estimated Hrs Per Day: 1.5 hours per day Patient and/or Family Agrees t: Yes Safety Risks/Education Patient Education: Gait Training, Correct Positioning Teaching Recipient: Patient Teaching Methods: Discussion Response to Teaching: Verbalize Understanding Time/GCodes Time In: 1000 Time Out: 1100 Total Billed Treatment Time: 60 Total Billed Treatment [id number]: 1, EX (20m) & FA x3 (40m) [id number]: 1, GT (15m) & FA (15m) CHANDA GUALLPA PIPE FITTER GAS PIPE May 30, 2022 14:47
[2022-05-30] MEDS: ENOXAPARIN 40 MG/0.4 ML (LOVENOX) SYR SC SCH (18:38)
[2022-05-30 19:06] VITALS: BP 112/55
[2022-05-31] MEDS: CATHETER FLUSH 10 ML SYR IVP SCH ×3 (06:03→20:31)
[2022-05-31] MEDS: LEVOTHYROXINE 100 MCG (LEVOTHROID) TAB PO SCH (06:03)
--- NOTE | 2022-05-31 06:37 | PM&R Progress Note ---
Subjective HPI/CC On Admission Date Seen by Provider: May 31, 2022 Time Seen by Provider: 09:00 Subjective/Events-last exam 05/31/2022: Doing much better No falls Abdominal pain continues Pain meds given 05/30/2022: Patient doing much better Had a lot of abdominal pain and had some real difficulty earlier this morning and then she had an explosion and evacuation of bowel through her rectum Now she is doing much better Increased urination we will monitor closely but that is likely diuresis No concerns at this point otherwise 05/29/2022: Pt is doing really well Hemoglobin is 8.6, Potassium is 3.6 Change Potassium to TID 05/28/2022: Doing well Improved ambulation Minimal pain Eating slowly 05/27/2022: Patient doing well Potassium 2.7 so we will be receiving aggressive supplementation IV and p.o. Pain is controlled Ambulating around really well 05/26/2022: Pt dramatically improved No N/V on regular diet CYNTHIA wraps are tolerated now Wound vac changed by Leo at wound care A lot of output on the drain still Morale is better 05/25/2022: Patient tearful today Dr Clifford at chairside reassuring Labs good CYNTHIA wraps for 2 hours then off 2 hours due to uncomfortable DC abx 05/24/2022: Doing better IVF decreased to 30cc/hr Third spacing will require CYNTHIA wraps Potassium low so IV supplement Pain improved Working with therapy Review of Systems General: Fatigue, Malaise Objective Exam Vital Signs Vital Signs Date Time Temp Pulse Resp B/P (MAP) Pulse Ox O2 Delivery O2 Flow Rate FiO2 05/31/22 09:00 Room Air 05/31/22 07:53 36.5 122 18 123/58 (79) 96 05/29/22 08:08 0.00 05/25/22 09:57 21 Capillary Refill : General Appearance: No Apparent Distress, Chronically ill HEENT: PERRL/EOMI, Normal ENT Inspection Neck: Full Range of Motion, Normal Inspection Respiratory: Chest Non Tender, Lungs Clear, Normal Breath Sounds, No Accessory Muscle Use, No Respiratory Distress Cardiovascular: Regular Rate, Rhythm, No JVD Gastrointestinal: Normal Bowel Sounds, No Organomegaly, No Pulsatile Mass, Soft, Other (colostomy) Back: Normal Inspection, No CVA Tenderness, No Vertebral Tenderness Extremity: Pedal Edema, Swelling Neurologic/Psychiatric: Alert, Oriented x3, Normal Mood/Affect, rotary envelope machine operator II-XII Norm as Tested, Motor Weakness (generalized) Skin: Normal Color, Warm/Dry Lymphatic: No Adenopathy Results/Procedures Lab Patient resulted labs reviewed. FIM Transfers Therapy Code Descriptions/Definitions Functional [place] Measure: 0=Not Assessed/NA 4=Minimal Assistance 1=Total Assistance 5=Supervision or Setup 2=Maximal Assistance 6=Modified [place] 3=Moderate Assistance 7=Complete IndependenceSCALE: Activities may be completed with or without assistive devices. 3-Gxdezokhlk-dsllndc completes the activity by him/herself with no assistance from a helper. 5-Set-up or Clean-up Assistance-helper sets up or cleans up; patient completes activity. [place] assists only prior to or following the activity. 4-Supervision or Touching Assistance-helper provides verbal cues and/or touching/steadying and/or contact guard assistance as patient completes activity. Assistance may be provided throughout the activity or intermittently. 3-Partial/Moderate Assistance-helper does LESS THAN HALF the effort. [place] l ifts, holds or supports trunk or limbs, but provides less than half the effort. 2-Substantial/Maximal Assistance-helper does MORE THAN HALF the effort. [place] lifts or holds trunk or limbs and provides more than half the effort. 3-Pnqlzjirr-lcemoe does ALL the effort. Patient does none of the effort to complete the activity. Or, the assistance of 2 or more helpers is required for t he patient to complete the activity. If activity was not attempted, code reason: 7-Patient Refused. 9-Not Applicable-not attempted and the patient did not perform the activity before the current illness, exacerbation or injury. 10-Not Attempted due to Environmental Limitations-(lack of equipment, weather restraints, etc.). 88-Not Attempted due to Medical Conditions or Safety Concerns. Roll Left to Right (QC): 5 Sit to Lying (QC): 2 Sit to Stand (QC): 5 Chair/Mpz-sk-Pdkph Xfer(QC): 4 Car Transfer (QC): 3 Gait Training Does the Patient Walk?: Yes Distance: 15' x2, 200' x2 Walk 10 feet (QC): 4 Walk 50 ft with 2 Turns(QC): 4 Walk 150 ft (QC): 4 Walking 10ft/uneven surface-QC: 4 Gait Persons Needed: 1 Gait Assistive Device: Walker 4 Wheeled Wheelchair Training Does the Pt Use a Wheelchair?: No Wheel 50 ft with 2 turns (QC): 9 Wheel 150 ft (QC): 9 Stair Training 1 Step (curb) (QC): 88 4 Steps (QC): 88 12 Steps (QC): 88 Balance Picking up an Object (QC): 4 (CGA using a substation operator automatic) ADL-Treatment Eating (QC): 6 Oral Hygiene (QC): 6 Shower/Bathe Self (QC): 6 Upper Body Dressing (QC): 3 Lower Body Dressing (QC): 5 On/Off Footwear (QC): 5 Toileting Hygiene (QC): 6 (voiding only) Toilet Transfer (QC): 6 Assessment/Plan Assessment and Plan Assess & Plan/Chief Complaint Assessment: 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 COPD Edema from third-spacing, encouraged PO nutrition Plan: Pain control Monitor closely IRF protocol 05/24/2022: IVF decrease CYNTHIA wraps 05/25/2022: DC abx CYNTHIA wraps 05/26/2022: Dramatically improved Venofer 05/27/2022: Supplement potassium IV iron 05/28/2022: Continue po potassium Labs in am 05/29/2022: Monitor closely Increase potassium 05/30/2022: Supportive care Pain control 05/31/2022: DC tomorrow (1) Myopathy (2) Abdominal abscess (3) COPD (chronic obstructive pulmonary disease) MIKEY CAMP DO May 31, 2022 06:37
[2022-05-31] MEDS: RT-ALBUTEROL/IPRATROPIUM 3 ML (DUONEB) VIAL INH SCH ×2 (06:39→22:12)
[2022-05-31 07:53] VITALS: BP 123/58
[2022-05-31] MEDS: KCL 20 MEQ TAB (K-DUR) PO SCH ×3 (09:07→17:38)
[2022-05-31] MEDS: DOCUSATE SODIUM 100 MG (COLACE) CAP PO SCH ×2 (09:07→20:30)
[2022-05-31] MEDS: SENNA W/DOCUSATE (SENOKOT S) TABLET PO SCH ×2 (09:07→20:30)
[2022-05-31] MEDS: oxyCODONE ER 10 MG (OxyCONTIN CR) TAB PO SCH ×2 (09:08→20:30)
[2022-05-31] MEDS: MICONAZOLE 2% POWDER (DESENEX AF) 90 GM TOP SCH ×2 (09:10→20:30)
[2022-05-31] MEDS: polyethylene glycoL POWDER 17 GM (MIRALAX) PACK PO SCH ×2 (09:14→20:30)
[2022-05-31] MEDS: SENNOSIDES 8.6 MG (SENOKOT) TAB PO SCH ×2 (09:14→20:30)
--- NOTE | 2022-05-31 10:00 | Occupational Ther Daily Note ---
OT Current Status-Daily Note Subjective Pt alert, sitting in recliner. Pt agrees to therapy. Pt c/o pain 01/29, nrsg brought meds. Mental Status/Objective Patient Orientation: Person, Place, Time, Situation Attachments: Colostomy/Ileostomy, Drains (drain/wound vac) ADL-Treatment Independent with oral care, grooming and toileting. Therapy Code Descriptions/Definitions Functional [place] Measure: 0=Not Assessed/NA 4=Minimal Assistance 1=Total Assistance 5=Supervision or Setup 2=Maximal Assistance 6=Modified [place] 3=Moderate Assistance 7=Complete IndependenceSCALE: Activities may be completed with or without assistive devices. 5-Yjfclezbwg-tozhkdw completes the activity by him/herself with no assistance from a helper. 5-Set-up or Clean-up Assistance-helper sets up or cleans up; patient completes activity. [place] assists only prior to or following the activity. 4-Supervision or Touching Assistance-helper provides verbal cues and/or touching/steadying and/or contact guard assistance as patient completes activity. Assistance may be provided throughout the activity or intermittently. 3-Partial/Moderate Assistance-helper does LESS THAN HALF the effort. [place] l ifts, holds or supports trunk or limbs, but provides less than half the effort. 2-Substantial/Maximal Assistance-helper does MORE THAN HALF the effort. [place] lifts or holds trunk or limbs and provides more than half the effort. 8-Jxxulvypu-tnyjbj does ALL the effort. Patient does none of the effort to complete the activity. Or, the assistance of 2 or more helpers is required for t he patient to complete the activity. If activity was not attempted, code reason: 7-Patient Refused. 9-Not Applicable-not attempted and the patient did not perform the activity before the current illness, exacerbation or injury. 10-Not Attempted due to Environmental Limitations-(lack of equipment, weather restraints, etc.). 88-Not Attempted due to Medical Conditions or Safety Concerns. Eating (QC): 6 Oral Hygiene (QC): 6 Toileting Hygiene (QC): 6 (voiding only) Toilet Transfer (QC): 6 Other Treatment Pt ambulated to/from therapy gym using 4WW independently. Pt completes B UE exercises to increase gross/fine motor strength for daily functional tasks. Arm bike for 10 min at 15 webber resistance without breaks. 1# wt attached to wrists while completing resistive pegs, 50 each hand. Pt takes increased time to complete tasks due to slow movements and lengthy recovery breaks during session. After therapy, pt sitting in recliner with call light/phone in reach. All needs met in room. OT Short Term Goals Short Term Goals Time Frame: May 31, 2022 Toileting hygiene: 4 Shower/bathe self: 4 Lower body dressin Putting on/taking off footwear: 3 OT [facility] Goals [facility] Goals Time Frame: Jun 16, 2022 Eating (QC): 6 (met) Oral Hygiene (QC): 6 (met) Toileting Hygiene (QC): 6 (met) Shower/Bathe Self (QC): 5 (met) Upper Body Dressing (QC): 6 (not met) Lower Body Dressing (QC): 6 (not met) On/Off Footwear (QC): 6 (not met) Additional Goals: 1-Demonstrate ADL Tasks, 2-Verbalize Understanding, 3- ImproveStrength/Tj 1=Demonstrate adherence to instructed precautions during ADL tasks. 2=Patient will verbalize/demonstrate understanding of assistive devices/modifications for ADL. 3=Patient will improve strength/tolerance for activity to enable patient to perform ADL's. OT Education/Plan Problem List/Assessment Assessment: Decreased Activ Tolerance, Decreased UE Strength Discharge Recommendations Plan/Recommendations: Continue POC Treatment Plan/Plan of Care Patient would benefit from OT for education, treatment and training to promote independence in ADL's, mobility, safety and/or upper extremity function for ADL's. Plan of Care: ADL Retraining, Functional Mobility, Group Exercise/Act as Ind, UE Funct Exercise/Act Treatment Duration: Jun 16, 2022 Frequency: At least 5 of 7 days/Wk (IRF) Estimated Hrs Per Day: 1.5 hours per day Rehab Potential: Fair Time/GCodes Start Time: 09:00 Stop Time: 10:00 Total Time Billed (hr/min): 60 Billed Treatment Time 1 visit-ADL 2 (25 min) EX 2 (35 min) BRENDAN GONZALES May 31, 2022 10:00
[2022-05-31] MEDS: ATENOLOL 25 MG (TENORMIN) TAB PO SCH (10:11)
[2022-05-31] MEDS: CALCIUM CARBONATE 500 MG (TUMS) TAB.CHEW PO PRN (10:11)
--- NOTE | 2022-05-31 11:01 | Physical Therapy Daily Note ---
PT Daily Note-Current Subjective Pt sitting in recliner upon arrival. Pt agrees to PT. Pain Location: No Pain Reported Mental Status Patient Orientation: Person, Place, Time, Situation Attachments: Colostomy/Ileostomy, Drains, Other-See Comments (Wound Vac.), IV Transfers SCALE: Activities may be completed with or without assistive devices. 4-Bjkdcvmatd-mmcserx completes the activity by him/herself with no assistance from a helper. 5-Set-up or Clean-up Assistance-helper sets up or cleans up; patient completes activity. [place] assists only prior to or following the activity. 4-Supervision or Touching Assistance-helper provides verbal cues and/or touching/steadying and/or contact guard assistance as patient completes activity. Assistance may be provided throughout the activity or intermittently. 3-Partial/Moderate Assistance-helper does LESS THAN HALF the effort. [place] lifts, holds or supports trunk or limbs, but provides less than half the effort. 2-Substantial/Maximal Assistance-helper does MORE THAN HALF the effort. [place] lifts or holds trunk or limbs and provides more than half the effort. 7-Fymhjbokz-lqnlio does ALL the effort. Patient does none of the effort to complete the activity. Or, the assistance of 2 or more helpers is required for the patient to complete the activity. If activity was not attempted, code reason: 7-Patient Refused. 9-Not Applicable-not attempted and the patient did not perform the activity before the current illness, exacerbation or injury. 10-Not Attempted due to Environmental Limitations-(lack of equipment, weather restraints, etc.). 88-Not Attempted due to Medical Conditions or Safety Concerns. Roll Left & Right (QC): 5 Sit to Lying (QC): 3 Lying to Sitting/Side of Bed(Q: 3 Sit to Stand (QC): 6 Chair/Izk-bq-Sfgsl Xfer(QC): 6 Toilet Transfer (QC): 6 Car Transfer (QC): 3 Weight Bearing Full Weight Bearing Full Weight Bearing Gait Training Does the Patient Walk?: Yes Distance: 150' Walk 10 feet (QC): 5 Walk 50 ft with 2 Turns(QC): 5 Walk 150 ft (QC): 5 Walking 10ft/uneven surface-QC: 5 Gait Assistive Device: Walker 4 Wheeled Wheelchair Training Does the Pt Use a Wheelchair?: No Stair Training Stair Training: Handrails/: 2 handrails #of Steps: 4 1 Step (curb) (QC): 5 4 Steps (QC): 5 12 Steps (QC): 7 Stairs: Pattern: Step to Balance Picking up an Object (QC): 7 Special Test Comments Pt reports can bend but not fully over due to discomfort abdominally. Pt will use covering machine operator. Treatments Pt completes QC scoring items listed above including toileting and walking. Pt returns to room to rest in bed and complete bed mobility. Pt has difficulty lifting B LE into bed so NUCLEAR LOGGING ENGINEER will work with pt in afternoon session on ways this can be achieved. All needs met, positioned to comfort and call light in hand. Assessment Current Status: Good Progress Pt needs occasional RB for fatigue but is able to manage ambulating and tasks given except lifting legs into bed. PT Short Term Goals Short Term Goals Time Frame: May 30, 2022 Roll Left & Right: 4 (SBA) Sit to lyin (SBA) Lying to sitting on side of be: 4 (SBA) Sit to stand: 4 (CGA) Chair/ztz-os-aqtzm transfer: 4 (SBA) Toilet transfer: 4 (SBA) Walk 10 feet: 4 (SBA) Walk 50 feet with two turns: 4 (SBA) Walk 150 feet: 4 (SBA) PT Computer Teacher Goals Snf Goals PT Snf Goals Time Frame: Jun 13, 2022 Roll Left & Right (QC): 6 Sit to Lying (QC): 6 Lying-Sitting on Side/Bed(QC): 6 Sit to Stand (QC): 6 Chair/Frv-mo-Pvhkl Xfer(QC): 6 Toilet Transfer (QC): 6 Car Transfer (QC): 4 Does the Patient Walk: Yes Walk 10 feet (QC): 6 Walk 50ft with 2 Turns (QC): 6 Walk 150 ft (QC): 6 Walking 10ft on Uneven Surface: 6 1 Step (curb) (QC): 4 4 Steps (QC): 4 12 Steps (QC): 88 Picking up an Object (QC): 6 (using covering machine operator) Wheel 50 feet with 2 turns (QC: 9 Wheel 150 feet: 9 PT Plan Problem List Problem List: Activity Tolerance Treatment/Plan Treatment Plan: Continue Plan of Care Treatment Plan: Bed Mobility, Education, Functional Activity Tj, Functional Strength, Group Therapy, Gait, Safety, Therapeutic Exercise, Transfers Treatment Duration: Jun 13, 2022 Frequency: At least 5 of 7 days/Wk (IRF) Estimated Hrs Per Day: 1.5 hours per day Patient and/or Family Agrees t: Yes Safety Risks/Education Patient Education: Transfer Techniques, Correct Positioning Teaching Recipient: Patient Teaching Methods: Discussion Response to Teaching: Verbalize Understanding Time/GCodes Time In: 1000 Time Out: 1100 Total Billed Treatment Time: 60 Total Billed Treatment 1, GT (20m) & FA x3 (40m) CHANDA GUALLPA NUCLEAR LOGGING ENGINEER May 31, 2022 11:01
--- NOTE | 2022-05-31 11:37 | Occupational Ther Daily Note ---
OT Current Status-Daily Note Subjective Pt alert, lying in bed. Visitor present in room. Pt agrees to therapy. Pt c/o pain, upper R abdominal area, nrsg aware and gave pain meds. Mental Status/Objective Patient Orientation: Person, Place, Time, Situation Attachments: Colostomy/Ileostomy, Drains (drain/wound vac) ADL-Treatment Therapy Code Descriptions/Definitions Functional [place] Measure: 0=Not Assessed/NA 4=Minimal Assistance 1=Total Assistance 5=Supervision or Setup 2=Maximal Assistance 6=Modified [place] 3=Moderate Assistance 7=Complete IndependenceSCALE: Activities may be completed with or without assistive devices. 6-Ypkfryailm-jogjgjm completes the activity by him/herself with no assistance from a helper. 5-Set-up or Clean-up Assistance-helper sets up or cleans up; patient completes activity. [place] assists only prior to or following the activity. 4-Supervision or Touching Assistance-helper provides verbal cues and/or touching/steadying and/or contact guard assistance as patient completes activity. Assistance may be provided throughout the activity or intermittently. 3-Partial/Moderate Assistance-helper does LESS THAN HALF the effort. [place] lifts, holds or supports trunk or limbs, but provides less than half the effort. 2-Substantial/Maximal Assistance-helper does MORE THAN HALF the effort. [place] lifts or holds trunk or limbs and provides more than half the effort. 1-Ktcqhqwqc-otinow does ALL the effort. Patient does none of the effort to complete the activity. Or, the assistance of 2 or more helpers is required for the patient to complete the activity. If activity was not attempted, code reason: 7-Patient Refused. 9-Not Applicable-not attempted and the patient did not perform the activity before the current illness, exacerbation or injury. 10-Not Attempted due to Environmental Limitations-(lack of equipment, weather restraints, etc.). 88-Not Attempted due to Medical Conditions or Safety Concerns. Other Treatment Pt slowly completed 2 B UE exercises using light resistance theraband. Horizontal shldr abd/add-3sets 10 reps, Tricep extension 3 sets 10 reps. Skilled instruction for correct technique to increase strength for daily functional tasks. Pt independent with bed mobility though requires assistance for EOB to supine with B LE's. After session, pt lying in bed with call light/phone in reach. All needs met in room. OT Short Term Goals Short Term Goals Time Frame: May 31, 2022 Toileting hygiene: 4 Shower/bathe self: 4 Lower body dressin Putting on/taking off footwear: 3 OT [facility] Goals [facility] Goals Time Frame: Jun 16, 2022 Eating (QC): 6 (met) Oral Hygiene (QC): 6 (met) Toileting Hygiene (QC): 6 (met) Shower/Bathe Self (QC): 5 (met) Upper Body Dressing (QC): 6 (not met) Lower Body Dressing (QC): 6 (not met) On/Off Footwear (QC): 6 (not met) Additional Goals: 1-Demonstrate ADL Tasks, 2-Verbalize Understanding, 3- ImproveStrength/Tj 1=Demonstrate adherence to instructed precautions during ADL tasks. 2=Patient will verbalize/demonstrate understanding of assistive devices/modifications for ADL. 3=Patient will improve strength/tolerance for activity to enable patient to perform ADL's. OT Education/Plan Problem List/Assessment Assessment: Decreased Activ Tolerance, Decreased UE Strength Discharge Recommendations Plan/Recommendations: Continue POC Equpiment Recommendations-D/C: Director Of Teaching And Learning, Sock Aide, Dressing Stick Treatment Plan/Plan of Care Patient would benefit from OT for education, treatment and training to promote independence in ADL's, mobility, safety and/or upper extremity function for ADL's. Plan of Care: ADL Retraining, Functional Mobility, Group Exercise/Act as Ind, UE Funct Exercise/Act Treatment Duration: Jun 16, 2022 Frequency: At least 5 of 7 days/Wk (IRF) Estimated Hrs Per Day: 1.5 hours per day Rehab Potential: Fair Time/GCodes Start Time: 11:15 Stop Time: 11:45 Total Time Billed (hr/min): 30 Billed Treatment Time 1 visit-EX 1 (20 min) FA 1 (10 min) BRENDAN GONZALES May 31, 2022 11:37
--- NOTE | 2022-05-31 14:36 | Physical Therapy Daily Note ---
PT Daily Note-Current Subjective Pt sitting in recliner after recently returning from [place]. Pt reports feeling fatigued. Pt reports feeling ready to d/c home but a little nervous. Pain Location: Incisional Location Body Site: Abdomen Pain Description: Ache Comment: Reports fatigue & weakness in Abdomen from use while using [place] Mental Status Patient Orientation: Person, Place, Time, Situation Attachments: Colostomy/Ileostomy, Drains, Other-See Comments (Wound Vac.), IV Transfers SCALE: Activities may be completed with or without assistive devices. 2-Kpfdnnqvrs-jyugfsr completes the activity by him/herself with no assistance from a helper. 5-Set-up or Clean-up Assistance-helper sets up or cleans up; patient completes activity. [place] assists only prior to or following the activity. 4-Supervision or Touching Assistance-helper provides verbal cues and/or touching/steadying and/or contact guard assistance as patient completes activity. Assistance may be provided throughout the activity or intermittently. 3-Partial/Moderate Assistance-helper does LESS THAN HALF the effort. [place] lifts, holds or supports trunk or limbs, but provides less than half the effort. 2-Substantial/Maximal Assistance-helper does MORE THAN HALF the effort. [place] lifts or holds trunk or limbs and provides more than half the effort. 9-Swiismqsq-dovmfo does ALL the effort. Patient does none of the effort to complete the activity. Or, the assistance of 2 or more helpers is required for the patient to complete the activity. If activity was not attempted, code reason: 7-Patient Refused. 9-Not Applicable-not attempted and the patient did not perform the activity befo re the current illness, exacerbation or injury. 10-Not Attempted due to Environmental Limitations-(lack of equipment, weather re straints, etc.). 88-Not Attempted due to Medical Conditions or Safety Concerns. Sit to Lying (QC): 5 Weight Bearing Full Weight Bearing Full Weight Bearing Treatments Pt educ. about how to use Gait Belt to lift B LE into bed. Demo. & review. EX reviewed. Pt resting in recliner at end of tx. Pt has all needs met, call light in hand. Assessment Current Status: Good Progress Pt toleration and ability to complete tasks depends more how she feels after eating and less on strength which has improved. PT Short Term Goals Short Term Goals Time Frame: May 30, 2022 Roll Left & Right: 4 (SBA) Sit to lyin (SBA) Lying to sitting on side of be: 4 (SBA) Sit to stand: 4 (CGA) Chair/red-wf-ayoll transfer: 4 (SBA) Toilet transfer: 4 (SBA) Walk 10 feet: 4 (SBA) Walk 50 feet with two turns: 4 (SBA) Walk 150 feet: 4 (SBA) PT Pulp Grinder And Blender Goals Pulp Grinder And Blender Goals PT Correction Goals Time Frame: Jun 13, 2022 Roll Left & Right (QC): 6 Sit to Lying (QC): 6 Lying-Sitting on Side/Bed(QC): 6 Sit to Stand (QC): 6 Chair/Mgy-gu-Bgpbq Xfer(QC): 6 Toilet Transfer (QC): 6 Car Transfer (QC): 4 Does the Patient Walk: Yes Walk 10 feet (QC): 6 Walk 50ft with 2 Turns (QC): 6 Walk 150 ft (QC): 6 Walking 10ft on Uneven Surface: 6 1 Step (curb) (QC): 4 4 Steps (QC): 4 12 Steps (QC): 88 Picking up an Object (QC): 6 (using spanish medical interpreter) Wheel 50 feet with 2 turns (QC: 9 Wheel 150 feet: 9 PT Plan Problem List Problem List: Activity Tolerance Treatment/Plan Treatment Plan: Continue Plan of Care Treatment Plan: Bed Mobility, Education, Functional Activity Tj, Functional Strength, Group Therapy, Gait, Safety, Therapeutic Exercise, Transfers Treatment Duration: Jun 13, 2022 Frequency: At least 5 of 7 days/Wk (IRF) Estimated Hrs Per Day: 1.5 hours per day Patient and/or Family Agrees t: Yes Safety Risks/Education Patient Education: Issued Written HEP, Correct Positioning, Safety Issues Teaching Recipient: Patient Teaching Methods: Discussion Response to Teaching: Verbalize Understanding Time/GCodes Time In: 1350 Time Out: 1420 Total Billed Treatment Time: 30 Total Billed Treatment 1, FA (15m) & EX (15m) CHANDA GUALLPA EDUCATION TECHNICIAN May 31, 2022 14:36
[2022-05-31] MEDS: ENOXAPARIN 40 MG/0.4 ML (LOVENOX) SYR SC SCH (16:38)
[2022-05-31 20:00] VITALS: BP 113/55
[2022-05-31 20:56] VITALS: BP 113/55
[2022-06-01] MEDS ORDERED: ALPR.25T PO (05:29)
[2022-06-01] MEDS ORDERED: MICO90PO TOP (05:29)
[2022-06-01] MEDS ORDERED: POTA-169 PO (05:29)
[2022-06-01] MEDS ORDERED: OXC5T PO (05:29)
[2022-06-01] MEDS ORDERED: OXYC10TA55 PO (05:29)
--- NOTE | 2022-06-01 05:31 | Discharge Summary ---
Diagnosis/Chief Complaint Date of Admission May 23, 2022 at 13:00 Date of Discharge Discharge Date: Jun 01, 2022 Discharge Diagnosis Assessment: S/p partial colon resection with colostomy due to severe colon obstruction from adhesions from recurrent silent diverticulitis -Done at [facility] Abdominal abscess -Flagyl and Zosyn completed -s/p washout at AV -NaCl at 125 mls/hr decreased to 30cc/hr then DC completely -Pain control Acute blood loss anemia -Likely secondary to surgical blood loss -Iron studies show low Iron so ordered IV Venofer, B12 ok Hypokalemia -K+ protocol via IV and p.o. COPD Edema from third-spacing, encouraged PO nutrition Plan: Pain control Monitor closely IRF protocol 05/24/2022: IVF decrease CYNTHIA wraps 05/25/2022: DC abx CYNTHIA wraps 05/26/2022: Dramatically improved Venofer 05/27/2022: Supplement potassium IV iron 05/28/2022: Continue po potassium Labs in am 05/29/2022: Monitor closely Increase potassium 05/30/2022: Supportive care Pain control 05/31/2022: DC tomorrow (1) Myopathy (2) Abdominal abscess (3) COPD (chronic obstructive pulmonary disease) Discharge Summary Discharge Physical Examination Allergies: Coded Allergies: meperidine (Verified Allergy, Unknown, 12/15/08) Vitals & I&Os Vital Signs Date Time Temp Pulse Resp B/P (MAP) Pulse Ox O2 Delivery O2 Flow Rate FiO2 06/01/22 11:30 36.8 88 18 119/58 97 Room Air 05/29/22 08:08 0.00 General Appearance: Alert, Oriented X3, Cooperative Respiratory: Clear to Auscultation Cardiovascular: Regular Rate Neuro: Normal Gait, Normal Speech, Strength at 5/5 X4 Ext Psych/Mental Status: Mental Status NL Hospital Course Was the Problem List Reviewed?: Yes Standard hospital course after she was moved from fourth floor to rehab after extensive abdominal surgery with colostomy revision and abscess drainage. IV antibiotics maintained until completely treated the infection. She required aggressive IV fluids and a great deal of pain medication in order to regain function to participate in therapies. Hypokalemia managed with aggressive supplement. She completed her iron infusions for iron deficiency anemia. Labs (last 24 hrs) Laboratory Tests 05/24/22 05:55: White Blood Count 6.4, Red Blood Count 2.70L, Hemoglobin 7.8L, Hematocrit 24L, Mean Corpuscular Volume 89, Mean Corpuscular Hemoglobin 29, Mean Corpuscular Hemoglobin Concent 33, Red Cell Distribution Width 15.4H, Platelet Count 681H, Mean Platelet Volume 8.6L, Immature Granulocyte % (Auto) 1, Neutrophils (%) (Auto) 75, Lymphocytes (%) (Auto) 14, Monocytes (%) (Auto) 9, Eosinophils (%) (Auto) 1, Basophils (%) (Auto) 1, Neutrophils # (Auto) 4.8, Lymphocytes # (Auto) 0.9L, Monocytes # (Auto) 0.6, Eosinophils # (Auto) 0.1, Basophils # (Auto) 0.0, Immature Granulocyte # (Auto) 0.0, Sodium Level 131L, Potassium Level 3.2L, Chloride Level 103, Carbon Dioxide Level 18L, Anion Gap 10, Blood Urea Nitrogen 3L, Creatinine 0.58L, Estimat Glomerular Filtration Rate 92, BUN/Creatinine Ratio 5, Glucose Level 74, Calcium Level 7.8L, Corrected Calcium 9.3, Magnesium Level 1.7, Total Bilirubin 0.3, Aspartate Amino Transf (AST/SGOT) 13, Alanine Aminotransferase (ALT/SGPT) 8, Alkaline Phosphatase 59, Total Protein 4.6L, Albumin 2.1L 05/25/22 06:20: White Blood Count 6.7, Red Blood Count 2.64L, Hemoglobin 7.6L, Hematocrit 23L, Mean Corpuscular Volume 88, Mean Corpuscular Hemoglobin 29, Mean Corpuscular Hemoglobin Concent 33, Red Cell Distribution Width 15.7H, Platelet Count 677H, Mean Platelet Volume 8.7L, Immature Granulocyte % (Auto) 1, Neutrophils (%) (A uto) 74, Lymphocytes (%) (Auto) 13, Monocytes (%) (Auto) 10, Eosinophils (%) (Auto) 2, Basophils (%) (Auto) 0, Neutrophils # (Auto) 5.0, Lymphocytes # (Auto) 0.8L, Monocytes # (Auto) 0.7, Eosinophils # (Auto) 0.1, Basophils # (Auto) 0.0, Immature Granulocyte # (Auto) 0.1, Sodium Level 135, Potassium Level 3.6, Chloride Level 102, Carbon Dioxide Level 19L, Anion Gap 14, Blood Urea Nitrogen 2L, Creatinine 0.63, Estimat Glomerular Filtration Rate 90, BUN/Creatinine Ratio 3, Glucose Level 79, Calcium Level 8.1L, Corrected Calcium 9.5, Magnesium Level 1.7, Total Bilirubin 0.2, Aspartate Amino Transf (AST/SGOT) 16, Alanine Aminotransferase (ALT/SGPT) 9, Alkaline Phosphatase 64, Total Protein 4.5L, Albumin 2.2L, Prealbumin 8.2L 05/27/22 07:49: White Blood Count 8.6, Red Blood Count 2.85L, Hemoglobin 8.3L, Hematocrit 25L, Mean Corpuscular Volume 89, Mean Corpuscular Hemoglobin 29, Mean Corpuscular Hemoglobin Concent 33, Red Cell Distribution Width 16.9H, Platelet Count 683H, Mean Platelet Volume 9.3, Immature Granulocyte % (Auto) 1, Neutrophils (%) (Auto) 71, Lymphocytes (%) (Auto) 17, Monocytes (%) (Auto) 9, Eosinophils (%) (Auto) 2, Basophils (%) (Auto) 0, Neutrophils # (Auto) 6.1, Lymphocytes # (Auto) 1.5, Monocytes # (Auto) 0.8, Eosinophils # (Auto) 0.1, Basophils # (Auto) 0.0, Immature Granulocyte # (Auto) 0.1, Sodium Level 136, Potassium Level 2.7L, Chloride Level 102, Carbon Dioxide Level 22, Anion Gap 12, Blood Urea Nitrogen 3L, Creatinine 0.70, Estimat Glomerular Filtration Rate 88, BUN/Creatinine Ratio 4, Glucose Level 100, Calcium Level 8.5, Corrected Calcium 9.9, Total Bilirubin 0.2, Aspartate Amino Transf (AST/SGOT) 18, Alanine Aminotransferase (ALT/SGPT) 9, Alkaline Phosphatase 65, Total Protein 5.0L, Albumin 2.3L 05/28/22 08:00: Sodium Level 136, Potassium Level 3.7, Chloride Level 102, Carbon Dioxide Level 23, Anion Gap 11, Blood Urea Nitrogen 2L, Creatinine 0.65, Estimat Glomerular Filtration Rate 90, BUN/Creatinine Ratio 3, Glucose Level 103, Calcium Level 8.7, Corrected Calcium 10.0, Total Bilirubin 0.3, Aspartate Amino Transf ( T/SGOT) 13, Alanine Aminotransferase (ALT/SGPT) 9, Alkaline Phosphatase 67, Total Protein 5.2L, Albumin 2.4L 05/29/22 05:45: White Blood Count 7.5, Red Blood Count 2.88L, Hemoglobin 8.6L, Hematocrit 27L, Mean Corpuscular Volume 92, Mean Corpuscular Hemoglobin 30, Mean Corpuscular Hemoglobin Concent 33, Red Cell Distribution Width 18.4H, Platelet Count 574H, Mean Platelet Volume 9.0, Immature Granulocyte % (Auto) 1, Neutrophils (%) (Auto) 64, Lymphocytes (%) (Auto) 19, Monocytes (%) (Auto) 14H, Eosinophils (%) (Auto) 2, Basophils (%) (Auto) 1, Neutrophils # (Auto) 4.8, Lymphocytes # (Auto) 1.4, Monocytes # (Auto) 1.0, Eosinophils # (Auto) 0.2, Basophils # (Auto) 0.0, Immature Granulocyte # (Auto) 0.1, Sodium Level 135, Potassium Level 3.6, Chloride Level 101, Carbon Dioxide Level 22, Anion Gap 12, Blood Urea Nitrogen < 2L, Creatinine 0.63, Estimat Glomerular Filtration Rate 90, BUN/Creatinine Ratio 3, Glucose Level 102, Calcium Level 8.6, Corrected Calcium 9.8, Total Bilirubin 0.3, Aspartate Amino Transf (AST/SGOT) 16, Alanine Aminotransferase (ALT/SGPT) 10, Alkaline Phosphatase 65, Total Protein 5.3L, Albumin 2.5L Pending Labs Laboratory Tests 05/24/22 05:55: White Blood Count 6.4, Red Blood Count 2.70, Hemoglobin 7.8, Hematocrit 24, Mean Corpuscular Volume 89, Mean Corpuscular Hemoglobin 29, Mean Corpuscular Hemoglobin Concent 33, Red Cell Distribution Width 15.4, Platelet Count 681, Mean Platelet Volume 8.6, Immature Granulocyte % (Auto) 1, Neutrophils (%) (Auto) 75, Lymphocytes (%) (Auto) 14, Monocytes (%) (Auto) 9, Eosinophils (%) (Auto) 1, Basophils (%) (Auto) 1, Neutrophils # (Auto) 4.8, Lymphocytes # (Auto) 0.9, Monocytes # (Auto) 0.6, Eosinophils # (Auto) 0.1, Basophils # (Auto) 0.0, Immature Granulocyte # (Auto) 0.0, Sodium Level 131, Potassium Level 3.2, Chloride Level 103, Carbon Dioxide Level 18, Anion Gap 10, Blood Urea Nitrogen 3, Creatinine 0.58, Estimat Glomerular Filtration Rate 92, BUN/Creatinine Ratio 5, Glucose Level 74, Calcium Level 7.8, Corrected Calcium 9.3, Magnesium Level 1.7, Total Bilirubin 0.3, Aspartate Amino Transf (AST/SGOT) 13, Alanine Aminotransferase (ALT/SGPT) 8, Alkaline Phosphatase 59, Total Protein 4.6, Albumin 2.1 05/25/22 06:20: White Blood Count 6.7, Red Blood Count 2.64, Hemoglobin 7.6, Hematocrit 23, Mean Corpuscular Volume 88, Mean Corpuscular Hemoglobin 29, Mean Corpuscular Hemoglobin Concent 33, Red Cell Distribution Width 15.7, Platelet Count 677, Mean Platelet Volume 8.7, Immature Granulocyte % (Auto) 1, Neutrophils (%) (Auto) 74, Lymphocytes (%) (Auto) 13, Monocytes (%) (Auto) 10, Eosinophils (%) (Auto) 2, Basophils (%) (Auto) 0, Neutrophils # (Auto) 5.0, Lymphocytes # (Auto) 0.8, Monocytes # (Auto) 0.7, Eosinophils # (Auto) 0.1, Basophils # (Auto) 0.0, Immature Granulocyte # (Auto) 0.1, Sodium Level 135, Potassium Level 3.6, Chloride Level 102, Carbon Dioxide Level 19, Anion Gap 14, Blood Urea Nitrogen 2, Creatinine 0.63, Estimat Glomerular Filtration Rate 90, BUN/Creatinine Ratio 3, Glucose Level 79, Calcium Level 8.1, Corrected Calcium 9.5, Magnesium Level 1.7, Total Bilirubin 0.2, Aspartate Amino Transf (AST/SGOT) 16, Alanine Aminotransferase (ALT/SGPT) 9, Alkaline Phosphatase 64, Total Protein 4.5, Albumin 2.2, Prealbumin 8.2 05/27/22 07:49: White Blood Count 8.6, Red Blood Count 2.85, Hemoglobin 8.3, Hematocrit 25, Mean Corpuscular Volume 89, Mean Corpuscular Hemoglobin 29, Mean Corpuscular Hemoglobin Concent 33, Red Cell Distribution Width 16.9, Platelet Count 683, Mean Platelet Volume 9.3, Immature Granulocyte % (Auto) 1, Neutrophils (%) (Auto) 71, Lymphocytes (%) (Auto) 17, Monocytes (%) (Auto) 9, Eosinophils (%) (Auto) 2, Basophils (%) (Auto) 0, Neutrophils # (Auto) 6.1, Lymphocytes # (Auto) 1.5, Monocytes # (Auto) 0.8, Eosinophils # (Auto) 0.1, Basophils # (Auto) 0.0, Immature Granulocyte # (Auto) 0.1, Sodium Level 136, Potassium Level 2.7, Chloride Level 102, Carbon Dioxide Level 22, Anion Gap 12, Blood Urea Nitrogen 3, Creatinine 0.70, Estimat Glomerular Filtration Rate 88, BUN/Creatinine Ratio 4, Glucose Level 100, Calcium Level 8.5, Corrected Calcium 9.9, Total Bilirubin 0.2, Aspartate Amino Transf (AST/SGOT) 18, Alanine Aminotransferase (ALT/SGPT) 9, Alkaline Phosphatase 65, Total Protein 5.0, Albumin 2.3 05/28/22 08:00: Sodium Level 136, Potassium Level 3.7, Chloride Level 102, Carbon Dioxide Level 23, Anion Gap 11, Blood Urea Nitrogen 2, Creatinine 0.65, Estimat Glomerular Filtration Rate 90, BUN/Creatinine Ratio 3, Glucose Level 103, Calcium Level 8.7, Corrected Calcium 10.0, Total Bilirubin 0.3, Aspartate Amino Transf (AST/SGOT) 13, Alanine Aminotransferase (ALT/SGPT) 9, Alkaline Phosphatase 67, Total Protein 5.2, Albumin 2.4 05/29/22 05:45: White Blood Count 7.5, Red Blood Count 2.88, Hemoglobin 8.6, Hematocrit 27, Mean Corpuscular Volume 92, Mean Corpuscular Hemoglobin 30, Mean Corpuscular Hemoglobin Concent 33, Red Cell Distribution Width 18.4, Platelet Count 574, Mean Platelet Volume 9.0, Immature Granulocyte % (Auto) 1, Neutrophils (%) (Auto) 64, Lymphocytes (%) (Auto) 19, Monocytes (%) (Auto) 14, Eosinophils (%) (Auto) 2, Basophils (%) (Auto) 1, Neutrophils # (Auto) 4.8, Lymphocytes # (Auto) 1.4, Monocytes # (Auto) 1.0, Eosinophils # (Auto) 0.2, Basophils # (Auto) 0.0, Immature Granulocyte # (Auto) 0.1, Sodium Level 135, Potassium Level 3.6, Chloride Level 101, Carbon Dioxide Level 22, Anion Gap 12, Blood Urea Nitrogen < 2, Creatinine 0.63, Estimat Glomerular Filtration Rate 90, BUN/Creatinine Ratio 3, Glucose Level 102, Calcium Level 8.6, Corrected Calcium 9.8, Total Bilirubin 0.3, Aspartate Amino Transf (AST/SGOT) 16, Alanine Aminotransferase (ALT/SGPT) 10, Alkaline Phosphatase 65, Total Protein 5.3, Albumin 2.5 Discharge Home Medications: Active Scripts Active Oxycontin (Oxycodone HCl) 10 Mg Tab.er.12h 10 Mg PO BID Lotrimin AF (Miconazole Nitrate) 2 % Powder 1 Gm TOP BID Klor-Con M20 (Potassium Chloride) 20 Meq Tab.er.prt 20 Meq PO BID WITH MEALS Xanax Tablet (Alprazolam) 0.25 Mg Tab 0.25 Mg PO Q4HR PRN Oxyir Tablet (Oxycodone HCl) 5 Mg Tab 5 Mg PO Q4H PRN Reported Atenolol 25 Mg Tablet 25 Mg PO DAILY Spiriva Respimat 2.5MCG/ACTUATION (Tiotropium [place]) 2.5 Mcg/Actuation Mist.inhal 2 Puff IH DAILY Nasacort (Triamcinolone Acetonide) 55 Mcg Carson 1 Carson NSEACH BID Aspirin EC (Aspirin) 81 Mg Tablet.dr 81 Mg PO DAILY Allergy Relief (Cetirizine HCl) 10 Mg Tablet 10 Mg PO HS Magnesium (Magnesium Oxide) 400 Mg Magnesium Tablet 400 Mg PO DAILY Calcium (Calcium Carbonate) 600 Mg Calcium (1500 Mg) Tablet 600 Mg PO DAILY Vitamin C (Ascorbate Calcium) 500 Mg Tablet 1,000 Mg PO DAILY Pantoprazole Sodium 40 Mg Tablet.dr 40 Mg PO DAILY Levothyroxine Sodium 100 Mcg Tablet 100 Mcg PO DAILY Meloxicam 7.5 Mg Tablet 7.5 Mg PO BID Carafate (Sucralfate) 1 Gram Tablet 1 Gm PO QID Instructions to patient/family Please see electronic discharge instructions given to patient. Diagnosis/Problems Diagnosis/Problems (1) Myopathy (2) Abdominal abscess (3) COPD (chronic obstructive pulmonary disease) MIKEY CAMP DO Jun 01, 2022 05:31
--- NOTE | 2022-06-01 05:31 | D/C HH Face to Face Order ---
D/C Face to Face Orders Reconcile Patient Problems Problems Reviewed?: Yes Instructions for Patient [facility] Patient Instructions/FollowUp: PCP 1 week Physician to follow Patient: Myranda Barfield Diet for Home: No Restrictions Patient Problems: Colostomy Patient Data-Allergies,Ht & Wt Patient Allergies: Coded Allergies: meperidine (Verified Allergy, Unknown, 12/15/08) Height (Feet): 5 Height (Inches): 2.00 Weight (Pounds): 160 Weight (Ounces): 0.0 Home Health Need/Face to Face Date of Face to Face: Jun 01, 2022 Clinical Findings: Generalized weakness and fatigue, Instability, Muscle weakness, Unsteady gait, Non-healing wound I have seen Pt [id number]: Yes Discharged To: Home Diagnosis/Conditions: Colostomy Patient is Homebound due to: Zacarias fall risk due to instabilty, Muscle weakness Homebound Status Due to the above stated illness, injury or surgical procedure (medical condition or diagnosis) and associated clinical findings, the patient is homebound because of his/her inability to leave home except with aid of a supportive device and/or person AND leaving the home requires a considerable and taxing effort or is medically contraindicated. Pt req the following assistanc: Walker Home Health Nursing Orders Home Health Services Order: Nursing Services, Insect Control Aide-Evaluate & Treat, Physical Therapy-Evaluate & Treat, Wound Care-Eval/Treat (wound vac) Home Health Infusion Therapy Line Start Date: May 24, 2022 Certify Stmt I certify that this patient is under my care and that I, a nurse practitioner or a physician; a bilingual sales assistant working with me, had a face to face encounter that - meets the physician face to face encounter requirements with this patient as dated. MIKEY CAMP DO Jun 01, 2022 05:31
[2022-06-01] MEDS: CATHETER FLUSH 10 ML SYR IVP SCH (06:23)
[2022-06-01] MEDS: LEVOTHYROXINE 100 MCG (LEVOTHROID) TAB PO SCH (06:23)
[2022-06-01 07:40] VITALS: BP 119/58
[2022-06-01] MEDS: ATENOLOL 25 MG (TENORMIN) TAB PO SCH (08:03)
[2022-06-01] MEDS: IRON SUCROSE 200 MG/10 ML (VENOFER) VIAL IV SCH (08:03)
[2022-06-01] MEDS: oxyCODONE ER 10 MG (OxyCONTIN CR) TAB PO SCH (08:03)
[2022-06-01] MEDS: SENNA W/DOCUSATE (SENOKOT S) TABLET PO SCH (08:03)
[2022-06-01] MEDS: KCL 20 MEQ TAB (K-DUR) PO SCH (08:03)
[2022-06-01] MEDS: SENNOSIDES 8.6 MG (SENOKOT) TAB PO SCH (08:04)
[2022-06-01] MEDS: DOCUSATE SODIUM 100 MG (COLACE) CAP PO SCH (08:04)
[2022-06-01] MEDS: MICONAZOLE 2% POWDER (DESENEX AF) 90 GM TOP SCH (08:20)
[2022-06-01] MEDS: polyethylene glycoL POWDER 17 GM (MIRALAX) PACK PO SCH (08:20)
[2022-06-01] MEDS: RT-ALBUTEROL/IPRATROPIUM 3 ML (DUONEB) VIAL INH SCH (08:38)
[2022-06-01] MEDS: ALPRAZolam 0.25 MG (XANAX) TAB PO PRN (11:15)
[2022-06-01 11:30] VITALS: BP 119/58
--- NOTE | 2022-06-01 11:32 | Therapy Team Discharge Summary ---
Therapy Discharge Summary Discharge Recommendations Date of Discharge Physical Therapy Patient came to rehab post colon resection with colostomy. Upon evaluation patient performs rolling and supine <-> sit with min assist, sit <-> stand min assist, transfers CGA, car transfer mod assist, ambulate 150' with a rolling walker with CGA (including 50' with at least 2 turns of 90 degrees and 10' over an uneven surface), and able to pickle sorter an object from the floor using a fabricator foam rubber with CGA. Patient has been performing bed mobility and transfer training, balance and endurance training, functional strengthening, gait training, stair training, and education. Patient has made some progress but has only met her exterminator helper termite goals for stairs and sit <-> stand and transfers. Now, patient performs rolling with setup, supine <-> sit min/mod assist, sit <-> stand and transfers with independence, car transfer min/mod assist, ambulates 150' with a rolling walker with setup (including 50' with at least 2 turns of 90 degrees and 10' over an uneven surface), can go up and down 4 steps using 2 handrails with SBA, refused to pickle sorter an object from the floor. Patient is being discharged from this facility today and will be discharged from PT at this time. Roll Left to Right (QC): 5 Sit to Lying (QC): 5 Lying to Sitting/Side of Bed(Q: 3 Sit to Stand (QC): 6 Chair/Cwk-zs-Junlh Xfer(QC): 6 Toilet Transfer (QC): 5 Car Transfer (QC): 3 Does the Patient Walk: Yes Mode of Locomotion: Walk Anticipated Mode of Locomotion: Walk Walk 10 feet (QC): 5 Walk 50 ft with 2 Turns(QC): 5 Walk 150 ft (QC): 5 Walking 10ft on uneven surface: 5 Distance: 150'x2, 100' Gait Assistive Device: Walker 4 Wheeled Does the Pt Use a Wheelchair: No Wheel 50 ft with 2 turns (QC): 9 Wheel 150 ft (QC): 9 #of Steps: 4 1 Step (curb) (QC): 5 4 Steps (QC): 5 12 Steps (QC): 7 Balance Sitting Static: Fair Balance Sitting Dynamic: Fair Balance-Standing Static: Fair Picking up an Object (QC): 7 Occupational Therapy Decreased Activ Tolerance, Decreased UE Strength Eating (QC): 6 Oral Hygiene (QC): 6 Shower/Bathe Self (QC): 6 Upper Body Dressing (QC): 3 Lower Body Dressing (QC): 5 On/Off Footwear (QC): 5 Toileting Hygiene (QC): 6 (voiding only) PT Fpc Goals Advisory Intern Goals PT Fpc Goals Time Frame: Jun 13, 2022 Roll Left to Right (QC): 6 Sit to Lying (QC): 6 Lying-Sitting on Side/Bed(QC): 6 Sit to Stand (QC): 6 Chair/Scf-cr-Iuidb Xfer(QC): 6 Car Transfer (QC): 4 Does the Patient Walk: Yes Walk 10 feet (QC): 6 Walk 10ft-Uneven Surface(QC): 6 Walk 50ft with 2 Turns (QC): 6 Walk 150 ft (QC): 6 Wheel 50 feet with 2 turns (QC: 9 1 Step (curb) (QC): 4 4 Steps (QC): 4 12 Steps (QC): 88 Picking up an Object (QC): 6 (using fabricator foam rubber) OT Fpc Goals Advisory Intern Goals Time Frame: Jun 16, 2022 Eating (FIM): 6 Eating (QC): 6 (met) Oral Hygiene (QC): 6 (met) Shower/Bathe Self (QC): 5 (met) Upper Body Dressing (QC): 6 (not met) Lower Body Dressing (QC): 6 (not met) On/Off Footwear (QC): 6 (not met) Toileting(FIM): 6 Toileting Hygiene (QC): 6 (met) Toilet/Commode Transfer (QC): 6 Additional Goals: 1-Demonstrate ADL Tasks, 2-Verbalize Understanding, 3- ImproveStrength/Tj 1=Demonstrate adherence to instructed precautions during ADL tasks. 2=Patient will verbalize/demonstrate understanding of assistive devices/modifications for ADL. 3=Patient will improve strength/tolerance for activity to enable patient to perform ADL's. EVELYN GARCIA PT Jun 01, 2022 11:32
--- NOTE | 2022-06-01 11:34 | Therapy Team Discharge Summary ---
Therapy Discharge Summary Discharge Recommendations Date of Discharge Physical Therapy Roll Left to Right (QC): 5 Sit to Lying (QC): 5 Lying to Sitting/Side of Bed(Q: 3 Sit to Stand (QC): 6 Chair/Gux-li-Ulzzl Xfer(QC): 6 Toilet Transfer (QC): 5 Car Transfer (QC): 3 Does the Patient Walk: Yes Mode of Locomotion: Walk Anticipated Mode of Locomotion: Walk Walk 10 feet (QC): 5 Walk 50 ft with 2 Turns(QC): 5 Walk 150 ft (QC): 5 Walking 10ft on uneven surface: 5 Distance: 150'x2, 100' Gait Assistive Device: Walker 4 Wheeled Does the Pt Use a Wheelchair: No Wheel 50 ft with 2 turns (QC): 9 Wheel 150 ft (QC): 9 #of Steps: 4 1 Step (curb) (QC): 5 4 Steps (QC): 5 12 Steps (QC): 7 Balance Sitting Static: Fair Balance Sitting Dynamic: Fair Balance-Standing Static: Fair Picking up an Object (QC): 7 Occupational Therapy Pt presented to ARU with debility. Pt reports being IND with ADLs and IADLs and used a SPC or FWW for functional mobility at [facility]. At [facility], she scored setup with eating and UBD, CGA-SBA with oral care, Min A with showering, LBD, and toileting, and Max A with footwear. OT tx focused on increasing IND in ADLs, activity tolerance, functional transfers and balance, and BUE strength and endurance. Pt made functional progress, meeting 4/7 goals. OT recommends pt continue OT services with home health therapy and obtain practice business asst, sock aid, and dressing stick upon d/c to maximize IND in ADLs after d/c. Pt being d/c home with family and friends. D/c from skilled OT services at this time. Decreased Activ Tolerance, Decreased UE Strength Eating (QC): 6 Oral Hygiene (QC): 6 Shower/Bathe Self (QC): 6 Upper Body Dressing (QC): 3 Lower Body Dressing (QC): 5 On/Off Footwear (QC): 5 Toileting Hygiene (QC): 6 (voiding only) PT Underwater Photographer Goals Underwater Photographer Goals PT Underwater Photographer Goals Time Frame: Jun 13, 2022 Roll Left to Right (QC): 6 Sit to Lying (QC): 6 Lying-Sitting on Side/Bed(QC): 6 Sit to Stand (QC): 6 Chair/Hef-gj-Tzcpa Xfer(QC): 6 Car Transfer (QC): 4 Does the Patient Walk: Yes Walk 10 feet (QC): 6 Walk 10ft-Uneven Surface(QC): 6 Walk 50ft with 2 Turns (QC): 6 Walk 150 ft (QC): 6 Wheel 50 feet with 2 turns (QC: 9 1 Step (curb) (QC): 4 4 Steps (QC): 4 12 Steps (QC): 88 Picking up an Object (QC): 6 (using practice business asst) OT Fpc Goals Fpc Goals Time Frame: Jun 16, 2022 Eating (FIM): 6 Eating (QC): 6 (met) Oral Hygiene (QC): 6 (met) Shower/Bathe Self (QC): 5 (met) Upper Body Dressing (QC): 6 (not met) Lower Body Dressing (QC): 6 (not met) On/Off Footwear (QC): 6 (not met) Toileting(FIM): 6 Toileting Hygiene (QC): 6 (met) Toilet/Commode Transfer (QC): 6 Additional Goals: 1-Demonstrate ADL Tasks, 2-Verbalize Understanding, 3- ImproveStrength/Tj 1=Demonstrate adherence to instructed precautions during ADL tasks. 2=Patient will verbalize/demonstrate understanding of assistive devices/modifications for ADL. 3=Patient will improve strength/tolerance for activity to enable patient to perform ADL's. AMARILIS MONTIEL OT Jun 01, 2022 11:34
== END 2022-06-01 20:02 | disposition home health service (06) | DRG 92 ==
PROVIDERS: ADMIT Internal Medicine; ATTEND Internal Medicine
DX: G72.89 Other specified myopathies (principal); T81.43XA Infection following a procedure, organ and space surgical site, initial encounter; K57.32 Diverticulitis of large intestine without perforation or abscess without bleeding; D62 Acute posthemorrhagic anemia; K21.9 Gastro-esophageal reflux disease without esophagitis; I10 Essential (primary) hypertension; J44.9 Chronic obstructive pulmonary disease, unspecified; E03.9 Hypothyroidism, unspecified; M19.90 Unspecified osteoarthritis, unspecified site; K58.9 Irritable bowel syndrome, unspecified; E87.6 Hypokalemia; I49.9 Cardiac arrhythmia, unspecified; R32 Unspecified urinary incontinence; Z79.890 Hormone replacement therapy; Z79.82 Long term (current) use of aspirin; Z93.3 Colostomy status; Z79.899 Other long term (current) drug therapy
CPT/HCPCS: 36415; 36569; 76937; 80053; 83735; 84134; 85025; 94640; 94760

== ENCOUNTER 2022-06-02 14:49 | Inpatient (IN) | payer MEDICARE, OTHER ==
[~2022-06-02] VITALS: Ht 157 cm; Wt 77.8 kg
[~2022-06-02 14:49] MED LIST changes: +ALPR.25T PO; +MICO90PO TOP; +OXC5T PO; +OXYC10TA55 PO; +POTA-169 PO
--- NOTE | 2022-06-02 15:58 | Diagnostic Imaging Report ---
INDICATION: Drainage catheter fell out. FINDINGS: There are differential air-fluid levels throughout the mildly distended small bowel as well as the gas-distended stomach, consistent with the small bowel obstruction. No free air found. No pneumatosis. IMPRESSION: Abnormal dilated small bowel and stomach with differential air-fluid levels, suspicious for bowel obstruction. Dictated by: Dictated on workstation # [id number]
[2022-06-02] MEDS ORDERED: LACTATED RINGERS 1,000 ML IV ONE (16:30)
--- NOTE | 2022-06-02 16:32 | ED General ---
General Chief Complaint: Post OP Complications/Pain Stated Complaint: DRAIN FELL OUT Nursing Triage Note: PT PRESENTS TO ED VIA EMS FROM HOME WITH COMPLAITNS OF ABDOMINAL DRAIN FALLING OUT WHEN TRANSFERRING TO THE BATHROOM TODAY. PT REPORTS INCREASED ABDOMINAL DISTENTION AND PRESSURE/PAIN SINCE IT FELL OUT. PER PT-PT HAD 2 RECENT ABDOMINAL SX BY TIM RELATED TO DIVERTICULITIS Source of Information: Patient Exam Limitations: No Limitations History of Present Illness Date Seen by Provider: Jun 02, 2022 Time Seen by Provider: 15:04 Initial Comments This 81-year-old woman presents to the emergency room initially with complaint of a dislodged GILBERT drain on the right abdomen. The drain was placed after she developed an abscess postoperatively from a partial colon resection. 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 The colostomy bag is completely empty and flat without any gas or stool. Patient ledesma s noted a decrease in output since being discharged from the rehab unit yesterday. Her abdomen is distended and fairly tight. She does not report any increased pain. She reports home health has been set up to start on Sunday (this is Sunday) and social work has been trying to find her placement in a residential facility. Her granddaughter has been caring for her over the hours but that has proven quite difficult because she also has a 7-year-old child. Patient is having difficulty getting up out of bed and caring for herself. She has chronic leg debility that additionally complicates matters. She is concerned that she is a fall risk and not safe at home. She reports being quite weak as well. She has a double-lumen PICC line in the right arm. She additionally has a wound VAC on her abdomen. She reports difficulty consuming food and fluids. She has no appetite and often experiences pain immediately after consuming anything. She denies any nausea or vomiting at this time. She is afebrile Dr. Whitmore is her primary care provider. Allergies and Home Medications Allergies Coded Allergies: meperidine (Verified Allergy, Unknown, 12/15/08) Patient Home Medication List Home Medication List Reviewed: Yes ALPRAZolam (Xanax Tablet) 0.25 Mg Tab, 0.25 MG PO Q4HR PRN for ANXIETY Prescribed by: MIKEY CAMP on 06/01/22 0530 Ascorbate Calcium (Vitamin C) 500 Mg Tablet, 1,000 MG PO DAILY, (Reported) Entered as Reported by: MAR SALVADOR on 05/19/22 152 Aspirin (Aspirin EC) 81 Mg Tablet.dr, 81 MG PO DAILY, (Reported) Entered as Reported by: MAR SALVADOR on 05/19/22 152 Atenolol (Atenolol) 25 Mg Tablet, 25 MG PO DAILY, (Reported) Entered as Reported by: MAR SALVADOR on 05/19/22 152 Calcium Carbonate (Calcium) 600 Mg Calcium (1500 Mg) Tablet, 600 MG PO DAILY, (Reported) Entered as Reported by: MAR SALVADOR on 05/19/22 152 Cetirizine HCl (Allergy Relief) 10 Mg Tablet, 10 MG PO HS, (Reported) Entered as Reported by: MAR SALVADOR on 05/19/22 152 Levothyroxine Sodium (Levothyroxine Sodium) 100 Mcg Tablet, 100 MCG PO DAILY, (Reported) Entered as Reported by: MAR SALVADOR on 05/19/22 152 Magnesium Oxide (Magnesium) 400 Mg Magnesium Tablet, 400 MG PO DAILY, (Reported) Entered as Reported by: MAR SALVADOR on 05/19/22 152 Meloxicam (Meloxicam) 7.5 Mg Tablet, 7.5 MG PO BID, (Reported) Entered as Reported by: MAR SALVADOR on 05/19/22 152 Miconazole Nitrate (Lotrimin AF) 2 % Powder, 1 GM TOP BID Prescribed by: MIKEY CAMP on 06/01/22528 Oxycodone HCl (Oxycontin) 10 Mg Tab.er.12h, 10 MG PO BID Prescribed by: MIKEY CAMP on 06/01/22529 Oxycodone Hcl (Oxyir Tablet) 5 Mg Tab, 5 MG PO Q4H PRN for PAIN-SEVERE (8-10) Prescribed by: MIKEY CAMP on 06/01/22529 Pantoprazole Sodium (Pantoprazole Sodium) 40 Mg Tablet.dr, 40 MG PO DAILY, (Repo rted) Entered as Reported by: MAR SALVADOR on 05/19/22 152 Potassium Chloride (Klor-Con M20) 20 Meq Tab.er.prt, 20 MEQ PO BID WITH MEALS Prescribed by: MIKEY CAMP on 06/01/22 0529 Sucralfate (Carafate) 1 Gram Tablet, 1 GM PO QID, (Reported) Entered as Reported by: MAR SALVADOR on 05/19/221523 Tiotropium Fleming (Spiriva Respimat 2.5MCG/ACTUATION) 2.5 Mcg/Actuation Mist.inhal, 2 PUFF IH DAILY, (Reported) Entered as Reported by: MAR SALVADOR on 05/19/221523 Triamcinolone Acetonide (Nasacort) 55 Mcg [place], 1 SPRAY NSEACH BID, (Reported) Entered as Reported by: MAR SALVADOR on 05/19/221523 Review of Systems Review of Systems Constitutional: see HPI, weakness EENTM: no symptoms reported Respiratory: no symptoms reported Cardiovascular: no symptoms reported Genitourinary: no symptoms reported : No Musculoskeletal: see HPI Skin: see HPI Psychiatric/Neurological: No Symptoms Reported Hematologic/Lymphatic: No Symptoms Reported Immunological/Allergic: no symptoms reported Past Nvratvc-Rkihdz-Dqgftw Hx Patient Social History Tobacco Use?: No Smoking Status: Former Smoker Substance use?: No Alcohol Use?: No Pt feels they are or have been: No Immunizations Up To Date Tetanus Booster (TDap): Unknown First/Initial COVID19 Vaccinat: yes Second COVID19 Vaccination Odilon: yes 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[employer] Seasonal Allergies Seasonal Allergies: Yes Past Medical History Surgery/Hospitalization HX: OSTEOARTHRITIS, CHOLECYSTECTOMY, COPD, GERD, HTN, HIGH CHOLESTEROL, MULTIPLE BACK SURGERIES, APPENDECTOMY, TONSILLECTOMY, HYPOTHYROIDISM., bowel resection, colostomy Surgeries: Yes Abdominal (Partial colon resection and colostomy), Appendectomy, Gallbladder, 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, Orthopedic (Back surgeries), Tonsillectomy, Tubal Ligation Respiratory: Yes COPD Currently Using CPAP: No Currently Using BIPAP: No Cardiac: Yes High Cholesterol, Hypertension 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 : No 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 0.0oz. 72.907945km; 32.00 BMI Method:Stated General Appearance: No Apparent Distress, WD/WN HEENT: PERRL/EOMI, Normal ENT Inspection, Other (Oropharynx dry) Neck: Normal Inspection Respiratory: Lungs Clear, Normal Breath Sounds Cardiovascular: Regular Rate, Rhythm, No Murmur, Other (Significant pitting lower extremity edema) Gastrointestinal: Distended, Other (Firm to palpation. Wound VAC in place centrally. Colostomy on the left. Dressed GILBERT drain on the right. 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 Skin: Normal Color, Warm/Dry Progress/Results/Core Measures Suspected Sepsis SIRS Temperature: Pulse: 100 Respiratory Rate: 20 Laboratory Tests 06/02/22 16:33: White Blood Count 8.0 Blood Pressure 121 /55 Mean: 77 Laboratory Tests 06/02/22 16:33: Creatinine 0.78, Platelet Count 330, Total Bilirubin 0.3 Results/Orders Lab Results Laboratory Tests Test 06/02/22 15:25 06/02/22 16:33 Range/Units Urine Color YELLOW Urine Clarity SL CLOUDY Urine pH 7.0 5-9 Urine Specific [place] 1.015 L 1.016-1.022 Urine Protein NEGATIVE NEGATIVE Urine Glucose (UA) NEGATIVE NEGATIVE Urine Ketones NEGATIVE NEGATIVE Urine Nitrite NEGATIVE NEGATIVE Urine Bilirubin NEGATIVE NEGATIVE Urine Urobilinogen 0.2 < = 1.0 MG/DL Urine Leukocyte Esterase 1+ H NEGATIVE Urine RBC (Auto) NEGATIVE NEGATIVE Urine RBC NONE /HPF Urine WBC 10-25 H /HPF Urine Squamous Epithelial Cells 10-25 H /HPF Urine Crystals NONE /LPF Urine Bacteria LARGE H /HPF Urine Casts NONE /LPF Urine Mucus NEGATIVE /LPF Urine Culture Indicated YES White Blood Count 8.0 4.3-11.0 10^3/uL Red Blood Count 2.82 L 3.80-5.11 10^6/uL Hemoglobin 8.5 L 11.5-16.0 g/dL Hematocrit 26 L 35-52 % Mean Corpuscular Volume 92 80-99 fL Mean Corpuscular Hemoglobin 30 25-34 pg Mean Corpuscular Hemoglobin Concent 33 32-36 g/dL Red Cell Distribution Width 19.5 H 10.0-14.5 % Platelet Count 330 130-400 10^3/uL Mean Platelet Volume 9.1 9.0-12.2 fL Immature Granulocyte % (Auto) 1 % Neutrophils (%) (Auto) 67 42-75 % Lymphocytes (%) (Auto) 15 12-44 % Monocytes (%) (Auto) 15 H 0-12 % Eosinophils (%) (Auto) 2 0-10 % Basophils (%) (Auto) 1 0-10 % Neutrophils # (Auto) 5.4 1.8-7.8 10^3/uL Lymphocytes # (Auto) 1.2 1.0-4.0 10^3/uL Monocytes # (Auto) 1.2 H 0.0-1.0 10^3/uL Eosinophils # (Auto) 0.2 0.0-0.3 10^3/uL Basophils # (Auto) 0.1 0.0-0.1 10^3/uL Immature Granulocyte # (Auto) 0.0 0.0-0.1 10^3/uL Sodium Level 134 L 135-145 MMOL/L Potassium Level 3.5 L 3.6-5.0 MMOL/L Chloride Level 97 L 98-107 MMOL/L Carbon Dioxide Level 25 21-32 MMOL/L Anion Gap 12 5-14 MMOL/L Blood Urea Nitrogen 8 7-18 MG/DL Creatinine 0.78 0.60-1.30 MG/DL Estimat Glomerular Filtration Rate 77 BUN/Creatinine Ratio 10 Glucose Level 107 H 70-105 MG/DL Calcium Level 9.4 8.5-10.1 MG/DL Corrected Calcium 10.5 H 8.5-10.1 MG/DL Magnesium Level 1.7 1.6-2.4 MG/DL Total Bilirubin 0.3 0.1-1.0 MG/DL Aspartate Amino Transf (AST/SGOT) 14 5-34 U/L Alanine Aminotransferase (ALT/SGPT) 11 0-55 U/L Alkaline Phosphatase 91 40-136 U/L Total Protein 5.1 L 6.4-8.2 GM/DL Albumin 2.6 L 3.2-4.5 GM/DL Thyroid Stimulating Hormone (TSH) 9.60 H 0.35-4.94 UIU/ML Free Thyroxine 0.98 0.70-1.48 NG/DL My Orders Orders - FRANCISCO AGUIRRE MD Abdomen, Flat & Upright/Decub (06/02/22 15:20) Lactated Ringers (Lr 1000 Ml Iv Solution (06/02/22 16:30) Cbc With Automated Diff (06/02/22 16:28) Comprehensive Metabolic Panel (06/02/22 16:28) Magnesium (06/02/22 16:28) Ua Culture If Indicated (06/02/22 16:28) Urine Culture (06/02/22 15:25) Ng Tube Insert & Assessment (06/02/22 17:13) Ampicillin For Iv Use (Ampicillin For (06/02/22 17:15) Lorazepam Tablet (Ativan Tablet) (06/02/22 17:30) Thyroid Stimulating Hormone (06/02/22 17:30) Free T4 (Free Thyroxine) (06/02/22 17:30) Medications Given in ED Current Medications Medications Dose Ordered Sig/Baldemar Route Start Time Stop Time Status Last Admin Dose Admin Ampicillin Sodium 1000 mg/Sterile Water 7.4 ml @ 30 mls/hr ONCE ONCE IV 06/02/22 17:15 06/02/22 17:29 DC 06/02/22 17:30 30 MLS/HR Lactated Ringer's 1,000 ml @ 0 mls/hr Q0M ONCE IV 06/02/22 16:30 06/02/22 16:31 DC 06/02/22 16:37 0 MLS/HR Lorazepam 0.5 mg ONCE ONCE SL 06/02/22 17:30 06/02/22 17:31 DC 06/02/22 17:25 0.5 MG Vital Signs/I&O 06/02/22 14:55 Temp 37.2 Pulse 100 Resp 20 B/P (MAP) 121/55 (77) Pulse Ox 92 Capillary Refill : Less Than 3 Seconds Blood Pressure Mean: 77 Progress Note : Progress Note KUB and upright x-ray was concerning for ileus versus early bowel obstruction. Patient was not having increased pain or vomiting. CT was therefore not pursued. Case was discussed with Dr. Coulter. Given patient's overall presentation, admission through the weekend for supportive care and treatment of UTI was appropriate. I discussed the situation with Dr. Carrizales as well who was agreeable. Based on prior cultures, ampicillin was selected for treatment of UTI. The initial dose of ampicillin was given in the ER. Patient was hydrated with IV fluids. I discussed CODE STATUS with the patient and she elects to be full code. Attempt to place an NG tube at Dr. Coulter's request was unsuccessful. Diagnostic Imaging Diagonstic Imaging: Xray Plain Films/CT/US/NM/MRI: abdomen, pelvis Comments X-rays reviewed by me and report reviewed. See report below: NAME: [facility]LL[facility] REC#: [id number] PT STATUS: REG ER : 1940 PHYSICIAN: FRANCISCO AGUIRRE MD ADMIT DATE: 06/02/22/ER Signed Date of Exam:06/02/22 ABDOMEN, FLAT & UPRIGHT/DECUB INDICATION: Drainage catheter fell out. FINDINGS: There are differential air-fluid levels throughout the mildly distended small bowel as well as the gas-distended stomach, consistent with the small bowel obstruction. No free air found. No pneumatosis. IMPRESSION: Abnormal dilated small bowel and stomach with differential air-fluid levels, suspicious for bowel obstruction. Dictated by: Dictated on workstation # [id number] Dict: 06/02/22 1550 Trans: 06/02/22 1648 [id number] Interpreted by: VIRGINIA GRAF Electronically signed by: VIRGINIA GRAF 06/02/22 1648 Departure Communication (Admissions) Time/Spoke to Admitting Phy: 17:20 Dr. Carrizales Time/Spoke to Consulting Phy: 16:25 Dr. Coulter Impression Primary Impression: Urinary tract infection Qualified Codes: N39.0 - Urinary tract infection, site not specified Additional Impressions: Postoperative ileus Decreased oral intake Debility Abdominal abscess Peripheral edema Disposition: ADMITTED INPATIENT Condition: Stable Admissions Decision to Admit Reason: Admit from ER (General) Decision to Admit/Date: Jun 02, 2022 Time/Decision to Admit Time: 16:25 Departure-Patient Inst. Referrals: MADI WHITMORE DO (PCP/Family) Primary Care Physician Copy Copies To 1: MADI WHITMORE JOSHUA T MD Jun 02, 2022 16:32
[2022-06-02 16:34] LABS: BILIRUBIN,URINE NEGATIVE (NEGATIVE); CLARITY,URINE SL CLOUDY; COLOR,URINE YELLOW; GLUCOSE, URINE (UA) NEGATIVE (NEGATIVE); KETONES,URINE NEGATIVE (NEGATIVE); LEUKOCYTE ESTERASE ,URINE 1+ (NEGATIVE); NITRITE,URINE NEGATIVE (NEGATIVE); PROTEIN,URINE NEGATIVE (NEGATIVE)
[2022-06-02 16:40] LABS: BASOPHILS # (AUTO) 0.1 10^3/uL (0.0-0.1); BASOPHILS % (AUTO) 1 % (0-10); EOSINOPHILS # (AUTO) 0.2 10^3/uL (0.0-0.3); EOSINOPHILS % (AUTO) 2 % (0-10); HEMATOCRIT 26 % (35-52); HEMOGLOBIN 8.5 g/dL (11.5-16.0); LYMPHOCYTES # (AUTO) 1.2 10^3/uL (1.0-4.0); LYMPHOCYTES % (AUTO) 15 % (12-44); MEAN CORPUSCULAR HEMOGLOBIN 30 pg (25-34); MEAN CORPUSCULAR HGB CONC 33 g/dL (32-36); MEAN CORPUSCULAR VOLUME 92 fL (80-99); MEAN PLATELET VOLUME 9.1 fL (9.0-12.2); MONOCYTES # (AUTO) 1.2 10^3/uL (0.0-1.0); MONOCYTES % (AUTO) 15 % (0-12); NEUTROPHILS # (AUTO) 5.4 10^3/uL (1.8-7.8); NEUTROPHILS % (AUTO) 67 % (42-75); PLATELET COUNT 330 10^3/uL (130-400)
[2022-06-02 16:57] LABS: BACTERIA,URINE LARGE /HPF
[2022-06-02 17:03] LABS: ALBUMIN 2.6 GM/DL (3.2-4.5); BILIRUBIN,TOTAL 0.3 MG/DL (0.1-1.0); CALCIUM 9.4 MG/DL (8.5-10.1); CREATININE SERUM 0.78 MG/DL (0.60-1.30); MAGNESIUM 1.7 MG/DL (1.6-2.4); POTASSIUM 3.5 MMOL/L (3.6-5.0); TOTAL PROTEIN 5.1 GM/DL (6.4-8.2)
[2022-06-02] MEDS ORDERED: AMPICILLIN FOR IV USE 1,000 MG in WATER (STERILE) FOR INJECTION 7.4 ML IV ONE (17:15)
[2022-06-02] MEDS ORDERED: LORazepam 0.5 MG (ATIVAN) TABLET SL ONE (17:30)
[2022-06-02] MEDS ORDERED: HURRICAINE EXT TUBE (BENZOCAINE) XX ONE (17:45)
[2022-06-02 18:05] LABS: FREE T4 (FREE THYROXINE) 0.98 NG/DL (0.70-1.48)
[2022-06-02 19:00] VITALS: BP 131/76
[2022-06-02] MEDS ORDERED: CATHETER FLUSH 10 ML SYR IVP PRN (19:00)
[2022-06-02] MEDS ORDERED: ONDANSETRON 4 MG/2 ML (SDV) Z0FRAN IV PRN (19:00)
[2022-06-02] MEDS ORDERED: AMPICILLIN FOR IV USE 500 MG in NS (IVPB) 50 ML IV SCH (19:00)
[2022-06-02] MEDS: AMPICILLIN FOR IV USE 500 MG in NS (IVPB) 50 ML IV SCH (22:04)
--- NOTE | 2022-06-02 22:04 | Diagnostic Imaging Report ---
INDICATION: Nasogastric tube assessment. FINDINGS: AP view of the chest reveals heart size and pulmonary vascularity to be within normal limits. There is mild air trapping. Prominent interstitial markings are seen in the periphery of the left upper lobe. These could be chronic in nature. Nasogastric tube is in place with tip projecting over the stomach. Right upper extremity PICC is in place with catheter tip projecting over the lower superior vena cava. IMPRESSION: Peripheral density in left upper lobe is likely scarring. Nasogastric tube reaches the stomach. Dictated by: Dictated on workstation # [id number]
[2022-06-02] MEDS: fentaNYL INJ 100 MCG/2 ML AMP IVP PRN (22:05)
[2022-06-02] MEDS: NS IV 1000 ML 1,000 ML IV SCH (22:05)
[2022-06-03] VITALS (7 sets, daily range): BP systolic 115–130; BP diastolic 55–74
[2022-06-03] MEDS: LEVOTHYROXINE 100 MCG (LEVOTHROID) TAB PO SCH (05:35)
[2022-06-03] MEDS: AMPICILLIN FOR IV USE 500 MG in NS (IVPB) 50 ML IV SCH ×4 (05:35→22:44)
[2022-06-03] MEDS: PANTOPRAZOLE 40 MG (PROTONIX) VIAL IV SCH (08:40)
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
[2022-06-03] MEDS ORDERED: RT-ALBUTEROL/IPRATROPIUM 3 ML (DUONEB) VIAL INH PRN (10:00)
[2022-06-03] MEDS: UMECLIDINIUM BROMIDE (INCRUSE ELLIPTA) 7'S IH SCH (11:06)
--- NOTE | 2022-06-03 11:32 | Physical Therapy Evaluation ---
PT Evaluation-General Medical Diagnosis Admission Date Jun 02, 2022 at 17:34 Medical Diagnosis: abdominal pain, distention Onset Date: Jun 02, 2022 Therapy Diagnosis Therapy Diagnosis: debility Height/Weight Height (Feet): 5 Height (Inches): 2.00 Weight (Pounds): 160 Weight (Ounces): 0.0 Precautions Precautions/Isolations: Fall Prevention, Standard Precautions Weight Bear Status Right Lower Extremity: Right Left Lower Extremity: Left Full Weight Bearing Referral Physician: All Reason for Referral: Evaluation/Treatment Medical History Pertinent Medical History: Arthritis, COPD, GERD, HTN, Hypothroidism, OA Additional Medical History former smoker, cholecystectomy, high cholesterol, multiple back Sx, bowel resection, CADE/migraines, chronic UTI, diverticulosis, IBS Current History Pt discharged home from ARU on 06/01/2022. Presented to ED via EMS with c/o abdominal drain falling out with increased distention and pain. Pt reports she was not doing well at home and a delinquency prevention social worker was looking into NH placement. Reviewed History: Yes Social History Home: Single Level Current Living Status: Other Family Entry Into Home: Ramp Lives with granddaughter and her child Prior Prior Level of Function SCALE: Activities may be completed with or without assistive devices. 2-Ouonfvtzux-citxdki completes the activity by him/herself with no assistance from a helper. 5-Set-up or Clean-up Assistance-helper sets up or cleans up; patient completes activity. Hawi assists only prior to or following the activity. 4-Supervision or Touching Assistance-helper provides verbal cues and/or touching/steadying and/or contact guard assistance as patient completes activity. Assistance may be provided throughout the activity or intermittently. 3-Partial/Moderate Assistance-helper does LESS THAN HALF the effort. Hawi lifts, holds or supports trunk or limbs, but provides less than half the effort. 2-Substantial/Maximal Assistance-helper does MORE THAN HALF the effort. Hawi lifts or holds trunk or limbs and provides more than half the effort. 6-Ejptkobvo-knrefe does ALL the effort. Patient does none of the effort to complete the activity. Or, the assistance of 2 or more helpers is required for the patient to complete the activity. If activity was not attempted, code reason: 7-Patient Refused. 9-Not Applicable-not attempted and the patient did not perform the activity before the current illness, exacerbation or injury. 10-Not Attempted due to Environmental Limitations-(lack of equipment, weather restraints, etc.). 88-Not Attempted due to Medical Conditions or Safety Concerns. Bed Mobility: 6 Transfers (B,C,W/C): 6 Gait: 6 Stairs: 9 Wheelchair Mobility: 9 Indoor Mobility (Ambulation): Independent Stairs: Not Applicalbe Prior Devices Use: Walker Prior Device Use: Walker outside the home, no AD inside the home PLOF noted prior to ARU stay PT Evaluation-Current Subjective Pt in bed, agreeable. Pt participated fully but became tearful at the end and asked this PT to call family. This PT connected Pt to family and Pt began crying asking family "Why are you not here?" Pt/Family Goals NH Objective Patient Orientation: Person, Place, Time, Situation Attachments: NG Tube, IV ROM/Strength ROM Upper Extremities WFL ROM Lower Extremities WFL Strength Upper Extremities WFL for mobility Strength Lower Extremities Grossly 3/5 Integumentary/Posture Integumentary See nurses' notes Sensory Vision: Functional Hearing: Functional Transfers Lying to Sitting/Side of Bed(Q: 5 Sit to Stand (QC): 4 Chair/Uef-zn-Foeyf Xfer(QC): 4 Toilet Transfer (QC): 4 Bed->BSC transfer SBA without AD. Pt SBA for standing radha-care without LOB. Gait Does the Patient Walk?: Yes Mode of Locomotion: Walk Anticipated Mode of Locomotion: Walk Walk 10 feet (QC): 4 Walk 50 ft with 2 Turns(QC): 10 Walk 150 ft (QC): 10 Walking 10ft/uneven surface-QC: 10 Distance: 10 Gait Assistive Device: None Comments/Gait Description Pt ambulated around end of bed to chair with SBA, no AD. Slow gait with flexed posture but no LOB. Wheelchair Training Does the Pt Use a Wheelchair?: No Type of Wheelchair: N/A Balance Sitting Static: Normal Sitting Dynamic: Normal Standing Static: Good Standing Dynamic: Good Treatment Eval. Up in chair with all needs met. Assessment/Needs Pt would benefit from short term skilled PT to continue to progress (I) with functional mobility to increase safety and (I) in the home. Rehab Potential: Good PT Short Term Goals Short Term Goals Time Frame: Jun 07, 2022 Roll Left & Right: 6 Sit to lyin Lying to sitting on side of be: 6 Sit to stand: 6 Chair/ibw-mp-sqbpl transfer: 6 PT Intermediate Goals Intermediate Goals PT Construction Accountant Goals Time Frame: Jun 17, 2022 Roll Left & Right (QC): 6 Sit to Lying (QC): 4 Lying-Sitting on Side/Bed(QC): 6 Sit to Stand (QC): 6 Chair/Mbg-kp-Wixds Xfer(QC): 6 Toilet Transfer (QC): 6 Car Transfer (QC): 4 Does the Patient Walk: Yes Walk 10 feet (QC): 6 Walk 50ft with 2 Turns (QC): 6 Walk 150 ft (QC): 6 Walking 10ft on Uneven Surface: 4 1 Step (curb) (QC): 3 4 Steps (QC): 9 12 Steps (QC): 9 Picking up an Object (QC): 9 Does the Pt use WC or Scooter?: No Wheel 50 feet with 2 turns (QC: 9 Type: N/A Wheel 150 feet: 9 Type: N/A LTGs established to allow Pt to return home safely with family PT Plan Problem List Problem List: Activity Tolerance, Functional Strength, Safety, Balance, Gait, Transfer, Bed Mobility Treatment/Plan Treatment Plan: Continue Plan of Care Treatment Plan: Bed Mobility, Education, Functional Activity Tj, Functional Strength, Gait, Safety, Therapeutic Exercise, Transfers Treatment Duration: Jun 17, 2022 Frequency: 6 times per week Estimated Hrs Per Day: .5 hour per day Patient and/or Family Agrees t: Yes Safety Risks/Education Teaching Recipient: Patient Teaching Methods: Discussion Response to Teaching: Verbalize Understanding PT POC Time/GCodes Time In: 1106 Time Out: 1124 Total Billed Treatment Time: 18 Total Billed Treatment 1, AYANMODC x 18' NELSON ADORNO DPLisa Jun 03, 2022 11:32
[2022-06-03] MEDS: LORazepam 0.5 MG (ATIVAN) TABLET BC PRN (11:33)
--- NOTE | 2022-06-03 11:40 | History & Physical-Hospitalist ---
History of Present Illness HPI/Chief Complaint Patient is 81-year-old female with a past medical history of hypertension, COPD, hypothyroidism, recent colon resection with colostomy who presented to the emergency department due to her GILBERT drain falling out. She was admitted last month at [facility] for abdominal pain and distention and had a decompressive colonoscopy with partial colon resection and creation of diverting colostomy by Dr. Coulter. She had a subsequent abdominal abscess and underwent washout on 05/19. She was then transferred to inpatient rehab and discharged from there on June 01. She was discharged home with home health care through [facility]. He returned to the emergency department yesterday as her GILBERT drain had dislodged. She also had minimal output from her colostomy. There was concern for ileus versus obstruction so NG tube was placed and she was admitted for further management. She was also found to have a urinary tract infection and is currently on antibiotics for that. This morning she reports that she is still not feeling well but better than yesterday. She now admits to needing half-way care and is working on getting into [facility] and rehab. Her only request at this time is to have the NG tube removed. Source: patient Date Seen 06/03/22 Time Seen by a Provider: 11:29 Attending Physician Arie Whitmore DO PCP Admitting Physician: Anju Carrizales MD Attending Physician: Anju Carrizales MD Referring Physician Date of Admission Jun 02, 2022 at 17:34 Home Medications & Allergies Home Medications Reviewed patient Home Medication Reconciliation performed by pharmacy medication reconciliations install technician and/or nursing. Patients Allergies have been reviewed. Allergies Allergies Coded Allergies meperidine (Verified Allergy, Unknown, 12/15/08) Past Gctvmct-Mfsrml-Ogoyqf Hx Patient Social History Living Status: home with granddaughter Tobacco Use?: Yes Tobacco type used: Cigarettes Smoking Status: Former Smoker Smokeless Tobacco Frequency: Never a User Substance use?: No Alcohol Use?: No Pt feels they are or have been: No Immunizations Up To Date Date of Influenza Vaccine: Aug 01, 2018 First/Initial COVID19 Vaccinat: yes Second COVID19 Vaccination Odilon: yes Tetanus Booster (TDap): Unknown Date of Pneumonia Vaccine: Aug 01, 2018 Seasonal Allergies Seasonal Allergies: Yes Current Status Advance Directives: Unable to obtain Communicates: Verbally Primary Language: Korean Preferred Spoken Language: Korean Is interpretation needed?: No Past Medical History Surgeries: Abdominal (Partial colon resection and colostomy), Appendectomy, Gallbladder, 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, Orthopedic (Back surgeries), Tonsillectomy, Tubal Ligation COPD Currently Using CPAP: No Currently Using BIPAP: No High Cholesterol, Hypertension 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 Sexually Transmitted Disease: No UTI-Chronic Gastroesophageal Reflux, Diverticulosis, Hemorrhoids, Irritable Bowel Arthritis, Chronic Back Pain Hypothyroidsim Adverse Reaction/Blood Tranf: No Family Medical History Reviewed Nursing Family Hx No Pertinent Family Hx, Lung Disease (lung cancer mom) Review of Systems Constitutional: No chills, No fever; malaise, weakness EENTM: no symptoms reported Respiratory: No cough; short of breath Cardiovascular: no symptoms reported Gastrointestinal: see HPI, abdominal pain, loss of appetite Genitourinary: no symptoms reported Musculoskeletal: muscle weakness Skin: no symptoms reported Psychiatric/Neurological: No Symptoms Reported Physical Exam Physical Exam Vital Signs Vital Signs - First Documented 06/02/22 06/03/22 14:55 09:48 Temp 37.2 Pulse 100 Resp 20 B/P (MAP) 121/55 (77) Pulse Ox 92 FiO2 2 Capillary Refill : Less Than 3 Seconds Height, Weight, BMI Height: 5'2.00" Weight: 160lbs. 0.0oz. 72.980191ub; 31.56 BMI Method:Stated General Appearance: No Apparent Distress, Chronically ill, Obese HEENT: PERRL/EOMI, Moist Mucous Membranes, Other Neck: Normal Inspection, Supple Respiratory: Lungs Clear, No Accessory Muscle Use, No Respiratory Distress Cardiovascular: Regular Rate, Rhythm, No JVD, No Murmur Gastrointestinal: Normal Bowel Sounds, Non Tender, Soft, Other (ostomy ) Extremity: Normal Capillary Refill, No Calf Tenderness, No Pedal Edema Neurologic/Psychiatric: Alert, Oriented x3, Normal Mood/Affect Skin: Normal Color, Warm/Dry Results Results/Procedures Labs Laboratory Tests 06/02/22 16:33 Patient resulted labs reviewed. Imaging: Reviewed Imaging Report [facility] [place] [place] NAME: LUKE ELLISON Hannah [facility] REC#: [id number] PT STATUS: REG ER : 1940 PHYSICIAN: FRANCISCO AGUIRRE MD ADMIT DATE: 06/02/22/ER Signed Date of Exam:06/02/22 ABDOMEN, FLAT & UPRIGHT/DECUB INDICATION: Drainage catheter fell out. FINDINGS: There are differential air-fluid levels throughout the mildly distended small bowel as well as the gas-distended stomach, consistent with the small bowel obstruction. No free air found. No pneumatosis. IMPRESSION: Abnormal dilated small bowel and stomach with differential air-fluid levels, suspicious for bowel obstruction. Dictated by: Dictated on workstation # [id number] Dict: 06/02/22 1550 Trans: 06/02/228 AS6 [id number] Interpreted by: VIRGINIA GRAF Electronically signed by: VIRGINIA GRAF 06/02/221647 [facility] [place], [place] NAME: LUKE ELLISON [facility] REC#: [id number] PT STATUS: ADM IN : 1940 PHYSICIAN: ANJU CARRIZALES MD ADMIT DATE: 06/02/22/4TH Signed Date of Exam:06/02/22 CHEST 1 VIEW, AP/PA ONLY INDICATION: Nasogastric tube assessment. FINDINGS: AP view of the chest reveals heart size and pulmonary vascularity to be within normal limits. There is mild air trapping. Prominent interstitial markings are seen in the periphery of the left upper lobe. These could be chronic in nature. Nasogastric tube is in place with tip projecting over the stomach. Right upper extremity PICC is in place with catheter tip projecting over the lower superior vena cava. IMPRESSION: Peripheral density in left upper lobe is likely scarring. Nasogastric tube reaches the stomach. Dictated by: Dictated on workstation # [id number] Dict: 06/02/222156 Trans: 06/02/222206 PJE [id number] Interpreted by: VIRGINIA BLAKE MD Electronically signed by: VIRGINIA BLAKE MD 06/02/222206 Assessment/Plan Admission Diagnosis Ileus Admission Status: Inpatient Order (span 2 midnights) Reason for Inpatient Admission: see below Assessment and Plan Ileus s/p resection and colostomy NGT in place Surgery consulted,appreciate recs Fentanyl for pain Ostomy care Chloraseptic for throat pain UTI Continue ampicillin Urine culture from yesterday with GNR COPD MAT protocol Continue home inhalers HTN BP well controlled, trend Debility Moderate PEM Albumin 2.6 withprealbumin of 8.2 last week Add dietary supplements when able to take PO PT/OT SW for NH placement Hypothyroidism Continue synthroid whenable TSH elevated but likely due to interrupted use of Synthroid due to recent surgeries DVT ppx: Lovenox Diagnosis/Problems Diagnosis/Problems (1) Prophylactic measure (2) Obesity Qualifiers: Obesity type: unspecified obesity type Obesity classification: adult class 1 (BMI 30 - 34.9) Serious obesity comorbidity presence: without serious comorbidity Body mass index: BMI 31.0-31.9 Qualified Codes: E66.9 - Obesity, unspecified; Z68.31 - Body mass index [BMI] 31.0-31.9, adult (3) Hypothyroidism Status: Chronic Qualifiers: Hypothyroidism type: acquired Qualified Codes: E03.9 - Hypothyroidism, unspecified (4) Protein-energy malnutrition Status: Acute Qualifiers: Protein-calorie malnutrition severity: moderate Qualified Codes: E44.0 - Moderate protein-calorie malnutrition (5) Essential (primary) hypertension Status: Chronic (6) Postoperative ileus Status: Acute (7) Debility Status: Acute (8) Urinary tract infection Status: Acute Qualifiers: Urinary tract infection type: site unspecified Hematuria presence: without hematuria Qualified Codes: N39.0 - Urinary tract infection, site not specified (9) COPD (chronic obstructive pulmonary disease) Status: Chronic Qualifiers: COPD type: chronic bronchitis Chronic bronchitis type: unspecified Qualified Codes: J42 - Unspecified chronic bronchitis ANJU CARRIZALES MD Jun 03, 2022 11:40
[2022-06-03] MEDS ORDERED: ENOXAPARIN 40 MG/0.4 ML (LOVENOX) SYR SQ SCH (11:45)
[2022-06-03] MEDS: NS IV 1000 ML 1,000 ML IV SCH (11:51)
[2022-06-03] MEDS: ENOXAPARIN 40 MG/0.4 ML (LOVENOX) SYR SQ SCH (12:00)
[2022-06-03] MEDS: CHLORASEPTIC SPRAY 177 ML LIQUID MC PRN (15:16)
[2022-06-03] MEDS: fentaNYL INJ 100 MCG/2 ML AMP IVP PRN (21:22)
[2022-06-04] VITALS: BP 122/71
[2022-06-04] MEDS: AMPICILLIN FOR IV USE 500 MG in NS (IVPB) 50 ML IV SCH ×4 (03:55→22:58)
[2022-06-04] MEDS: NS IV 1000 ML 1,000 ML IV SCH ×3 (03:55→18:08)
[2022-06-04 04:17] VITALS: BP 120/76
[2022-06-04 04:48] LABS: HEMATOCRIT 25 % (35-52); MEAN CORPUSCULAR HEMOGLOBIN 30 pg (25-34); MEAN CORPUSCULAR HGB CONC 32 g/dL (32-36); MEAN CORPUSCULAR VOLUME 93 fL (80-99); MEAN PLATELET VOLUME 8.9 fL (9.0-12.2); PLATELET COUNT 271 10^3/uL (130-400); WHITE BLOOD COUNT 5.6 10^3/uL (4.3-11.0)
[2022-06-04 05:12] LABS: CALCIUM 7.5 MG/DL (8.5-10.1); CREATININE SERUM 0.71 MG/DL (0.60-1.30)
[2022-06-04] MEDS: LEVOTHYROXINE 100 MCG (LEVOTHROID) TAB PO SCH (05:17)
[2022-06-04] MEDS: fentaNYL INJ 100 MCG/2 ML AMP IVP PRN ×5 (05:41→21:37)
[2022-06-04 08:00] VITALS: BP 131/63
[2022-06-04] MEDS: PANTOPRAZOLE 40 MG (PROTONIX) VIAL IV SCH (08:04)
[2022-06-04] MEDS: LORazepam 0.5 MG (ATIVAN) TABLET BC PRN ×3 (08:05→21:34)
[2022-06-04] MEDS: UMECLIDINIUM BROMIDE (INCRUSE ELLIPTA) 7'S IH SCH (10:01)
--- NOTE | 2022-06-04 10:12 | Progress Note - Surgery ---
KEYLA ELIZABETH 06/04/22 1012: Subjective Date Seen by a Provider: Jun 04, 2022 Time Seen by a Provider: 08:55 Subjective/Events-last exam Pt reports feeling about the same today. She says she is having minimal nausea and no vomiting. She has still been unable to have a bowel movement or pass much gas. She wants her NG tube out badly. Denies any worsening abdominal pain. Review of Systems General: No Chills, No Night Sweats Pulmonary: No Dyspnea Gastrointestinal: Constipation; No: Nausea, Vomiting Objective Exam Vital Signs Date Time Temp Pulse Resp B/P (MAP) Pulse Ox O2 Delivery O2 Flow Rate FiO2 06/04/22 10:01 92 06/04/22 08:00 95 Room Air 0.00 06/04/22 08:00 35.6 88 18 131/63 (85) 98 Room Air 06/04/22 04:17 36.7 92 16 120/76 (91) 95 Room Air 06/04/22 00:00 36.8 87 16 122/71 (88) 94 Room Air 06/03/22 20:11 36.6 85 18 115/56 (75) 97 Room Air 06/03/22 19:31 Room Air 06/03/22 19:19 Room Air 06/03/22 16:08 36.5 91 18 117/57 (77) 97 Room Air 06/03/22 11:43 36.9 84 18 116/55 (75) 94 Nasal Cannula 2.00 06/03/22 11:06 92 Room Air 0.00 I & O 06/04/22 07:00 Intake Total 3127.4 ml Output Total 3800 ml Balance -672.6 ml Capillary Refill : Less Than 3 Seconds General Appearance: No Apparent Distress, Chronically ill, Obese HEENT: PERRL/EOMI, Moist Mucous Membranes, Other (NG tube in place w/suction) Neck: Normal Inspection, Supple Respiratory: Lungs Clear, No Accessory Muscle Use, No Respiratory Distress Cardiovascular: Regular Rate, Rhythm, No JVD, No Murmur Gastrointestinal: soft, abnormal bowel sounds (decreased), distended, tenderness (mild, diffuse), other (Colostomy bag present with minimal stool content, midline incision open) Extremity: Normal Capillary Refill, No Calf Tenderness, No Pedal Edema Neurologic/Psychiatric: Alert, Oriented x3, Normal Mood/Affect Skin: Normal Color, Warm/Dry Results Lab Laboratory Tests 06/04/22 04:40: White Blood Count 5.6, Red Blood Count 2.71L, Hemoglobin 8.0L, Hematocrit 25L, Mean Corpuscular Volume 93, Mean Corpuscular Hemoglobin 30, Mean Corpuscular Hemoglobin Concent 32, Red Cell Distribution Width 19.0H, Platelet Count 271, Mean Platelet Volume 8.9L, Sodium Level 136, Potassium Level 3.0L, Chloride Level 101, Carbon Dioxide Level 23, Anion Gap 12, Blood Urea Nitrogen 7, Creatinine 0.71, Estimat Glomerular Filtration Rate 86, BUN/Creatinine Ratio 10, Glucose Level 72, Calcium Level 7.5L Microbiology 06/02/22 Urine Culture - Preliminary, Resulted Gram Negative Anthony Assessment/Plan Assessment/Plan Assessment/Plan UTI probably cause of Post-op Ileus Debility - needs longterm or SNF placement Recommend patient continue to try and move around around which will hopefully promote some GI motility. NG tube is still pulling up decent amount of stomach content. Will keep allow pt to try some ice chips but otherwise remain NPO for now. Wound VAC still needs to be replaced. No surgical intervention necessary at this time. KELSEYMERISOFIA B DO 06/04/22 1426: Subjective Time Seen by a Provider: 13:09 Subjective/Events-last exam Pt seen and examined. She states she feels very weak and actually requested heck catheter placement; "I can't get up 7 times a night". Still with minimal nausea and same amount of abd pain. Review of Systems General: No Chills, No Night Sweats; Fatigue, Malaise Pulmonary: No Dyspnea Cardiovascular: No: Chest Pain, Palpitations Gastrointestinal: Constipation; No: Nausea, Vomiting Objective Exam General Appearance: No Apparent Distress, Chronically ill, Obese HEENT: Moist Mucous Membranes, Other (NG tube in place w/suction) Respiratory: Lungs Clear, Normal Breath Sounds, No Accessory Muscle Use, No Respiratory Distress Cardiovascular: Regular Rate, Rhythm, No Murmur Gastrointestinal: soft, abnormal bowel sounds (decreased), distended, tenderness (mild, diffuse), other (Colostomy bag present with minimal stool content, midline incision open - good granulation tissue) Extremity: Normal Capillary Refill, No Calf Tenderness, No Pedal Edema Neurologic/Psychiatric: Alert, Oriented x3, Depressed Affect (flat) Assessment/Plan Assessment/Plan Assessment/Plan UTI probably cause of Post-op Ileus Debility - needs longterm or SNF placement Told patient she must try and move around around (increase activity and walk) which will hopefully promote some GI motility. NG tube is still pulling up decent amount of stomach content. Will keep allow pt to try some ice chips but otherwise remain NPO for now. Wound VAC ordered to be placed tomorrow am. No surgical intervention necessary at this time. Supervisory-Addendum Brief Verification & Attestation Participated in pt care: history, MDM, physical Personally performed: exam, history, MDM, supervision of care Care discussed with: Medical Student Procedures: n/a Verification and Attestation of Medical Student E/M Service A medical student performed and documented this service. I then reviewed and verified all information documented by the medical student and made modifications to such information, when appropriate. I personally performed a physical exam, medical decision making and then discussed any differences between the notes and made revisions as necessary to create one note. Sofia Dumont , 06/04/22 , 14:26 KEYLA ELIZABETH Jun 04, 2022 10:12 SOFIA DUMONT DO Jun 04, 2022 14:26
--- NOTE | 2022-06-04 11:14 | Progress Note - Hospitalist ---
Subjective HPI/CC On Admission Date Seen by Provider: Jun 04, 2022 Patient is 81-year-old female with a past medical history of hypertension, COPD, hypothyroidism, recent colon resection with colostomy who presented to the emergency department due to her GILBERT drain falling out. She was admitted last month at [facility] for abdominal pain and distention and had a decompressive colonoscopy with partial colon resection and creation of diverting colostomy by Dr. Coulter. She had a subsequent abdominal abscess and underwent washout on 05/19. She was then transferred to inpatient rehab and discharged from there on June 01. She was discharged home with home health care through [facility]. He returned to the emergency department yesterday as her GILBERT drain had dislodged. She also had minimal output from her colostomy. There was concern for ileus versus obstruction so NG tube was placed and she was admitted for further management. She was also found to have a urinary tract infection and is currently on antibiotics for that. This morning she reports that she is still not feeling well but better than yesterday. She now admits to needing [facility] care and is working on getting into [facility] and rehab. Her only request at this time is to have the NG tube removed. Subjective/Events-last exam Patient reports persistent throat pain and abdominal pain. States NG tube is hurting her throat. Still minimal output from her ostomy. Patient quite tearful at slow progress. Objective Exam Vital Signs Vital Signs Date Time Temp Pulse Resp B/P (MAP) Pulse Ox O2 Delivery O2 Flow Rate FiO2 06/04/22 10:01 92 06/04/22 08:00 Room Air 0.00 06/04/22 08:00 35.6 88 18 131/63 (85) 06/03/22 09:48 2 Capillary Refill : Less Than 3 Seconds General Appearance: No Apparent Distress, Anxious, Chronically ill Respiratory: Lungs Clear, No Respiratory Distress Cardiovascular: Regular Rate, Rhythm, No Murmur Gastrointestinal: Soft, Abnormal Bowel Sounds (absent), Tenderness (mild) Neurologic/Psychiatric: Alert, Oriented x3, Normal Mood/Affect Results/Procedures Lab Laboratory Tests 06/04/22 04:40 Patient resulted labs reviewed. Imaging: Reviewed Imaging Report Assessment/Plan Assessment and Plan Assess & Plan/Chief Complaint Ileus s/p resection and colostomy NGT in place Surgery consulted,appreciate recs Fentanyl for pain Ostomy care Chloraseptic for throat pain UTI Continue ampicillin Urine culture from yesterday with e coli, sensitivity pending COPD MAT protocol Continue home inhalers HTN BP well controlled, trend Debility Moderate PEM Albumin 2.6 with prealbumin of 8.2 last week Add dietary supplements when able to take PO PT/OT SW for NH placement May need to consider TPN if continued slow progress with order intake Hypothyroidism Continue synthroid when able TSH elevated but likely due to interrupted use of Synthroid due to recent surgeries DVT ppx: Lovenox Diagnosis/Problems Diagnosis/Problems (1) Prophylactic measure (2) Obesity Qualifiers: Obesity type: unspecified obesity type Obesity classification: adult class 1 (BMI 30 - 34.9) Serious obesity comorbidity presence: without serious comorbidity Body mass index: BMI 31.0-31.9 Qualified Codes: E66.9 - Obesity, unspecified; Z68.31 - Body mass index [BMI] 31.0-31.9, adult (3) Hypothyroidism Status: Chronic Qualifiers: Hypothyroidism type: acquired Qualified Codes: E03.9 - Hypothyroidism, unspecified (4) Protein-energy malnutrition Status: Acute Qualifiers: Protein-calorie malnutrition severity: moderate Qualified Codes: E44.0 - Moderate protein-calorie malnutrition (5) Essential (primary) hypertension Status: Chronic (6) Postoperative ileus Status: Acute (7) Debility Status: Acute (8) Urinary tract infection Status: Acute Qualifiers: Urinary tract infection type: site unspecified Hematuria presence: without hematuria Qualified Codes: N39.0 - Urinary tract infection, site not specified (9) COPD (chronic obstructive pulmonary disease) Status: Chronic Qualifiers: COPD type: chronic bronchitis Chronic bronchitis type: unspecified Qualified Codes: J42 - Unspecified chronic bronchitis ANJU PALMER MD Jun 04, 2022 11:14
[2022-06-04] MEDS: ENOXAPARIN 40 MG/0.4 ML (LOVENOX) SYR SQ SCH (11:49)
[2022-06-04 12:16] VITALS: BP 132/90
[2022-06-04 16:21] VITALS: BP 131/63
[2022-06-04] MEDS: CHLORASEPTIC SPRAY 177 ML LIQUID MC PRN (19:21)
[2022-06-04 20:20] VITALS: BP 143/66
[2022-06-05 00:33] VITALS: BP 141/65
[2022-06-05] MEDS: fentaNYL INJ 100 MCG/2 ML AMP IVP PRN ×3 (03:50→20:13)
[2022-06-05] MEDS: AMPICILLIN FOR IV USE 500 MG in NS (IVPB) 50 ML IV SCH (03:50)
[2022-06-05 04:01] LABS: HEMATOCRIT 27 % (35-52); HEMOGLOBIN 8.6 g/dL (11.5-16.0); MEAN CORPUSCULAR HEMOGLOBIN 30 pg (25-34); MEAN CORPUSCULAR HGB CONC 32 g/dL (32-36); MEAN CORPUSCULAR VOLUME 93 fL (80-99); PLATELET COUNT 294 10^3/uL (130-400); WHITE BLOOD COUNT 5.9 10^3/uL (4.3-11.0)
[2022-06-05 04:13] LABS: INR 1.1 (0.8-1.4); PROTHROMBIN TIME PATIENT 15.1 SEC (12.2-14.7)
[2022-06-05 04:17] LABS: CALCIUM 7.4 MG/DL (8.5-10.1); CREATININE SERUM 0.64 MG/DL (0.60-1.30); POTASSIUM 2.8 MMOL/L (3.6-5.0)
[2022-06-05] MEDS: LEVOTHYROXINE 100 MCG (LEVOTHROID) TAB PO SCH (06:17)
[2022-06-05] MEDS ORDERED: MAGNESIUM 1 GM/100 ML IVPB 100 ML IV ONE (07:00)
[2022-06-05 07:01] LABS: ALBUMIN 2.3 GM/DL (3.2-4.5)
[2022-06-05 07:06] LABS: BILIRUBIN,TOTAL 0.3 MG/DL (0.1-1.0)
[2022-06-05 07:10] LABS: BILIRUBIN,DIRECT 0.2 MG/DL (0.0-0.3); BILIRUBIN,INDIRECT 0.1 MG/DL; MAGNESIUM 1.9 MG/DL (1.6-2.4)
[2022-06-05 08:03] VITALS: BP 131/69
--- NOTE | 2022-06-05 08:07 | Progress Note - Surgery ---
KEYLA ELIZABETH 06/05/22 0807: Subjective Date Seen by a Provider: Jun 05, 2022 Time Seen by a Provider: 08:00 Subjective/Events-last exam Patient states she is doing well this morning but would very much like her NG tube out. She seemed to be in better spirits this morning. She is having some pain in the lateral portion of her legs above the knees bilaterally. She wants to get up and move around today. Her nausea has improved and she is tolerating ice chips well. NG tube has not pulled anything up recently. Review of Systems General: No Chills, No Night Sweats Pulmonary: No Cough Gastrointestinal: Abdominal Pain (diffuse, mild, improved); No: Nausea, Vomiting Objective Exam Vital Signs Date Time Temp Pulse Resp B/P (MAP) Pulse Ox O2 Delivery O2 Flow Rate FiO2 06/05/22 00:33 36.3 89 20 141/65 (90) 98 Room Air 06/04/22 21:05 Room Air 06/04/22 20:20 36.9 105 20 143/66 (91) 94 Room Air 06/04/22 19:30 Room Air 06/04/22 16:21 36.7 91 18 131/63 (85) 96 Room Air 06/04/22 12:16 36.5 91 18 132/90 (104) 98 Room Air 06/04/22 10:01 92 I & O 06/05/22 07:00 Intake Total 2165 ml Output Total 3375 ml Balance -1210 ml Capillary Refill : Less Than 3 Seconds General Appearance: No Apparent Distress, Chronically ill, Obese HEENT: Moist Mucous Membranes, Other (NG tube in place w/suction) Neck: Normal Inspection, Supple Respiratory: Lungs Clear, Normal Breath Sounds, No Accessory Muscle Use, No Respiratory Distress Cardiovascular: Regular Rate, Rhythm, No Murmur Gastrointestinal: soft, distended (improving), tenderness (mild, diffuse), other (Colostomy bag present with minimal stool content, midline incision open - good granulation tissue) Extremity: Normal Capillary Refill, No Calf Tenderness, No Pedal Edema Neurologic/Psychiatric: Alert, Oriented x3 Skin: Normal Color, Warm/Dry Results Lab Laboratory Tests 06/05/22 03:50: White Blood Count 5.9, Red Blood Count 2.89L, Hemoglobin 8.6L, Hematocrit 27L, Mean Corpuscular Volume 93, Mean Corpuscular Hemoglobin 30, Mean Corpuscular Hemoglobin Concent 32, Red Cell Distribution Width 18.6H, Platelet Count 294, Mean Platelet Volume 9.0, Prothrombin Time 15.1H, INR Comment 1.1, Sodium Level 136, Potassium Level 2.8L, Chloride Level 101, Carbon Dioxide Level 22, Anion Gap 13, Blood Urea Nitrogen 6L, Creatinine 0.64, Estimat Glomerular Filtration Rate 90, BUN/Creatinine Ratio 9, Glucose Level 65L, Calcium Level 7.4L, Magnesium Level 1.9, Total Bilirubin 0.3, Direct Bilirubin 0.2, Indirect Bilirubin 0.1, Aspartate Amino Transf (AST/SGOT) 16, Alanine Aminotransferase (ALT/SGPT) 9, Alkaline Phosphatase 87, Total Protein 5.0L, Albumin 2.3L Microbiology 06/02/22 Urine Culture - Preliminary, Resulted Escherichia coli Mixed Bacterial Asha Assessment/Plan Assessment/Plan Assessment/Plan UTI probably cause of Post-op Ileus Debility - needs fdc or SNF placement NG tube pulled nothing over the last 12 hours and pt is tolerating ice chips w/o issue. Will advance her diet to clears and pull the NG tube today. Recommend PT/OT to promote GI motility. Continue IV fluids ALEJANDRO COULTER DO 06/05/22 1200: Subjective Time Seen by a Provider: 11:29 Subjective/Events-last exam Pt seen and examined, wound care had just placed VAC. Pt states she is feeling better and has lots of output in ostomy. Review of Systems General: No Chills, No Night Sweats Pulmonary: No Cough Gastrointestinal: Abdominal Pain (diffuse, mild, improved); No: Nausea, Vomiting Objective Exam General Appearance: No Apparent Distress, Chronically ill, Obese HEENT: Moist Mucous Membranes, Other (NG tube in place w/suction) Respiratory: Lungs Clear, Normal Breath Sounds, No Accessory Muscle Use, No Respiratory Distress Cardiovascular: Regular Rate, Rhythm, No Murmur Gastrointestinal: soft, distended (improving), tenderness (mild, diffuse), other (Colostomy bag present with good stool content, midline incision VAC in place) Neurologic/Psychiatric: Alert, Oriented x3 Assessment/Plan Assessment/Plan Assessment/Plan UTI probably cause of Post-op Ileus Debility - needs fdc or SNF placement Plan D/C NG tube and start clears. Encouraged her to ambulate and use IS. Recommend PT/OT to promote GI motility. Continue IV fluids Supervisory-Addendum Brief Verification & Attestation Participated in pt care: history, MDM, physical Personally performed: exam, history, MDM, supervision of care Care discussed with: Medical Student Procedures: n/a Verification and Attestation of Medical Student E/M Service A medical student performed and documented this service. I then reviewed and verified all information documented by the medical student and made modifications to such information, when appropriate. I personally performed a physical exam, medical decision making and then discussed any differences between the notes and made revisions as necessary to create one note. Alejandro Coulter , 06/05/22 , 11:59 KEYLA ELIZABETH Jun 05, 2022 08:07 ALEJANDRO COULTER DO Jun 05, 2022 12:00
[2022-06-05] MEDS: PANTOPRAZOLE 40 MG (PROTONIX) VIAL IV SCH (08:15)
[2022-06-05] MEDS: UMECLIDINIUM BROMIDE (INCRUSE ELLIPTA) 7'S IH SCH (08:15)
[2022-06-05] MEDS: POTASSIUM CL 10MEQ/50ML IVPB 50 ML IV SCH ×8 (08:15→17:43)
--- NOTE | 2022-06-05 08:48 | Occupational Therapy Eval ---
OT Evaluation-General/PLF Medical Diagnosis Admission Date Jun 02, 2022 at 17:34 Medical Diagnosis: abdominal pain, distention Onset Date: Jun 02, 2022 Therapy Diagnosis Therapy Diagnosis: decreased ADL status and weakness Height/Weight Height (Feet): 5 Height (Inches): 2.00 Weight (Pounds): 160 Weight (Ounces): 0.0 Precautions Precautions/Isolations: Standard Precautions Referral Physician: All Referral Reason: Evaluation/Treatment Medical History Pertinent Medical History: Arthritis, COPD, GERD, HTN, Hypothroidism, OA Additional Medical History HTN, COPD, hypothyroidism, recent colon resection with colostomy, and arthritis. Current History Pt was d/c home from ARU 06/01/22. Her wound vac dressing started to leak ~4hrs after arriving home, went to dr 06/02/22 to have it fixed. Her GILBERT drain become dislodged the following day (06/03), and she was taken to ED via EMS. She also reports minimal output to colostomy bag. Found to have UTI. Social History Home: Single Level Current Living Status: Other Family Entry Into Home: Ramp ADL-Prior Level of Function SCALE: Activities may be completed with or without assistive devices. 9-Zzkojrafvj-gmxgkkx completes the activity by him/herself with no assistance from a helper. 5-Set-up or Clean-up Assistance-helper sets up or cleans up; patient completes activity. [place] assists only prior to or following the activity. 4-Supervision or Touching Assistance-helper provides verbal cues and/or touching/steadying and/or contact guard assistance as patient completes activity. Assistance may be provided throughout the activity or intermittently. 3-Partial/Moderate Assistance-helper does LESS THAN HALF the effort. [place] lifts, holds or supports trunk or limbs, but provides less than half the effort. 2-Substantial/Maximal Assistance-helper does MORE THAN HALF the effort. [place] lifts or holds trunk or limbs and provides more than half the effort. 1-Yvazwgirl-vxidte does ALL the effort. Patient does none of the effort to complete the activity. Or, the assistance of 2 or more helpers is required for the patient to complete the activity. If activity was not attempted, code reason: 7-Patient Refused. 9-Not Applicable-not attempted and the patient did not perform the activity before the current illness, exacerbation or injury. 10-Not Attempted due to Environmental Limitations-(lack of equipment, weather restraints, etc.). 88-Not Attempted due to Medical Conditions or Safety Concerns. ADL PLOF Comments Pt recently d/c from [facility] on 06/01/22. At d/c she was setup with footwear and LBD, Min-Mod A with UBD, and IND with all other ADLs. She used a FWW for functional mobility. Self Care: Needed Some Help Functional Cognition: Independent DME/Equipment: Bath Bench, Toilet/Riser OT Current Status Subjective Pt reclining in chair upon OT arrival, agreeable to eval/tx. Pt was tearful when discussing her current status and slow recovery. Mental Status/Objective Patient Orientation: Person, Place, Situation Attachments: Drains, Hunter Catheter, IV, NG Tube Current Glasses/Contacts: Yes Hearing Aids: Yes Dentures/Partials: Yes Hand Dominance: Right Upper Extremity ROM bilaterally WFL ADL-Treatment Shower/Bathe Self (QC): 3 (Mod A overall. Pt need assistance to wash bilaterally below the knees and buttocks. Able to wash all other parts. CGA for standing balance.) On/Off Footwear (QC): 2 (Max A to don both gripper socks) Other Treatments Pt provided information about PLOF and living conditions while seated in recliner. She requested to get cleaned up, so she completed a sponge bath while seated at the recliner, standing with CGA to clean buttocks/periarea. She attempted to don footwear, but was unable to d/t abdominal discomfort and colostomy/wound vac dressings. Pt verbalized desire to walk in the hallways in a little bit, nursing staff notified. Post tx, pt positioned to comfort, call light in reach, and all needs met. Education OT Patient Education: Correct positioning, Energy conservation, Modified ADL techniques, Progress toward Goal/Update tx plan, Purpose of tx/functional activities, Rehab process, Safety issues Teaching Recipient: Patient Teaching Methods: Discussion Response to Teaching: Verbalize Understanding OT Momd Teacher Goals Momd Teacher Goals Time Frame: Jun 30, 2022 Oral Hygiene (QC): 4 Shower/Bathe Self (QC): 4 Lower Body Dressing (QC): 4 On/Off Footwear (QC): 4 (with AE) Additional Goals: 1-Demonstrate ADL Tasks, 2-Verbalize Understanding, 3- ImproveStrength/Tj 1=Demonstrate adherence to instructed precautions during ADL tasks. 2=Patient will verbalize/demonstrate understanding of assistive devices/modifica tions for ADL. 3=Patient will improve strength/tolerance for activity to enable patient to perform ADL's. OT Education/Plan Problem List/Assessment Assessment: Decreased Activ Tolerance, Decreased UE Strength, Impaired Funct Balance, Impaired I ADL's, Impaired Self-Care Skills Discharge Recommendations Plan/Recommendations: Continue POC Equpiment Recommendations-D/C: Executive Chairman Of The Board, Sock Aide Treatment Plan/Plan of Care Patient would benefit from OT for education, treatment and training to promote independence in ADL's, mobility, safety and/or upper extremity function for ADL's. Plan of Care: ADL Retraining, Functional Mobility, UE Funct Exercise/Act Treatment Duration: Jun 30, 2022 Frequency: 3 times per week (3-5x/week) Rehab Potential: Good Time/GCodes Start Time: 08:20 Stop Time: 08:41 Total Time Billed (hr/min): 21 Billed Treatment Time 1, AMARILIS FATIMA OT Jun 05, 2022 08:48
[2022-06-05] MEDS ORDERED: POTASSIUM CHLORIDE INJ 20 MEQ in D5 NS 1000 ML IV SOLUTION 1,000 ML IV SCH (09:00)
[2022-06-05] MEDS ORDERED: LEVOTHYROXINE 100 MCG INJ (SYNTHROID) VIAL IV SCH (09:15)
--- NOTE | 2022-06-05 09:39 | Progress Note ---
RC POON 06/05/22 0939: Subjective Date Seen by a Provider: Jun 05, 2022 Time Seen by a Provider: 09:00 Subjective/Events-last exam NGT in place UTI Hypokalemia Hypoglycemia Not ambulating, but ready to start B/l pain in lateral thigh above knee Review of Systems Pulmonary: No Dyspnea, No Cough, No Pleuritic Chest Pain Cardiovascular: No: Chest Pain, Palpitations, Orthopnea, Paroxysmal Noc. Dyspnea, Edema, Lt Headedness Gastrointestinal: No: Nausea, Vomiting, Abdominal Pain Musculoskeletal: leg pain (B/l pain in the lateral thigh above the knee) Objective Exam Last Set of Vital Signs Vital Signs Date Time Temp Pulse Resp B/P (MAP) Pulse Ox O2 Delivery O2 Flow Rate FiO2 06/05/22 08:03 35.8 98 18 131/69 (89) 95 Room Air 06/04/22 08:00 0.00 06/03/22 09:48 2 Capillary Refill : Less Than 3 Seconds I&O Intake and Output 06/05/22 00:00 Intake Total 2110 ml Output Total 3625 ml Balance -1515 ml Intake Oral 0 ml IV Total 2110 ml Output Urine Total 3575 ml Gastric Drainage Total 50 ml # Bowel Movements 2 General: Alert, Oriented X3, Cooperative, No Acute Distress Lungs: Clear to Auscultation, Normal Air Movement Heart: Regular Rate, Normal S1, Normal S2, No Murmurs Abdomen: Normal Bowel Sounds Extremities: Other (Marked b/l edema of LE) Results Lab Laboratory Tests 06/05/22 03:50: White Blood Count 5.9, Red Blood Count 2.89L, Hemoglobin 8.6L, Hematocrit 27L, Mean Corpuscular Volume 93, Mean Corpuscular Hemoglobin 30, Mean Corpuscular Hemoglobin Concent 32, Red Cell Distribution Width 18.6H, Platelet Count 294, Mean Platelet Volume 9.0, Prothrombin Time 15.1H, INR Comment 1.1, Sodium Level 136, Potassium Level 2.8L, Chloride Level 101, Carbon Dioxide Level 22, Anion Gap 13, Blood Urea Nitrogen 6L, Creatinine 0.64, Estimat Glomerular Filtration Rate 90, BUN/Creatinine Ratio 9, Glucose Level 65L, Calcium Level 7.4L, Magnesium Level 1.9, Total Bilirubin 0.3, Direct Bilirubin 0.2, Indirect Bilirubin 0.1, Aspartate Amino Transf (AST/SGOT) 16, Alanine Aminotransferase (ALT/SGPT) 9, Alkaline Phosphatase 87, Total Protein 5.0L, Albumin 2.3L Microbiology 06/02/22 Urine Culture - Final, Complete Escherichia coli Mixed Bacterial Asha Assessment/Plan Assessment/Plan Assess & Plan/Chief Complaint CC: UTI and Post-Op Ileus Assessment and Plan: UTI E. Coli positive Ceftriaxone 50ml @100ml/hr IV Post-Op Ileus Orders in to ambulate today NGT output at 100ml DVT Prophylaxis Enoxaparin 40mg Q24 IV Levothyroxine 50mcg IV Hypokalemia 80meq KCl IV Hypoglycemia KCl 20meq/Dextrose/NaCl 1,010ml @100ml/hr IV AUREA CAMP DO 06/06/22 0551: Subjective Subjective/Events-last exam Counseled the patient in-depth regarding the process of recovery and to reassure since she is very depressed Will initiate IV Synthroid due to inability to take PO and lack of absorption and the fact that could cause her depression and slower recovery Review of Systems General: Fatigue, Malaise Objective Exam General: Alert, Oriented X3, Cooperative, No Acute Distress Lungs: Clear to Auscultation, Normal Air Movement Heart: Regular Rate, Normal S1, Normal S2, No Murmurs Psych/Mental Status: Mental Status NL, Mood NL Assessment/Plan Assessment/Plan Assess & Plan/Chief Complaint DC Ampicillin Rocephin Monitor closely Supervisory-Addendum Brief Verification & Attestation Participated in pt care: history, MDM, physical Personally performed: exam, history, MDM, supervision of care Care discussed with: Medical Student Procedures: n/a Results interpretation: Verified all documentation Verification and Attestation of Medical Student E/M Service A medical student performed and documented this service in my presence. I reviewed and verified all information documented by the medical student and made modifications to such information, when appropriate. I personally performed the physical exam and medical decision making. Aurea Camp, Jun 06, 2022,05:49 RC POON Jun 05, 2022 09:39 AUREA CAMP DO Jun 06, 2022 05:51
--- NOTE | 2022-06-05 10:25 | Physical Therapy Daily Note ---
PT Daily Note-Current Subjective Patient is very agreeable to participate with PT. Mental Status Patient Orientation: Normal For Age Attachments: NG Tube, Hunter Catheter, IV Transfers SCALE: Activities may be completed with or without assistive devices. 6-Srgzvbwbkx-mmcfrug completes the activity by him/herself with no assistance from a helper. 5-Set-up or Clean-up Assistance-helper sets up or cleans up; patient completes activity. [place] assists only prior to or following the activity. 4-Supervision or Touching Assistance-helper provides verbal cues and/or touching/steadying and/or contact guard assistance as patient completes act ivity. Assistance may be provided throughout the activity or intermittently. 3-Partial/Moderate Assistance-helper does LESS THAN HALF the effort. [place] lifts, holds or supports trunk or limbs, but provides less than half the effort. 2-Substantial/Maximal Assistance-helper does MORE THAN HALF the effort. [place] lifts or holds trunk or limbs and provides more than half the effort. 8-Duqgtlqhn-keyzvq does ALL the effort. Patient does none of the effort to complete the activity. Or, the assistance of 2 or more helpers is required for the patient to complete the activity. If activity was not attempted, code reason: 7-Patient Refused. 9-Not Applicable-not attempted and the patient did not perform the activity before the current illness, exacerbation or injury. 10-Not Attempted due to Environmental Limitations-(lack of equipment, weather restraints, etc.). 88-Not Attempted due to Medical Conditions or Safety Concerns. Sit to Stand (QC): 5 Weight Bearing Right Lower Extremity: Right Left Lower Extremity: Left Full Weight Bearing Gait Training Distance: 600' Walk 10 feet (QC): 5 Walk 50 ft with 2 Turns(QC): 5 Walk 150 ft (QC): 5 Gait Assistive Device: FWW very slow, steady gait sequence Assessment Patient ambulated without difficulty. Nursing notified to ambulate with patient PRN in hallway. Patient remains up in recliner with bilateral LE elevated. PT Short Term Goals Short Term Goals Time Frame: Jun 07, 2022 Roll Left & Right: 6 Sit to lyin Lying to sitting on side of be: 6 Sit to stand: 6 Chair/gii-on-eojib transfer: 6 PT Geek Squad Agent Goals Geek Squad Agent Goals PT Geek Squad Agent Goals Time Frame: Jun 17, 2022 Roll Left & Right (QC): 6 Sit to Lying (QC): 4 Lying-Sitting on Side/Bed(QC): 6 Sit to Stand (QC): 6 Chair/Bre-ti-Kunnf Xfer(QC): 6 Toilet Transfer (QC): 6 Car Transfer (QC): 4 Does the Patient Walk: Yes Walk 10 feet (QC): 6 Walk 50ft with 2 Turns (QC): 6 Walk 150 ft (QC): 6 Walking 10ft on Uneven Surface: 4 1 Step (curb) (QC): 3 4 Steps (QC): 9 12 Steps (QC): 9 Picking up an Object (QC): 9 Does the Pt use WC or Scooter?: No Wheel 50 feet with 2 turns (QC: 9 Type: N/A Wheel 150 feet: 9 Type: N/A PT Plan Treatment/Plan Treatment Plan: Continue Plan of Care Treatment Plan: Bed Mobility, Education, Functional Activity Tj, Functional Strength, Gait, Safety, Therapeutic Exercise, Transfers Treatment Duration: Jun 17, 2022 Frequency: 6 times per week Estimated Hrs Per Day: .5 hour per day Patient and/or Family Agrees t: Yes Time/GCodes Time In: 931 Time Out: 945 Total Billed Treatment Time: 14 Total Billed Treatment 1 visit FA 14 min ASHLEY FALLON PT Jun 05, 2022 10:25
[2022-06-05] MEDS: D5 NS W/KCL 20 MEQ/L 1,000 ML IV SCH ×2 (10:30→21:13)
[2022-06-05] MEDS: cefTRIAXone 1 GM PRE-MIX 50 ML IV SCH (10:31)
[2022-06-05] MEDS: ENOXAPARIN 40 MG/0.4 ML (LOVENOX) SYR SQ SCH (10:31)
[2022-06-05] MEDS: LORazepam 0.5 MG (ATIVAN) TABLET BC PRN ×2 (10:37→18:42)
[2022-06-05] MEDS ORDERED: ASCO-262 PO (10:47)
[2022-06-05] MEDS ORDERED: ASPI-1238 PO (10:48)
[2022-06-05] MEDS ORDERED: CALC600T80 PO (10:49)
[2022-06-05] MEDS ORDERED: CETI10TA17 PO (10:49)
[2022-06-05] MEDS ORDERED: DOCU100T2 PO (10:50)
[2022-06-05] MEDS ORDERED: MAGN400T7 PO (10:50)
[2022-06-05] MEDS ORDERED: TRIA10.8 NSEACH (10:55)
[2022-06-05] MEDS ORDERED: OXYC10TA55 PO (10:58)
[2022-06-05] MEDS ORDERED: POTA-169 PO (10:58)
[2022-06-05] MEDS ORDERED: ALPR0.254 PO (10:58)
[2022-06-05] MEDS ORDERED: OXYC5TAB PO (10:58)
[2022-06-05] MEDS ORDERED: HYPOCHLOROUS ACID/NaCl (VASHE) 250 ML IR PRN (11:45)
[2022-06-05 16:37] VITALS: BP 136/76
[2022-06-06 00:35] VITALS: BP 126/58
[2022-06-06] MEDS: LEVOTHYROXINE 100 MCG (LEVOTHROID) TAB PO SCH (05:49)
[2022-06-06] MEDS: D5 NS W/KCL 20 MEQ/L 1,000 ML IV SCH ×2 (05:50→11:49)
[2022-06-06 08:00] VITALS: BP 132/65
--- NOTE | 2022-06-06 08:48 | Progress Note - Surgery ---
KEYLA ELIZABETH 06/06/22 0848: Subjective Date Seen by a Provider: Jun 06, 2022 Time Seen by a Provider: 07:50 Subjective/Events-last exam Pt is feeling much better this morning with NG tube out. She has been tolerating liquids without nausea or vomiting. Denies any sweats/chills abdominal pain or palpitations. She states she would like to go to a penitentiary when she is discharged. Review of Systems General: No Chills, No Night Sweats Pulmonary: No Cough Cardiovascular: No: Chest Pain, Palpitations Gastrointestinal: No: Nausea, Vomiting, Abdominal Pain Objective Exam Vital Signs Date Time Temp Pulse Resp B/P (MAP) Pulse Ox O2 Delivery O2 Flow Rate FiO2 06/06/22 08:00 36.6 98 18 132/65 (87) 98 Room Air 06/06/22 00:35 37.0 103 20 126/58 (80) 97 Room Air 06/05/22 20:13 36.1 06/05/22 20:10 Room Air 06/05/22 19:15 92 Room Air 06/05/22 16:37 36.1 95 18 136/76 (96) 100 Room Air 06/05/22 10:45 94 I & O 06/06/22 07:00 Intake Total 2340 ml Output Total 2054 ml Balance 286 ml Capillary Refill : Less Than 3 Seconds General Appearance: No Apparent Distress, Chronically ill, Obese HEENT: PERRL/EOMI, Moist Mucous Membranes Neck: Non Tender, Supple Respiratory: Lungs Clear, Normal Breath Sounds, No Accessory Muscle Use, No Respiratory Distress Cardiovascular: No Murmur, Irregularly Irregular Gastrointestinal: normal bowel sounds, soft, other (Colostomy bag present with good stool content, midline incision VAC in place) Extremity: Normal Capillary Refill, No Calf Tenderness, No Pedal Edema Neurologic/Psychiatric: Alert, Oriented x3 Skin: Normal Color, Warm/Dry Results Lab Microbiology 06/02/22 Urine Culture - Final, Complete Escherichia coli Mixed Bacterial Asha Assessment/Plan Assessment/Plan Assessment/Plan UTI probably cause of Post-op Ileus Debility - needs penitentiary or SNF placement Will advance pt to soft diet today and see how she does. Encouraged her to continue to ambulate and use IS. Recommend PT/OT to promote GI motility. D/C IV fluids as patient has adequate oral intake. ALEJANDRO COULTER DO 06/06/22 1155: Subjective Time Seen by a Provider: 11:31 Subjective/Events-last exam PT seen and examined, states she is doing better and wants "real food". Review of Systems General: No Chills, No Night Sweats Pulmonary: No Cough Cardiovascular: No: Chest Pain, Palpitations Gastrointestinal: No: Nausea, Vomiting, Abdominal Pain Genitourinary: No Dysuria, No Frequency, No Incontinence, No Hematuria Objective Exam General Appearance: No Apparent Distress, Chronically ill, Obese HEENT: Moist Mucous Membranes Respiratory: Lungs Clear, Normal Breath Sounds, No Accessory Muscle Use, No Respiratory Distress Cardiovascular: Regular Rate, Rhythm, No Murmur Gastrointestinal: normal bowel sounds, soft Assessment/Plan Assessment/Plan Assessment/Plan UTI probably cause of Post-op Ileus Debility - needs penitentiary or SNF placement Will advance pt to soft diet today and see how she does. Encouraged her to continue to ambulate and use IS. Recommend PT/OT to promote GI motility. D/C IV fluids as patient has adequate oral intake. Supervisory-Addendum Brief Verification & Attestation Participated in pt care: history, MDM, physical Personally performed: exam, history, MDM, supervision of care Care discussed with: Medical Student Procedures: n/a Verification and Attestation of Medical Student E/M Service A medical student performed and documented this service. I then reviewed and verified all information documented by the medical student and made modifications to such information, when appropriate. I personally performed a ph ysical exam, medical decision making and then discussed any differences between the notes and made revisions as necessary to create one note. Alejandro Coulter , 06/06/22 , 11:55 KEYLA ELIZABETH Jun 06, 2022 08:48 ALEJANDRO COULTER DO Jun 06, 2022 11:55
[2022-06-06] MEDS: fentaNYL INJ 100 MCG/2 ML AMP IVP PRN ×3 (09:01→23:03)
[2022-06-06] MEDS: PANTOPRAZOLE 40 MG (PROTONIX) VIAL IV SCH (09:01)
[2022-06-06] MEDS: cefTRIAXone 1 GM PRE-MIX 50 ML IV SCH (09:02)
[2022-06-06 09:03] LABS: BASOPHILS % (AUTO) 1 % (0-10); EOSINOPHILS # (AUTO) 0.1 10^3/uL (0.0-0.3); EOSINOPHILS % (AUTO) 1 % (0-10); HEMATOCRIT 28 % (35-52); HEMOGLOBIN 8.6 g/dL (11.5-16.0); LYMPHOCYTES # (AUTO) 1.1 10^3/uL (1.0-4.0); LYMPHOCYTES % (AUTO) 22 % (12-44); MEAN CORPUSCULAR HEMOGLOBIN 30 pg (25-34); MEAN CORPUSCULAR HGB CONC 31 g/dL (32-36); MEAN CORPUSCULAR VOLUME 95 fL (80-99); MEAN PLATELET VOLUME 9.3 fL (9.0-12.2); MONOCYTES # (AUTO) 0.5 10^3/uL (0.0-1.0); MONOCYTES % (AUTO) 10 % (0-12); NEUTROPHILS # (AUTO) 3.2 10^3/uL (1.8-7.8); NEUTROPHILS % (AUTO) 65 % (42-75); PLATELET COUNT 268 10^3/uL (130-400); WHITE BLOOD COUNT 4.9 10^3/uL (4.3-11.0)
[2022-06-06 09:11] LABS: ALBUMIN 2.5 GM/DL (3.2-4.5); BILIRUBIN,TOTAL 0.3 MG/DL (0.1-1.0); CALCIUM 7.5 MG/DL (8.5-10.1); CREATININE SERUM 0.68 MG/DL (0.60-1.30); MAGNESIUM 1.7 MG/DL (1.6-2.4); POTASSIUM 3.3 MMOL/L (3.6-5.0); TOTAL PROTEIN 5.3 GM/DL (6.4-8.2)
--- NOTE | 2022-06-06 09:13 | Physical Therapy Daily Note ---
PT Daily Note-Current Subjective Patient agrees to PT. Mental Status Patient Orientation: Normal For Age wound vac Transfers SCALE: Activities may be completed with or without assistive devices. 4-Yqzpdugbru-zzrmwos completes the activity by him/herself with no assistance from a helper. 5-Set-up or Clean-up Assistance-helper sets up or cleans up; patient completes activity. [place] assists only prior to or following the activity. 4-Supervision or Touching Assistance-helper provides verbal cues and/or touching/steadying and/or contact guard assistance as patient completes activity. Assistance may be provided throughout the activity or intermittently. 3-Partial/Moderate Assistance-helper does LESS THAN HALF the effort. [place] lifts, holds or supports trunk or limbs, but provides less than half the effort. 2-Substantial/Maximal Assistance-helper does MORE THAN HALF the effort. [place] lifts or holds trunk or limbs and provides more than half the effort. 7-Rlgnbtoyg-cweduu does ALL the effort. Patient does none of the effort to complete the activity. Or, the assistance of 2 or more helpers is required for the patient to complete the activity. If activity was not attempted, code reason: 7-Patient Refused. 9-Not Applicable-not attempted and the patient did not perform the activity before the current illness, exacerbation or injury. 10-Not Attempted due to Environmental Limitations-(lack of equipment, weather restraints, etc.). 88-Not Attempted due to Medical Conditions or Safety Concerns. Lying to Sitting/Side of Bed(Q: 6 Sit to Stand (QC): 4 Chair/Zei-hv-Npabg Xfer(QC): 4 Toilet Transfer (QC): 4 Weight Bearing Right Lower Extremity: Right Left Lower Extremity: Left Full Weight Bearing Gait Training Distance: >700' Walk 10 feet (QC): 4 Walk 50 ft with 2 Turns(QC): 4 Walk 150 ft (QC): 4 Gait Assistive Device: FWW slow, safe and functional Exercises Seated Therapy Exercises: Ankle pumps, Long arc quads Seated Reps: 15 Assessment Patient requires time to complete all functional tasks. PT to continue to increase activity as tolerated by patient. PT Short Term Goals Short Term Goals Time Frame: Jun 07, 2022 Roll Left & Right: 6 Sit to lyin Lying to sitting on side of be: 6 Sit to stand: 6 Chair/dxf-rb-vrrxp transfer: 6 PT Prison Goals Painter Helper Spray Goals PT Painter Helper Spray Goals Time Frame: Jun 17, 2022 Roll Left & Right (QC): 6 Sit to Lying (QC): 4 Lying-Sitting on Side/Bed(QC): 6 Sit to Stand (QC): 6 Chair/Irj-pg-Kmlvq Xfer(QC): 6 Toilet Transfer (QC): 6 Car Transfer (QC): 4 Does the Patient Walk: Yes Walk 10 feet (QC): 6 Walk 50ft with 2 Turns (QC): 6 Walk 150 ft (QC): 6 Walking 10ft on Uneven Surface: 4 1 Step (curb) (QC): 3 4 Steps (QC): 9 12 Steps (QC): 9 Picking up an Object (QC): 9 Does the Pt use WC or Scooter?: No Wheel 50 feet with 2 turns (QC: 9 Type: N/A Wheel 150 feet: 9 Type: N/A PT Plan Treatment/Plan Treatment Plan: Continue Plan of Care Treatment Plan: Bed Mobility, Education, Functional Activity Tj, Functional Strength, Gait, Safety, Therapeutic Exercise, Transfers Treatment Duration: Jun 17, 2022 Frequency: 6 times per week Estimated Hrs Per Day: .5 hour per day Patient and/or Family Agrees t: Yes Time/GCodes Time In: 835 Time Out: 858 Total Billed Treatment Time: 23 Total Billed Treatment 1 visit FA x 2 23 min ASHLEY FALLON PT Jun 06, 2022 09:13
[2022-06-06] MEDS: UMECLIDINIUM BROMIDE (INCRUSE ELLIPTA) 7'S IH SCH (09:44)
--- NOTE | 2022-06-06 11:18 | Progress Note ---
RC POON 06/06/22 1118: Subjective Date Seen by a Provider: Jun 06, 2022 Time Seen by a Provider: 09:30 Subjective/Events-last exam Doing much better Ambulating well NGT Removed Catheter removed Potassium improved Glucose improved Review of Systems General: No Chills, No Night Sweats, No Fatigue, No Malaise Pulmonary: No Dyspnea, No Cough, No Pleuritic Chest Pain Cardiovascular: No: Chest Pain, Palpitations, Orthopnea, Paroxysmal Noc. Dyspnea, Lt Headedness Gastrointestinal: No: Nausea, Vomiting, Abdominal Pain Objective Exam Last Set of Vital Signs Vital Signs Date Time Temp Pulse Resp B/P (MAP) Pulse Ox O2 Delivery O2 Flow Rate FiO2 06/06/22 09:45 98 Room Air 06/06/22 08:00 36.6 98 18 132/65 (87) 06/04/22 08:00 0.00 06/03/22 09:48 2 Capillary Refill : Less Than 3 Seconds I&O Intake and Output 06/06/22 00:00 Intake Total 2300 ml Output Total 3150 ml Balance -850 ml Intake Oral 1040 ml IV Total 1260 ml Output Urine Total 2975 ml Gastric Drainage Total 175 ml # Voids 3 # Bowel Movements 3 General: Alert, Oriented X3, Cooperative, No Acute Distress Lungs: Clear to Auscultation, Normal Air Movement Extremities: Other (Improved LE edema) Results Lab Laboratory Tests 06/06/22 08:34: White Blood Count 4.9, Red Blood Count 2.91L, Hemoglobin 8.6L, Hematocrit 28L, Mean Corpuscular Volume 95, Mean Corpuscular Hemoglobin 30, Mean Corpuscular Hemoglobin Concent 31L, Red Cell Distribution Width 18.7H, Platelet Count 268, Mean Platelet Volume 9.3, Immature Granulocyte % (Auto) 1, Neutrophils (%) (Auto) 65, Lymphocytes (%) (Auto) 22, Monocytes (%) (Auto) 10, Eosinophils (%) (Auto) 1, Basophils (%) (Auto) 1, Neutrophils # (Auto) 3.2, Lymphocytes # (Auto) 1.1, Monocytes # (Auto) 0.5, Eosinophils # (Auto) 0.1, Basophils # (Auto) 0.0, Immature Granulocyte # (Auto) 0.0, Sodium Level 138, Potassium Level 3.3L, Chloride Level 107, Carbon Dioxide Level 21, Anion Gap 10, Blood Urea Nitrogen 3L, Creatinine 0.68, Estimat Glomerular Filtration Rate 89, BUN/Creatinine Ratio 4, Glucose Level 114H, Calcium Level 7.5L, Corrected Calcium 8.7, Magnesium Level 1.7, Total Bilirubin 0.3, Aspartate Amino Transf (AST/SGOT) 15, Alanine Aminotransferase (ALT/SGPT) 11, Alkaline Phosphatase 100, Total Protein 5.3L, Albumin 2.5L Microbiology 06/02/22 Urine Culture - Final, Complete Escherichia coli Mixed Bacterial Asha Assessment/Plan Assessment/Plan Assess & Plan/Chief Complaint CC: UTI and Post-Op Ileus Assessment and Plan: UTI E. Coli positive Ceftriaxone 50ml @100ml/hr IV Q24H Catheter removed Post-Op Ileus Continue ambulating NGT removed DVT Prophylaxis Enoxaparin 40mg Q24 IV Orders in to get patient incentive spirometer Hypokalemia 50ml @50ml/hr KCl IV 8 Bags Ordered Potassium Bicarb/Citric acid 20meq BID PO Hypoglycemia KCl/Dextrose/NaCl 1,000ml @40ml/hr IV Recheck with AM labs AUREA CAMP DO 06/07/22 0517: Subjective Review of Systems General: Fatigue, Malaise Objective Exam General: Alert, Oriented X3, Cooperative, No Acute Distress Lungs: Clear to Auscultation, Normal Air Movement Heart: Regular Rate, Normal S1, Normal S2, No Murmurs Psych/Mental Status: Mental Status NL, Mood NL Assessment/Plan Assessment/Plan Assess & Plan/Chief Complaint Replace potassium Discharged to skilled Supervisory-Addendum Brief Verification & Attestation Participated in pt care: history, MDM, physical Personally performed: exam, history, MDM, supervision of care Care discussed with: Medical Student Procedures: n/a Results interpretation: Verified all documentation Verification and Attestation of Medical Student E/M Service A medical student performed and documented this service in my presence. I reviewed and verified all information documented by the medical student and made modifications to such information, when appropriate. I personally performed the physical exam and medical decision making. Aurea Camp Jun 07, 2022,05:17 RC POON Jun 06, 2022 11:18 AUREA CAMP DO Jun 07, 2022 05:17
--- NOTE | 2022-06-06 11:43 | Occupational Ther Daily Note ---
OT Current Status-Daily Note Subjective Pt alert lying in bed, talking to a friend when arrived. Pt. agreed to therapy. No c/o pain at this time. ADL-Treatment Pt supine to sit EOB, independent with HOB raised. Pt standing from EOB to FWW, CGA. Pt was able to ambulate to bathroom CGA, using FWW. Pt independent in toilet transfer and toileting. Pt sit at sink to complete sponge bath. Pt cleansed all areas except for feet. Pt able to thread R LE using figure 4 tech then assist to thread L LE, pt able to hike briefs over hips by self. Lower legs wrapped with CYNTHIA wraps to decrease edema. After therapy, pt sitting in recliner with call light/phone in reach. All needs met in room. Therapy Code Descriptions/Definitions Functional [place] Measure: 0=Not Assessed/NA 4=Minimal Assistance 1=Total Assistance 5=Supervision or Setup 2=Maximal Assistance 6=Modified [place] 3=Moderate Assistance 7=Complete IndependenceSCALE: Activities may be completed with or without assistive devices. 5-Zqxgvxoyaa-[id number] completes the activity by him/herself with no assistance from a helper. 5-Set-up or Clean-up Assistance-helper sets up or cleans up; patient completes activity. Pray assists only prior to or following the activity. 4-Supervision or Touching Assistance-helper provides verbal cues and/or touching/steadying and/or contact guard assistance as patient completes activity. Assistance may be provided throughout the activity or intermittently. 3-Partial/Moderate Assistance-helper does LESS THAN HALF the effort. Pray lifts, holds or supports trunk or limbs, but provides less than half the effort. 2-Substantial/Maximal Assistance-helper does MORE THAN HALF the effort. Pray lifts or holds trunk or limbs and provides more than half the effort. 3-[id number]-yvhuwk does ALL the effort. Patient does none of the effort to complete the activity. Or, the assistance of 2 or more helpers is required for the patient to complete the activity. If activity was not attempted, code reason: 7-Patient Refused. 9-Not Applicable-not attempted and the patient did not perform the activity before the current illness, exacerbation or injury. 10-Not Attempted due to Environmental Limitations-(lack of equipment, weather restraints, etc.). 88-Not Attempted due to Medical Conditions or Safety Concerns. Oral Hygiene (QC): 6 Shower/Bathe Self (QC): 3 Lower Body Dressing (QC): 3 Toileting Hygiene (QC): 6 Toilet Transfer (QC): 6 OT Mcfp Goals [employer] Architect Goals Time Frame: Jun 30, 2022 Oral Hygiene (QC): 4 Shower/Bathe Self (QC): 4 Lower Body Dressing (QC): 4 On/Off Footwear (QC): 4 (with AE) Additional Goals: 1-Demonstrate ADL Tasks, 2-Verbalize Understanding, 3- ImproveStrength/Tj 1=Demonstrate adherence to instructed precautions during ADL tasks. 2=Patient will verbalize/demonstrate understanding of assistive devices/modifications for ADL. 3=Patient will improve strength/tolerance for activity to enable patient to perform ADL's. OT Education/Plan Problem List/Assessment Assessment: Decreased Activ Tolerance, Edema, Impaired Self-Care Skills Discharge Recommendations Plan/Recommendations: Continue POC Treatment Plan/Plan of Care Patient would benefit from OT for education, treatment and training to promote independence in ADL's, mobility, safety and/or upper extremity function for ADL's. Plan of Care: ADL Retraining, Functional Mobility, UE Funct Exercise/Act Treatment Duration: Jun 30, 2022 Frequency: 3 times per week (3-5x/week) Rehab Potential: Good Time/GCodes Start Time: 11:15 Stop Time: 12:01 Total Time Billed (hr/min): 46 Billed Treatment Time 1 visit-ADL 3 (46 min) BRENDAN GONZALES Jun 06, 2022 11:43
[2022-06-06] MEDS: POTASSIUM BICARB 20 MEQ (EFFER-K) TABLET PO SCH ×2 (11:47→19:53)
[2022-06-06] MEDS: POTASSIUM CL 10MEQ/50ML IVPB 50 ML IV SCH ×8 (11:47→18:38)
[2022-06-06] MEDS: ENOXAPARIN 40 MG/0.4 ML (LOVENOX) SYR SQ SCH (11:47)
[2022-06-06] MEDS: LORazepam 0.5 MG (ATIVAN) TABLET BC PRN ×3 (13:36→23:02)
[2022-06-06 16:20] VITALS: BP 112/77
[2022-06-07 00:34] VITALS: BP 137/64
[2022-06-07] MEDS: LEVOTHYROXINE 100 MCG (LEVOTHROID) TAB PO SCH (05:18)
[2022-06-07 05:28] LABS: BASOPHILS % (AUTO) 1 % (0-10); EOSINOPHILS # (AUTO) 0.1 10^3/uL (0.0-0.3); EOSINOPHILS % (AUTO) 2 % (0-10); HEMATOCRIT 28 % (35-52); LYMPHOCYTES # (AUTO) 2.1 10^3/uL (1.0-4.0); LYMPHOCYTES % (AUTO) 32 % (12-44); MEAN CORPUSCULAR HEMOGLOBIN 30 pg (25-34); MEAN CORPUSCULAR HGB CONC 32 g/dL (32-36); MEAN CORPUSCULAR VOLUME 93 fL (80-99); MEAN PLATELET VOLUME 8.9 fL (9.0-12.2); MONOCYTES # (AUTO) 0.5 10^3/uL (0.0-1.0); MONOCYTES % (AUTO) 8 % (0-12); NEUTROPHILS # (AUTO) 3.8 10^3/uL (1.8-7.8); NEUTROPHILS % (AUTO) 57 % (42-75); PLATELET COUNT 273 10^3/uL (130-400); WHITE BLOOD COUNT 6.6 10^3/uL (4.3-11.0)
[2022-06-07 05:41] LABS: ALBUMIN 2.6 GM/DL (3.2-4.5); POTASSIUM 4.7 MMOL/L (3.6-5.0)
[2022-06-07 05:43] LABS: TOTAL PROTEIN 5.8 GM/DL (6.4-8.2)
[2022-06-07 05:45] LABS: BILIRUBIN,TOTAL 0.3 MG/DL (0.1-1.0)
[2022-06-07 05:47] LABS: CREATININE SERUM 0.66 MG/DL (0.60-1.30)
[2022-06-07] MEDS: UMECLIDINIUM BROMIDE (INCRUSE ELLIPTA) 7'S IH SCH (07:51)
--- NOTE | 2022-06-07 07:53 | Progress Note - Surgery ---
KEYLA ELIZABETH 06/07/22 0753: Subjective Date Seen by a Provider: Jun 07, 2022 Time Seen by a Provider: 07:44 Subjective/Events-last exam Patient reports feeling better today. She started a soft diet yesterday and did not have any troubles with it. She denies any nausea, vomiting or abdominal pain . Review of Systems General: No Chills, No Night Sweats Pulmonary: No Cough Gastrointestinal: No: Nausea, Vomiting, Abdominal Pain Objective Exam Vital Signs Date Time Temp Pulse Resp B/P (MAP) Pulse Ox O2 Delivery O2 Flow Rate FiO2 06/07/22 00:34 37.1 101 18 137/64 (88) 96 Room Air 06/06/22 20:30 Room Air 06/06/22 16:20 36.8 111 20 112/77 (89) 95 Room Air 06/06/22 09:45 98 Room Air 06/06/22 09:45 100 98 21 06/06/22 08:00 36.6 98 18 132/65 (87) 98 Room Air 06/06/22 08:00 Room Air I & O 06/07/22 07:00 Intake Total 2770 ml Output Total 100 ml Balance 2670 ml Capillary Refill : Less Than 3 Seconds General Appearance: No Apparent Distress, Chronically ill, Obese HEENT: PERRL/EOMI, Moist Mucous Membranes Neck: Non Tender, Supple Respiratory: Lungs Clear, Normal Breath Sounds, No Accessory Muscle Use, No Respiratory Distress Cardiovascular: No Murmur, Irregularly Irregular Gastrointestinal: normal bowel sounds, soft Extremity: Normal Capillary Refill, No Calf Tenderness, No Pedal Edema Neurologic/Psychiatric: Alert, Oriented x3 Skin: Normal Color, Warm/Dry Results Lab Laboratory Tests 06/06/22 08:34: White Blood Count 4.9, Red Blood Count 2.91L, Hemoglobin 8.6L, Hematocrit 28L, Mean Corpuscular Volume 95, Mean Corpuscular Hemoglobin 30, Mean Corpuscular Hemoglobin Concent 31L, Red Cell Distribution Width 18.7H, Platelet Count 268, Mean Platelet Volume 9.3, Immature Granulocyte % (Auto) 1, Neutrophils (%) (Auto) 65, Lymphocytes (%) (Auto) 22, Monocytes (%) (Auto) 10, Eosinophils (%) (Auto) 1, Basophils (%) (Auto) 1, Neutrophils # (Auto) 3.2, Lymphocytes # (Auto) 1.1, Monocytes # (Auto) 0.5, Eosinophils # (Auto) 0.1, Basophils # (Auto) 0.0, Immature Granulocyte # (Auto) 0.0, Sodium Level 138, Potassium Level 3.3L, Chloride Level 107, Carbon Dioxide Level 21, Anion Gap 10, Blood Urea Nitrogen 3L, Creatinine 0.68, Estimat Glomerular Filtration Rate 89, BUN/Creatinine Ratio 4, Glucose Level 114H, Calcium Level 7.5L, Corrected Calcium 8.7, Magnesium Level 1.7, Total Bilirubin 0.3, Aspartate Amino Transf (AST/SGOT) 15, Alanine Aminotransferase (ALT/SGPT) 11, Alkaline Phosphatase 100, Total Protein 5.3L, Albumin 2.5L 06/07/22 05:22: White Blood Count 6.6, Red Blood Count 3.04L, Hemoglobin 9.0L, Hematocrit 28L, Mean Corpuscular Volume 93, Mean Corpuscular Hemoglobin 30, Mean Corpuscular Hemoglobin Concent 32, Red Cell Distribution Width 18.6H, Platelet Count 273, Mean Platelet Volume 8.9L, Immature Granulocyte % (Auto) 1, Neutrophils (%) (Auto) 57, Lymphocytes (%) (Auto) 32, Monocytes (%) (Auto) 8, Eosinophils (%) (Auto) 2, Basophils (%) (Auto) 1, Neutrophils # (Auto) 3.8, Lymphocytes # (Auto) 2.1, Monocytes # (Auto) 0.5, Eosinophils # (Auto) 0.1, Basophils # (Auto) 0.0, Immature Granulocyte # (Auto) 0.1, Sodium Level 137, Potassium Level 4.7, Chloride Level 107, Carbon Dioxide Level 20L, Anion Gap 10, Blood Urea Nitrogen 3L, Creatinine 0.66, Estimat Glomerular Filtration Rate 89, BUN/Creatinine Ratio 5, Glucose Level 88, Calcium Level 8.0L, Corrected Calcium 9.1, Total Bilirubin 0.3, Aspartate Amino Transf (AST/SGOT) 14, Alanine Aminotransferase (ALT/SGPT) 10, Alkaline Phosphatase 104, Total Protein 5.8L, Albumin 2.6L Microbiology 06/02/22 Urine Culture - Final, Complete Escherichia coli Mixed Bacterial Asha Assessment/Plan Assessment/Plan Assessment/Plan UTI probably cause of Post-op Ileus Debility - needs retirement or SNF placement Atrial fibrillation - May want to have this worked up outpatient if it has never been addressed. Pt tolerated soft diet without issue and her colostomy continues to have good output. No further treatment recommended at this time. ALEJANDRO COULTER DO 06/07/22 1012: Subjective Time Seen by a Provider: 09:56 Subjective/Events-last exam Pt seen and examined, wound care currently changing VAC and ostomy. She denies abdominal pain, still feels weak. Review of Systems General: No Chills, No Night Sweats Pulmonary: No Cough Gastrointestinal: No: Nausea, Vomiting, Abdominal Pain Objective Exam General Appearance: No Apparent Distress, Chronically ill HEENT: Moist Mucous Membranes Respiratory: Lungs Clear, Normal Breath Sounds, No Accessory Muscle Use, No Respiratory Distress Cardiovascular: No Murmur, Irregularly Irregular Gastrointestinal: normal bowel sounds, soft, other (ostomy pink and fxn, midline incision has good granulation tissue and not as deep as previous) Neurologic/Psychiatric: Alert, Oriented x3 Assessment/Plan Assessment/Plan Assessment/Plan UTI probably cause of Post-op Ileus Ileus - appears resolved Debility - needs retirement or SNF placement Atrial fibrillation - May want to have this worked up outpatient if it has never been addressed. Pt tolerated soft diet without issue and her colostomy continues to have good output. No surgical treatment recommended at this time. Supervisory-Addendum Brief Verification & Attestation Participated in pt care: history, MDM, physical Personally performed: exam, history, MDM, supervision of care Care discussed with: Medical Student Procedures: n/a Verification and Attestation of Medical Student E/M Service A medical student performed and documented this service. I then reviewed and verified all information documented by the medical student and made modifications to such information, when appropriate. I personally performed a physical exam, medical decision making and then discussed any differences between the notes and made revisions as necessary to create one note. Alejandro Coulter , 06/07/22 , 10:12 KEYLA ELIZABETH Jun 07, 2022 07:53 ALEJANDRO COULTER DO Jun 07, 2022 10:12
[2022-06-07 08:00] VITALS: BP 137/77
[2022-06-07] MEDS: PANTOPRAZOLE 40 MG (PROTONIX) VIAL IV SCH (09:42)
[2022-06-07] MEDS: cefTRIAXone 1 GM PRE-MIX 50 ML IV SCH (09:42)
[2022-06-07] MEDS: POTASSIUM BICARB 20 MEQ (EFFER-K) TABLET PO SCH (09:43)
[2022-06-07] MEDS: fentaNYL INJ 100 MCG/2 ML AMP IVP PRN (10:43)
[2022-06-07] MEDS ORDERED: PANT40TA52 PO (10:59)
[2022-06-07] MEDS ORDERED: TRIA10.8 NSEACH (10:59)
[2022-06-07] MEDS ORDERED: LEVO100T7 PO (10:59)
[2022-06-07] MEDS ORDERED: CEFD300C3 PO (10:59)
[2022-06-07] MEDS ORDERED: MAGN400T7 PO (10:59)
[2022-06-07] MEDS ORDERED: DOCU100T2 PO (10:59)
[2022-06-07] MEDS ORDERED: ASCO-262 PO (10:59)
[2022-06-07] MEDS ORDERED: CETI10TA17 PO (10:59)
[2022-06-07] MEDS ORDERED: TIOT4MIS2 IH (10:59)
[2022-06-07] MEDS ORDERED: OXYC5TAB PO (10:59)
[2022-06-07] MEDS ORDERED: SUCR1TAB36 PO (10:59)
[2022-06-07] MEDS ORDERED: ATEN25TA PO (10:59)
[2022-06-07] MEDS ORDERED: POTA20TA28 PO (10:59)
[2022-06-07] MEDS ORDERED: ALPR0.254 PO (10:59)
[2022-06-07] MEDS ORDERED: ENOX40DI8 SQ (10:59)
[2022-06-07] MEDS ORDERED: ASPI-1238 PO (10:59)
[2022-06-07] MEDS ORDERED: OXYC10TA55 PO (10:59)
--- NOTE | 2022-06-07 11:01 | Discharge Inst-Skilled Nursing ---
Discharge Inst-Skilled NF Reconcile Patient Problems Problems Reviewed?: Yes Chief Complaint Patient is 81-year-old female with a past medical history of hypertension, COPD, hypothyroidism, recent colon resection with colostomy who presented to the emergency department due to her GILBERT drain falling out. She was admitted last month at [facility] for abdominal pain and distention and had a decompressive colonoscopy with partial colon resection and creation of diverting colostomy by Dr. Coulter. She had a subsequent abdominal abscess and underwent washout on 05/19. She was then transferred to inpatient rehab and discharged from there on June 01. She was discharged home with home health care through [facility]. He returned to the emergency department yesterday as her GILBERT drain had dislodged. She also had minimal output from her colostomy. There was concern for ileus versus obstruction so NG tube was placed and she was admitted for further management. She was also found to have a urinary tract infection and is currently on antibiotics for that. This morning she reports that she is still not feeling well but better than yesterday. She now admits to needing shelter care and is working on getting into [facility] and rehab. Her only request at this time is to have the NG tube removed. Patient Instructions Patient Problems: Colostomy Wound vac Consult/Follow Up/Orders Follow Up Appt.: Dr Bell/[facility] shelter rounds Skilled NF Admit to: [facility] and Rehab Certification (SNF) I certify that SNF services are required to be given on an inpatient basis because of the above named patient's need for half-way care on a continuing basis for the conditions(s) for which he/she was receiving inpatient hospital services prior to his/her transfer to the SNF. Nursing Home Facility Order: Nursing Services, [employer]-Evaluate & Treat, Physical Therapy-Evaluate & Treat, Wound Care-Eval/Treat Oxygen Delivery Method: Room Air Discharge Diet: No Restrictions Resuscitation Status: Full Code New & Resume Previous Orders New Medications: Cefdinir (Cefdinir) 300 Mg Capsule 300 MG PO BID, #10 CAP Enoxaparin Sodium (Enoxaparin Sodium) 40 Mg/0.4 Ml Syringe 40 MG SQ Q24H, #14 SYRINGE Potassium Bicarbonate/Cit AC (Effer-K 20 Meq Tablet Eff) 20 Meq Tablet.eff 20 MEQ PO BID, #30 EA Continued Medications: ALPRAZolam (ALPRAZolam) 0.25 Mg Tablet 0.25 MG PO Q4H PRN for ANXIETY, #30 TAB (This prescription has been renewed) Ascorbate Calcium (Vitamin C) 500 Mg Tablet 500 MG PO DAILY, #30 TAB (This prescription has been renewed) Aspirin (Aspirin EC) 81 Mg Tablet.dr 81 MG PO DAILY, #30 TAB (This prescription has been renewed) Atenolol (Atenolol) 25 Mg Tablet 25 MG PO DAILY, #30 TAB (This prescription has been renewed) Cetirizine HCl (Cetirizine HCl) 10 Mg Tablet 10 MG PO DAILY, #30 TAB (This prescription has been renewed) Docusate Sodium (Docusate Sodium) 100 Mg Tablet 100 MG PO DAILY PRN for CONSTIPATION-1ST LINE, #30 TAB (This prescription has been renewed) Levothyroxine Sodium (Levothyroxine Sodium) 100 Mcg Tablet 100 MCG PO DAILY, #30 TAB (This prescription has been renewed) Magnesium Oxide (Magnesium Oxide) 400 Mg Tablet 400 MG PO DAILY, #30 TAB (This prescription has been renewed) Oxycodone HCl (Oxycodone HCl) 5 Mg Tablet 5 MG PO Q4H PRN for PAIN-SEVERE (8-10), #30 TAB (This prescription has been renewed) Oxycodone HCl (Oxycontin) 10 Mg Tab.er.12h 10 MG PO BID, #28 TAB (This prescription has been renewed) Pantoprazole Sodium (Pantoprazole Sodium) 40 Mg Tablet.dr 40 MG PO DAILY, #30 TAB (This prescription has been renewed) Sucralfate (Carafate) 1 Gram Tablet 1 GM PO QID, #120 TAB (This prescription has been renewed) Tiotropium [place] (Spiriva Respimat 2.5MCG/ACTUATION) 2.5 Mcg/Actuation Mist.inhal 2 PUFF IH DAILY, #30 EA (This prescription has been renewed) Triamcinolone Acetonide (Nasacort) 55 Mcg [employer] 1 SPRAY NSEACH BID, #1 EA (This prescription has been renewed) Discontinued Medications: Calcium Carbonate (Calcium Carbonate) 600 Mg Calcium (1500 Mg) Tablet 600 MG PO DAILY, TAB Meloxicam (Meloxicam) 7.5 Mg Tablet 7.5 MG PO BID, TAB Potassium Chloride (Klor-Con M20) 20 Meq Tab.er.prt 20 MEQ PO BID Aurea Bell Jun 07, 2022 11:00 AUREA BELL DO Jun 07, 2022 11:01
--- NOTE | 2022-06-07 11:01 | Discharge Summary ---
Diagnosis/Chief Complaint Date of Admission Jun 02, 2022 at 17:34 Date of Discharge Discharge Date: Jun 07, 2022 Discharge Diagnosis Assessment and Plan: UTI E. Coli positive Ceftriaxone 50ml @100ml/hr IV Q24H Catheter removed Post-Op Ileus Continue ambulating NGT removed DVT Prophylaxis Enoxaparin 40mg Q24 IV Orders in to get patient incentive spirometer Hypokalemia 50ml @50ml/hr KCl IV 8 Bags Ordered Potassium Bicarb/Citric acid 20meq BID PO Hypoglycemia KCl/Dextrose/NaCl 1,000ml @40ml/hr IV Recheck with AM labs Discharge Summary Discharge Physical Examination Allergies: Coded Allergies: meperidine (Verified Allergy, Unknown, 12/15/08) Vitals & I&Os Vital Signs Date Time Temp Pulse Resp B/P (MAP) Pulse Ox O2 Delivery O2 Flow Rate FiO2 06/07/22 16:27 36.6 109 18 125/59 (81) 97 Room Air 06/06/22 09:45 21 06/04/22 08:00 0.00 General Appearance: Alert, Oriented X3, Cooperative Respiratory: Clear to Auscultation Cardiovascular: Regular Rate Psych/Mental Status: Mental Status NL Hospital Course Was the Problem List Reviewed?: Yes CC: Post-Op Ileus, UTI Samantha Wheatley (Barbara) is a 81yo Female that presented to the ED on 06/02 due to abdominal pain and because her GILBERT drain fell out. She recently underwent a partial colon resection with creation of a diverting colostomy with Dr. Coulter. She was discharged from inpatient rehab on 06/01 and returned to the ED the next day. The initial concern was the patient had developed an ileus or obstruction so an NG tube was placed and the patient was admitted for management. During her admission she was found to have a UTI that was managed with ceftriaxone. She did not tolerate the NG tube well and requested it be removed. On her first day of admission she was found to have hypokalemia which was managed with IV and oral KCl, she also developed mild hypoglycemia which was managed with D5 normal saline. After the NG tube was removed the patient starting ambulating and tolerating clear liquids better, and generally expressed feeling better overall. The day after NG tube removal she tolerated a normal diet well. She will be di scharged to [facility] and rehab today (06/07) on cefdinir 300mg PO BID for 10 days, enoxaparin 40mg SQ daily, and Effer-K 20meq tablet BID. Follow up will be with Dr. Camp which will be communicated through nursing rounds. RC POON Labs (last 24 hrs) Laboratory Tests 06/02/22 15:25: Urine Color YELLOW, Urine Clarity SL CLOUDY, Urine pH 7.0, Urine Specific [place] 1.015L, Urine Protein NEGATIVE, Urine Glucose (UA) NEGATIVE, Urine Ketones NEGATIVE, Urine Nitrite NEGATIVE, Urine Bilirubin NEGATIVE, Urine Urobilinogen 0.2, Urine Leukocyte Esterase 1+H, Urine RBC (Auto) NEGATIVE, Urine RBC NONE, Urine WBC 10-25H, Urine Squamous Epithelial Cells 10-25H, Urine Crystals NONE, Urine Bacteria LARGEH, Urine Casts NONE, Urine Mucus NEGATIVE, Urine Culture Indicated YES 06/02/22 16:33: White Blood Count 8.0, Red Blood Count 2.82L, Hemoglobin 8.5L, Hematocrit 26L, Mean Corpuscular Volume 92, Mean Corpuscular Hemoglobin 30, Mean Corpuscular Hemoglobin Concent 33, Red Cell Distribution Width 19.5H, Platelet Count 330, Mean Platelet Volume 9.1, Immature Granulocyte % (Auto) 1, Neutrophils (%) (Auto) 67, Lymphocytes (%) (Auto) 15, Monocytes (%) (Auto) 15H, Eosinophils (%) (Auto) 2, Basophils (%) (Auto) 1, Neutrophils # (Auto) 5.4, Lymphocytes # (Auto) 1.2, Monocytes # (Auto) 1.2H, Eosinophils # (Auto) 0.2, Basophils # (Auto) 0.1, Immature Granulocyte # (Auto) 0.0, Sodium Level 134L, Potassium Level 3.5L, Chloride Level 97L, Carbon Dioxide Level 25, Anion Gap 12, Blood Urea Nitrogen 8, Creatinine 0.78, Estimat Glomerular Filtration Rate 77, BUN/Creatinine Ratio 10, Glucose Level 107H, Calcium Level 9.4, Corrected Calcium 10.5H, Magnesium Level 1.7, Total Bilirubin 0.3, Aspartate Amino Transf (AST/SGOT) 14, Alanine Aminotransferase (ALT/SGPT) 11, Alkaline Phosphatase 91, Total Protein 5.1L, Albumin 2.6L, Thyroid Stimulating Hormone (TSH) 9.60H, Free Thyroxine 0.98 06/04/22 04:40: White Blood Count 5.6, Red Blood Count 2.71L, Hemoglobin 8.0L, Hematocrit 25L, Mean Corpuscular Volume 93, Mean Corpuscular Hemoglobin 30, Mean Corpuscular Hemoglobin Concent 32, Red Cell Distribution Width 19.0H, Platelet Count 271, Mean Platelet Volume 8.9L, Sodium Level 136, Potassium Level 3.0L, Chloride Level 101, Carbon Dioxide Level 23, Anion Gap 12, Blood Urea Nitrogen 7, Creatinine 0.71, Estimat Glomerular Filtration Rate 86, BUN/Creatinine Ratio 10, Glucose Level 72, Calcium Level 7.5L 06/05/22 03:50: White Blood Count 5.9, Red Blood Count 2.89L, Hemoglobin 8.6L, Hematocrit 27L, Mean Corpuscular Volume 93, Mean Corpuscular Hemoglobin 30, Mean Corpuscular Hemoglobin Concent 32, Red Cell Distribution Width 18.6H, Platelet Count 294, Mean Platelet Volume 9.0, Sodium Level 136, Potassium Level 2.8L, Chloride Level 101, Carbon Dioxide Level 22, Anion Gap 13, Blood Urea Nitrogen 6L, Creatinine 0.64, Estimat Glomerular Filtration Rate 90, BUN/Creatinine Ratio 9, Glucose Level 65L, Calcium Level 7.4L, Magnesium Level 1.9, Total Bilirubin 0.3, Aspartate Amino Transf (AST/SGOT) 16, Alanine Aminotransferase (ALT/SGPT) 9, Alkaline Phosphatase 87, Total Protein 5.0L, Albumin 2.3L, Prothrombin Time 15.1H, INR Comment 1.1, Direct Bilirubin 0.2, Indirect Bilirubin 0.1 06/06/22 08:34: White Blood Count 4.9, Red Blood Count 2.91L, Hemoglobin 8.6L, Hematocrit 28L, Mean Corpuscular Volume 95, Mean Corpuscular Hemoglobin 30, Mean Corpuscular Hemoglobin Concent 31L, Red Cell Distribution Width 18.7H, Platelet Count 268, Mean Platelet Volume 9.3, Immature Granulocyte % (Auto) 1, Neutrophils (%) (Auto) 65, Lymphocytes (%) (Auto) 22, Monocytes (%) (Auto) 10, Eosinophils (%) (Auto) 1, Basophils (%) (Auto) 1, Neutrophils # (Auto) 3.2, Lymphocytes # (Auto) 1.1, Monocytes # (Auto) 0.5, Eosinophils # (Auto) 0.1, Basophils # (Auto) 0.0, Immature Granulocyte # (Auto) 0.0, Sodium Level 138, Potassium Level 3.3L, Chloride Level 107, Carbon Dioxide Level 21, Anion Gap 10, Blood Urea Nitrogen 3L, Creatinine 0.68, Estimat Glomerular Filtration Rate 89, BUN/Creatinine Ratio 4, Glucose Level 114H, Calcium Level 7.5L, Corrected Calcium 8.7, Magnesium Level 1.7, Total Bilirubin 0.3, Aspartate Amino Transf (AST/SGOT) 15, Alanine Aminotransferase (ALT/SGPT) 11, Alkaline Phosphatase 100, Total Protein 5.3L, Albumin 2.5L 06/07/22 05:22: White Blood Count 6.6, Red Blood Count 3.04L, Hemoglobin 9.0L, Hematocrit 28L, Mean Corpuscular Volume 93, Mean Corpuscular Hemoglobin 30, Mean Corpuscular Hemoglobin Concent 32, Red Cell Distribution Width 18.6H, Platelet Count 273, Mean Platelet Volume 8.9L, Immature Granulocyte % (Auto) 1, Neutrophils (%) (Auto) 57, Lymphocytes (%) (Auto) 32, Monocytes (%) (Auto) 8, Eosinophils (%) (Auto) 2, Basophils (%) (Auto) 1, Neutrophils # (Auto) 3.8, Lymphocytes # (Auto) 2.1, Monocytes # (Auto) 0.5, Eosinophils # (Auto) 0.1, Basophils # (Auto) 0.0, Immature Granulocyte # (Auto) 0.1, Sodium Level 137, Potassium Level 4.7, Chloride Level 107, Carbon Dioxide Level 20L, Anion Gap 10, Blood Urea Nitrogen 3L, Creatinine 0.66, Estimat Glomerular Filtration Rate 89, BUN/Creatinine Ratio 5, Glucose Level 88, Calcium Level 8.0L, Corrected Calcium 9.1, Total Bilirubin 0.3, Aspartate Amino Transf (AST/SGOT) 14, Alanine Aminotransferase (ALT/SGPT) 10, Alkaline Phosphatase 104, Total Protein 5.8L, Albumin 2.6L Microbiology 06/02/22 Urine Culture - Final, Complete Escherichia coli Mixed Bacterial Asha Pending Labs Microbiology Date/Time Source Procedure Growth Status 06/02/22 15:25 Urine Clean Catch Urine Culture - Final Escherichia coli Mixed Bacterial Asha Complete Laboratory Tests 06/02/22 15:25: Urine Color YELLOW, Urine Clarity SL CLOUDY, Urine pH 7.0, Urine Specific [place] 1.015, Urine Protein NEGATIVE, Urine Glucose (UA) NEGATIVE, Urine Ketones NEGATIVE, Urine Nitrite NEGATIVE, Urine Bilirubin NEGATIVE, Urine Urobilinogen 0.2, Urine Leukocyte Esterase 1+, Urine RBC (Auto) NEGATIVE, Urine RBC NONE, Urine WBC 10-25, Urine Squamous Epithelial Cells 10-25, Urine Crystals NONE, Urine Bacteria LARGE, Urine Casts NONE, Urine Mucus NEGATIVE, Urine Culture Indicated YES 06/02/22 16:33: White Blood Count 8.0, Red Blood Count 2.82, Hemoglobin 8.5, Hematocrit 26, Mean Corpuscular Volume 92, Mean Corpuscular Hemoglobin 30, Mean Corpuscular Hemoglobin Concent 33, Red Cell Distribution Width 19.5, Platelet Count 330, Mean Platelet Volume 9.1, Immature Granulocyte % (Auto) 1, Neutrophils (%) (Auto) 67, Lymphocytes (%) (Auto) 15, Monocytes (%) (Auto) 15, Eosinophils (%) (Auto) 2, Basophils (%) (Auto) 1, Neutrophils # (Auto) 5.4, Lymphocytes # (Auto) 1.2, Monocytes # (Auto) 1.2, Eosinophils # (Auto) 0.2, Basophils # (Auto) 0.1, Immature Granulocyte # (Auto) 0.0, Sodium Level 134, Potassium Level 3.5, Chloride Level 97, Carbon Dioxide Level 25, Anion Gap 12, Blood Urea Nitrogen 8, Creatinine 0.78, Estimat Glomerular Filtration Rate 77, BUN/Creatinine Ratio 10, Glucose Level 107, Calcium Level 9.4, Corrected Calcium 10.5, Magnesium Level 1.7, Total Bilirubin 0.3, Aspartate Amino Transf (AST/SGOT) 14, Alanine Aminotransferase (ALT/SGPT) 11, Alkaline Phosphatase 91, Total Protein 5.1, Albumin 2.6, Thyroid Stimulating Hormone (TSH) 9.60, Free Thyroxine 0.98 06/04/22 04:40: White Blood Count 5.6, Red Blood Count 2.71, Hemoglobin 8.0, Hematocrit 25, Mean Corpuscular Volume 93, Mean Corpuscular Hemoglobin 30, Mean Corpuscular Hemoglobin Concent 32, Red Cell Distribution Width 19.0, Platelet Count 271, Mean Platelet Volume 8.9, Sodium Level 136, Potassium Level 3.0, Chloride Level 101, Carbon Dioxide Level 23, Anion Gap 12, Blood Urea Nitrogen 7, Creatinine 0.71, Estimat Glomerular Filtration Rate 86, BUN/Creatinine Ratio 10, Glucose Level 72, Calcium Level 7.5 06/05/22 03:50: White Blood Count 5.9, Red Blood Count 2.89, Hemoglobin 8.6, Hematocrit 27, Mean Corpuscular Volume 93, Mean Corpuscular Hemoglobin 30, Mean Corpuscular Hemoglobin Concent 32, Red Cell Distribution Width 18.6, Platelet Count 294, Mean Platelet Volume 9.0, Sodium Level 136, Potassium Level 2.8, Chloride Level 101, Carbon Dioxide Level 22, Anion Gap 13, Blood Urea Nitrogen 6, Creatinine 0.64, Estimat Glomerular Filtration Rate 90, BUN/Creatinine Ratio 9, Glucose L evel 65, Calcium Level 7.4, Magnesium Level 1.9, Total Bilirubin 0.3, Aspartate Amino Transf (AST/SGOT) 16, Alanine Aminotransferase (ALT/SGPT) 9, Alkaline Phosphatase 87, Total Protein 5.0, Albumin 2.3, Prothrombin Time 15.1, INR Comment 1.1, Direct Bilirubin 0.2, Indirect Bilirubin 0.1 06/06/22 08:34: White Blood Count 4.9, Red Blood Count 2.91, Hemoglobin 8.6, Hematocrit 28, Mean Corpuscular Volume 95, Mean Corpuscular Hemoglobin 30, Mean Corpuscular Hemoglobin Concent 31, Red Cell Distribution Width 18.7, Platelet Count 268, Mean Platelet Volume 9.3, Immature Granulocyte % (Auto) 1, Neutrophils (%) (Auto) 65, Lymphocytes (%) (Auto) 22, Monocytes (%) (Auto) 10, Eosinophils (%) (Auto) 1, Basophils (%) (Auto) 1, Neutrophils # (Auto) 3.2, Lymphocytes # (Auto) 1.1, Monocytes # (Auto) 0.5, Eosinophils # (Auto) 0.1, Basophils # (Auto) 0.0, Immature Granulocyte # (Auto) 0.0, Sodium Level 138, Potassium Level 3.3, Chloride Level 107, Carbon Dioxide Level 21, Anion Gap 10, Blood Urea Nitrogen 3 , Creatinine 0.68, Estimat Glomerular Filtration Rate 89, BUN/Creatinine Ratio 4, Glucose Level 114, Calcium Level 7.5, Corrected Calcium 8.7, Magnesium Level 1.7, Total Bilirubin 0.3, Aspartate Amino Transf (AST/SGOT) 15, Alanine Aminotransferase (ALT/SGPT) 11, Alkaline Phosphatase 100, Total Protein 5.3, Albumin 2.5 06/07/22 05:22: White Blood Count 6.6, Red Blood Count 3.04, Hemoglobin 9.0, Hematocrit 28, Mean Corpuscular Volume 93, Mean Corpuscular Hemoglobin 30, Mean Corpuscular He moglobin Concent 32, Red Cell Distribution Width 18.6, Platelet Count 273, Mean Platelet Volume 8.9, Immature Granulocyte % (Auto) 1, Neutrophils (%) (Auto) 57, Lymphocytes (%) (Auto) 32, Monocytes (%) (Auto) 8, Eosinophils (%) (Auto) 2, Basophils (%) (Auto) 1, Neutrophils # (Auto) 3.8, Lymphocytes # (Auto) 2.1, Monocytes # (Auto) 0.5, Eosinophils # (Auto) 0.1, Basophils # (Auto) 0.0, Immature Granulocyte # (Auto) 0.1, Sodium Level 137, Potassium Level 4.7, Chloride Level 107, Carbon Dioxide Level 20, Anion Gap 10, Blood Urea Nitrogen 3, Creatinine 0.66, Estimat Glomerular Filtration Rate 89, BUN/Creatinine Ratio 5, Glucose Level 88, Calcium Level 8.0, Corrected Calcium 9.1, Total Bilirubin 0.3, Aspartate Amino Transf (AST/SGOT) 14, Alanine Aminotransferase (ALT/SGPT) 10, Alkaline Phosphatase 104, Total Protein 5.8, Albumin 2.6 Discharge Home Medications: Active Scripts Active Cefdinir 300 Mg Capsule 300 Mg PO BID Effer-K 20 Meq Tablet Eff (Potassium Bicarbonate/Cit AC) 20 Meq Tablet.eff 20 Meq PO BID Enoxaparin Sodium 40 Mg/0.4 Ml Syringe 40 Mg SQ Q24H Oxycontin (Oxycodone HCl) 10 Mg Tab.er.12h 10 Mg PO BID Oxycodone HCl 5 Mg Tablet 5 Mg PO Q4H PRN ALPRAZolam 0.25 Mg Tablet 0.25 Mg PO Q4H PRN Nasacort (Triamcinolone Acetonide) 55 Mcg [place] 1 [place] NSEACH BID Docusate Sodium 100 Mg Tablet 100 Mg PO DAILY PRN Magnesium Oxide 400 Mg Tablet 400 Mg PO DAILY Cetirizine HCl 10 Mg Tablet 10 Mg PO DAILY Aspirin EC (Aspirin) 81 Mg Tablet.dr 81 Mg PO DAILY Vitamin C (Ascorbate Calcium) 500 Mg Tablet 500 Mg PO DAILY Atenolol 25 Mg Tablet 25 Mg PO DAILY Spiriva Respimat 2.5MCG/ACTUATION (Tiotropium [place]) 2.5 Mcg/Actuation Mist.inhal 2 Puff IH DAILY Pantoprazole Sodium 40 Mg Tablet.dr 40 Mg PO DAILY Levothyroxine Sodium 100 Mcg Tablet 100 Mcg PO DAILY Carafate (Sucralfate) 1 Gram Tablet 1 Gm PO QID Instructions to patient/family Please see electronic discharge instructions given to patient. MIKEY CAMP DO Jun 07, 2022 11:01
[2022-06-07] MEDS: LORazepam 0.5 MG (ATIVAN) TABLET BC PRN (11:37)
[2022-06-07] MEDS: ENOXAPARIN 40 MG/0.4 ML (LOVENOX) SYR SQ SCH (11:37)
--- NOTE | 2022-06-07 11:48 | Occupational Ther Daily Note ---
OT Current Status-Daily Note Subjective Pt alert, lying in bed. Pt agrees to therapy. No c/o pain. Mental Status/Objective Patient Orientation: Person, Place, Time, Situation Attachments: Colostomy/Ileostomy, Drains (wound vac), IV ADL-Treatment Pt agrees to shower. Wound vac, colostomy and IV covered prior to shower. Min A for supine to EOB, independent with EOB to supine. Pt ambulated using 4WW to bathroom with SBA then completed toilet transfer and toileting independently. Using shower bench, grabbar, hand held shower and LH sponge pt able to complete shower with SBA. Assist with donning/doffing upper body clothing due to IV tubing. After therapy, pt lying in bed with call light/phone in reach. Wound nrsg in room with pt to change wound vac and ostomy. All needs met in room. Therapy Code Descriptions/Definitions Functional Nobles Measure: 0=Not Assessed/NA 4=Minimal Assistance 1=Total Assistance 5=Supervision or Setup 2=Maximal Assistance 6=Modified Nobles 3=Moderate Assistance 7=Complete IndependenceSCALE: Activities may be completed with or without assistive devices. 9-Vakoyorxhk-rnouwep completes the activity by him/herself with no assistance from a helper. 5-Set-up or Clean-up Assistance-helper sets up or cleans up; patient completes activity. [place] assists only prior to or following the activity. 4-Supervision or Touching Assistance-helper provides verbal cues and/or touching/steadying and/or contact guard assistance as patient completes activity. Assistance may be provided throughout the activity or intermittently. 3-Partial/Moderate Assistance-helper does LESS THAN HALF the effort. [place] lifts, holds or supports trunk or limbs, but provides less than half the effort. 2-Substantial/Maximal Assistance-helper does MORE THAN HALF the effort. [place] lifts or holds trunk or limbs and provides more than half the effort. 5-Igohadsgk-qgakmq does ALL the effort. Patient does none of the effort to complete the activity. Or, the assistance of 2 or more helpers is required for the patient to complete the activity. If activity was not attempted, code reason: 7-Patient Refused. 9-Not Applicable-not attempted and the patient did not perform the activity before the current illness, exacerbation or injury. 10-Not Attempted due to Environmental Limitations-(lack of equipment, weather restraints, etc.). 88-Not Attempted due to Medical Conditions or Safety Concerns. Shower/Bathe Self (QC): 4 Upper Body Dressing (QC): 3 Toileting Hygiene (QC): 6 Toilet Transfer (QC): 6 OT Business Sales Consultant Goals Prison Goals Time Frame: Jun 30, 2022 Oral Hygiene (QC): 4 Shower/Bathe Self (QC): 4 Lower Body Dressing (QC): 4 On/Off Footwear (QC): 4 (with AE) Additional Goals: 1-Demonstrate ADL Tasks, 2-Verbalize Understanding, 3- ImproveStrength/Tj 1=Demonstrate adherence to instructed precautions during ADL tasks. 2=Patient will verbalize/demonstrate understanding of assistive devices/modifications for ADL. 3=Patient will improve strength/tolerance for activity to enable patient to perform ADL's. OT Education/Plan Problem List/Assessment Assessment: Decreased Activ Tolerance, Impaired Self-Care Skills Discharge Recommendations Plan/Recommendations: Continue POC Treatment Plan/Plan of Care Patient would benefit from OT for education, treatment and training to promote independence in ADL's, mobility, safety and/or upper extremity function for ADL's. Plan of Care: ADL Retraining, Functional Mobility, UE Funct Exercise/Act Treatment Duration: Jun 30, 2022 Frequency: 3 times per week (3-5x/week) Rehab Potential: Good Time/GCodes Start Time: 08:45 Stop Time: 09:30 Total Time Billed (hr/min): 45 Billed Treatment Time 1 visit-ADL 3 (45 min) BRENDAN GONZALES Jun 07, 2022 11:48
--- NOTE | 2022-06-07 11:52 | Progress Note ---
RC POON 06/07/22 1152: Progress Note CC: Post-Op Ileus, UTI Samantha Wheatley (Barbara) is a 81yo Female that presented to the ED on 06/02 due to abdominal pain and because her GILBERT drain fell out. She recently underwent a partial colon resection with creation of a diverting colostomy with Dr. Coulter. She was discharged from inpatient rehab on 06/01 and returned to the ED the next day. The initial concern was the patient had developed an ileus or obstruction so an NG tube was placed and the patient was admitted for management. During her admission she was found to have a UTI that was managed with ceftriaxone. She did not tolerate the NG tube well and requested it be removed. On her first day of admission she was found to have hypokalemia which was managed with IV and oral KCl, she also developed mild hypoglycemia which was managed with D5 normal sa line. After the NG tube was removed the patient starting ambulating and tolerating clear liquids better, and generally expressed feeling better overall. The day after NG tube removal she tolerated a normal diet well. She will be discharged to [facility] rehab today (06/07) on cefdinir 300mg PO BID for 10 days, enoxaparin 40mg SQ daily, and Effer-K 20meq tablet BID. Follow up will be with Dr. Camp which will be communicated through nursing rounds. AUREA CAMP DO 06/07/22 0656: Supervisory-Addendum Brief Verification & Attestation Participated in pt care: history, MDM, physical Personally performed: exam, history, MDM, supervision of care Care discussed with: Medical Student Procedures: n/a Results interpretation: Verified all documentation Verification and Attestation of Medical Student E/M Service A medical student performed and documented this service in my presence. I reviewed and verified all information documented by the medical student and made modifications to such information, when appropriate. I personally performed the physical exam and medical decision making. Aurea Camp Jun 07, 2022,21:05 RC POON Jun 07, 2022 11:52 AUREA CAMP DO Jun 07, 2022 21:05
--- NOTE | 2022-06-07 15:10 | Physical Therapy Progress Note ---
Therapy Progress Note RUM PROCESSING OPERATOR doesn't render tx as pt d/c today. 1, no tx CHANDA GUALLPA RUM PROCESSING OPERATOR Jun 07, 2022 15:10
[2022-06-07 16:27] VITALS: BP 125/59
--- NOTE | 2022-06-07 17:37 | Wound Care Assessment ---
Wound Care Assessment Date Seen by Provider: Jun 07, 2022 Time Seen by Provider: 16:30 Chief Complaint Surgical Dehiscence post partial colectomy HPI This pleasant 81 year old female is a patient of Dr. Gagnon. She underwent partial colectomy for diverticulitis with subsequent dehiscence. She does also have colostomy. She has wound vac in place with plans to d/c to [facility]. She will have Vashe WTD dressings bid while awaiting approval for outpatient wound vac. Her wound has improved greatly in just the last week. Arabella urements from last week [id number] (see below assessment for comparison). She does have protein energy malnutrition and will need supplementation as outpatient. She does also have anemia (normocytic). Smoking Status: Former Smoker Review of Systems General: Fatigue Exam Vital Signs Date Time Temp Pulse Resp B/P (MAP) Pulse Ox O2 Delivery O2 Flow Rate FiO2 06/07/22 16:27 36.6 109 18 125/59 (81) 97 Room Air 06/06/22 09:45 21 06/04/22 08:00 0.00 Capillary Refill : Less Than 3 Seconds General Appearance: WD/WN, no apparent distress Cardiovascular: no edema Respiratory: no respiratory distress, no accessory muscle use Gastrointestinal: other (Colostomy and wound vac) Extremities: no pedal edema Neurologic/Psychiatric: alert, normal mood/affect, oriented x 3 Skin: normal color, warm/dry Skin Problem Location: other (abdomen) Wound assessment: 17x2.5x1.4cm. The epithelialization is none. There is no tunneling or undermining. Drainage is large and serosanguinous. Granulation is large and pink. Necrotic is small and slough. The margins show epibole. Results Laboratory Tests 06/07/22 05:22: White Blood Count 6.6, Red Blood Count 3.04L, Hemoglobin 9.0L, Hematocrit 28L, Mean Corpuscular Volume 93, Mean Corpuscular Hemoglobin 30, Mean Corpuscular Hemoglobin Concent 32, Red Cell Distribution Width 18.6H, Platelet Count 273, Mean Platelet Volume 8.9L, Immature Granulocyte % (Auto) 1, Neutrophils (%) (Auto) 57, Lymphocytes (%) (Auto) 32, Monocytes (%) (Auto) 8, Eosinophils (%) (Auto) 2, Basophils (%) (Auto) 1, Neutrophils # (Auto) 3.8, Lymphocytes # (Auto) 2.1, Monocytes # (Auto) 0.5, Eosinophils # (Auto) 0.1, Basophils # (Auto) 0.0, Immature Granulocyte # (Auto) 0.1, Sodium Level 137, Potassium Level 4.7, Chloride Level 107, Carbon Dioxide Level 20L, Anion Gap 10, Blood Urea Nitrogen 3L, Creatinine 0.66, Estimat Glomerular Filtration Rate 89, BUN/Creatinine Ratio 5, Glucose Level 88, Calcium Level 8.0L, Corrected Calcium 9.1, Total Bilirubin 0.3, Aspartate Amino Transf (AST/SGOT) 14, Alanine Aminotransferase (ALT/SGPT) 10, Alkaline Phosphatase 104, Total Protein 5.8L, Albumin 2.6L Microbiology 06/02/22 Urine Culture - Final, Complete Escherichia coli Mixed Bacterial Asha Assessment/Plan/Dx Assessment: 1. Surgical Dehiscence 2. PEM 3. Anemia Plan: 1. Agree with current dressings. Outpatient wound vac appropriate. Will plan to follow up accordingly 2. Supplementation warranted 3. Per PCP BUNNY PETIT MD Jun 07, 2022 17:37
--- NOTE | 2022-06-08 11:27 | Physician Query Clarification ---
PQ-Link Infection to Dev/Proc Admission/Discharge Admission Date: Jun 02, 2022 at 17:34 Discharge Date: Jun 07, 2022 at 18:05 Dr. Bell, The medical record reflects the following clinical scenario: History/Risk Factors: s/p partical colon resection with colostomy, GILBERT drain fell out Clinical Findings: decreased output, colostomy bag empty, abdomen distended and tight, decreased bowel sounds, ileus Treatment: NG tube Question: Can you specify if the ileus is due to/associated with partial colon resection? Please document a response in Progress Note or Discharge Summary. 1. Yes - ileus is due to/associated with partial colon resection. 2. No - ileus is due to/associated with partial colon resection. 3. Other, with explanation of the clinical findings. 4. Clinically undetermined, no explanation for the clinical findings. PHYSICIAN RESPONSE Specify if infection: 1 In responding to this query, please exercise your independent professional judgment. The purpose of this communication is to more accurately reflect the complexity of your patients condition. The fact that a question is asked does not imply that any particular answer is desired or expected. Thank you for your timely response to this clarification. Requestors name: Lorena THIS PHYSICIAN QUERY FORM IS A PERMANENT PART OF THE MEDICAL RECORD LORENA RAMIREZ Jun 08, 2022 11:27 MIKEY BELL DO Jun 08, 2022 21:05
== END 2022-06-07 18:05 | DRG 394 ==
LOC: EDUNIT# 14:49 → ER 14:51 → 4TH 17:34
PROVIDERS: ADMIT Family Medicine; ATTEND Internal Medicine
PROC: 0D9670Z Drainage of Stomach with Drainage Device, Via Natural or Artificial Opening (ICD-10-PCS; principal; 2022-06-02)
DX: K91.89 Other postprocedural complications and disorders of digestive system (principal); K56.7 Ileus, unspecified; N39.0 Urinary tract infection, site not specified; E44.0 Moderate protein-calorie malnutrition; T81.31XA Disruption of external operation (surgical) wound, not elsewhere classified, initial encounter; K59.00 Constipation, unspecified; E16.2 Hypoglycemia, unspecified; E87.6 Hypokalemia; I48.91 Unspecified atrial fibrillation; D64.9 Anemia, unspecified; J44.9 Chronic obstructive pulmonary disease, unspecified; K21.9 Gastro-esophageal reflux disease without esophagitis; I10 Essential (primary) hypertension; E78.00 Pure hypercholesterolemia, unspecified; E03.9 Hypothyroidism, unspecified; Z68.31 Body mass index [BMI] 31.0-31.9, adult; Z93.3 Colostomy status; Z90.49 Acquired absence of other specified parts of digestive tract; Z87.891 Personal history of nicotine dependence; Z79.82 Long term (current) use of aspirin
CPT/HCPCS: 36415; 71045; 74019; 80048; 80053; 80076; 81000; 83735; 84439; 84443; 85025; 85027; 85610; 87077; 87088; 87186; 94640; 94664; 94760; 96374

== ENCOUNTER → 2022-06-12 | Outpatient (CLI) | payer MEDICARE, OTHER ==
[~2022-06-12] MED LIST changes: +ALPR0.254 PO; +CALC600T80 PO; +CEFD300C3 PO; +CETI10TA17 PO; +DOCU100T2 PO; +ENOX40DI8 SQ; +MAGN400T7 PO; +OXYC5TAB PO; +POTA20TA28 PO
== END ==
LOC: WOUNDCARE 09:18
PROVIDERS: ATTEND Family Medicine
DX: T81.31XA Disruption of external operation (surgical) wound, not elsewhere classified, initial encounter (principal); E44.0 Moderate protein-calorie malnutrition; D46.4 Refractory anemia, unspecified; M79.10 Myalgia, unspecified site; Z90.49 Acquired absence of other specified parts of digestive tract; Z93.3 Colostomy status
CPT/HCPCS: 11042; 11045; G0463

== ENCOUNTER → 2022-06-19 | Outpatient (CLI) | payer MEDICARE, OTHER | LOC: WOUNDCARE 08:45 | PROVIDERS: ATTEND Family Medicine | DX: T81.31XA Disruption of external operation (surgical) wound, not elsewhere classified, initial encounter (principal); E44.1 Mild protein-calorie malnutrition; D46.4 Refractory anemia, unspecified; M79.10 Myalgia, unspecified site; Z93.3 Colostomy status; Z90.49 Acquired absence of other specified parts of digestive tract; I96 Gangrene, not elsewhere classified | CPT/HCPCS: 11042; G0463 ==

== ENCOUNTER → 2022-06-27 | Outpatient (CLI) | payer MEDICARE, OTHER | LOC: WOUNDCARE 09:38 | PROVIDERS: ATTEND Family Medicine | DX: T81.31XA Disruption of external operation (surgical) wound, not elsewhere classified, initial encounter (principal); E44.0 Moderate protein-calorie malnutrition; D46.4 Refractory anemia, unspecified; M79.10 Myalgia, unspecified site; Z90.49 Acquired absence of other specified parts of digestive tract; Z93.3 Colostomy status | CPT/HCPCS: 17250; G0463 ==

== ENCOUNTER → 2022-07-03 | Outpatient (CLI) | payer MEDICARE, OTHER | LOC: WOUNDCARE 09:47 | PROVIDERS: ATTEND Family Medicine | DX: T81.31XA Disruption of external operation (surgical) wound, not elsewhere classified, initial encounter (principal); Z90.49 Acquired absence of other specified parts of digestive tract; Z93.3 Colostomy status; E44.1 Mild protein-calorie malnutrition; D46.4 Refractory anemia, unspecified; M79.10 Myalgia, unspecified site | CPT/HCPCS: 99212 ==

== ENCOUNTER 2022-08-03 15:17 | Emergency (ER) | payer MEDICARE ==
[~2022-08-03] VITALS: Ht 157.5 cm; Wt 66.6 kg
[2022-08-03 15:41] LABS: BILIRUBIN,URINE NEGATIVE (NEGATIVE); CLARITY,URINE CLEAR; COLOR,URINE YELLOW; GLUCOSE, URINE (UA) NEGATIVE (NEGATIVE); KETONES,URINE NEGATIVE (NEGATIVE); LEUKOCYTE ESTERASE ,URINE 3+ (NEGATIVE); NITRITE,URINE NEGATIVE (NEGATIVE); PROTEIN,URINE NEGATIVE (NEGATIVE)
--- NOTE | 2022-08-03 15:52 | ED GU-Female ---
General Chief Complaint: - Reproductive Stated Complaint: UTI Nursing Triage Note: PT AMB TO [facility] 6 WITH COMPLAINT OF URINATING FECES. 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 STATES THAT WAS NOT REPAIRED. HAS BEEN ON 3 ROUNDS OF ANTIBIOTICS FROM PCP WITHOUT ANY IMPROVEMENT. History of Present Illness Date Seen by Provider: Aug 03, 2022 Time Seen by Provider: 15:30 Initial Comments 81 year old female presents for UTI symptoms. 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 She called Dr. Dumont this morning and was referred to PCP, Dr. Whitmore and he referred her to Dr. Dumont, so the patient chose to come to the ED for UA. Patient reports finishing Cipro 2 days ago. Mild abdominal pain from hernia, but no change from her daily pain. Denies fever. She has been having problems with diarrhea or constipation, no change in stool consistency to colostomy bag today. She reports passing stool in her urine at times, none visible in UA obtained. Allergies and Home Medications Allergies Coded Allergies: meperidine (Verified Allergy, Unknown, 12/15/08) Patient Home Medication List Home Medication List Reviewed: Yes ALPRAZolam (ALPRAZolam) 0.25 Mg Tablet, 0.25 MG PO Q4H PRN for ANXIETY Prescribed by: MIKEY CAMP on 06/07/22 1100 Ascorbate Calcium (Vitamin C) 500 Mg Tablet, 500 MG PO DAILY Prescribed by: MIKEY CAMP on 06/07/22 1059 Aspirin (Aspirin EC) 81 Mg Tablet.dr, 81 MG PO DAILY Prescribed by: MIKEY CAMP on 06/07/22 1059 Atenolol (Atenolol) 25 Mg Tablet, 25 MG PO DAILY Prescribed by: MIKEY CAMP on 06/07/22 1059 Cefdinir (Cefdinir) 300 Mg Capsule, 300 MG PO BID Prescribed by: MIKEY CAMP on 06/07/22 1059 Cetirizine HCl (Cetirizine HCl) 10 Mg Tablet, 10 MG PO DAILY Prescribed by: MIKEY CAMP on 06/07/22 1059 Ciprofloxacin HCl (Ciprofloxacin HCl) 500 Mg Tablet, 500 MG PO BID Prescribed by: PORFIRIO WATT on 08/03/22 1701 Docusate Sodium (Docusate Sodium) 100 Mg Tablet, 100 MG PO DAILY PRN for CONSTIPATION-1ST LINE Prescribed by: MIKEY CAMP on 06/07/22 105 Enoxaparin Sodium (Enoxaparin Sodium) 40 Mg/0.4 Ml Syringe, 40 MG SQ Q24H Prescribed by: MIKEY CAMP on 06/07/22 105 Levothyroxine Sodium (Levothyroxine Sodium) 100 Mcg Tablet, 100 MCG PO DAILY Prescribed by: MIKEY CAMP on 06/07/22 105 Magnesium Oxide (Magnesium Oxide) 400 Mg Tablet, 400 MG PO DAILY Prescribed by: MIKEY CAMP on 06/07/22 105 Oxycodone HCl (Oxycodone HCl) 5 Mg Tablet, 5 MG PO Q4H PRN for PAIN-SEVERE (8- 10) Prescribed by: MIKEY CAMP on 06/07/22 1100 Oxycodone HCl (Oxycontin) 10 Mg Tab.er.12h, 10 MG PO BID Prescribed by: MIKEY CAMP on 06/07/22 1100 Pantoprazole Sodium (Pantoprazole Sodium) 40 Mg Tablet.dr, 40 MG PO DAILY Prescribed by: MIKEY CAMP on 06/07/22 105 Potassium Bicarbonate/Cit AC (Effer-K 20 Meq Tablet Eff) 20 Meq Tablet.eff, 20 MEQ PO BID Prescribed by: MIKEY CAMP on 06/07/22 105 Sucralfate (Carafate) 1 Gram Tablet, 1 GM PO QID Prescribed by: MIKEY CAMP on 06/07/22 105 Tiotropium [place] (Spiriva Respimat 2.5MCG/ACTUATION) 2.5 Mcg/Actuation Mist.inhal, 2 PUFF IH DAILY Prescribed by: MIKEY CAMP on 06/07/22 105 Triamcinolone Acetonide (Nasacort) 55 Mcg [place], 1 SPRAY NSEACH BID Prescribed by: MIKEY CAMP on 06/07/22 105 Review of Systems Review of Systems Constitutional: no symptoms reported, see HPI Genitourinary: see HPI, frequency, pain All Other Systemes Reviewed Negative Unless Noted: Yes Past Dcixczw-Bxmviv-Hxknrx Hx Patient Social History Tobacco Use?: No Use of E-Cig and/or Vaping dev: No Substance use?: No Alcohol Use?: No Pt feels they are or have been: No Immunizations Up To Date Tetanus Booster (TDap): Unknown First/Initial COVID19 Vaccinat: yes Second COVID19 Vaccination Od[place]: yes Third COVID19 Vaccination Date: yes Seasonal Allergies Seasonal Allergies: Yes Past Medical History Surgery/Hospitalization HX: OSTEOARTHRITIS, CHOLECYSTECTOMY, COPD, GERD, HTN, HIGH CHOLESTEROL, MULTIPLE BACK SURGERIES, APPENDECTOMY, TONSILLECTOMY, HYPOTHYROIDISM., bowel resection, colostomy Surgeries: Yes Abdominal, 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, Orthopedic, Tonsillectomy Respiratory: Yes COPD Currently Using CPAP: No Currently Using BIPAP: No Cardiac: Yes High Cholesterol, Hypertension Neurological: Yes 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 Sexually Transmitted Disease: No Genitourinary: Yes UTI-Chronic Gastrointestinal: Yes Gastroesophageal Reflux, Obstructive Bowel, Diverticulosis, Hemorrhoids Musculoskeletal: Yes Arthritis, Fibromyalgia, Chronic Back Pain Endocrine: Yes Hypothyroidsim HEENT: No Hearing Impairment: Denies Cancer: No Psychosocial: Yes Anxiety, Depression Integumentary: No Adverse Reaction/Blood Tranf: No Family Medical History Reviewed Nursing Family Hx Lung Disease Physical Exam Vital Signs Vital Signs - First Documented 08/03/22 15:27 Temp 36.7 Pulse 90 Resp 16 B/P (MAP) 165/79 (107) Pulse Ox 96 O2 Delivery Room Air Capillary Refill : Less Than 3 Seconds Height, Weight, BMI Height: 5'2.00" Weight: 160lbs. 0.0oz. 72.357930gj; 26.00 BMI Method:Stated General Appearance: WD/WN, no apparent distress Cardiovascular: normal peripheral pulses, regular rate, rhythm Respiratory: chest non-tender, lungs clear, normal breath sounds Gastrointestinal: normal bowel sounds, soft; No distended; tenderness (trace tenderness at colostomy site with herna present. Patient denies change in her pain. ), other (midline abd incision well healed, no erythema, warmth or drainage.) Neurologic/Psychiatric: no motor/sensory deficits, alert, normal mood/affect, oriented x 3 Progress/Results/Core Measures Suspected Sepsis SIRS Temperature: Pulse: 90 Respiratory Rate: 16 Blood Pressure 165 /79 Mean: 107 Results/Orders Lab Results Laboratory Tests Test 08/03/22 15:34 Range/Units Urine Color YELLOW Urine Clarity CLEAR Urine pH 7.0 5-9 Urine Specific [place] <=1.005 1.016-1.022 Urine Protein NEGATIVE NEGATIVE Urine Glucose (UA) NEGATIVE NEGATIVE Urine Ketones NEGATIVE NEGATIVE Urine Nitrite NEGATIVE NEGATIVE Urine Bilirubin NEGATIVE NEGATIVE Urine Urobilinogen 0.2 < = 1.0 MG/DL Urine Leukocyte Esterase 3+ H NEGATIVE Urine RBC (Auto) 3+ H NEGATIVE Urine RBC 25-50 H /HPF Urine WBC TNTC H /HPF Urine Squamous Epithelial Cells RARE /HPF Urine Crystals NONE /LPF Urine Bacteria LARGE H /HPF Urine Casts NONE /LPF Urine Mucus NEGATIVE /LPF Urine Culture Indicated YES My Orders Orders - PORFIRIO WATT Ua Culture If Indicated (08/03/22 15:20) Urine Culture (08/03/22 15:34) Ct Cystogram (08/03/22 16:46) Iohexol Injection (Omnipaque 300 Mg/Ml 1 (08/03/22 17:30) Received Contrast (Hold Metformin- Contr (08/03/22 17:30) Medications Given in ED Current Medications Medications Dose Ordered Sig/Baldemar Route Start Time Stop Time Status Last Admin Dose Admin Iohexol 75 ml ONCE ONCE IV 08/03/22 17:30 08/03/22 17:31 DC 08/03/22 17:29 75 ML Vital Signs/I&O 08/03/22 08/03/22 15:27 16:32 Temp 36.7 36.7 Pulse 90 74 Resp 16 18 B/P (MAP) 165/79 (107) 157/62 Pulse Ox 96 94 O2 Delivery Room Air Room Air Capillary Refill : Less Than 3 Seconds Blood Pressure Mean: 107 Progress Note : Time: 15:30 Progress Note patient seen and evaluated, will obtain UA and re-evaluate. [address] Dumont about UA results. Recommended CT Cysto and continuing antibiotics. 1730 Discharge instructions and return precautions reviewed. CT results discussed. Diagnostic Imaging Diagonstic Imaging: CT Plain Films/CT/US/NM/MRI: abdomen, other (Cystogram) Comments NAME: [facility]LLISON [facility] REC#: [id number] PT STATUS: DEP ER : 1940 PHYSICIAN: PORFIRIO WATT ADMIT DATE: 08/03/22/ER Signed Date of Exam:08/03/22 CT CYSTOGRAM EXAMINATION: CT pelvis without intravenous contrast. TECHNIQUE: Multiple contiguous axial images were obtained through the pelvis performed according to a cystogram protocol. All CT scans use one or more of the following dose optimizing techniques: automated exposure control, MA and/or KvP adjustment based on patient size and exam type or iterative reconstruction. HISTORY: Bladder fistula. COMPARISON: None available. FINDINGS: No free air, free fluid, or suspicious lymphadenopathy. There is a left lower quadrant ostomy with a parastomal hernia. No bowel obstruction. The osseous structures are intact with surgical changes from spinal fusion. There are vascular calcifications of the aorta without aneurysm. There are small fat-containing bilateral inguinal hernias. Surgical changes of the colon. A Hunter catheter is present in the urinary bladder. The urinary bladder fills with contrast without evidence of extravasation. The bladder is drained completely on post evacuation film and continues not to demonstrate any obvious extravasation. IMPRESSION: No findings of bladder fistula or leak on this exam. Dictated by: Dictated on workstation # [id number] Dict: 08/03/221731 Trans: 08/03/221815 [facility] [id number] Interpreted by: KIANA GERARDO DO Electronically signed by: KIANA GERARDO DO 08/03/221815 Departure Impression Primary Impression: UTI (urinary tract infection) Qualified Codes: N30.01 - Acute cystitis with hematuria Additional Impression: Colostomy present Disposition: 01 HOME, SELF-CARE Condition: Improved Departure-Patient Inst. Decision time for Depature: 17:15 Referrals: MADI WHITMORE DO (PCP) Primary Care Physician SOFIA DUMONT DO (Family) Primary Care Physician Patient Instructions: Urinary Tract Infection, Adult (DC) Add. Discharge Instructions: Take antibiotics as prescribed. Increase water intake. Follow-up with your primary care provider and Dr. Dumont as needed. Return to the emergency department for new, urgent healthcare needs. All discharge instructions reviewed with patient and/or family. Voiced understanding. Scripts Ciprofloxacin HCl (Ciprofloxacin HCl) 500 Mg Tablet 500 MG PO BID, #20 TAB 0 Refills Prov: PORFIRIO WATT 08/03/22 Copy Copies To 1: SOFIA DUMONT DO; MADI WHITMORE AMY ARNP Aug 03, 2022 15:52
[2022-08-03 16:32] VITALS: BP 157/62
[2022-08-03 16:35] LABS: RBC,URINE 25-50 /HPF
[2022-08-03 16:36] LABS: BACTERIA,URINE LARGE /HPF; SQUAMOUS EPITHELIAL CELL,UR RARE /HPF; WBC,URINE TNTC /HPF
[2022-08-03] MEDS ORDERED: CIPR500T5 PO (17:01)
[2022-08-03] MEDS ORDERED: IOHEXOL 300 MG/ML 100 ML (OMNIPAQUE 300) VIAL IV ONE (17:30)
[2022-08-03] MEDS ORDERED: HOLD METFORMIN - RECEIVED CONTRAST 20 ML VIAL IV SCH (17:30)
--- NOTE | 2022-08-03 17:40 | Diagnostic Imaging Report ---
EXAMINATION: CT pelvis without intravenous contrast. TECHNIQUE: Multiple contiguous axial images were obtained through the pelvis performed according to a cystogram protocol. All CT scans use one or more of the following dose optimizing techniques: automated exposure control, MA and/or KvP adjustment based on patient size and exam type or iterative reconstruction. HISTORY: Bladder fistula. COMPARISON: None available. FINDINGS: No free air, free fluid, or suspicious lymphadenopathy. There is a left lower quadrant ostomy with a parastomal hernia. No bowel obstruction. The osseous structures are intact with surgical changes from spinal fusion. There are vascular calcifications of the aorta without aneurysm. There are small fat-containing bilateral inguinal hernias. Surgical changes of the colon. A Hunter catheter is present in the urinary bladder. The urinary bladder fills with contrast without evidence of extravasation. The bladder is drained completely on post evacuation film and continues not to demonstrate any obvious extravasation. IMPRESSION: No findings of bladder fistula or leak on this exam. Dictated by: Dictated on workstation # [id number]
== END 2022-08-03 17:44 | disposition home or self-care (01) ==
LOC: EDUNIT# 15:17 → ER 15:22
DX: N39.0 Urinary tract infection, site not specified (principal); Z93.3 Colostomy status; Z90.49 Acquired absence of other specified parts of digestive tract
CPT/HCPCS: 51702; 72192; 81000; 87088

== ENCOUNTER 2022-08-23 05:31 | Outpatient (CLI) | payer MEDICARE, OTHER ==
[~2022-08-23] VITALS: Ht 157 cm; Wt 66.6 kg
[~2022-08-23 05:31] MED LIST changes: +CIPR500T5 PO
== END 2022-08-23 15:53 | disposition home or self-care (01) ==
LOC: PREOP 05:31
PROVIDERS: ATTEND Surgery
DX: Z01.818 Encounter for other preprocedural examination (principal)

== ENCOUNTER 2022-08-30 07:44 | Inpatient (IN) | payer MEDICARE, OTHER ==
[~2022-08-30] VITALS: Ht 157 cm; Wt 73.1 kg
[2022-08-30] VITALS (11 sets, daily range): BP systolic 107–141; BP diastolic 62–80
--- OUTSIDE RECORDS SUMMARY | 2022-08-30 07:48 | XMS REPORT | Clinical Summary ---
Author Author [facility] Organization [facility] Address Unknown Phone Unavailable Care Team Providers Care Coordinator Cardiopulmonary Services Name Role Phone Arie Whitmore PCP Source Comments Some departments are not documenting in the electronic medical record. If you d o not see the information that you expected, contact Release of Information in [facility] [employer] Information Management department at [phone] for further assistan ce in locating additional records.[facility] Allergies Comments Active Allergy Reactions Severity [...] 100 mg Take 1 180 capsule 3 0 capsule capsule by 8 mouth twice daily. Additional Information Patient taking differently: 100 mg Oral AT BEDTIME DAILY, Reported on 03/07/2018 Active Biotin 5 mg cap Take 5 [...] Noted Date Lumbar stenosis with neurogenic claudication 018 Overview: Added automatically from request for [place] [employer] [id number] Cervical spinal stenosis 10/23/2017 Overview: Added automatically from request for lita huang [id number] Surgical History Surgery Date Site/Laterality Comments KNEE SURGERY Left DILATION AND CURETTAGE HEMORRHOIDECTOMY CHOLECYSTECTOMY TUBAL LIGATION TONSILLECTOMY FOOT SURGERY HEART CATHETERIZATION HIATAL HERNIA REPAIR BACK SURGERY ESOPHAGUS SURGERY STRETCH ESOPHAGUS CATARACT REMOVAL LUMBAR FUSION 03/13/2018 Back/N/A DECOMPRESSIVE L UMBAR LAMINECTOMY AND POSTEROLATERAL INSTRUMENTED FUSION AT L UMBAR 3-4, RE-INSTRUMENTATION AT LUMBAR 3-5 AND RE MOVAL OF SPINAL CORD STIMULATOR performed by Eduardo Ellsworth MD at [facility] Medical devices from this surgery are i n the Medical Devices section. CERVICAL FUSION 11/09/2017 Neck/N/A ANTERIOR CERVI SEA DISCECTOMY AND FUSION AT CERVICAL 5-6 AND CERVICAL 6-7 performed by Eduardo Mathis MD at [facility] Medical devices from this surgery are i n the Medical Devices section. 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 Social History Date Tobacco Use Types Packs/Day Years Used Quit: 1991 Former Smoker Cigarettes 1 20 Smokeless Tobacco: Never Used Comments: QUIT SMOKING 30 YEARS AGO Comments Alcohol Use Standard Drinks/Week No 0 (1 standard drink = 0.6 o z pure alcohol) Sex Assigned at Date Recorded Not on file Obstetrics History Last Filed Vital Signs Reading Time Taken Comments Vital Sign 128/50 06/20/2018 11:03 AM CDT Blood Pressure 63 06/20/2018 11:03 AM CDT Pulse 36.7 C (98.1 F) 03/17/2018 5:15 AM CDT Temperature 16 10/19/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 Respiratory Rate 98% 06/20/2018 11:03 AM CDT Oxygen Saturation - - Inhaled Oxygen Concentration 70.3 kg (155 lb) 06/20/2018 11:03 AM CDT Weight 157.5 cm (5' 2.01") 06/20/2018 11:03 AM CDT Height 28.34 06/20/2018 11:03 AM CDT Body Mass Index Plan of Treatment Health Maintenance Due Date Last Done Comments MEDICARE ANNUAL WELLNESS 1940 VISIT COVID-19 VACCINE (#1) 02[birth year]07/1941 DTAP/TDAP VACCINES (1 - 1960 Tdap) PHYSICAL (COMPREHENSIVE) 1960 EXAM SHINGLES RECOMBINANT 1992 VACCINE (1 of 2) OSTEOPOROSIS 2007 SCREENING/MONITORING PNEUMOCOCCAL VACCINE (1 - 2007 PCV) ADVANCED CARE PLANNING 10/22/2021 DISCUSSION AND DOCUMENTATION DEPRESSION SCREENING 10/22/2021 INFLUENZA VACCINE 05/22/2022 Medical Devices Device Identifier Shelf Expiration Date Model / Serial / L ot Implanted Type Area Manufactur er [id number] / N/A / N/A Plate 32mm Titanium Level 2 Reflex N/A: Spine ST KARL:ST Zero Profile Bone Spine - Sn/A Cervical KARL Implanted: Qty: 1 on 11/09/2017 by SPINE Bogdan Mathis MD at [facility] [id number] / N/A / N/A Connector Anthony Matrix 7 [id number] N/A: Spine SYNTH ES Od5.5/6mm Spine Trnsv Snapon - Sn/A Lumbar S YNTHES Implanted: Qty: 1 on 03/13/2018 at [employer] Device Identifier Shelf Expiration Date Model / Serial / L ot Explanted Type Area Manufactur er / N/A / N/A Spinal Cord Stimulator N/A: Spine Explanted: Qty: 1 on 03/13/2018 by Lumbar Bogdan Mathis MD at [facility] Results Not on filefrom Last 3 Months Insurance Type Payer Benefit Subscriber ID Effective Phone Address Plan / Dates Group Medicare MEDICARE MEDICARE [id number] 2007- [phone] [address] AND Present [address] [place] [address] Advance Directives Date Inactivated Comments Code Status Date Activated 03/17/2018 5:11 PM Full Code 03/13/2018 5:08 PM Provider has discussed Code Status No, more discussi on w/Patient or Family? needed 11/10/2017 3:24 PM Full Code 11/09/2017 10:53 AM Provider has discussed Code Status No, more discussi on w/Patient or Family? needed Care Teams Start Date End Date Coordinator Cardiopulmonary Services Relationship Specialty 09/20/17 Arie Whitmore PCP - [address] YARIEL Villalba [id number]
[2022-08-30] MEDS ORDERED: metroNIDAZOLE 500 MG/100 ML IVPB (PRE-MIX) IV ONE (08:00)
[2022-08-30] MEDS ORDERED: FLEET ENEMA ADULT 1 EA BTL PR ONE (08:00)
[2022-08-30] MEDS ORDERED: ceFAZolin INJECTION 2,000 MG in NS (IVPB) 50 ML IV ONE (08:00)
[2022-08-30] MEDS ORDERED: ONDANSETRON 4 MG/2 ML (SDV) Z0FRAN ONE ×2 (08:25→09:26)
[2022-08-30] MEDS: LACTATED RINGERS 1,000 ML IV PRN ×2 (08:30→10:45)
[2022-08-30] MEDS ORDERED: ONDANSETRON 4 MG/2 ML (SDV) Z0FRAN IVP ONE (08:30)
--- NOTE | 2022-08-30 08:39 | Progress Note-Pre Operative ---
Pre-Operative Progress Note Date of Available H&P: Aug 08, 2022 Date H&P Reviewed: Aug 30, 2022 Time H&P Reviewed: 08:34 History & Physical: H&P Reviewed, Patient Examed, No changes noted Pre-Operative Diagnosis: Colostomy, possible colo or entero-vesicular fistula SOFIA DUMONT DO Aug 30, 2022 08:39
[2022-08-30] MEDS ORDERED: FAMOTIDINE 20MG/2ML IV (PEPCID) IVP ONE (08:45)
[2022-08-30] MEDS ORDERED: FAMOTIDINE 20MG/2ML IV (PEPCID) ONE (08:47)
[2022-08-30] MEDS ORDERED: proPOfol 200 MG/20 ML (DIPRIVAN) VIAL IV ONE (09:26)
[2022-08-30] MEDS ORDERED: ROCURONIUM 10 MG/ML 5 ML SYRINGE IV ONE (09:26)
[2022-08-30] MEDS ORDERED: LIDOCAINE PF 2% 5 ML (XYLOCAINE) VIAL ONE (09:26)
[2022-08-30] MEDS ORDERED: fentaNYL INJ 100 MCG/2 ML AMP ONE ×2 (09:27→11:26)
[2022-08-30] MEDS ORDERED: LIDOCAINE/EPI 1%-1:100,000 (XYLOCAINE) 10 ML ONE (09:41)
[2022-08-30] MEDS: ceFAZolin INJECTION 2,000 MG in NS (IVPB) 50 ML IV SCH ×2 (09:54→20:22)
[2022-08-30] MEDS ORDERED: METHYLENE BLUE 0.5% (PROVAYBLUE) 50 mg/10 ml vial IV ONE (11:47)
[2022-08-30] MEDS ORDERED: SEVOFLURANE (ULTANE) 15 ML INHAL SOLN ONE ×2 (12:49→12:51)
--- NOTE | 2022-08-30 12:56 | Progress Note-Post Operative ---
Post-Operative Progess Note Surgeon (s)/Trauma Registrar (s) Surgeon SOFIA DUMONT DO Trauma Registrar: Venessa Pre-Operative Diagnosis Colostomy, possible colo or entero-vesicular fistula Post-Operative Diagnosis Hyrum-Vesical Fistula Parastomal hernia Procedure & Operative Findings Date of Procedure 08/30/22 Procedure Performed/Findings Repair of colo-vesical fistula Repair of parastomal hernia Extensive lysis of adhesions Anesthesia Type GET Estimated Blood Loss Estimated blood loss (mL): appx 100ml Specimens/Packing Specimens Removed none SOFIA DUMONT DO Aug 30, 2022 12:55
[2022-08-30] MEDS ORDERED: NEOSTIGMINE 3 MG/3 ML VIAL ONE (12:58)
[2022-08-30] MEDS ORDERED: GLYCOPYRROLATE 0.2 MG/ML (ROBINUL) 2 ML VIAL ONE (12:59)
[2022-08-30] MEDS ORDERED: metroNIDAZOLE 500MG/100ML IVPB 100 ML IV SCH (13:00)
[2022-08-30] MEDS ORDERED: morphine INJ 4 MG/ML 1 ML (VIAL/SYRINGE) IVP PRN (13:00)
[2022-08-30] MEDS ORDERED: morphine INJ 10 MG/ML 1ML (SYR OR VIAL) IVP ONE (13:15)
[2022-08-30] MEDS ORDERED: fentaNYL INJ 100 MCG/2 ML AMP IVP ONE (13:15)
[2022-08-30] MEDS ORDERED: PROMETHAZINE INJ 25 MG/ML (PHENERGAN) AMP IVP ONE (13:15)
[2022-08-30] MEDS ORDERED: HYDROmorphone 2 MG/ML VIAL (DILAUDID) IV ONE (13:15)
[2022-08-30] MEDS ORDERED: ONDANSETRON 4 MG/2 ML (SDV) Z0FRAN IVP PRN (13:15)
--- NOTE | 2022-08-30 13:15 | Anesthesia-General Post-Op ---
General Patient Condition Mental Status/LOC: Same as Preop Cardiovascular: Satisfactory Nausea/Vomiting: Absent Respiratory: Satisfactory Pain: Controlled Complications: Absent Post Op Complications Complications None Follow Up Care/Instructions Patient Instructions None needed. Anesthesia/Patient Condition Patient Condition Patient is doing well, no complaints, stable vital signs, no apparent adverse anesthesia problems. No complications reported per nursing. JESSICA FARMER CRNA Aug 30, 2022 13:15
[2022-08-30] MEDS ORDERED: morphine INJ 10 MG/ML 1ML (SYR OR VIAL) ONE (13:21)
[2022-08-30] MEDS ORDERED: HYDROmorphone 2 MG/ML VIAL (DILAUDID) ONE (13:43)
[2022-08-30] MEDS: LACTATED RINGERS 1,000 ML IV SCH ×2 (14:00→22:33)
[2022-08-30] MEDS ORDERED: MELO7.5T46 PO (14:58)
[2022-08-30] MEDS ORDERED: NON-FORMULARY MEDICATION 1 EA EA (Docusate Sodium 100 MG) PO PRN (15:00)
[2022-08-30] MEDS: MELOXICAM 7.5 MG (MOBIC) TABLET PO SCH (17:27)
[2022-08-30] MEDS: metroNIDAZOLE 500MG/100ML IVPB 100 ML IV SCH (17:27)
[2022-08-30] MEDS: ALPRAZolam 0.25 MG (XANAX) TAB PO PRN (17:27)
[2022-08-30] MEDS: SUCRALFATE 1 GM (CARAFATE) TAB PO SCH ×2 (17:27→20:22)
[2022-08-30] MEDS: ONDANSETRON 4 MG/2 ML (SDV) Z0FRAN IVP PRN (18:15)
[2022-08-30] MEDS: FLUTICASONE NASAL SPRAY (FLONASE) 16 GM BTL NS SCH (20:24)
[2022-08-30] MEDS ORDERED: TRIAMCINOLONE ACETONIDE NSEACH SCH (21:00)
[2022-08-31] MEDS: metroNIDAZOLE 500MG/100ML IVPB 100 ML IV SCH (02:19)
[2022-08-31] MEDS: HYDROcodone/APAP 5 MG/325 MG (LORTAB) TAB PO PRN ×2 (02:24→09:04)
[2022-08-31 03:05] VITALS: BP 112/71
[2022-08-31] MEDS: LEVOTHYROXINE 100 MCG (LEVOTHROID) TAB PO SCH (05:39)
[2022-08-31] MEDS: LACTATED RINGERS 1,000 ML IV SCH ×2 (05:39→12:18)
--- NOTE | 2022-08-31 07:52 | Progress Note - Surgery ---
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 Is tolerating liquid diet well. Denies any systemic symptoms. Patient is asking for the same pain regimen she had when her Ostomy was placed. Oxycodone scheduled AM and PM. [place] PRN in between. Patient would like to start getting up and ambulating/sitting in her chair, but hasn't at this time. Patient has been using IS. Used 3x this AM already. Patient has no other compaints at this time. Had questions about surgery and hospital disposition that were answered to the best of my ability. Will readdress w/ Dr. Coulter. Review of Systems General: No Chills, No Night Sweats HEENT: No Head Aches, No Visual Changes Pulmonary: No Dyspnea, No Cough Cardiovascular: No: Chest Pain, Palpitations Gastrointestinal: Abdominal Pain, Other (stool in ostomy); No: Nausea, Vomiting Genitourinary: No Dysuria, No Frequency Objective Exam Vital Signs Date Time Temp Pulse Resp B/P (MAP) Pulse Ox O2 Delivery O2 Flow Rate FiO2 08/31/22 03:05 36.6 82 20 112/71 (85) 96 Room Air 08/30/22 23:12 36.2 75 18 115/72 (86) 97 Nasal Cannula 1.00 08/30/22 20:28 Nasal Cannula 2.00 08/30/22 20:00 36.6 81 16 107/67 (80) 98 Nasal Cannula 2.00 08/30/22 19:25 Room Air 08/30/22 16:00 36.0 77 16 110/67 (81) 95 Nasal Cannula 2.00 08/30/22 14:10 Nasal Cannula 2.00 08/30/22 14:10 36.1 20 126/64 (84) 100 Nasal Cannula 2.00 08/30/22 14:10 36.1 77 20 141/62 (88) 99 Nasal Cannula 2.00 08/30/22 14:00 20 126/64 (84) 100 Nasal Cannula 2.00 08/30/22 14:00 Nasal Cannula 2.00 08/30/22 13:50 20 130/64 (86) 98 OxyMask 2.00 08/30/22 13:45 OxyMask 2.00 08/30/22 13:40 20 127/80 (96) 98 OxyMask 2.00 08/30/22 13:30 20 130/65 (86) 98 OxyMask 3.00 08/30/22 13:30 OxyMask 3.00 08/30/22 13:20 20 126/65 (85) 98 OxyMask 3.00 08/30/22 13:15 OxyMask 5.00 08/30/22 13:08 OxyMask 5.00 08/30/22 13:08 36.1 20 119/66 (83) 100 OxyMask 5.00 08/30/22 08:15 36.3 87 20 119/73 (88) 96 Room Air 08/30/22 08:15 96 Room Air I & O 08/31/22 07:00 Intake Total 3550 ml Output Total 1160 ml Balance 2390 ml Capillary Refill : Less Than 3 Seconds General Appearance: No Apparent Distress, WD/WN HEENT: PERRL/EOMI Neck: Non Tender, Supple Respiratory: Chest Non Tender, Lungs Clear (anterior posts only), Normal Breath Sounds (anterior posts only), No Accessory Muscle Use, No Respiratory Distress Cardiovascular: Regular Rate, Rhythm, No Murmur, Normal Peripheral Pulses Gastrointestinal: soft, tenderness (to light palpation; generalized), other (Bandage from incision clean and dry; ostomy pink and patent w/ no signs of infx or irritation ) Extremity: Non Tender, No Calf Tenderness Neurologic/Psychiatric: Alert, Oriented x3, Normal Mood/Affect, Other (teary- eyed when discussing sgy and next steps ) Skin: Normal Color, Warm/Dry Lymphatic: No Adenopathy Assessment/Plan Assessment/Plan Assessment/Plan S/P 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 Also wants to eat more food. Review of Systems Pulmonary: No Dyspnea, No Cough Cardiovascular: No: Chest Pain, Palpitations Gastrointestinal: Abdominal Pain; No: Nausea, Vomiting Objective Exam General Appearance: No Apparent Distress, WD/WN Respiratory: Lungs Clear (anterior posts only), Normal Breath Sounds (anterior posts only), No Accessory Muscle Use, No Respiratory Distress Cardiovascular: Regular Rate, Rhythm, No Murmur Gastrointestinal: soft, tenderness (to light palpation; generalized), other (Bandage from incision clean and dry; ostomy pink and patent w/ no signs of infx or irritation ) Assessment/Plan Assessment/Plan Assessment/Plan S/P repair of colovesical fistula and peristomal hernia; POD 1 COPD HTN Hypothyroidism Plan Pain control - Oxycodone 5 AM + PM, [place] 5 Q4-6 PRN throughout the day CBC + CMP Up and Ambulating D/C heck, monitor I + O's Patient tolerating Oral fluids, will trial a d/c of IVF and monitor fluid status RT for breathing tx PRN Supervisory-Addendum Brief Verification & Attestation Participated in pt care: history, MDM, physical Personally performed: exam, history, MDM, supervision of care Care discussed with: Medical Student Procedures: n/a Verification and Attestation of Medical Student E/M Service A medical student performed and documented this service. I then reviewed and verified all information documented by the medical student and made modifications to such information, when appropriate. I personally performed a physical exam, medical decision making and then discussed any differences between the notes and made revisions as necessary to create one note. Sofia Coulter , 08/31/22 , 16:05 KAIDENSARAHARLEN Aug 31, 2022 07:52 SOFIA COULTER DO Aug 31, 2022 16:05
[2022-08-31 08:00] VITALS: BP 107/53
[2022-08-31] MEDS ORDERED: PANTOPRAZOLE 40 MG (PROTONIX) TAB PO SCH (09:00)
[2022-08-31] MEDS ORDERED: NON-FORMULARY MEDICATION 1 EA EA (Ascorbate Calcium (Vitamin C) 500 MG) PO SCH (09:00)
[2022-08-31] MEDS ORDERED: NON-FORMULARY MEDICATION 1 EA EA (Tiotropium Bromide (Spiriva Respimat 2.5MCG/ACTUATION) 2 IH SCH (09:00)
[2022-08-31] MEDS ORDERED: PANTOPRAZOLE 40 MG (PROTONIX) VIAL IVP SCH (09:00)
[2022-08-31] MEDS: DOCUSATE SODIUM 100 MG (COLACE) CAP PO PRN (09:04)
[2022-08-31] MEDS: ALPRAZolam 0.25 MG (XANAX) TAB PO PRN (09:04)
[2022-08-31] MEDS: SUCRALFATE 1 GM (CARAFATE) TAB PO SCH ×4 (09:04→19:51)
[2022-08-31] MEDS: ASCORBIC ACID (VIT C) 500 MG TABLET PO SCH (09:04)
[2022-08-31] MEDS: ATENOLOL 25 MG (TENORMIN) TAB PO SCH (09:33)
[2022-08-31] MEDS: MELOXICAM 7.5 MG (MOBIC) TABLET PO SCH ×2 (09:33→17:05)
[2022-08-31] MEDS: FLUTICASONE NASAL SPRAY (FLONASE) 16 GM BTL NS SCH ×2 (09:33→19:45)
[2022-08-31] MEDS ORDERED: PATIENT MAY USE OWN MEDS, ALL MC SCH (10:00)
[2022-08-31 11:35] LABS: BASOPHILS # (AUTO) 0.1 10^3/uL (0.0-0.1); BASOPHILS % (AUTO) 1 % (0-10); EOSINOPHILS # (AUTO) 0.1 10^3/uL (0.0-0.3); EOSINOPHILS % (AUTO) 1 % (0-10); HEMATOCRIT 37 % (35-52); HEMOGLOBIN 12.2 g/dL (11.5-16.0); LYMPHOCYTES # (AUTO) 2.2 10^3/uL (1.0-4.0); LYMPHOCYTES % (AUTO) 20 % (12-44); MEAN CORPUSCULAR HEMOGLOBIN 30 pg (25-34); MEAN CORPUSCULAR HGB CONC 33 g/dL (32-36); MEAN CORPUSCULAR VOLUME 89 fL (80-99); MEAN PLATELET VOLUME 9.8 fL (9.0-12.2); MONOCYTES # (AUTO) 0.8 10^3/uL (0.0-1.0); MONOCYTES % (AUTO) 7 % (0-12); NEUTROPHILS # (AUTO) 8.3 10^3/uL (1.8-7.8); NEUTROPHILS % (AUTO) 72 % (42-75); PLATELET COUNT 215 10^3/uL (130-400); WHITE BLOOD COUNT 11.5 10^3/uL (4.3-11.0)
[2022-08-31 11:56] LABS: ALBUMIN 3.1 GM/DL (3.2-4.5); BILIRUBIN,TOTAL 0.7 MG/DL (0.1-1.0); CALCIUM 8.4 MG/DL (8.5-10.1); CREATININE SERUM 0.81 MG/DL (0.60-1.30); MAGNESIUM 1.5 MG/DL (1.6-2.4); POTASSIUM 3.5 MMOL/L (3.6-5.0); TOTAL PROTEIN 5.8 GM/DL (6.4-8.2)
[2022-08-31 12:00] VITALS: BP 112/52
[2022-08-31] MEDS: UMECLIDINIUM BROMIDE (INCRUSE ELLIPTA) 7'S IH SCH (12:13)
[2022-08-31] MEDS: oxyCODONE ER 10 MG (OxyCONTIN CR) TAB PO SCH ×2 (12:18→19:51)
--- NOTE | 2022-08-31 12:43 | Consultation ---
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 Past history of thyroid disease, cataracts, HTN, IBS, COPD, and chronic dry eye. Past surg hx of gallbladder, hemorrhoid, foot, knee replacement and back surgery. She states that she is feeling alright this morning. Note that her abdominal pain is around a 3 to 4 out of 10. She indicates nausea but cannot vomit due to hiatal hernia surgery, as well as a minor headache, and blurred vision post-surgery that has since completely subsided. She denies SOB, chest pain, chills, or lightheadedness. Source: patient, RN/MD, old records Exam Limitations: no limitations Date Seen 08/31/22 Attending Physician Arie Whitmore DO PCP Admitting Physician: Alejandro Coulter DO Attending Physician: Alejandro Coulter DO Referring Physician Alejandro Coulter DO Date of Admission Aug 30, 2022 at 07:44 Home Medications & Allergies Home Medications Reviewed patient Home Medication Reconciliation performed by pharmacy medication reconciliations installer technician and/or nursing. Patients Allergies have been reviewed. Allergies Allergies Coded Allergies meperidine (Verified Allergy, Unknown, 12/15/08) Past Bujmcpk-Inbcvt-Abefsl Hx Patient Social History Tobacco Use?: No Smoking Status: Never a Smoker Substance use?: No Alcohol Use?: No Pt feels they are or have been: No Immunizations Up To Date Date of Influenza Vaccine: Aug 28, 2022 First/Initial COVID19 Vaccinat: 2020 Second COVID19 Vaccination Odilon: 2020 Tetanus Booster (TDap): Unknown Date of Pneumonia Vaccine: Aug 01, 2018 Seasonal Allergies Seasonal Allergies: Yes Current Status status: No status: No Advance Directives: No Communicates: Verbally Primary Language: Tanzanian Preferred Spoken Language: Tanzanian Is interpretation needed?: No Past Medical History Surgeries: Abdominal, Appendectomy, Gallbladder, 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, Orthopedic, Tonsillectomy COPD Currently Using CPAP: No Currently Using BIPAP: No High Cholesterol, Hypertension 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 Sexually Transmitted Disease: No UTI-Chronic Gastroesophageal Reflux, Obstructive Bowel, Diverticulosis, Hemorrhoids, Hiatal Hernia Arthritis, Fibromyalgia, Chronic Back Pain Hypothyroidsim Cataract Hearing Impairment: Denies Anxiety, Depression Blood Disorders: No Adverse Reaction/Blood Tranf: No Family Medical History Lung Disease Review of Systems Constitutional: No chills, No dizziness, No fever, No weakness EENTM: see HPI, blurred vision (Noted after surgery but has since subsided) Respiratory: no symptoms reported, see HPI; No cough, No dyspnea on exertion, No short of breath Cardiovascular: see HPI; No chest pain; edema (Swelling in legs); No palpitations, No syncope Gastrointestinal: see HPI, abdominal pain (Abdominal pain at surgical site at 3 or 4/10); No diarrhea; nausea; No vomiting Genitourinary: no symptoms reported; No dysuria : No Musculoskeletal: no symptoms reported Skin: no symptoms reported Psychiatric/Neurological: No Symptoms Reported, See HPI, Headache (minor) Physical Exam Physical Exam Vital Signs Vital Signs - First Documented 08/30/22 08:15 Temp 36.3 Pulse 87 Resp 20 B/P (MAP) 119/73 (88) Pulse Ox 96 O2 Delivery Room Air Capillary Refill : Less Than 3 Seconds Height, Weight, BMI Height: 5'2.00" Weight: 160lbs. 0.0oz. 72.218954gm; 29.65 BMI Method:Stated General Appearance: No Apparent Distress, WD/WN HEENT: PERRL/EOMI Neck: Full Range of Motion, Normal Inspection, Non Tender, Supple; No Carotid Bruit, No JVD Respiratory: Chest Non Tender, Lungs Clear, Normal Breath Sounds, No Accessory Muscle Use, No Respiratory Distress Cardiovascular: Regular Rate, Rhythm, No Murmur, Normal Peripheral Pulses Gastrointestinal: No Pulsatile Mass, Soft, Abnormal Bowel Sounds (Present but decreased), Tenderness (General tenderness to palpation in all quadrants with worst tenderness in right RLQ and RUQ) Extremity: Non Tender, No Calf Tenderness, Swelling (Trace to 1+ pre-tibial pitting edema) Neurologic/Psychiatric: Alert, Oriented x3, Normal Mood/Affect Skin: Normal Color, Warm/Dry Lymphatic: No Adenopathy Results Results/Procedures Labs Laboratory Tests 08/31/22 11:31 Patient resulted labs reviewed. Imaging No imaging this visit Meds Patient on oxycodone and lortab for pain. Also taking atenolol, ascorbic acid, levothyroxine, meloxicam, sucralfate, docusate sodium, alprazolam. Lacted ringer's running at 125 mls/hr Procedures Repair of colovesical fistula and peristomal hernia Assessment/Plan Assessment and Plan Assess & Plan/Chief Complaint Status post-colovesical fistula and peristomal hernia repair - patient condition and surgical site healing followed closely by surgery. Patient noted to have min or metabolic abnormalities in potassium, calcium, and magnesium. WBC marginally increased at 11.5. Will monitor for progression in abnormal labs as well as signs of infection. She is now up and ambulating. Post-operative pain - oxycontin 2x daily, oxycodone as needed Nausea - ondansetron Hypothyroidism - levothyroxine COPD - umeclidinium bromide Anxiety - alprazolam DVT prophylaxis - enoxaparin IBS - continue medical management Clinical Quality Measures Admission Status Admission Dx Status post-colovesical fistula and peristomal hernia repair Admission Status: Inpatient Order (span 2 midnights) Reason for Inpatient Admission: Patient admission necessary for close surgical monitoring. AUREA CAMP DO 09/01/22 0413: Supervisory-Addendum Brief Verification & Attestation Participated in pt care: history, MDM, physical Personally performed: exam, history, MDM, supervision of care Care discussed with: Medical Student Procedures: n/a Results interpretation: Verified all documentation Verification and Attestation of Medical Student E/M Service A medical student performed and documented this service in my presence. I reviewed and verified all information documented by the medical student and made modifications to such information, when appropriate. I personally performed the physical exam and medical decision making. Aurea Camp, Sep 01, 2022,04:13 ALVAREZ CAMPBELL Aug 31, 2022 12:43 AUREA CAMP DO Sep 01, 2022 04:13
--- NOTE | 2022-08-31 14:03 | Physical Therapy Evaluation ---
PT Evaluation-General Medical Diagnosis Admission Date Aug 30, 2022 at 07:44 Medical Diagnosis: colostomy Onset Date: Aug 30, 2022 Therapy Diagnosis Therapy Diagnosis: Weakness Height/Weight Height (Feet): 5 Height (Inches): 2.00 Weight (Pounds): 160 Weight (Ounces): 0.0 Precautions Precautions/Isolations: Standard Precautions Weight Bear Status Right Lower Extremity: Right Full Weight Bearing Left Lower Extremity: Left Full Weight Bearing Referral Physician: Arabella Reason for Referral: Evaluation/Treatment Medical History Pertinent Medical History: Arthritis, COPD, GERD, HTN, Hypothroidism, OA Current History s/p colostomy Reviewed History: Yes Social History Home: Single Level Current Living Status: Children Entry Into Home: Stairs With Railing PT Steps Into Home: 2 Prior Prior Level of Function SCALE: Activities may be completed with or without assistive devices. 2-Vbzmhnignx-wdyjcfh completes the activity by him/herself with no assistance from a helper. 5-Set-up or Clean-up Assistance-helper sets up or cleans up; patient completes activity. [place] assists only prior to or following the activity. 4-Supervision or Touching Assistance-helper provides verbal cues and/or touching /steadying and/or contact guard assistance as patient completes activity. Assistance may be provided throughout the activity or intermittently. 3-Partial/Moderate Assistance-helper does LESS THAN HALF the effort. [place] lifts, holds or supports trunk or limbs, but provides less than half the effort. 2-Substantial/Maximal Assistance-helper does MORE THAN HALF the effort. [place] lifts or holds trunk or limbs and provides more than half the effort. 9-Bttnwmgms-wjpczc does ALL the effort. Patient does none of the effort to complete the activity. Or, the assistance of 2 or more helpers is required for the patient to complete the activity. If activity was not attempted, code reason: 7-Patient Refused. 9-Not Applicable-not attempted and the patient did not perform the activity before the current illness, exacerbation or injury. 10-Not Attempted due to Environmental Limitations-(lack of equipment, weather restraints, etc.). 88-Not Attempted due to Medical Conditions or Safety Concerns. Bed Mobility: 6 Transfers (B,C,W/C): 6 Gait: 6 Stairs: 6 Indoor Mobility (Ambulation): Independent Stairs: Independent Prior Devices Use: Walker (4 wheeled walker) PT Evaluation-Current Subjective Patient in bed pre-tx, reports no pain, agrees to PT. Pt/Family Goals Return home to independence. Objective Patient Orientation: Person, Place, Situation Attachments: Colostomy/Ileostomy ROM/Strength ROM Lower Extremities BLE grossly WNL Strength Lower Extremities BLE grossly 5/5 except 4/5 bilaterally hip flexion Neuromuscular (Tone, Coordination, Reflexes) Coordination intact Sensory Vision: Functional Hearing: Functional Sensation Right Lower Extremit: Intact Sensation Left Lower Extremity: Impaired (around knee from previous TKA) Transfers Roll Left to Right (QC): 6 Sit to Lying (QC): 6 Lying to Sitting/Side of Bed(Q: 6 Sit to Stand (QC): 6 Gait Does the Patient Walk?: Yes Mode of Locomotion: Walk Anticipated Mode of Locomotion: Walk Walk 10 feet (QC): 6 Walk 50 ft with 2 Turns(QC): 6 Walk 150 ft (QC): 6 Distance: 250' Gait Assistive Device: FWW Comments/Gait Description Patient walks safely and steady with SBA, walks with good gait speed, step length, and foot clearance. Balance Sitting Static: Normal Sitting Dynamic: Normal Standing Static: Normal Standing Dynamic: Normal Treatment FA Assessment/Needs Patient is safe and steady with ambulation, releasing patient from PT services due to current function and independence. Patient in bathroom with OT post-tx. 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 Goals Skilled Nursing Goals PT Skilled Nursing Goals Time Frame: Aug 31, 2022 PT Plan Treatment/Plan Treatment Plan: Discontinue PT Treatment Duration: Sep 09, 2022 Frequency: 6 times per week Estimated Hrs Per Day: .25 hour per day Patient and/or Family Agrees t: Yes Safety Risks/Education Patient Education: Gait Training, Transfer Techniques, Correct Positioning, Safety Issues Teaching Recipient: Patient Teaching Methods: Demonstration, Discussion Response to Teaching: Verbalize Understanding Discharge Recommendations Therapy Discharge Recommendati: Home & Family Time Time In: 1320 Time Out: 1330 DATE: Aug 31, 2022 Total Billed Treatment Time: 10 Total Billed Treatment 1 visit EVL 10min ASHLEY FALLON PT Aug 31, 2022 14:03
--- NOTE | 2022-08-31 14:04 | Occupational Therapy Eval ---
OT Evaluation-General/PLF Medical Diagnosis Admission Date Aug 30, 2022 at 07:44 Medical Diagnosis: parastomal hernia, colostomy Onset Date: Aug 30, 2022 Therapy Diagnosis Therapy Diagnosis: reduced adl status Height/Weight Height (Feet): 5 Height (Inches): 2.00 Weight (Pounds): 160 Weight (Ounces): 0.0 Precautions Precautions/Isolations: Fall Prevention, Standard Precautions Referral Referral Reason: Evaluation/Treatment Medical History Pertinent Medical History: Arthritis, COPD, GERD, HTN, Hypothroidism, OA Current History Pt reports living with granddaughter and 7 year old great granddaughter. She was indep with adls prior to admission. She has a private pilot for cleaning 1x/week. She shares cooking responsibilities with her granddaughter. She uses both a walker and cane inside the home and a walker only when out in the community. Her granddaughter does all the driving and maintenance of colostomy bag. Reviewed History: Yes Social History Home: Single Level Current Living Status: Other Family ADL-Prior Level of Function SCALE: Activities may be completed with or without assistive devices. 7-Vjvqlhhigd-ptkleyj completes the activity by him/herself with no assistance from a helper. 5-Set-up or Clean-up Assistance-helper sets up or cleans up; patient completes activity. [place] assists only prior to or following the activity. 4-Supervision or Touching Assistance-helper provides verbal cues and/or touching/steadying and/or contact guard assistance as patient completes activity. Assistance may be provided throughout the activity or intermittently. 3-Partial/Moderate Assistance-helper does LESS THAN HALF the effort. [place] lifts, holds or supports trunk or limbs, but provides less than half the effort. 2-Substantial/Maximal Assistance-helper does MORE THAN HALF the effort. [place] lifts or holds trunk or limbs and provides more than half the effort. 8-Rzblbwqag-yiaweo does ALL the effort. Patient does none of the effort to complete the activity. Or, the assistance of 2 or more helpers is required for the patient to complete the activity. If activity was not attempted, code reason: 7-Patient Refused. 9-Not Applicable-not attempted and the patient did not perform the activity before the current illness, exacerbation or injury. 10-Not Attempted due to Environmental Limitations-(lack of equipment, weather restraints, etc.). 88-Not Attempted due to Medical Conditions or Safety Concerns. Self Care: Independent Functional Cognition: Independent DME/Equipment: Bath Chair, Grab Bars, Reachers, Shower, Sock Aid Drive Self: No OT Current Status Subjective Pt reports pain in abdomen, no numerical value given. Appearance Pt left sitting in recliner, all needs within reach at OT departure. Mental Status/Objective Patient Orientation: Person, Place, Situation Attachments: Colostomy/Ileostomy Current Hand Dominance: Right Upper Extremity ROM WFL Upper Extremity Strength not formally tested secondary to abdominal pain ADL-Treatment Oral Hygiene (QC): 4 Lower Body Dressing (QC): 4 On/Off Footwear (QC): 4 Toileting Hygiene (QC): 4 Pt ambulating back to room with walker and physical therapy at OT arrival. She performed all steps of toileting, including toilet transfer with supervision for safety. She stood at sink for hand hygiene with zero UE support, no unsteadiness observed. Once returned to recliner, pt able to demonstrate ability to don/doff bilateral socks with SBA and extra time due to pain. Cue to perform cross over method to reduce bending and pain. Pt could benefit from 1-2 more OT treatments to increase independence,endurance, strength and safety in adls and functional transfers. Education OT Patient Education: Correct positioning, Energy conservation, Purpose of tx/functional activities, Safety issues Teaching Recipient: Patient Teaching Methods: Demonstration, Discussion Response to Teaching: Verbalize Understanding, Return Demonstration, Reinforcement Needed OT Mcfp Goals Mcfp Goals Time Frame: Sep 04, 2022 Oral Hygiene (QC): 6 Toileting Hygiene (QC): 6 Upper Body Dressing (QC): 5 Lower Body Dressing (QC): 5 On/Off Footwear (QC): 5 1=Demonstrate adherence to instructed precautions during ADL tasks. 2=Patient will verbalize/demonstrate understanding of assistive devices/modifications for ADL. 3=Patient will improve strength/tolerance for activity to enable patient to perform ADL's. OT Education/Plan Problem List/Assessment Assessment: Decreased Activ Tolerance, Decreased UE Strength, Impaired I ADL's, Impaired Self-Care Skills Discharge Recommendations Plan/Recommendations: Continue POC Therapy Discharge Recommendati: Home & Family Treatment Plan/Plan of Care Treatment,Training & Education: Yes Patient would benefit from OT for education, treatment and training to promote independence in ADL's, mobility, safety and/or upper extremity function for ADL's. Plan of Care: ADL Retraining, Functional Mobility, UE Funct Exercise/Act Treatment Duration: Sep 04, 2022 Frequency: 3 times per week (3-5x/week) Estimated Hrs Per Day: .25 hour per day Agreement: Yes Rehab Potential: Good Time Start Time: 13:30 Stop Time: 13:40 DATE: Aug 31, 2022 Total Time Billed (hr/min): 10 Billed Treatment Time 1 visit Tosha Dow OT Aug 31, 2022 14:04
[2022-08-31 16:00] VITALS: BP 114/54
[2022-08-31] MEDS: ENOXAPARIN 40 MG/0.4 ML (LOVENOX) SYR SC SCH (19:51)
[2022-08-31 20:00] VITALS: BP 117/56
--- NOTE | 2022-08-31 21:08 | OPERATIVE REPORT ---
DATE OF SERVICE: 08/30/2022 PREOPERATIVE DIAGNOSES: 1. Colostomy status. 2. Parastomal hernia. 3. Possible colovesical fistula. POSTOPERATIVE DIAGNOSES: 1. Colovesical fistula. 2. Parastomal hernia. 3. Extensive adhesions. PROCEDURES: 1. Repair of colovesical fistula. 2. Repair of parastomal hernia. 3. Extensive lysis of adhesions. SURGEON: Alejandro Coulter DO RESTAURANT CREW: Dr. Clifford. ANESTHESIA: General endotracheal tube. SPECIMEN: None. BLOOD LOSS: Approximately 100 mL. FLUIDS: Per anesthesia. POSTOPERATIVE CONDITION: Stable. INDICATIONS FOR PROCEDURE: The patient is an 82-year-old female who had a colostomy. She was having problems with a parastomal hernia. She is also having chronic UTIs, suspected colovesical fistula. FINDINGS: The patient had extensive adhesions. She also had a colovesical fistula found and an abscess or pocket in the pelvis as well as parastomal hernia. DESCRIPTION OF PROCEDURE: After informed consent was obtained, the patient was brought to the operating room and placed on the table in lithotomy position. She was sterilely prepped and draped in normal fashion. A midline incision was made with a #10 blade, carried down through the skin and subcutaneous tissue, right through the previous scar, deepened down to subcutaneous tissue with electrocautery down to the fascia. Fascia incised with electrocautery. Got in just a little bit at top of incision in the upper abdomen. I then grasped the fascia with Kochers and then carefully started dissecting to try and get into the abdomen using blunt dissection as well as sharp dissection with Metzenbaum scissors as well as some Bovie electrocautery. I did this very carefully on the right side and then the left side, carefully taking everything down and then on the left side, staying away from the ostomy. Once we got everything down, then they will start dissecting all of the small intestine out. There was lot of adhesions to the small intestine in fact getting the small intestine dissected completely out and able to identify the cecum and terminal ileum as well as getting all of the intestine out of the pelvis. There was a lot of entrapped small intestine and the cecum down there. This took about an hour and a half of lysis of adhesions. Once we were able to get all the small intestine out, we then noted adhesions to the base of the bladder from the cecum carefully dissecting this off with sharp dissection with Metzenbaum scissors as well as Bovie electrocautery. We found a small hole in the cecum, believe this was a colovesical fistula, sutured this closed with a 0 silk [id number] suture, pulled all this out of the way to look in the pelvis. At this point, then had the nurse inject 500 mL of methylene blue saline into the bladder to distend it. The bladder distended very well. We pushed on the bladder, did not see any leakage out from the bladder, did not see any leakage in the pelvis and nothing came out the rectum. We then allowed this to reduce and drain out. Looking down in the pelvis, we found an opening and Dr. Clifford went below and did a rigid sigmoidoscopy, injected some air. We could see air and then pus and fecal material coming through this opening, looked like it was on the side of the rectal stump. Because of this inflammation, we elected not to reattempt an anastomosis, closed this hole with a 3-0 Vicryl suture and then placed a Surgicel and then a Gelfoam in the pelvis. Dropped the cecum back in, had completely lysed all the adhesions from the small intestine and ran the small intestine from the cecum all the way to the ligament of Treitz. No damage, no strictures, dropped this back in, during the lysis of adhesions taking down some of the large intestine and the omentum, continued to take this down, so we could see the descending colon going into the ostomy, found a large parastomal hernia. I elected to close this with a #1 double stranded PDS suture, doing a suture close to the stoma and the descending colon and then running superiorly to tie to itself to close this fascial defect. This was a snug, but not too tight, thereby repairing the parastomal hernia. At this point, copiously irrigated with normal saline, suctioned this out. Did not see any of the obvious pathology and elected to close the incision, closing the fascia with a #1 double stranded PDS suture running from the inferior to the superior portion tying to itself. Copiously irrigated this incision, then closed the skin with bartolo. The area was cleaned and dried. Bandage placed. Sponge and needle count correct at the end of the case. Dr. Clifford assisted this case helping to make incision, close incisions, identify anatomy, hold anatomy out of the way. Job ID: [id number] DocumentID: [id number] Dictated Date: 08/31/2022 13:39:59 Hotel Operations Manager Date: 08/31/2022 21:06:00 Dictated By: DO FIDEL MERCEDES
[2022-08-31 23:15] VITALS: BP 128/61
[2022-09-01 04:48] VITALS: BP 134/62
[2022-09-01] MEDS: LEVOTHYROXINE 100 MCG (LEVOTHROID) TAB PO SCH (05:04)
--- NOTE | 2022-09-01 08:06 | Progress Note - Surgery ---
ARLEN RICHEY 09/01/22 0805: Subjective Date Seen by a Provider: Sep 01, 2022 Time Seen by a Provider: 08:00 Subjective/Events-last exam Patient is being seen S/P repair of colovesical fistula and peristomal hernia POD 2: Patient had temp of 100.4 overnight. Patient states she did feel hot, but once they uncovered her from her blankets she started to cool down. No longer feels hot. Denies chills, body aches, nausea ,vomiting. Patient required 2L O2 NC last night, currently on RA. Does state her abdominal pain worsened overnight, waking her up around 0130. Feels like it is improved now, but still not completely under control. She was able to eat solids yesterday, but felt like she didn't tolerate them great. She is going to try broth this morning to see if that is easier to keep down. Patient has been up and ambulating. Patient's HR has been borderline tachycardia late last night into this morning. Denies dysuria, SOB, chest pain, dizziness, headache, calf tenderness Review of Systems General: No Chills, No Night Sweats HEENT: No Head Aches, No Visual Changes Pulmonary: No Dyspnea, No Cough Cardiovascular: No: Chest Pain, Palpitations Gastrointestinal: Abdominal Pain; No: Nausea, Vomiting Genitourinary: No Dysuria, No Hematuria Musculoskeletal: No: leg pain Neurological: No: Change in speech, Confusion Objective Exam Vital Signs Date Time Temp Pulse Resp B/P (MAP) Pulse Ox O2 Delivery O2 Flow Rate FiO2 09/01/22 04:48 37.3 102 18 134/62 (86) 94 Nasal Cannula 2.00 08/31/22 23:15 37.7 100 18 128/61 (83) 95 Nasal Cannula 2.00 08/31/22 20:00 37.6 95 20 117/56 (76) 91 Room Air 08/31/22 19:53 Room Air 08/31/22 19:12 Room Air 08/31/22 16:00 37.4 81 19 114/54 (74) 94 Room Air 08/31/22 12:00 36.2 82 21 112/52 (72) 95 I & O 09/01/22 07:00 Intake Total 2650 ml Output Total 1100 ml Balance 1550 ml Capillary Refill : Less Than 3 Seconds General Appearance: No Apparent Distress, WD/WN HEENT: PERRL/EOMI Neck: Non Tender, Supple; No Carotid Bruit, No JVD Respiratory: Chest Non Tender, Lungs Clear, Normal Breath Sounds, No Accessory Muscle Use, No Respiratory Distress Cardiovascular: No Murmur, Tachycardia (irregular vs palpitation; patient currently asymptomatic ) Gastrointestinal: soft, tenderness (to light palpation; generalized), other (ostomy pink and patent w/ no signs of infx or irritation; surgical bandage c/d) Extremity: Non Tender, No Calf Tenderness, Pedal Edema (non-pitting ), Swelling (Trace to 1+ pre-tibial pitting edema) Neurologic/Psychiatric: Alert, Oriented x3, Normal Mood/Affect Skin: Normal Color, Warm/Dry Lymphatic: No Adenopathy Results Lab Laboratory Tests 08/31/22 11:31: White Blood Count 11.5H, Red Blood Count 4.11, Hemoglobin 12.2, Hematocrit 37, Mean Corpuscular Volume 89, Mean Corpuscular Hemoglobin 30, Mean Corpuscular Hemoglobin Concent 33, Red Cell Distribution Width 12.8, Platelet Count 215, Mean Platelet Volume 9.8, Immature Granulocyte % (Auto) 0, Neutrophils (%) (Auto) 72, Lymphocytes (%) (Auto) 20, Monocytes (%) (Auto) 7, Eosinophils (%) (Auto) 1, Basophils (%) (Auto) 1, Neutrophils # (Auto) 8.3H, Lymphocytes # (Auto) 2.2, Monocytes # (Auto) 0.8, Eosinophils # (Auto) 0.1, Basophils # (Auto) 0.1, Immature Granulocyte # (Auto) 0.0, Sodium Level 136, Potassium Level 3.5L, Chloride Level 103, Carbon Dioxide Level 25, Anion Gap 8, Blood Urea Nitrogen 11, Creatinine 0.81, Estimat Glomerular Filtration Rate 73, BUN/Creatinine Ratio 14, Glucose Level 99, Calcium Level 8.4L, Corrected Calcium 9.1, Magnesium Level 1.5L, Total Bilirubin 0.7, Aspartate Amino Transf (AST/SGOT) 20, Alanine Aminotransferase (ALT/SGPT) 9, Alkaline Phosphatase 61, Total Protein 5.8L, Albumin 3.1L Microbiology 08/30/22 MRSA Screen - Final, Complete MRSA not isolated Assessment/Plan Assessment/Plan Assessment/Plan S/P repair of colovesical fistula and peristomal hernia; POD 2 Tachycardia COPD HTN Hypothyroidism Plan EKG Pain control; continue current regimen repeat CBC + CMP Up and Ambulating, oral fluids, diet as tolerated, IS Ambulatory meds per primary team DVT prophylaxis: Lovenox 40 QD Patient had new onset tachycardia overnight. Rhythm on auscultation is irregular. Patient is asymptomatic. Patient states that although her O2 sats went below 90 last night, she never felt SOB. Patient denies pleuritic chest pain and calf tenderness. Patient states she has never been told she has an arrhythmia nor is she treated for one in the outpatient setting. Will evaluate with EKG and take next steps from there. ALEJANDRO COULTER DO 09/01/22 1113: Subjective Time Seen by a Provider: 10:41 Subjective/Events-last exam Pt seen and examined, stated she had a "bad" night; mostly pain. She also had episode of tachycardia, denies chest pain. She is not able to tolerate soft diet yet. Review of Systems General: No Chills, No Night Sweats Pulmonary: No Dyspnea, No Cough Cardiovascular: No: Chest Pain, Palpitations Gastrointestinal: Abdominal Pain; No: Nausea, Vomiting Objective Exam General Appearance: No Apparent Distress Respiratory: Chest Non Tender, Lungs Clear, Normal Breath Sounds, No Accessory Muscle Use, No Respiratory Distress Cardiovascular: No Murmur, Tachycardia (irregular vs palpitation; patient currently asymptomatic ) Gastrointestinal: soft, tenderness (to light palpation; generalized), other (ostomy pink and patent w/ no signs of infx or irritation; surgical bandage c/d) Extremity: No Calf Tenderness, Pedal Edema (non-pitting ), Swelling (Trace to 1 + pre-tibial pitting edema) Neurologic/Psychiatric: Alert, Oriented x3 Assessment/Plan Assessment/Plan Assessment/Plan S/P repair of colovesical fistula and parastomal hernia; POD 2 Tachycardia COPD HTN Hypothyroidism Plan EKG - not Afib, looks like some PVC or PAC Pain control; continue current regimen Encourage Ambulation, diet as tolerated and IS Resume home meds DVT prophylaxis: Lovenox 40 QD Patient had new onset tachycardia overnight. Rhythm on auscultation is irregular. Patient is asymptomatic. Patient states that although her O2 sats went below 90 last night, she never felt SOB. Patient denies pleuritic chest pain and calf tenderness. Patient states she has never been told she has an arrhythmia nor is she treated for one in the outpatient setting. IM given EKG Supervisory-Addendum Brief Verification & Attestation Participated in pt care: history, MDM, physical Personally performed: exam, history, MDM, supervision of care Care discussed with: Medical Student Procedures: n/a Verification and Attestation of Medical Student E/M Service A medical student performed and documented this service. I then reviewed and verified all information documented by the medical student and made modifications to such information, when appropriate. I personally performed a physical exam, medical decision making and then discussed any differences between the notes and made revisions as necessary to create one note. Alejandro Coulter , 09/01/22 , 11:13 ARLEN RICHEY Sep 01, 2022 08:05 ALEJANDRO COULTER DO Sep 01, 2022 11:13
[2022-09-01 08:22] VITALS: BP 135/91
[2022-09-01] MEDS: UMECLIDINIUM BROMIDE (INCRUSE ELLIPTA) 7'S IH SCH (08:51)
[2022-09-01] MEDS: SUCRALFATE 1 GM (CARAFATE) TAB PO SCH ×4 (08:55→20:08)
[2022-09-01] MEDS: ATENOLOL 25 MG (TENORMIN) TAB PO SCH (08:55)
[2022-09-01] MEDS: PANTOPRAZOLE 40 MG (PROTONIX) TAB PO SCH (08:55)
[2022-09-01] MEDS: MELOXICAM 7.5 MG (MOBIC) TABLET PO SCH ×2 (08:55→17:26)
[2022-09-01] MEDS: oxyCODONE ER 10 MG (OxyCONTIN CR) TAB PO SCH ×2 (08:55→20:08)
[2022-09-01] MEDS: ASCORBIC ACID (VIT C) 500 MG TABLET PO SCH (08:55)
[2022-09-01 11:28] LABS: BASOPHILS # (AUTO) 0.1 10^3/uL (0.0-0.1); BASOPHILS % (AUTO) 0 % (0-10); EOSINOPHILS # (AUTO) 0.1 10^3/uL (0.0-0.3); EOSINOPHILS % (AUTO) 0 % (0-10); HEMATOCRIT 36 % (35-52); HEMOGLOBIN 12.2 g/dL (11.5-16.0); LYMPHOCYTES % (AUTO) 14 % (12-44); MEAN CORPUSCULAR HEMOGLOBIN 30 pg (25-34); MEAN CORPUSCULAR HGB CONC 34 g/dL (32-36); MEAN CORPUSCULAR VOLUME 89 fL (80-99); MEAN PLATELET VOLUME 10.1 fL (9.0-12.2); MONOCYTES # (AUTO) 0.8 10^3/uL (0.0-1.0); MONOCYTES % (AUTO) 5 % (0-12); NEUTROPHILS # (AUTO) 11.2 10^3/uL (1.8-7.8); NEUTROPHILS % (AUTO) 79 % (42-75); PLATELET COUNT 186 10^3/uL (130-400); WHITE BLOOD COUNT 14.2 10^3/uL (4.3-11.0)
--- NOTE | 2022-09-01 11:29 | Occupational Ther Daily Note ---
OT Current Status-Daily Note ADL-Treatment Therapy Code Descriptions/Definitions Functional [place] Measure: 0=Not Assessed/NA 4=Minimal Assistance 1=Total Assistance 5=Supervision or Setup 2=Maximal Assistance 6=Modified [place] 3=Moderate Assistance 7=Complete IndependenceSCALE: Activities may be completed with or without assistive devices. 5-Muydtjwntt-fhwfgka completes the activity by him/herself with no assistance from a helper. 5-Set-up or Clean-up Assistance-helper sets up or cleans up; patient completes activity. [place] assists only prior to or following the activity. 4-Supervision or Touching Assistance-helper provides verbal cues and/or touching/steadying and/or contact guard assistance as patient completes activity. Assistance may be provided throughout the activity or intermittently. 3-Partial/Moderate Assistance-helper does LESS THAN HALF the effort. [place] lifts, holds or supports trunk or limbs, but provides less than half the effort. 2-Substantial/Maximal Assistance-helper does MORE THAN HALF the effort. [place] lifts or holds trunk or limbs and provides more than half the effort. 8-Qxkobkbcb-tjuozz does ALL the effort. Patient does none of the effort to complete the activity. Or, the assistance of 2 or more helpers is required for the patient to complete the activity. If activity was not attempted, code reason: 7-Patient Refused. 9-Not Applicable-not attempted and the patient did not perform the activity before the current illness, exacerbation or injury. 10-Not Attempted due to Environmental Limitations-(lack of equipment, weather restraints, etc.). 88-Not Attempted due to Medical Conditions or Safety Concerns. OT Alf Goals Coal Gasification Technician Goals Time Frame: Sep 04, 2022 Oral Hygiene (QC): 6 Toileting Hygiene (QC): 6 Upper Body Dressing (QC): 5 Lower Body Dressing (QC): 5 On/Off Footwear (QC): 5 1=Demonstrate adherence to instructed precautions during ADL tasks. 2=Patient will verbalize/demonstrate understanding of assistive devices/modifications for ADL. 3=Patient will improve strength/tolerance for activity to enable patient to perform ADL's. OT Education/Plan Treatment Plan/Plan of Care Patient would benefit from OT for education, treatment and training to promote independence in ADL's, mobility, safety and/or upper extremity function for ADL's. Plan of Care: ADL Retraining, Functional Mobility, UE Funct Exercise/Act Treatment Duration: Sep 04, 2022 Frequency: 3 times per week (3-5x/week) Estimated Hrs Per Day: .25 hour per day Agreement: Yes Rehab Potential: Fair BRENDAN GONZALES Sep 01, 2022 11:29
--- NOTE | 2022-09-01 11:35 | Occupational Ther Daily Note ---
OT Current Status-Daily Note Subjective Pt in bed, alert. C/o no pain at this time. Agrees to therapy. Mental Status/Objective Patient Orientation: Person, Place, Time, Situation ADL-Treatment Therapy Code Descriptions/Definitions Functional [place] Measure: 0=Not Assessed/NA 4=Minimal Assistance 1=Total Assistance 5=Supervision or Setup 2=Maximal Assistance 6=Modified [place] 3=Moderate Assistance 7=Complete IndependenceSCALE: Activities may be completed with or without assistive devices. 4-Dbjonjzygr-fkwdfns completes the activity by him/herself with no assistance from a helper. 5-Set-up or Clean-up Assistance-helper sets up or cleans up; patient completes activity. [place] assists only prior to or following the activity. 4-Supervision or Touching Assistance-helper provides verbal cues and/or touching/steadying and/or contact guard assistance as patient completes activity. Assistance may be provided throughout the activity or intermittently. 3-Partial/Moderate Assistance-helper does LESS THAN HALF the effort. [place] lifts, holds or supports trunk or limbs, but provides less than half the effort. 2-Substantial/Maximal Assistance-helper does MORE THAN HALF the effort. [place] lifts or holds trunk or limbs and provides more than half the effort. 8-Pzsaowsqx-llowfl does ALL the effort. Patient does none of the effort to complete the activity. Or, the assistance of 2 or more helpers is required for the patient to complete the activity. If activity was not attempted, code reason: 7-Patient Refused. 9-Not Applicable-not attempted and the patient did not perform the activity before the current illness, exacerbation or injury. 10-Not Attempted due to Environmental Limitations-(lack of equipment, weather restraints, etc.). 88-Not Attempted due to Medical Conditions or Safety Concerns. Pt/nurse reports pt is ad osbaldo and completing ADL's independently. Other Treatment Pt completed 10 reps of 5 different B UE exercises with no weights or resistance while at an incline in bed. Reports she completed all ADLs independently earlier this morning. Pt reports home set up for easy access and energy conservation. Pt has met all goals, discharge from OT services. Pt in bed at end of session. Phone/call light in reach. All needs met in room. Education OT Patient Education: Energy conservation, Home exercise program Teaching Recipient: Patient Teaching Methods: Demonstration, Discussion Response to Teaching: Verbalize Understanding, Return Demonstration OT Jig Boring Machine Set Up Operator Goals Jig Boring Machine Set Up Operator Goals Time Frame: Sep 04, 2022 Oral Hygiene (QC): 6 Toileting Hygiene (QC): 6 Upper Body Dressing (QC): 5 Lower Body Dressing (QC): 5 On/Off Footwear (QC): 5 1=Demonstrate adherence to instructed precautions during ADL tasks. 2=Patient will verbalize/demonstrate understanding of assistive devices/modifications for ADL. 3=Patient will improve strength/tolerance for activity to enable patient to perform ADL's. OT Education/Plan Problem List/Assessment Assessment: Decreased Activ Tolerance, Impaired Self-Care Skills Discharge Recommendations Plan/Recommendations: Discharge/Goals Met Treatment Plan/Plan of Care Patient would benefit from OT for education, treatment and training to promote independence in ADL's, mobility, safety and/or upper extremity function for ADL's. Plan of Care: ADL Retraining, Functional Mobility, UE Funct Exercise/Act Treatment Duration: Sep 04, 2022 Frequency: 3 times per week (3-5x/week) Estimated Hrs Per Day: .25 hour per day Agreement: Yes Rehab Potential: Fair Time Start Time: 11:12 Stop Time: 11:20 DATE: Sep 01, 2022 Total Time Billed (hr/min): 8 Billed Treatment Time 1 visit EX (8 min) BRENDAN GONZALES Sep 01, 2022 11:35
[2022-09-01 11:36] VITALS: BP 136/63
[2022-09-01 11:40] LABS: POTASSIUM 3.1 MMOL/L (3.6-5.0)
[2022-09-01 11:41] LABS: CALCIUM 8.6 MG/DL (8.5-10.1)
[2022-09-01 11:42] LABS: TOTAL PROTEIN 5.9 GM/DL (6.4-8.2)
[2022-09-01 11:44] LABS: BILIRUBIN,TOTAL 0.8 MG/DL (0.1-1.0)
[2022-09-01 11:46] LABS: CREATININE SERUM 0.71 MG/DL (0.60-1.30)
[2022-09-01 11:49] LABS: BAND NEUTROPHILS 4 %; BASOPHILS % (MANUAL) 0 %; EOSINOPHILS % (MANUAL) 1 %; LYMPHOCYTES % (MANUAL) 9 %; MONOCYTES % (MANUAL) 6 %; NEUTROPHILS % (MANUAL) 80 %; RBC MORPH NORMAL
[2022-09-01] MEDS: ONDANSETRON 4 MG/2 ML (SDV) Z0FRAN IVP PRN ×2 (12:10→20:08)
[2022-09-01] MEDS ORDERED: KCL 20 MEQ TAB (K-DUR) PO NR (12:15)
--- NOTE | 2022-09-01 12:27 | Progress Note ---
ALVAREZ CAMPBELL 09/01/22 1227: Subjective Date Seen by a Provider: Sep 01, 2022 Time Seen by a Provider: 09:00 Subjective/Events-last exam Patient is an 82 year old woman admitted post-repair of colovesical fistula, peristomal hernia. Surgery also conducted extensive lysis of adhesions. This is post-op day 2. She states that she is still fairly sore this morning at her surgical site. She hasn't had a BM since yesterday morning and says that she feels a little constipated. Denies nausea and vomiting, palpitations, chills, headache, or SOB. Her pain is currently at a 3/10. She has been up and ambulating. Review of Systems General: No Chills; Fatigue; No Malaise HEENT: No Head Aches Pulmonary: No Dyspnea, No Cough Cardiovascular: Edema; No: Chest Pain, Palpitations Gastrointestinal: Abdominal Pain (Pain at surgical site), Constipation; No: Nausea, Vomiting, Diarrhea Genitourinary: No Dysuria, No Frequency, No Incontinence Neurological: No: Numbness, Change in speech, Confusion Focused Exam Sepsis Stage: Sepsis (Sepsis is unlikely but cannot be entirely ruled out. Patient fulfills SIRS criteria in HR (102) and WBC (14.2). Recent bowel surgery offers possible source of infection.) Objective Exam Last Set of Vital Signs Vital Signs Date Time Temp Pulse Resp B/P (MAP) Pulse Ox O2 Delivery O2 Flow Rate FiO2 09/01/22 11:36 37.0 94 18 136/63 (87) 92 Room Air 09/01/22 04:48 2.00 Capillary Refill : Less Than 3 Seconds I&O Intake and Output 09/01/22 00:00 Intake Total 4200 ml Output Total 1350 ml Balance 2850 ml Intake Oral 2100 ml IV Total 2100 ml Output Urine Total 1350 ml # Voids 1 # Bowel Movements 2 General: Alert, Oriented X3, Cooperative, No Acute Distress HEENT: Atraumatic, EOMI Neck: Supple, No JVD, No Thyromegaly, +2 Carotid Pulse No Bruit Lungs: Clear to Auscultation, Normal Air Movement Heart: Normal S1, Normal S2, No Murmurs, Other (Patient has new onset arrhythmia. Discontinuous bouts of regular sinus rhythm broken up by occasional PVC or PAC.) Abdomen: Normal Bowel Sounds, Soft, Other (Diffuse mild tenderness to palpation) Extremities: No Clubbing, No Cyanosis, Other (Trace, or 1+ pitting edema of pre-tibial surfaces bilaterally) Skin: No Rashes, No Breakdown, No Significant Lesion Neuro: Normal Speech, Normal Tone, Sensation Intact Psych/Mental Status: Mental Status NL, Mood NL Results Lab Laboratory Tests 09/01/22 11:20: White Blood Count 14.2H, Red Blood Count 4.05, Hemoglobin 12.2, Hematocrit 36, Mean Corpuscular Volume 89, Mean Corpuscular Hemoglobin 30, Mean Corpuscular Hemoglobin Concent 34, Red Cell Distribution Width 12.9, Platelet Count 186, Mean Platelet Volume 10.1, Immature Granulocyte % (Auto) 0, Neutrophils (%) (Auto) 79H, Lymphocytes (%) (Auto) 14, Monocytes (%) (Auto) 5, Eosinophils (%) (Auto) 0, Basophils (%) (Auto) 0, Neutrophils # (Auto) 11.2H, Lymphocytes # (Auto) 2.0, Monocytes # (Auto) 0.8, Eosinophils # (Auto) 0.1, Basophils # (Auto) 0.1, Immature Granulocyte # (Auto) 0.1, Neutrophils % (Manual) 80, Lymphocytes % (Manual) 9, Monocytes % (Manual) 6, Eosinophils % (Manual) 1, Basophils % (Manual) 0, Band Neutrophils 4, Blood Morphology Comment NORMAL, Sodium Level 131L, Potassium Level 3.1L, Chloride Level 100, Carbon Dioxide Level 23, Anion Gap 8, Blood Urea Nitrogen 7, Creatinine 0.71, Estimat Glomerular Filtration Rate 86, BUN/Creatinine Ratio 10, Glucose Level 97, Calcium Level 8.6, Corrected Calcium 9.4, Total Bilirubin 0.8, Aspartate Amino Transf (AST/SGOT) 18, Alanine Aminotransferase (ALT/SGPT) 11, Alkaline Phosphatase 64, Total Protein 5.9L, Albumin 3.0L Microbiology 08/30/22 MRSA Screen - Final, Complete MRSA not isolated Meds Patient on oxycodone and lortab for pain. Also taking atenolol, ascorbic acid, levothyroxine, meloxicam, sucralfate, docusate sodium, alprazolam, ondansetron. Radiology No imaging performed Procedures Procedures Repair of colovesical fistula, paristomal hernia, and extensive lysis of adhesions. Assessment/Plan Assessment/Plan Assess & Plan/Chief Complaint Status post-colovesical fistula and peristomal hernia repair - patient condition and surgical site healing followed closely by surgery. Patient noted to have met abolic abnormalities in potassium, sodium, and magnesium. WBC now increased to 14.2. Will monitor for progression in abnormal labs as well as signs of infection. She is now up and ambulating. Patient does not appear septic but BC or lactic acid may be warranted to rule out infection. Post-operative pain - oxycontin 2x daily, oxycodone as needed Hyperkalemia - potassium chloride may be warranted (potassium of 3.1) Hyponatremia - sodium now 131. Possibly dilutional due to increased positive fluid balance. Will continue to monitor for signs of improvement or new symptoms. New onset arrhythmia - bouts of regular rhythm broken up by PVC or PAC. Condition confirmed by EKG. Will continue to monitor for worsening tachycardia or arrhythmic progression. Nausea - ondansetron Hypothyroidism - levothyroxine COPD - umeclidinium bromide Anxiety - alprazolam DVT prophylaxis - enoxaparin IBS - continue medical management Clinical Quality Measures Admission Status Admission Dx Status post-colovesical fistula and peristomal hernia repair AUREA CAMP DO 09/02/22 0552: Subjective Subjective/Events-last exam Patient doing little better Pain is still an issue Pain regimen is helping Objective Exam General: Alert, Oriented X3, Cooperative, No Acute Distress Lungs: Clear to Auscultation, Normal Air Movement Heart: Normal S1, Normal S2, No Murmurs, Other (Patient has new onset arrhythmia. Discontinuous bouts of regular sinus rhythm broken up by occasional PVC or PAC.) Psych/Mental Status: Mental Status NL, Mood NL Assessment/Plan Assessment/Plan Assess & Plan/Chief Complaint Supportive care Check labs Supervisory-Addendum Brief Verification & Attestation Participated in pt care: history, MDM, physical Personally performed: exam, history, MDM, supervision of care Care discussed with: Medical Student Procedures: n/a Results interpretation: Verified all documentation Verification and Attestation of Medical Student E/M Service A medical student performed and documented this service in my presence. I reviewed and verified all information documented by the medical student and made modifications to such information, when appropriate. I personally performed the physical exam and medical decision making. Aurea Camp, Sep 02, 2022,05:52 ALVAREZ CAMPBELL 11, 2022 12:27 AUREA CAMP DO Sep 02, 2022 05:52
[2022-09-01 15:45] VITALS: BP 117/53
[2022-09-01 20:06] VITALS: BP 113/63
[2022-09-01] MEDS: ENOXAPARIN 40 MG/0.4 ML (LOVENOX) SYR SC SCH (20:08)
[2022-09-02] VITALS (7 sets, daily range): BP systolic 100–146; BP diastolic 58–79
[2022-09-02] MEDS: LEVOTHYROXINE 100 MCG (LEVOTHROID) TAB PO SCH (05:55)
--- NOTE | 2022-09-02 06:12 | PM&R Progress Note ---
Subjective HPI/CC On Admission Date Seen by Provider: Sep 02, 2022 Time Seen by Provider: 11:00 Patient is an 82 year old woman on post-op day 1 after repair of colovesical fistula and peristomal hernia. Past history of thyroid disease, cataracts, HTN, IBS, COPD, and chronic dry eye. Past surg hx of gallbladder, hemorrhoid, foot, k nee replacement and back surgery. She states that she is feeling alright this morning. Note that her abdominal pain is around a 3 to 4 out of 10. She indicates nausea but cannot vomit due to hiatal hernia surgery, as well as a minor headache, and blurred vision post-surgery that has since completely subsided. She denies SOB, chest pain, chills, or lightheadedness. Objective Exam Vital Signs Vital Signs Date Time Temp Pulse Resp B/P (MAP) Pulse Ox O2 Delivery O2 Flow Rate FiO2 09/02/22 11:17 36.8 84 18 135/62 (86) Room Air 09/02/22 07:35 92 2.00 Capillary Refill : Less Than 3 Seconds General Appearance: No Apparent Distress HEENT: PERRL/EOMI Neck: Non Tender, Supple; No Carotid Bruit, No JVD Respiratory: Chest Non Tender, Lungs Clear, Normal Breath Sounds, No Accessory Muscle Use, No Respiratory Distress Cardiovascular: No Murmur, Tachycardia (irregular vs palpitation; patient currently asymptomatic ) Gastrointestinal: No Pulsatile Mass, Soft, Abnormal Bowel Sounds (Present but decreased), Tenderness (General tenderness to palpation in all quadrants with worst tenderness in right RLQ and RUQ) Extremity: No Calf Tenderness, Pedal Edema (non-pitting ), Swelling (Trace to 1+ pre-tibial pitting edema) Neurologic/Psychiatric: Alert, Oriented x3 Skin: Normal Color, Warm/Dry Lymphatic: No Adenopathy Results/Procedures Lab Laboratory Tests 09/02/22 05:25 Patient resulted labs reviewed. Procedures Repair of colovesical fistula and peristomal hernia FIM Transfers Therapy Code Descriptions/Definitions Functional [place] Measure: 0=Not Assessed/NA 4=Minimal Assistance 1=Total Assistance 5=Supervision or Setup 2=Maximal Assistance 6=Modified [place] 3=Moderate Assistance 7=Complete IndependenceSCALE: Activities may be completed with or without assistive devices. 3-Dpmaegqwub-nfqivmt completes the activity by him/herself with no assistance from a helper. 5-Set-up or Clean-up Assistance-helper sets up or cleans up; patient completes activity. [place] assists only prior to or following the activity. 4-Supervision or Touching Assistance-helper provides verbal cues and/or touch ing/steadying and/or contact guard assistance as patient completes activity. Assistance may be provided throughout the activity or intermittently. 3-Partial/Moderate Assistance-helper does LESS THAN HALF the effort. [place] lifts, holds or supports trunk or limbs, but provides less than half the effort. 2-Substantial/Maximal Assistance-helper does MORE THAN HALF the effort. [place] lifts or holds trunk or limbs and provides more than half the effort. 6-Xgngzqovr-scidqb does ALL the effort. Patient does none of the effort to complete the activity. Or, the assistance of 2 or more helpers is required for the patient to complete the activity. If activity was not attempted, code reason: 7-Patient Refused. 9-Not Applicable-not attempted and the patient did not perform the activity bef ore the current illness, exacerbation or injury. 10-Not Attempted due to Environmental Limitations-(lack of equipment, weather restraints, etc.). 88-Not Attempted due to Medical Conditions or Safety Concerns. Roll Left to Right (QC): 6 Sit to Lying (QC): 6 Sit to Stand (QC): 6 Gait Training Does the Patient Walk?: Yes Walk 10 feet (QC): 6 Walk 50 ft with 2 Turns(QC): 6 Walk 150 ft (QC): 6 Gait Assistive Device: FWW ADL-Treatment Eating (QC): 6 (clinical judgement) Oral Hygiene (QC): 6 Lower Body Dressing (QC): 4 On/Off Footwear (QC): 4 Toileting Hygiene (QC): 4 MIKEY CAMP DO Sep 02, 2022 06:12
[2022-09-02 06:14] LABS: BASOPHILS % (AUTO) 0 % (0-10); EOSINOPHILS # (AUTO) 0.2 10^3/uL (0.0-0.3); EOSINOPHILS % (AUTO) 2 % (0-10); HEMATOCRIT 34 % (35-52); HEMOGLOBIN 11.3 g/dL (11.5-16.0); LYMPHOCYTES # (AUTO) 1.4 10^3/uL (1.0-4.0); LYMPHOCYTES % (AUTO) 13 % (12-44); MEAN CORPUSCULAR HEMOGLOBIN 30 pg (25-34); MEAN CORPUSCULAR HGB CONC 33 g/dL (32-36); MEAN CORPUSCULAR VOLUME 89 fL (80-99); MEAN PLATELET VOLUME 10.3 fL (9.0-12.2); MONOCYTES # (AUTO) 0.7 10^3/uL (0.0-1.0); MONOCYTES % (AUTO) 6 % (0-12); NEUTROPHILS # (AUTO) 8.6 10^3/uL (1.8-7.8); NEUTROPHILS % (AUTO) 78 % (42-75); PLATELET COUNT 194 10^3/uL (130-400)
[2022-09-02 07:07] LABS: ALANINE AMINOTRANSFERASE < 6 U/L (0-55); ALBUMIN 2.9 GM/DL (3.2-4.5); ALKALINE PHOSPHATASE 66 U/L (40-136); BILIRUBIN,TOTAL 0.7 MG/DL (0.1-1.0); BUN/CREATININE RATIO 11; CALCIUM 8.6 MG/DL (8.5-10.1); CARBON DIOXIDE 21 MMOL/L (21-32); CHLORIDE 101 MMOL/L (98-107); CREATININE SERUM 0.73 MG/DL (0.60-1.30); GFR ESTIMATED 83; GLUCOSE 91 MG/DL (70-105); POTASSIUM 3.3 MMOL/L (3.6-5.0); SODIUM 134 MMOL/L (135-145); TOTAL PROTEIN 6.2 GM/DL (6.4-8.2)
[2022-09-02] MEDS: ASCORBIC ACID (VIT C) 500 MG TABLET PO SCH (08:34)
[2022-09-02] MEDS: MELOXICAM 7.5 MG (MOBIC) TABLET PO SCH ×2 (08:34→16:30)
[2022-09-02] MEDS: ATENOLOL 25 MG (TENORMIN) TAB PO SCH (08:34)
[2022-09-02] MEDS: SUCRALFATE 1 GM (CARAFATE) TAB PO SCH ×4 (08:35→20:49)
[2022-09-02] MEDS: oxyCODONE ER 10 MG (OxyCONTIN CR) TAB PO SCH ×2 (08:35→20:50)
[2022-09-02] MEDS: PANTOPRAZOLE 40 MG (PROTONIX) TAB PO SCH (08:35)
[2022-09-02] MEDS ORDERED: KCL 20 MEQ TAB (K-DUR) PO ONE (08:45)
--- NOTE | 2022-09-02 09:49 | Progress Note - Surgery ---
ARLEN RICHEY 09/02/22 0949: Subjective Date Seen by a Provider: Sep 02, 2022 Time Seen by a Provider: 08:30 Subjective/Events-last exam Patient sitting in chair eating when I entered the room. States that last night was much better than the previous. No fever overnight. Patient did require some oxygen again overnight as her O2 sats were 88%. Patient states that last night and this morning in the shower she did notice some bleeding coming from what she thought was her vagina. After checking again patient believes that the bleeding is coming from her rectal stump. Patient states that she had 6-10 bright red drops of blood in the shower. Upon checking again by wiping she had some more spotting on the tissue paper of a darker brown blood. Patient denies rectal pain, hematuria, and suprapubic pelvic pain. Patient states this is new and not painful. Patient states her pain is currently at a 2-3/10 and that it is much better controlled than the previous day. Patient has noted that her appetite has not fully returned yet and that she is using some ensure drinks to supplement calories. Review of Systems General: No Chills, No Night Sweats HEENT: No Head Aches, No Visual Changes Pulmonary: No Dyspnea, No Cough Cardiovascular: No: Chest Pain, Palpitations Gastrointestinal: Abdominal Pain (improved ); No: Nausea, Vomiting Genitourinary: No Dysuria, No Frequency, No Hematuria Neurological: No: Weakness, Confusion Objective Exam Vital Signs Date Time Temp Pulse Resp B/P (MAP) Pulse Ox O2 Delivery O2 Flow Rate FiO2 09/02/22 07:35 92 Room Air 2.00 09/02/22 07:21 36.6 83 18 116/58 (77) 92 Room Air 09/02/22 03:38 36.8 94 18 146/79 (101) 96 Nasal Cannula 2.00 09/02/22 01:30 36.8 96 20 125/71 (89) 95 Room Air 09/01/22 20:06 37.4 94 20 113/63 (80) 94 Room Air 09/01/22 20:00 Room Air 09/01/22 15:45 37.5 89 20 117/53 (74) 92 Room Air 09/01/22 11:36 37.0 94 18 136/63 (87) 92 Room Air 09/01/22 10:53 93 Room Air 2.00 I & O 09/02/22 07:00 Intake Total 1740 ml Output Total 1850 ml Balance -110 ml Capillary Refill : Less Than 3 Seconds General Appearance: No Apparent Distress, WD/WN HEENT: PERRL/EOMI Neck: Non Tender, Supple; No Carotid Bruit, No JVD Respiratory: Chest Non Tender, Lungs Clear, Normal Breath Sounds, No Accessory Muscle Use, No Respiratory Distress Cardiovascular: Regular Rate, Rhythm (tachy is improved; SR w/ occasional premature complex still. ), No Murmur Gastrointestinal: soft, tenderness (to light palpation; generalized. Improving), other (ostomy pink and patent w/ no signs of infx or irritation; surgical bandage c/d) Extremity: No Calf Tenderness, Pedal Edema (trace, non-pitting, bilateral) Neurologic/Psychiatric: Alert, Oriented x3, Normal Mood/Affect Skin: Normal Color, Warm/Dry Results Lab Laboratory Tests 09/01/22 11:20: White Blood Count 14.2H, Red Blood Count 4.05, Hemoglobin 12.2, Hematocrit 36, Mean Corpuscular Volume 89, Mean Corpuscular Hemoglobin 30, Mean Corpuscular Hemoglobin Concent 34, Red Cell Distribution Width 12.9, Platelet Count 186, Mean Platelet Volume 10.1, Immature Granulocyte % (Auto) 0, Neutrophils (%) (Auto) 79H, Lymphocytes (%) (Auto) 14, Monocytes (%) (Auto) 5, Eosinophils (%) (Auto) 0, Basophils (%) (Auto) 0, Neutrophils # (Auto) 11.2H, Lymphocytes # (Auto) 2.0, Monocytes # (Auto) 0.8, Eosinophils # (Auto) 0.1, Basophils # (Auto) 0.1, Immature Granulocyte # (Auto) 0.1, Neutrophils % (Manual) 80, Lymphocytes % (Manual) 9, Monocytes % (Manual) 6, Eosinophils % (Manual) 1, Basophils % (Manual) 0, Band Neutrophils 4, Blood Morphology Comment NORMAL, Sodium Level 131L, Potassium Level 3.1L, Chloride Level 100, Carbon Dioxide Level 23, Anion Gap 8, Blood Urea Nitrogen 7, Creatinine 0.71, Estimat Glomerular Filtration Rate 86, BUN/Creatinine Ratio 10, Glucose Level 97, Calcium Level 8.6, Corrected Calcium 9.4, Total Bilirubin 0.8, Aspartate Amino Transf (AST/SGOT) 18, Alanine Aminotransferase (ALT/SGPT) 11, Alkaline Phosphatase 64, Total Protein 5.9L, Albumin 3.0L 09/02/22 05:25: White Blood Count 11.0, Red Blood Count 3.79L, Hemoglobin 11.3L, Hematocrit 34L, Mean Corpuscular Volume 89, Mean Corpuscular Hemoglobin 30, Mean Corpuscular Hemoglobin Concent 33, Red Cell Distribution Width 12.9, Platelet Count 194, Mean Platelet Volume 10.3, Immature Granulocyte % (Auto) 1, Neutrophils (%) (Auto) 78H, Lymphocytes (%) (Auto) 13, Monocytes (%) (Auto) 6, Eosinophils (%) (Auto) 2, Basophils (%) (Auto) 0, Neutrophils # (Auto) 8.6H, Lymphocytes # (Auto) 1.4, Monocytes # (Auto) 0.7, Eosinophils # (Auto) 0.2, Basophils # (Auto) 0.0, Immature Granulocyte # (Auto) 0.1, Sodium Level 134L, Potassium Level 3.3L, Chloride Level 101, Carbon Dioxide Level 21, Anion Gap 12, Blood Urea Nitrogen 8, Creatinine 0.73, Estimat Glomerular Filtration Rate 83, BUN/Creatinine Ratio 11, Glucose Level 91, Calcium Level 8.6, Corrected Calcium 9.5, Total Bilirubin 0.7, Aspartate Amino Transf (AST/SGOT) 12, Alanine Aminotransferase (ALT/SGPT) < 6, Alkaline Phosphatase 66, Total Protein 6.2L, Albumin 2.9L Microbiology 08/30/22 MRSA Screen - Final, Complete MRSA not isolated Assessment/Plan Assessment/Plan Assessment/Plan S/P repair of colovesical fistula and parastomal hernia; POD 3 Intermittent Tachycardia Rectal Stump bleeding COPD HTN Hypothyroidism EKG done 09/01 - not Afib, looks like some PVC or PAC. Patient is normal rate today. Normal rhythm w/ occasional premature complex to auscultation. Continue to monitor. Pain control; continue current regimen - Pain improving Encourage Ambulation, diet as tolerated and IS Resume home meds DVT prophylaxis: Lovenox 40 QD Will continue to monitor amount of rectal stump bleeding. If patient continues to have bright red bleeding may do rectal exam to look for any trauma to the tissue. Suspect that this could be due to rectoscopy done during surgery. ALEJANDRO COULTER DO 09/02/22 1402: Subjective Time Seen by a Provider: 12:52 Subjective/Events-last exam Pt seen and examined, states she is doing better but still not able to eat much. Pain is not as bad. Review of Systems Pulmonary: No Dyspnea, No Cough Cardiovascular: No: Chest Pain, Palpitations Gastrointestinal: Abdominal Pain (improved ); No: Nausea, Vomiting Objective Exam General Appearance: No Apparent Distress, WD/WN HEENT: PERRL/EOMI Respiratory: Chest Non Tender, Lungs Clear, Normal Breath Sounds, No Accessory Muscle Use, No Respiratory Distress Cardiovascular: Regular Rate, Rhythm (tachy is improved; SR w/ occasional premature complex still. ), No Murmur Gastrointestinal: soft, tenderness (to light palpation; generalized. Improving), other (ostomy pink and patent w/ no signs of infx or irritation; surgical bandage c/d) Extremity: No Calf Tenderness, Pedal Edema (trace, non-pitting, bilateral) Neurologic/Psychiatric: Alert, Oriented x3, Normal Mood/Affect Skin: Normal Color, Warm/Dry Assessment/Plan Assessment/Plan Assessment/Plan S/P repair of colovesical fistula and parastomal hernia; POD 3 Intermittent Tachycardia Rectal Stump bleeding COPD HTN Hypothyroidism EKG done 09/01 - not Afib, looks like some PVC or PAC. Patient is normal rate today. Normal rhythm w/ occasional premature complex to auscultation. Continue to monitor. Pain control; continue current regimen - Pain improving Encourage Ambulation, diet as tolerated and IS Resume home meds DVT prophylaxis: Lovenox 40 QD Will continue to monitor amount of rectal stump bleeding. If patient continues to have bright red bleeding may do rectal exam to look for any trauma to the tissue. Suspect that this could be due to proctoscopy done during surgery. Supervisory-Addendum Brief Verification & Attestation Participated in pt care: history, MDM, physical Personally performed: exam, history, MDM, supervision of care Care discussed with: Medical Student Procedures: n/a Verification and Attestation of Medical Student E/M Service A medical student performed and documented this service. I then reviewed and verified all information documented by the medical student and made modifications to such information, when appropriate. I personally performed a physical exam, medical decision making and then discussed any differences between the notes and made revisions as necessary to create one note. Alejandro Coulter , 09/02/22 , 14:02 ARLEN RICHEY Sep 02, 2022 09:49 ALEJANDRO COULTER DO Sep 02, 2022 14:02
--- NOTE | 2022-09-02 11:39 | Progress Note ---
Subjective Date Seen by a Provider: Sep 02, 2022 Time Seen by a Provider: 11:45 Subjective/Events-last exam Patient doing a little better Advance diet Abdominal cramping is still present Reviewed labs Review of Systems Gastrointestinal: Abdominal Pain Objective Exam Last Set of Vital Signs Vital Signs Date Time Temp Pulse Resp B/P (MAP) Pulse Ox O2 Delivery O2 Flow Rate FiO2 09/02/22 11:17 36.8 84 18 135/62 (86) Room Air 09/02/22 07:35 92 2.00 Capillary Refill : Less Than 3 Seconds I&O Intake and Output 09/02/22 00:00 Intake Total 1490 ml Output Total 1025 ml Balance 465 ml Intake Oral 1490 ml Output Urine Total 750 ml Stool Total 275 ml # Voids 9 General: Alert, Oriented X3, Cooperative, No Acute Distress Lungs: Clear to Auscultation, Normal Air Movement Heart: Regular Rate, Normal S1, Normal S2, No Murmurs Psych/Mental Status: Mental Status NL, Mood NL Results Lab Laboratory Tests 09/02/22 05:25: White Blood Count 11.0, Red Blood Count 3.79L, Hemoglobin 11.3L, Hematocrit 34L, Mean Corpuscular Volume 89, Mean Corpuscular Hemoglobin 30, Mean Corpuscular Hemoglobin Concent 33, Red Cell Distribution Width 12.9, Platelet Count 194, Mean Platelet Volume 10.3, Immature Granulocyte % (Auto) 1, Neutrophils (%) (Auto) 78H, Lymphocytes (%) (Auto) 13, Monocytes (%) (Auto) 6, Eosinophils (%) (Auto) 2, Basophils (%) (Auto) 0, Neutrophils # (Auto) 8.6H, Lymphocytes # (Auto) 1.4, Monocytes # (Auto) 0.7, Eosinophils # (Auto) 0.2, Basophils # (Auto) 0.0, Immature Granulocyte # (Auto) 0.1, Sodium Level 134L, Potassium Level 3.3L, Chloride Level 101, Carbon Dioxide Level 21, Anion Gap 12, Blood Urea Nitrogen 8, Creatinine 0.73, Estimat Glomerular Filtration Rate 83, BUN/Creatinine Ratio 11, Glucose Level 91, Calcium Level 8.6, Corrected Calcium 9.5, Total Bilirubin 0.7, Aspartate Amino Transf (AST/SGOT) 12, Alanine Aminotransferase (ALT/SGPT) < 6, Alkaline Phosphatase 66, Total Protein 6.2L, Albumin 2.9L Microbiology 08/30/22 MRSA Screen - Final, Complete MRSA not isolated Assessment/Plan Assessment/Plan Assess & Plan/Chief Complaint Assessment: Hernia repair of stoma Abdominal pain Colostomy Fever Hypokalemia Plan: Supportive care Pain control MIKEY CAMP DO Sep 02, 2022 11:39
[2022-09-02] MEDS: ENOXAPARIN 40 MG/0.4 ML (LOVENOX) SYR SC SCH (20:49)
[2022-09-02] MEDS: DOCUSATE SODIUM 100 MG (COLACE) CAP PO PRN (21:43)
[2022-09-03 03:41] VITALS: BP 135/61
[2022-09-03] MEDS: LEVOTHYROXINE 100 MCG (LEVOTHROID) TAB PO SCH (05:18)
[2022-09-03 05:47] LABS: BASOPHILS % (AUTO) 1 % (0-10); EOSINOPHILS # (AUTO) 0.3 10^3/uL (0.0-0.3); EOSINOPHILS % (AUTO) 4 % (0-10); HEMATOCRIT 34 % (35-52); HEMOGLOBIN 11.3 g/dL (11.5-16.0); LYMPHOCYTES # (AUTO) 1.2 10^3/uL (1.0-4.0); LYMPHOCYTES % (AUTO) 17 % (12-44); MEAN CORPUSCULAR HEMOGLOBIN 30 pg (25-34); MEAN CORPUSCULAR HGB CONC 33 g/dL (32-36); MEAN CORPUSCULAR VOLUME 90 fL (80-99); MEAN PLATELET VOLUME 10.6 fL (9.0-12.2); MONOCYTES # (AUTO) 0.5 10^3/uL (0.0-1.0); MONOCYTES % (AUTO) 7 % (0-12); NEUTROPHILS # (AUTO) 5.2 10^3/uL (1.8-7.8); NEUTROPHILS % (AUTO) 71 % (42-75); PLATELET COUNT 201 10^3/uL (130-400); WHITE BLOOD COUNT 7.3 10^3/uL (4.3-11.0)
[2022-09-03 06:13] LABS: ALANINE AMINOTRANSFERASE < 6 U/L (0-55); ALBUMIN 2.9 GM/DL (3.2-4.5); ALKALINE PHOSPHATASE 67 U/L (40-136); BILIRUBIN,TOTAL 0.4 MG/DL (0.1-1.0); BUN/CREATININE RATIO 12; CALCIUM 8.8 MG/DL (8.5-10.1); CARBON DIOXIDE 23 MMOL/L (21-32); CHLORIDE 104 MMOL/L (98-107); CREATININE SERUM 0.73 MG/DL (0.60-1.30); GFR ESTIMATED 83; GLUCOSE 93 MG/DL (70-105); POTASSIUM 3.7 MMOL/L (3.6-5.0); SODIUM 138 MMOL/L (135-145); TOTAL PROTEIN 6.1 GM/DL (6.4-8.2)
--- NOTE | 2022-09-03 06:55 | Progress Note ---
Subjective Date Seen by a Provider: Sep 03, 2022 Time Seen by a Provider: 11:00 Subjective/Events-last exam Patient doing well Rectal bleeding is subtle but still present Labs normal Pain improved Review of Systems General: Fatigue Gastrointestinal: Melena Objective Exam Last Set of Vital Signs Vital Signs Date Time Temp Pulse Resp B/P (MAP) Pulse Ox O2 Delivery O2 Flow Rate FiO2 09/03/22 03:41 36.8 74 18 135/61 (85) 100 Nasal Cannula 2.00 Capillary Refill : Less Than 3 Seconds I&O Intake and Output 09/03/22 00:00 Intake Total 1660 ml Output Total 1900 ml Balance -240 ml Intake Oral 1660 ml Output Urine Total 1775 ml Stool Total 125 ml # Voids 4 # Bowel Movements 1 General: Alert, Oriented X3, Cooperative, No Acute Distress Lungs: Clear to Auscultation, Normal Air Movement Heart: Regular Rate, Normal S1, Normal S2, No Murmurs Psych/Mental Status: Mental Status NL, Mood NL Results Lab Laboratory Tests 09/03/22 05:13: White Blood Count 7.3, Red Blood Count 3.76L, Hemoglobin 11.3L, Hematocrit 34L, Mean Corpuscular Volume 90, Mean Corpuscular Hemoglobin 30, Mean Corpuscular Hemoglobin Concent 33, Red Cell Distribution Width 13.0, Platelet Count 201, Mean Platelet Volume 10.6, Immature Granulocyte % (Auto) 0, Neutrophils (%) (Auto) 71, Lymphocytes (%) (Auto) 17, Monocytes (%) (Auto) 7, Eosinophils (%) (Auto) 4, Basophils (%) (Auto) 1, Neutrophils # (Auto) 5.2, Lymphocytes # (Auto) 1.2, Monocytes # (Auto) 0.5, Eosinophils # (Auto) 0.3, Basophils # (Auto) 0.0, Immature Granulocyte # (Auto) 0.0, Sodium Level 138, Potassium Level 3.7, Chloride Level 104, Carbon Dioxide Level 23, Anion Gap 11, Blood Urea Nitrogen 9, Creatinine 0.73, Estimat Glomerular Filtration Rate 83, BUN/Creatinine Ratio 12, Glucose Level 93, Calcium Level 8.8, Corrected Calcium 9.7, Total Bilirubin 0.4, Aspartate Amino Transf (AST/SGOT) 11, Alanine Aminotransferase (ALT/SGPT) < 6, Alkaline Phosphatase 67, Total Protein 6.1L, Albumin 2.9L Microbiology 08/30/22 MRSA Screen - Final, Complete MRSA not isolated Assessment/Plan Assessment/Plan Assess & Plan/Chief Complaint Assessment: Hernia repair of stoma Abdominal pain Colostomy Fever Hypokalemia Rectal bleeding? Vaginal bleeding? Fistula? Plan: Supportive care Pain control MIKEY CAMP DO Sep 03, 2022 06:55
[2022-09-03 07:44] VITALS: BP 109/72
[2022-09-03] MEDS: MELOXICAM 7.5 MG (MOBIC) TABLET PO SCH (08:36)
[2022-09-03] MEDS: PANTOPRAZOLE 40 MG (PROTONIX) TAB PO SCH (08:36)
[2022-09-03] MEDS: oxyCODONE ER 10 MG (OxyCONTIN CR) TAB PO SCH (08:36)
[2022-09-03] MEDS: ASCORBIC ACID (VIT C) 500 MG TABLET PO SCH (08:36)
[2022-09-03] MEDS: ATENOLOL 25 MG (TENORMIN) TAB PO SCH (08:36)
[2022-09-03] MEDS: SUCRALFATE 1 GM (CARAFATE) TAB PO SCH ×2 (08:36→11:08)
--- NOTE | 2022-09-03 10:09 | Progress Note - Surgery ---
ARLEN RICHEY 09/03/22 1009: Subjective Subjective/Events-last exam Patient still having rectal/vaginal bleeding. Is unsure of source. Not painful. Sometimes bright red blood, sometimes dark older blood. Patient states it happens most often when she is cleaning herself after using the restroom or in the shower. Patient states it is not painful. Otherwise, patient states she is feeling good. Some abdominal cramping after eating certain foods, but it is manageable according to patient. States pain is under control. Patient feels she would like to know why she is bleeding, but otherwise feels like she could go home today. Review of Systems General: No Chills, No Night Sweats HEENT: No Head Aches, No Visual Changes Pulmonary: No Dyspnea, No Cough Cardiovascular: Other (feels occasional flutter); No: Chest Pain Gastrointestinal: Abdominal Pain (see hpi); No: Nausea, Vomiting Genitourinary: No Dysuria, No Frequency; Other (bleeding per rectum or vagina) Musculoskeletal: No: neck pain, shoulder pain Neurological: No: Weakness, Numbness Objective Exam Vital Signs Date Time Temp Pulse Resp B/P (MAP) Pulse Ox O2 Delivery O2 Flow Rate FiO2 09/03/22 08:41 Room Air 09/03/22 07:44 36.7 77 18 109/72 (84) 93 Room Air 09/03/22 03:41 36.8 74 18 135/61 (85) 100 Nasal Cannula 2.00 09/02/22 23:23 36.5 74 18 129/63 (85) 99 Nasal Cannula 2.00 09/02/22 20:00 Room Air 09/02/22 19:54 36.5 80 18 129/62 (84) 94 Room Air 09/02/22 19:10 Room Air 2.00 09/02/22 16:34 37.0 73 18 100/60 (73) Room Air 09/02/22 11:17 36.8 84 18 135/62 (86) Room Air I & O 09/03/22 07:00 Intake Total 1610 ml Output Total 1475 ml Balance 135 ml Capillary Refill : Less Than 3 Seconds General Appearance: No Apparent Distress, WD/WN HEENT: PERRL/EOMI Neck: Non Tender, Supple Respiratory: Chest Non Tender, Lungs Clear, Normal Breath Sounds, No Accessory Muscle Use, No Respiratory Distress Cardiovascular: Regular Rate, Rhythm (SR with occaisonal PVC as seen on EKG), No Murmur Gastrointestinal: soft, tenderness (to light palpation; generalized. Improving), other (ostomy pink and patent w/ no signs of infx or irritation; surgical incision C/D/I ) Extremity: No Calf Tenderness, Pedal Edema (trace, non-pitting, bilateral) Neurologic/Psychiatric: Alert, Oriented x3, Normal Mood/Affect Skin: Normal Color, Warm/Dry Results Lab Laboratory Tests 09/03/22 05:13: White Blood Count 7.3, Red Blood Count 3.76L, Hemoglobin 11.3L, Hematocrit 34L, Mean Corpuscular Volume 90, Mean Corpuscular Hemoglobin 30, Mean Corpuscular Hemoglobin Concent 33, Red Cell Distribution Width 13.0, Platelet Count 201, Mean Platelet Volume 10.6, Immature Granulocyte % (Auto) 0, Neutrophils (%) (Auto) 71, Lymphocytes (%) (Auto) 17, Monocytes (%) (Auto) 7, Eosinophils (%) (Auto) 4, Basophils (%) (Auto) 1, Neutrophils # (Auto) 5.2, Lymphocytes # (Auto) 1.2, Monocytes # (Auto) 0.5, Eosinophils # (Auto) 0.3, Basophils # (Auto) 0.0, Immature Granulocyte # (Auto) 0.0, Sodium Level 138, Potassium Level 3.7, Chloride Level 104, Carbon Dioxide Level 23, Anion Gap 11, Blood Urea Nitrogen 9, Creatinine 0.73, Estimat Glomerular Filtration Rate 83, BUN/Creatinine Ratio 12, Glucose Level 93, Calcium Level 8.8, Corrected Calcium 9.7, Total Bilirubin 0.4, Aspartate Amino Transf (AST/SGOT) 11, Alanine Aminotransferase (ALT/SGPT) < 6, Alkaline Phosphatase 67, Total Protein 6.1L, Albumin 2.9L Microbiology 08/30/22 MRSA Screen - Final, Complete MRSA not isolated Assessment/Plan Assessment/Plan Assessment/Plan 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 Patient is normal rate today. Normal rhythm w/ occasional premature complex to auscultation. Continue to monitor. Pain control; continue current regimen - Pain improving Encourage Ambulation, diet as tolerated and IS Resume home meds DVT prophylaxis: Lovenox 40 QD Patient still having bright red blood from either rectum or vagina. Will perform rectal exam today to see if we can find source of bleeding. If rectal exam does not give any indication for any intervention will plan on discharging patient h ome w/ close follow-up, given that patient is tolerating diet, her pain is under control, and patient is able to hydrate orally. ALEJANDRO COULTER DO 09/03/22 1344: Subjective Time Seen by a Provider: 12:26 Subjective/Events-last exam Pt seen and examined, states she is doing better today. Her main concern is she thinks she is urinating blood and there may be some rectal bleeding. Her pain is otherwise controlled and she is tolerating diet. Review of Systems General: No Chills, No Night Sweats Cardiovascular: Other (feels occasional flutter); No: Chest Pain Gastrointestinal: No: Nausea, Vomiting Genitourinary: No Dysuria; Hematuria (??), Other (bleeding per rectum or vagina) Objective Exam General Appearance: No Apparent Distress, WD/WN HEENT: PERRL/EOMI Respiratory: Chest Non Tender, Lungs Clear, Normal Breath Sounds, No Accessory Muscle Use, No Respiratory Distress Cardiovascular: Regular Rate, Rhythm (SR with occaisonal PVC as seen on EKG), No Murmur Gastrointestinal: soft, tenderness (to light palpation; generalized. 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 Patient is normal rate today. Normal rhythm w/ occasional premature complex to auscultation. Continue to monitor. Pain control; continue current regimen - Pain improving Encourage Ambulation, diet as tolerated and IS Resume home meds DVT prophylaxis: Lovenox 40 QD Patient still having bright red blood from either rectum or vagina. Will send pt home and get appt with Dr. Ny. F/u in one week and needs to see her Primary care physician about possible vaginal exam. Supervisory-Addendum Brief Verification & Attestation Participated in pt care: history, MDM, physical Personally performed: exam, history, MDM, supervision of care Care discussed with: Medical Student Procedures: n/a Verification and Attestation of Medical Student E/M Service A medical student performed and documented this service. I then reviewed and verified all information documented by the medical student and made modifications to such information, when appropriate. I personally performed a physical exam, medical decision making and then discussed any differences between the notes and made revisions as necessary to create one note. Alejandro Coulter , 09/03/22 , 13:46 ARLEN RICHEY Sep 03, 2022 10:09 ALEJANDRO COULTER DO Sep 03, 2022 13:44
[2022-09-03] MEDS: DOCUSATE SODIUM 100 MG (COLACE) CAP PO PRN (11:08)
[2022-09-03 11:29] VITALS: BP 116/73
[2022-09-03] MEDS ORDERED: ACHYD1T PO (13:47)
--- NOTE | 2022-09-03 13:49 | Discharge Inst-Surgical ---
Discharge Inst-Surgical Depart Medication/Instructions New, Converted or Re-Newed RX: Transmitted to Pharmacy Patient Instructions Follow up Appt: Make appointment for 1 week. [phone] Instructions: No lifting greater than 20 pounds. No strenuous activity. May shower in 24 hours, no tub bath or soaking. Use incentive spirometer at home as directed. No Smoking Skin/Wound Care: May remove bandages in am. You need to leave the bartolo in place and come to clinic to have them removed. Symptoms to Report: Appetite Changes, Extremity Discoloration, Numbness/Tingling, Swelling Increased, Bleeding Excessive, Eyesight Changes, Pain Increased, Urine Color Change, Constipation(Persistent), Fever over 101 degree F, Pain/Pressure in chest, Urinating Difficulty, Cough Up/Vomit Blood, Heart Beat Irreg/Pounding, Pain/Pressure in jaw, Cramps in feet or legs, Lightheadedness, Pain/Pressure in shoulder, Diarrhea(Persistent), Memory Changes Suddenly, Questions/Concerns, Weight gain consecutive days, Dizziness/Fainting, Nausea/Vomiting, Shortness of Breath, Weight gain over 2 pounds If questions or concerns contact your physician Or seek help at emergency department. Activity Activity as Tolerated: Yes Activity Instructions: Avoid Stress to Incision Driving Instructions: No Driving/Refer to Dr. Briceno Discharge Diet: No Restrictions Diet After 24 Hours: Clear Liquid if Nauseous If Any Problems/Questions/Issu: Contact Your Physician, Go to Emergency Room Skin/Wound Care Infection Signs and Symptoms: Increased Redness, Foul Odor of Wound, Increased Drainage, Skin Itchy or Has a Rash, Increased Swelling, Temperature Above 101 F Bathing Instructions: Shower Stitches/Bartolo/Dermabond Dis: Care of SOFIA Panchal DO Sep 03, 2022 13:49
[2022-09-03] MEDS ORDERED: ONDA4TAB11 SL (14:11)
[2022-09-03 14:25] VITALS: BP 116/73
== END 2022-09-03 14:40 | disposition home or self-care (01) | DRG 663 ==
LOC: 4TH 07:44 → SURG 07:45 → 4TH 14:10
PROVIDERS: ADMIT Surgery; ATTEND Surgery
PROC: 0DNW0ZZ Release Peritoneum, Open Approach (ICD-10-PCS; 2022-08-30)
PROC: 0DQE0ZZ Repair Large Intestine, Open Approach (ICD-10-PCS; 2022-08-30)
PROC: 0WQFXZ2 Repair Abdominal Wall, Stoma, External Approach (ICD-10-PCS; principal; 2022-08-30 09:54)
DX: N32.1 Vesicointestinal fistula (principal); E87.1 Hypo-osmolality and hyponatremia; K43.5 Parastomal hernia without obstruction or gangrene; Z93.3 Colostomy status; I10 Essential (primary) hypertension; J44.9 Chronic obstructive pulmonary disease, unspecified; K58.9 Irritable bowel syndrome, unspecified; E78.00 Pure hypercholesterolemia, unspecified; G43.909 Migraine, unspecified, not intractable, without status migrainosus; K21.9 Gastro-esophageal reflux disease without esophagitis; K57.90 Diverticulosis of intestine, part unspecified, without perforation or abscess without bleeding; M19.90 Unspecified osteoarthritis, unspecified site; K66.0 Peritoneal adhesions (postprocedural) (postinfection); M79.7 Fibromyalgia; G89.29 Other chronic pain; M54.9 Dorsalgia, unspecified; E03.9 Hypothyroidism, unspecified; F41.9 Anxiety disorder, unspecified; F32.A Depression, unspecified; R11.0 Nausea; E87.5 Hyperkalemia; I49.9 Cardiac arrhythmia, unspecified; R00.0 Tachycardia, unspecified
CPT/HCPCS: 36415; 80053; 83735; 85007; 85025; 85027; 87081; 93005; 94760

== ENCOUNTER 2022-09-04 15:51 | Inpatient (IN) | payer MEDICARE, OTHER ==
[~2022-09-04] VITALS: Ht 157 cm; Wt 70.0 kg
[~2022-09-04 15:51] MED LIST changes: +ACHYD1T PO; +ONDA4TAB11 SL
--- NOTE | 2022-09-04 16:24 | ED Abdominal Pain ---
General Chief Complaint: Abdominal/GI Problems Stated Complaint: POST OP HERNIA PAIN Source of Information: Patient Exam Limitations: No Limitations (TERE LENTZ MD) History of Present Illness Date Seen by Provider: Sep 04, 2022 Time Seen by Provider: 16:10 Initial Comments Patient is an 82-year-old female who presents to the emergency room with a chief complaint of diffuse abdominal pain however mostly localized to the right side of the abdomen. Patient was just discharged yesterday after having hernia repair and ostomy surgery. 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 She states the pain has worsened significantly in the last 24 hours. She was able to eat a little bit of food around lunchtime at 3:00 today. She did take 10 mg of OXYCONTIN at that time. She states she has not had any output from her ostomy in the last 2 to 3 days. She has a history of colovesical fistula. She states she has been fighting a urinary tract infection for months due to this. No fevers or chills. She is nauseous and is belching a lot. She has had prior hiatal hernia repair. Feels generally weak. She states she thinks she may be constipated. She was not taking as many stool softeners during her inpatient stay over the last week as she had been at home. She was able to take some Colace yesterday however. The pain comes in waves, severe cramps. She also endorses a little blood per rectum, "drips" of blood she thinks from her rectum. No fevers, chills, shortness of breath or cough. Remote smoker having quit 40 years ago. No daily alcohol. All other review of systems reviewed and negative except as stated. Timing/Duration: 12-24 Hours Severity/Quality: Severe, Aching, Cramping ("9"), Sharp, Stabbing Location: RLQ Activities at Onset: None Associated Symptoms: Nausea/Vomiting, Swelling/Mass in Abdomen, Other (TERE LENTZ MD) Allergies and Home Medications Allergies Coded Allergies: meperidine (Verified Allergy, Unknown, 12/15/08) Patient Home Medication List Home Medication List Reviewed: Yes (TERE LENTZ MD) ALPRAZolam (ALPRAZolam) 0.25 Mg Tablet, 0.25 MG PO Q4H PRN for ANXIETY Prescribed by: MIKEY CAMP on 06/07/22 1100 Ascorbate Calcium (Vitamin C) 500 Mg Tablet, 500 MG PO DAILY Prescribed by: MIKEY CAMP on 06/07/22 1059 Atenolol (Atenolol) 25 Mg Tablet, 25 MG PO DAILY Prescribed by: MIKEY CAMP on 06/07/22 1059 Docusate Sodium (Docusate Sodium) 100 Mg Tablet, 100 MG PO DAILY PRN for CONSTIPATION-1ST LINE Prescribed by: MIKEY CAMP on 06/07/22 1059 Hydrocodone Bit/Acetaminophen (HYDROcodone/APAP 10/325 TABLET) 1 Ea Tab, 1 TAB PO Q6H Prescribed by: SOFIA DUMONT on 09/03/22 1348 Levothyroxine Sodium (Levothyroxine Sodium) 100 Mcg Tablet, 100 MCG PO DAILY Prescribed by: MIKEY CAMP on 06/07/22 1059 Meloxicam (Meloxicam) 7.5 Mg Tablet, 7.5 MG PO BID, (Reported) Entered as Reported by: KARMEN LAWTON on 08/30/22 1458 Ondansetron (Ondansetron Odt) 4 Mg Tab.rapdis, 4 MG SL Q4H PRN for NAUSEA/VOMITING Prescribed by: SHERRILL ALBARRAN on 09/03/22 1411 Oxycodone HCl (Oxycodone HCl) 5 Mg Tablet, 5 MG PO Q4H PRN for PAIN-SEVERE (8- 10) Prescribed by: MIKEY CAMP on 06/07/22 1100 Pantoprazole Sodium (Pantoprazole Sodium) 40 Mg Tablet.dr, 40 MG PO DAILY Prescribed by: MIKEY CAMP on 06/07/22 1059 Sucralfate (Carafate) 1 Gram Tablet, 1 GM PO QID Prescribed by: MIKEY CAMP on 06/07/22 1059 Tiotropium [place] (Spiriva Respimat 2.5MCG/ACTUATION) 2.5 Mcg/Actuation Mist.inhal, 2 PUFF IH DAILY Prescribed by: MIKEY CAMP on 06/07/22 1059 Triamcinolone Acetonide (Nasacort) 55 Mcg [place], 1 SPRAY NSEACH BID Prescribed by: MIKEY CAMP on 06/07/22 1059 Discontinued Medications Aspirin (Aspirin EC) 81 Mg Tablet.dr, 81 MG PO DAILY Prescribed by: MIKEY CAMP on 06/07/22 1059 Ciprofloxacin HCl (Ciprofloxacin HCl) 500 Mg Tablet, 500 MG PO BID Discontinued Reason: No Longer Taking Prescribed by: PORFIRIO WATT on 08/03/22 1701 Review of Systems Review of Systems Constitutional: see HPI EENTM: No Symptoms Reported Respiratory: No Symptoms Reported Gastrointestinal: Abdominal Pain, Nausea, Other (no ostomy output) Genitourinary: No Symptoms Reported Musculoskeletal: no symptoms reported Skin: no symptoms reported Psychiatric/Neurological: No Symptoms Reported (TERE LENTZ MD) All Other Systems Reviewed Negative Unless Noted: Yes (TERE LENTZ MD) Past Qxxlyez-Gradkv-Jzyhfo Hx Patient Social History Tobacco Use?: Yes Smoking Status: Former Smoker Substance use?: No Alcohol Use?: No Pt feels they are or have been: No (TERE LETNZ MD) Immunizations Up To Date Tetanus Booster (TDap): Unknown First/Initial COVID19 Vaccinat: 2020 Second COVID19 Vaccination Odilon: 2020 Third COVID19 Vaccination Date: 2021 (TERE LENTZ MD) Seasonal Allergies Seasonal Allergies: Yes (TERE LENTZ MD) Past Medical History Surgery/Hospitalization HX: OSTEOARTHRITIS, CHOLECYSTECTOMY, COPD, GERD, HTN, HIGH CHOLESTEROL, MULTIPLE BACK SURGERIES, APPENDECTOMY, TONSILLECTOMY, HYPOTHYROIDISM., bowel resection, colostomy Surgeries: Yes (COLOSTOMY, GALLBLADDER, HEMMORHOIDS, FOOT, KNEE REPLACEMENT, BACK SURGERY) Abdominal, Appendectomy, Gallbladder, 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, Orthopedic, Tonsillectomy Respiratory: Yes COPD Currently Using CPAP: No Currently Using BIPAP: No Cardiac: Yes High Cholesterol, Hypertension Neurological: Yes 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 Sexually Transmitted Disease: No Genitourinary: Yes UTI-Chronic Gastrointestinal: Yes (COLOSTOMY, HERNIA) Gastroesophageal Reflux, Obstructive Bowel, Diverticulosis, Hemorrhoids, Hiatal Hernia Musculoskeletal: Yes Arthritis, Fibromyalgia, Chronic Back Pain Endocrine: Yes Hypothyroidsim HEENT: Yes (GLASSES) Cataract Hearing Impairment: Denies Cancer: No Psychosocial: Yes Anxiety, Depression Integumentary: No Blood Disorders: No Adverse Reaction/Blood Tranf: No (TERE LENZT MD) Family Medical History Lung Disease (TERE LENTZ MD) Physical Exam Vital Signs Vital Signs - First Documented 09/04/22 16:08 Temp 36.4 Pulse 98 Resp 18 B/P (MAP) 144/84 (104) Pulse Ox 98 (MIKE GIBBS DO) Vital Signs Capillary Refill : (TERE LENTZ MD) Height/Weight/BMI Height: 5'2.00" Weight: 160lbs. 0.0oz. [id number]; 29.65 BMI Method:Stated General Appearance: WD/WN, mild distress HEENT: PERRL/EOMI Neck: normal inspection Respiratory: lungs clear, normal breath sounds, no respiratory distress, no accessory muscle use Cardiovascular: regular rate, rhythm, tachycardia Gastrointestinal: abnormal bowel sounds (slightly hyoeractive), distended, tenderness (diffusely), other (no output noted in ostomy bag - ostomy site is healthy pink) Rectal: normal exam, other (yellow mucous in rectal vault) Extremities: normal range of motion, no pedal edema, normal capillary refill Neurologic/Psychiatric: alert, oriented x 3 Skin: normal color, warm/dry (TERE LENTZ MD) Progress/Results/Core Measures Results/Orders Lab Results Laboratory Tests Test 09/04/22 16:30 Range/Units White Blood Count 7.7 4.3-11.0 10^3/uL Red Blood Count 3.94 3.80-5.11 10^6/uL Hemoglobin 11.7 11.5-16.0 g/dL Hematocrit 35 35-52 % Mean Corpuscular Volume 88 80-99 fL Mean Corpuscular Hemoglobin 30 25-34 pg Mean Corpuscular Hemoglobin Concent 34 32-36 g/dL Red Cell Distribution Width 12.7 10.0-14.5 % Platelet Count 304 130-400 10^3/uL Mean Platelet Volume 9.6 9.0-12.2 fL Immature Granulocyte % (Auto) 0 % Neutrophils (%) (Auto) 64 42-75 % Lymphocytes (%) (Auto) 23 12-44 % Monocytes (%) (Auto) 9 0-12 % Eosinophils (%) (Auto) 3 0-10 % Basophils (%) (Auto) 0 0-10 % Neutrophils # (Auto) 5.0 1.8-7.8 10^3/uL Lymphocytes # (Auto) 1.8 1.0-4.0 10^3/uL Monocytes # (Auto) 0.7 0.0-1.0 10^3/uL Eosinophils # (Auto) 0.2 0.0-0.3 10^3/uL Basophils # (Auto) 0.0 0.0-0.1 10^3/uL Immature Granulocyte # (Auto) 0.0 0.0-0.1 10^3/uL Sodium Level 137 135-145 MMOL/L Potassium Level 3.3 L 3.6-5.0 MMOL/L Chloride Level 99 98-107 MMOL/L Carbon Dioxide Level 26 21-32 MMOL/L Anion Gap 12 5-14 MMOL/L Blood Urea Nitrogen 10 7-18 MG/DL Creatinine 0.78 0.60-1.30 MG/DL Estimat Glomerular Filtration Rate 77 BUN/Creatinine Ratio 13 Glucose Level 115 H 70-105 MG/DL Calcium Level 9.6 8.5-10.1 MG/DL Corrected Calcium 10.1 8.5-10.1 MG/DL Total Bilirubin 0.4 0.1-1.0 MG/DL Aspartate Amino Transf (AST/SGOT) 12 5-34 U/L Alanine Aminotransferase (ALT/SGPT) 8 0-55 U/L Alkaline Phosphatase 59 40-136 U/L Total Protein 6.9 6.4-8.2 GM/DL Albumin 3.4 3.2-4.5 GM/DL (BERNIEMIKE K DO) My Orders Orders - LANA GIBBSA K Ng Tube Insert & Assessment (09/04/22 18:31) (BERNIEMIKE Ann Marie NAVARRETE) Medications Given in ED Current Medications Medications Dose Ordered Sig/Baldemar Route Start Time Stop Time Status Last Admin Dose Admin Fentanyl Citrate 50 mcg ONCE ONCE IVP 09/04/22 16:30 09/04/22 16:31 DC 09/04/22 16:40 50 MCG Ondansetron HCl 4 mg ONCE ONCE IVP 09/04/22 16:30 09/04/22 16:31 DC 09/04/22 16:44 4 MG (BERNIE,MIKE K DO) Vital Signs/I&O 09/04/22 16:08 Temp 36.4 Pulse 98 Resp 18 B/P (MAP) 144/84 (104) Pulse Ox 98 (MIKE GIBBS DO) Progress Progress Note : Time: 17:18 Progress Note 82-year-old female long history of multiple abdominal surgeries, most recently parastomal hernia repair. Here with severe abdominal pain mostly right-sided. She states no ostomy output for 3 days however nursing documentation notes bowel movement on 09/02/2022 while in the hospital. Evaluation today includes physical exam, basic laboratory studies, acute abdominal series. She does have some gaseous distention of the stomach with air-fluid levels scattered t hroughout. Radiology reports improved distention over prior films. Dr. Clifford to review the x-rays. Labs are normal. Potassium slightly decreased at 3.3. Vital signs stable. Treated in the emergency department for pain with IV fentanyl and Zofran. 1 L of normal saline infusing. [address] Dumont - agreeable to CT scan. Will let him know results. (TERE LENTZ MD) Progress Note : Progress Note 1800--ASSUMED CARE FROM DR. LENTZ, CT PENDING. NAUSEA AND PAIN ARE MUCH BETTER AT THIS TIME. PT HAD NO RELIEF WITH FENTANYL, BUT DID HAVE RELIEF WITH MORPHINE. NG TUBE PLACED, WITH IMMEDIATE RETURN OF > 600 ML OF DARK YELLOW / BROWNISH COLORED LIQUID MATERIAL. (MIKE GIBBS DO) Diagnostic Imaging Diagonstic Imaging: Xray Comments [facility] [place], [place] NAME: LUKE ELLISON [facility] REC#: [id number] PT STATUS: REG ER : 1940 PHYSICIAN: TERE LENTZ MD ADMIT DATE: 09/04/22/ER Signed Date of Exam:09/04/22 ACUTE ABD SERIES INDICATION: Severe abdominal pain. Postoperative, no ostomy output x2-3 days. TECHNIQUE: Single view chest with supine and upright radiograph of the abdomen. CORRELATION STUDY: Chest 06/02/2022, abdomen 06/02/2022 FINDINGS: Frontal radiograph of the chest demonstrates no acute abnormality. Vertically oriented skin bartolo low midline abdomen and pelvis. There is rather prominent gas and fluid distention of the stomach. This appears fairly similar to prior study. There are scattered gas and some air-fluid levels throughout gastrointestinal tract. The overall severity distention appears less pronounced and improved from prior. There does appear to be stool within the colon. Left lower quadrant ostomy ring is noted. Some irregular gas collection particularly in the low abdomen and pelvis suspect extraluminal may be owing to postoperative changes. IMPRESSION: 1. Negative for acute cardiopulmonary abnormality. 2. Rather prominent gas and fluid distention stomach appears generally stable. Additional gas-filled loops of bowel throughout the abdomen may be reflective of a prominent postoperative ileus versus less likely obstruction. However, the overall severity distention is improved from prior. 3. Some irregular gas over the pelvis. May be owing to postoperative change. Ultimately, if there is concern for further assessment, CT imaging would be recommended. Dictated by: Dictated on workstation # [id number] Dict: 09/04/221653 Trans: 09/04/221707 CVB [id number] Interpreted by: INGA CATHERINE DO Electronically signed by: INGA CATHERINE DO 09/04/221707 (TERE LENTZ MD) Comments CT @ 1824 FINDINGS: The heart size is normal. The lung bases are clear. The liver is normal in size and without focal lesions. Gallbladder is surgically absent. There is no biliary ductal dilatation. The spleen is normal. There is some distention of the stomach. The pancreas and adrenal glands are unremarkable. There is a 1 cm nonobstructing stone in the left kidney. There is moderate atherosclerotic calcification in the aorta. The bowel gas pattern is nonspecific. There is a left lower quadrant ostomy. The bladder is normal. There is no pelvic mass, adenopathy, or free fluid. There are degenerative changes in the spine. There are also postsurgical changes in the lower lumbar spine. IMPRESSION: Moderate distention of the stomach which has an air-fluid level. Degenerative and postsurgical changes in the spine. Left lower quadrant ostomy. No other acute abnormality in the abdomen or pelvis. Reviewed: Reviewed by Me (MIKE GIBBS DO) Departure Communication (Admissions) Time/Spoke to Admitting Phy: 17:[address] Clifford (TERE LENTZ MD) Family Conversation 1849--PT HAS CALLED [facility], AND WOULD LIKE FOR ME TO UPDATE HER. SPOKE WITH PT'S GRANDDAUGHTER, AKI, ON THE PHONE, AND UPDATED HER ON PT'S CONDITION. 1823-SPOKE WITH DR. DUMONT. ADVISES TO ADMIT TO HOSPITALIST AND HE WILL SEE PT IN CONSULT 1825--SPOKE WITH DR. PALMER, HOSPITALIST, WILL CALL BACK. 1830--SPOKE WITH DR. PALMER, SHE HAS DISCUSSED WITH DR. DUMONT, WILL ADMIT TO SURGERY, AND SHE WILL SEE PT IN CONSULT. (MIKE GIBBS DO) Impression Primary Impression: Abdominal pain Qualified Codes: R10.84 - Generalized abdominal pain Additional Impressions: Postoperative ileus S/P PARASTOMAL HERNIA REPAIR Disposition: ADMITTED INPATIENT Condition: Stable Admissions Decision to Admit Reason: Admit from ER (General) Decision to Admit/Date: Sep 04, 2022 Time/Decision to Admit Time: 18:25 (MIKE GIBBS DO) Departure-Patient Inst. Referrals: MADI MALIK DO (PCP/Family) Primary Care Physician TERE LENTZ MD Sep 04, 2022 16:24 MIKE GIBBS DO Sep 04, 2022 18:19
[2022-09-04] MEDS ORDERED: NS IV 1000 ML 1,000 ML IV SCH (16:30)
[2022-09-04] MEDS ORDERED: ONDANSETRON 4 MG/2 ML (SDV) Z0FRAN IVP ONE (16:30)
[2022-09-04] MEDS ORDERED: fentaNYL INJ 100 MCG/2 ML AMP IVP ONE (16:30)
[2022-09-04 16:40] LABS: BASOPHILS % (AUTO) 0 % (0-10); EOSINOPHILS # (AUTO) 0.2 10^3/uL (0.0-0.3); EOSINOPHILS % (AUTO) 3 % (0-10); HEMATOCRIT 35 % (35-52); HEMOGLOBIN 11.7 g/dL (11.5-16.0); LYMPHOCYTES # (AUTO) 1.8 10^3/uL (1.0-4.0); LYMPHOCYTES % (AUTO) 23 % (12-44); MEAN CORPUSCULAR HEMOGLOBIN 30 pg (25-34); MEAN CORPUSCULAR HGB CONC 34 g/dL (32-36); MEAN CORPUSCULAR VOLUME 88 fL (80-99); MEAN PLATELET VOLUME 9.6 fL (9.0-12.2); MONOCYTES # (AUTO) 0.7 10^3/uL (0.0-1.0); MONOCYTES % (AUTO) 9 % (0-12); NEUTROPHILS % (AUTO) 64 % (42-75); PLATELET COUNT 304 10^3/uL (130-400); WHITE BLOOD COUNT 7.7 10^3/uL (4.3-11.0)
[2022-09-04 16:52] LABS: ALBUMIN 3.4 GM/DL (3.2-4.5); POTASSIUM 3.3 MMOL/L (3.6-5.0)
[2022-09-04 16:53] LABS: CALCIUM 9.6 MG/DL (8.5-10.1)
[2022-09-04 16:54] LABS: TOTAL PROTEIN 6.9 GM/DL (6.4-8.2)
[2022-09-04 16:56] LABS: BILIRUBIN,TOTAL 0.4 MG/DL (0.1-1.0)
[2022-09-04 16:58] LABS: CREATININE SERUM 0.78 MG/DL (0.60-1.30)
--- NOTE | 2022-09-04 17:00 | Diagnostic Imaging Report ---
INDICATION: Severe abdominal pain. Postoperative, no ostomy output x2-3 days. TECHNIQUE: Single view chest with supine and upright radiograph of the abdomen. CORRELATION STUDY: Chest 06/02/2022, abdomen 06/02/2022 FINDINGS: Frontal radiograph of the chest demonstrates no acute abnormality. Vertically oriented skin bartolo low midline abdomen and pelvis. There is rather prominent gas and fluid distention of the stomach. This appears fairly similar to prior study. There are scattered gas and some air-fluid levels throughout gastrointestinal tract. The overall severity distention appears less pronounced and improved from prior. There does appear to be stool within the colon. Left lower quadrant ostomy ring is noted. Some irregular gas collection particularly in the low abdomen and pelvis suspect extraluminal may be owing to postoperative changes. IMPRESSION: 1. Negative for acute cardiopulmonary abnormality. 2. Rather prominent gas and fluid distention stomach appears generally stable. Additional gas-filled loops of bowel throughout the abdomen may be reflective of a prominent postoperative ileus versus less likely obstruction. However, the overall severity distention is improved from prior. 3. Some irregular gas over the pelvis. May be owing to postoperative change. Ultimately, if there is concern for further assessment, CT imaging would be recommended. Dictated by: Dictated on workstation # [id number]
[2022-09-04] MEDS ORDERED: morphine INJ 10 MG/ML 1ML (SYR OR VIAL) IVP STA (17:21)
--- NOTE | 2022-09-04 18:21 | Diagnostic Imaging Report ---
PROCEDURE: CT abdomen and pelvis without contrast. TECHNIQUE: Multiple contiguous axial images were obtained through the abdomen and pelvis without the use of intravenous contrast. Auto Exposure Controls were utilized during the CT exam to meet ALARA standards for radiation dose reduction. INDICATION: Abdominal pain. FINDINGS: The heart size is normal. The lung bases are clear. The liver is normal in size and without focal lesions. Gallbladder is surgically absent. There is no biliary ductal dilatation. The spleen is normal. There is some distention of the stomach. The pancreas and adrenal glands are unremarkable. There is a 1 cm nonobstructing stone in the left kidney. There is moderate atherosclerotic calcification in the aorta. The bowel gas pattern is nonspecific. There is a left lower quadrant ostomy. The bladder is normal. There is no pelvic mass, adenopathy, or free fluid. There are degenerative changes in the spine. There are also postsurgical changes in the lower lumbar spine. IMPRESSION: Moderate distention of the stomach which has an air-fluid level. Degenerative and postsurgical changes in the spine. Left lower quadrant ostomy. No other acute abnormality in the abdomen or pelvis. Dictated by: Dictated on workstation # [id number]
[2022-09-04] MEDS: D5 1/2 NS W/KCL 20 MEQ/L 1,000 ML IV SCH (21:40)
[2022-09-05] VITALS (7 sets, daily range): BP systolic 118–157; BP diastolic 56–65
[2022-09-05] MEDS: ONDANSETRON 4 MG/2 ML (SDV) Z0FRAN IV PRN ×2 (00:13→11:57)
[2022-09-05] MEDS: morphine INJ 4 MG/ML 1 ML (VIAL/SYRINGE) IV PRN ×3 (00:16→11:58)
[2022-09-05] MEDS: D5 1/2 NS W/KCL 20 MEQ/L 1,000 ML IV SCH ×3 (04:50→19:27)
[2022-09-05 06:25] LABS: BASOPHILS % (AUTO) 1 % (0-10); EOSINOPHILS # (AUTO) 0.3 10^3/uL (0.0-0.3); EOSINOPHILS % (AUTO) 4 % (0-10); HEMATOCRIT 35 % (35-52); HEMOGLOBIN 11.8 g/dL (11.5-16.0); LYMPHOCYTES # (AUTO) 1.4 10^3/uL (1.0-4.0); LYMPHOCYTES % (AUTO) 22 % (12-44); MEAN CORPUSCULAR HEMOGLOBIN 30 pg (25-34); MEAN CORPUSCULAR HGB CONC 34 g/dL (32-36); MEAN CORPUSCULAR VOLUME 88 fL (80-99); MEAN PLATELET VOLUME 9.5 fL (9.0-12.2); MONOCYTES # (AUTO) 0.6 10^3/uL (0.0-1.0); MONOCYTES % (AUTO) 10 % (0-12); NEUTROPHILS % (AUTO) 63 % (42-75); PLATELET COUNT 282 10^3/uL (130-400); WHITE BLOOD COUNT 6.3 10^3/uL (4.3-11.0)
[2022-09-05 06:40] LABS: CALCIUM 8.9 MG/DL (8.5-10.1); CREATININE SERUM 0.65 MG/DL (0.60-1.30); POTASSIUM 3.5 MMOL/L (3.6-5.0)
--- NOTE | 2022-09-05 08:53 | Consultation - Hospitalist ---
HPI History of Present Illness: HPI/Chief Complaint Patient is an 82-year-old female with past medical history of colovesical fistula and recent hernia repair with takedown of adhesions who presented to the emergency department due to abdominal pain. She was in the hospital last week and underwent surgery with Dr. Coulter to remove what she rep orts is a grapefruit sized hernia and to "clean out infection." She states she was doing well and not having pain and was discharged home 2 days ago. She reported to the emergency department that she had not had any output for just 2 or 3 days and her ostomy though to me she reports she never had any output in her ostomy since surgery. Imaging in the emergency room revealed prominent gas and fluid distention of the stomach and then CT revealed moderate distention of her stomach concerning for ileus. An NG tube was placed and she was admitted for further management. This morning she reports feeling ok and pain is somewhat improved. She is toelrating the NGT and declines any numbing medication for her throat. Source: patient Date Seen 09/05/22 Attending Physician Arie Whitmore DO PCP Admitting Physician: Alejandro Coulter DO Attending Physician: Alejandro Coulter DO Referring Physician Date of Admission Sep 04, 2022 at 18:24 Home Medications & Allergies Home Medications Reviewed patient Home Medication Reconciliation performed by pharmacy medication reconciliations experimental technician and/or nursing. Patients Allergies have been reviewed. Allergies Allergies Coded Allergies meperidine (Verified Allergy, Unknown, 12/15/08) Past Hyblwbd-Xxpqzq-Uqqidd Hx Patient Social History Tobacco Use?: Yes Smoking Status: Former Smoker Substance use?: No Alcohol Use?: No Pt feels they are or have been: No Immunizations Up To Date Date of Influenza Vaccine: Aug 28, 2022 First/Initial COVID19 Vaccinat: 2020 Second COVID19 Vaccination Odilon: 2020 Tetanus Booster (TDap): Unknown Date of Pneumonia Vaccine: Aug 01, 2018 Seasonal Allergies Seasonal Allergies: Yes Current Status Advance Directives: No Primary Language: Slovak Preferred Spoken Language: Slovak Past Medical History Surgeries: Abdominal, Appendectomy, Gallbladder, 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, Orthopedic, Tonsillectomy COPD Currently Using CPAP: No Currently Using BIPAP: No High Cholesterol, Hypertension 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 Sexually Transmitted Disease: No UTI-Chronic Gastroesophageal Reflux, Obstructive Bowel, Diverticulosis, Hemorrhoids, Hiatal Hernia Arthritis, Fibromyalgia, Chronic Back Pain Hypothyroidsim Cataract Hearing Impairment: Denies Anxiety, Depression Blood Disorders: No Adverse Reaction/Blood Tranf: No Family Medical History Lung Disease Review of Systems Constitutional: no symptoms reported EENTM: no symptoms reported Respiratory: no symptoms reported Cardiovascular: no symptoms reported Gastrointestinal: see HPI Genitourinary: no symptoms reported Musculoskeletal: no symptoms reported Skin: no symptoms reported Psychiatric/Neurological: No Symptoms Reported Physical Exam Physical Exam Vital Signs Vital Signs - First Documented 09/04/22 09/04/22 09/05/22 16:08 19:50 00:03 Temp 36.4 Pulse 98 Resp 18 B/P (MAP) 144/84 (104) Pulse Ox 98 O2 Delivery Room Air O2 Flow Rate 2.00 Capillary Refill : Less Than 3 Seconds Height, Weight, BMI Height: 5'2.00" Weight: 160lbs. 0.0oz. 72.184227ov; 28.39 BMI Method:Stated General Appearance: No Apparent Distress, WD/WN, Thin HEENT: PERRL/EOMI, Moist Mucous Membranes Neck: Normal Inspection, Supple Respiratory: Lungs Clear, No Accessory Muscle Use, No Respiratory Distress Cardiovascular: Regular Rate, Rhythm, No Murmur Gastrointestinal: Non Tender, Soft, Abnormal Bowel Sounds (absent) Extremity: Normal Capillary Refill, No Calf Tenderness, No Pedal Edema Neurologic/Psychiatric: Alert, Oriented x3, Normal Mood/Affect Skin: Normal Color, Warm/Dry Results Results/Procedures Labs Laboratory Tests 09/04/22 16:30 09/05/22 06:15 Patient resulted labs reviewed. Imaging: Reviewed Imaging Report Imaging [facility] [place] NAME: LUKE ELLISON [facility] REC#: [id number] PT STATUS: REG ER : 1940 PHYSICIAN: TERE LENTZ MD ADMIT DATE: 09/04/22/ER Signed Date of Exam:09/04/22 ACUTE ABD SERIES INDICATION: Severe abdominal pain. Postoperative, no ostomy output x2-3 days. TECHNIQUE: Single view chest with supine and upright radiograph of the abdomen. CORRELATION STUDY: Chest 06/02/2022, abdomen 06/02/2022 FINDINGS: Frontal radiograph of the chest demonstrates no acute abnormality. Vertically oriented skin bartolo low midline abdomen and pelvis. There is rather prominent gas and fluid distention of the stomach. This appears fairly similar to prior study. There are scattered gas and some air-fluid levels throughout gastrointestinal tract. The overall severity distention appears less pronounced and improved from prior. There does appear to be stool within the colon. Left lower quadrant ostomy ring is noted. Some irregular gas collection particularly in the low abdomen and pelvis suspect extraluminal may be owing to postoperative changes. IMPRESSION: 1. Negative for acute cardiopulmonary abnormality. 2. Rather prominent gas and fluid distention stomach appears generally stable. Additional gas-filled loops of bowel throughout the abdomen may be reflective of a prominent postoperative ileus versus less likely obstruction. However, the overall severity distention is improved from prior. 3. Some irregular gas over the pelvis. May be owing to postoperative change. Ultimately, if there is concern for further assessment, CT imaging would be recommended. Dictated by: Dictated on workstation # [id number] Dict: 09/04/224 Trans: 09/04/221707 [facility] [id number] Interpreted by: INGA CATHERINE DO Electronically signed by: INGA CATHERINE DO 09/04/221707 [facility] [place] NAME: LUKE ELLISON [facility] REC#: [id number] PT STATUS: REG ER : 1940 PHYSICIAN: TERE LENTZ MD ADMIT DATE: 09/04/22/ER Signed Date of Exam:09/04/22 CT ABDOMEN/PELVIS WO PROCEDURE: CT abdomen and pelvis without contrast. TECHNIQUE: Multiple contiguous axial images were obtained through the abdomen and pelvis without the use of intravenous contrast. Auto Exposure Controls were utilized during the CT exam to meet ALARA standards for radiation dose reduction. INDICATION: Abdominal pain. FINDINGS: The heart size is normal. The lung bases are clear. The liver is normal in size and without focal lesions. Gallbladder is surgically absent. There is no biliary ductal dilatation. The spleen is normal. There is some distention of the stomach. The pancreas and adrenal glands are unremarkable. There is a 1 cm nonobstructing stone in the left kidney. There is moderate atherosclerotic calcification in the aorta. The bowel gas pattern is nonspecific. There is a left lower quadrant ostomy. The bladder is normal. There is no pelvic mass, adenopathy, or free fluid. There are degenerative changes in the spine. There are also postsurgical changes in the lower lumbar spine. IMPRESSION: Moderate distention of the stomach which has an air-fluid level. Degenerative and postsurgical changes in the spine. Left lower quadrant ostomy. No other acute abnormality in the abdomen or pelvis. Dictated by: Dictated on workstation # [id number] Dict: 09/04/221816 Trans: 09/04/221821 [id number] Interpreted by: TREVER GUTIERRES MD Electronically signed by: TERVER GUTIERRES MD 09/04/221821 Assessment/Plan Assessment and Plan Assess & Plan/Chief Complaint Postoperative ileus Colostomy continue NGT per surgery recommendations Pain regimen Zofran for nausea PPI HTN BP well controlled, trend Hypothyroidism Resume synthroid when able to take PO Diagnosis/Problems Diagnosis/Problems (1) Postoperative ileus Status: Acute (2) Colostomy present (3) Hypothyroidism Status: Chronic ANJU PALMER MD Sep 05, 2022 8:53 am
[2022-09-05] MEDS: PANTOPRAZOLE 40 MG (PROTONIX) VIAL IV SCH (09:04)
--- NOTE | 2022-09-05 10:01 | Consultation - Surgery ---
AKI ROMERO 09/05/22 1001: History of Present Illness History of Present Illness Patient Consulted On(freedom/time) 09/05/22 08:03 Date Seen by Provider: Sep 05, 2022 Time Seen by Provider: 08:03 History of Present Illness Luke Ellison, 82 yo F, admitted from ED for post-op ileus. Pt had surgery on 08/30 for a repair of colo-vesical fistula, repair of parastomal hernia, and extensive lysis of adhesions. Pt states that after she returned home she had been tolerating food, however began feeling nauseous and having diffuse 10/10 abdominal pain described as feeling tight and full. This morning at rest, her pain is 2/10. Pt has been burping a lot. States got fentenyl and morphine in hospital. Took hydrocodone at home and taken one oxycontin at home before coming to ED. She is on full bed rest. Has NG tube in place which she states has helped her stomach. Currently is NPO and on cardiac tech. She is using the commode next to her bed. Voiding fine but has not changed colostomy bag since before arrival at ED. Pt states she refuses any more blood work unless she gets PICC line. Allergies and Home Medications Allergies Coded Allergies: meperidine (Verified Allergy, Unknown, 12/15/08) Patient Home Medication List Home Medication List Reviewed: Yes Ascorbate Calcium (Vitamin C) 500 Mg Tablet, 500 MG PO DAILY, (Reported) Entered as Reported by: MAR SALVADOR on 09/05/221348 Last Action: Reviewed Atenolol (Atenolol) 25 Mg Tablet, 25 MG PO DAILY, (Reported) Entered as Reported by: MAR SALVADOR on 09/05/221348 Last Action: Reviewed Calcium Carbonate (Calcium) 500 Mg Calcium (1250 Mg) Tablet, 500 MG PO HS, (Reported) Entered as Reported by: MAR SALVADOR on 09/05/221348 Last Action: Reviewed Cholecalciferol (Vitamin D3) (Vitamin D3) 25 Mcg (1000 Unit) Capsule, 25 MCG PO DAILY, (Reported) Entered as Reported by: MAR SALVADOR on 09/05/221348 Last Action: Reviewed Digestive 8/L.acidoph/Pectin (Digestive Enzymes Tablet) 50 Million Cell-100 Mg Tablet, 1 EACH PO DAILY, (Reported) Entered as Reported by: MAR SALVADOR on 09/05/221348 Last Action: Reviewed Hydrocodone/Acetaminophen (Hydrocodone-Acetamin 10-325 mg) 10 Mg-325 Mg Tablet, 1 EA PO Q6H PRN for PAIN-MODERATE (5-7), (Reported) Entered as Reported by: MAR SALVADOR on 09/05/221348 Last Action: Reviewed Lactobacillus Acidophilus (Probiotic) 10 Billion Cell Capsule, 1 EACH PO DAILY, (Reported) Entered as Reported by: MAR SALVADOR on 09/05/221348 Last Action: Reviewed Levothyroxine Sodium (Levothyroxine Sodium) 100 Mcg Tablet, 100 MCG PO DAILY, (Reported) Entered as Reported by: MAR SALVADOR on 09/05/221348 Last Action: Reviewed Magnesium (Magnesium) 250 Mg Tablet, 250 MG PO HS, (Reported) Entered as Reported by: MAR SALVADOR on 09/05/221348 Last Action: Reviewed Meloxicam (Meloxicam) 7.5 Mg Tablet, 7.5 MG PO BID, (Reported) Entered as Reported by: KARMEN LAWTON on 08/30/22 533 Last Action: Reviewed Pantoprazole Sodium (Pantoprazole Sodium) 40 Mg Tablet.dr, 40 MG PO BID, (Reported) Entered as Reported by: MAR SALVADOR on 09/05/221348 Last Action: Reviewed Potassium Chloride (Klor-Con M20) 20 Meq Tab.er.prt, 20 MEQ PO DAILY, (Reported) Entered as Reported by: MAR SALVADOR on 09/05/221348 Last Action: Reviewed Sucralfate (Sucralfate) 1 Gram Tablet, 1 GM PO BID, (Reported) Entered as Reported by: MAR SALVADOR on 09/05/221348 Last Action: Reviewed Tiotropium Brawley (Spiriva Respimat 2.5MCG/ACTUATION) 2.5 Mcg/Actuation Mist.inhal, 2 PUFF IH DAILY Prescribed by: MIKEY CAMP on 06/07/22 105 Last Action: Reviewed Triamcinolone Acetonide (Nasacort) 55 Mcg Sycamore, 1 SPRAY NSEACH BID, (Reported) Entered as Reported by: MAR SALVADOR on 09/05/221348 Last Action: Reviewed Discontinued Medications ALPRAZolam (ALPRAZolam) 0.25 Mg Tablet, 0.25 MG PO Q4H PRN for ANXIETY Discontinued Reason: No Longer Taking Prescribed by: MIKEY CAMP on 06/07/22 1100 Last Action: Discontinued Ascorbate Calcium (Vitamin C) 500 Mg Tablet, 500 MG PO DAILY Discontinued Reason: No Longer Taking Prescribed by: MIKEY CAMP on 06/07/22 1059 Last Action: Discontinued Aspirin (Aspirin EC) 81 Mg Tablet.dr, 81 MG PO DAILY Prescribed by: MIKEY CAMP on 06/07/22 1059 Atenolol (Atenolol) 25 Mg Tablet, 25 MG PO DAILY Discontinued Reason: No Longer Taking Prescribed by: MIKEY CAMP on 06/07/22 105 Last Action: Discontinued Ciprofloxacin HCl (Ciprofloxacin HCl) 500 Mg Tablet, 500 MG PO BID Discontinued Reason: No Longer Taking Prescribed by: PORFIRIO WATT on 08/03/22 1701 Docusate Sodium (Docusate Sodium) 100 Mg Tablet, 100 MG PO DAILY PRN for CONSTIPATION-1ST LINE Discontinued Reason: No Longer Taking Prescribed by: MIKEY CAMP on 06/07/22 105 Last Action: Discontinued Hydrocodone Bit/Acetaminophen (HYDROcodone/APAP 10/325 TABLET) 1 Ea Tab, 1 TAB PO Q6H Discontinued Reason: No Longer Taking Prescribed by: SOFIA DUMONT on 09/03/22 1348 Last Action: Discontinued Levothyroxine Sodium (Levothyroxine Sodium) 100 Mcg Tablet, 100 MCG PO DAILY Discontinued Reason: No Longer Taking Prescribed by: MIKEY CAMP on 06/07/22 1059 Last Action: Discontinued Ondansetron (Ondansetron Odt) 4 Mg Tab.rapdis, 4 MG SL Q4H PRN for NAUSEA/VOMITING Discontinued Reason: No Longer Taking Prescribed by: SHERRILL ALBARRAN on 09/03/22 1411 Last Action: Discontinued Oxycodone HCl (Oxycodone HCl) 5 Mg Tablet, 5 MG PO Q4H PRN for PAIN-SEVERE (8- 10) Discontinued Reason: No Longer Taking Prescribed by: MIKEY CAMP on 06/07/22 1100 Last Action: Discontinued Pantoprazole Sodium (Pantoprazole Sodium) 40 Mg Tablet.dr, 40 MG PO DAILY Discontinued Reason: No Longer Taking Prescribed by: MIKEY CAMP on 06/07/221058 Last Action: Discontinued Sucralfate (Carafate) 1 Gram Tablet, 1 GM PO QID Discontinued Reason: No Longer Taking Prescribed by: MIKEY CAMP on 06/07/221058 Last Action: Discontinued Triamcinolone Acetonide (Nasacort) 55 Mcg Sycam[place], 1 SPRAY NSEACH BID Discontinued Reason: No Longer Taking Prescribed by: MIKEY CAMP on 06/07/221058 Last Action: Discontinued Past Ldrfywh-Qwprcj-Sxbews Hx Patient Social History Smoking Status: Former Smoker Former Smoker, Quit: Oct 01, 1986 Recent Hopitalizations: Yes Alcohol Use?: No Immunizations Up To Date Tetanus Booster (TDap): Unknown Date of Pneumonia Vaccine: Aug 01, 2018 Date of Influenza Vaccine: Aug 28, 2022 Seasonal Allergies Seasonal Allergies: Yes Surgeries History of Surgeries: Yes (COLOSTOMY, GALLBLADDER, HEMMORHOIDS, FOOT, KNEE REPLACEMENT, BACK SURGERY) Surgeries: Abdominal (colostomy), Appendectomy, Gallbladder, 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, Orthopedic (knee replacement, back surgery), Tonsillectomy Respiratory History of Respiratory Disorde: Yes Respiratory Disorders: COPD Cardiovascular History of Cardiac Disorders: Yes Cardiac Disorders: High Cholesterol, Hypertension Neurological History of Neurological Disord: Yes Neurological Disorders: 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 Reproductive System Hx Reproductive Disorders: No 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 Genitourinary History of Genitourinary Disor: Yes Genitourinary Disorders: UTI-Chronic Gastrointestinal History of Gastrointestinal Di: Yes (COLOSTOMY, HERNIA) Gastrointestinal Disorders: Gastroesophageal Reflux, Diverticulosis, Hemorrhoids, Hiatal Hernia Musculoskeletal History of Musculoskeletal Dis: Yes Musculoskeletal Disorders: Arthritis, Chronic Back Pain Endocrine History of Endocrine Disorders: Yes Endocrine Disorders: Hypothyroidsim HEENT History of HEENT Disorders: Yes (GLASSES) HEENT Disorders: Cataract Hearing Impairment: Denies Cancer History of Cancer: No Psychosocial History of Psychiatric Problem: Yes Behavioral Health Disorders: Anxiety, Depression Integumentary History of Skin or Integumenta: No Blood Transfusions History of Blood Disorders: No Adverse Reaction to a Blood Tr: No Family Medical History Significant Family History: Lung Disease Review of Systems-General Constitutional: No chills, No fever; weakness EENTM: other (NG tube in place); No hearing loss, No blurred vision Respiratory: No cough, No short of breath Cardiovascular: No chest pain; palpitations; No syncope Gastrointestinal: RUQ, abdominal pain (RLQ), nausea; No vomiting Genitourinary: No dysuria, No hematuria Musculoskeletal: joint swelling (arthritis), other (Left anterior leg pain to palpation ) Skin: dryness Psychiatric/Neurological: Headache; Denies Numbness, Denies Tingling; Weakness Physical Exam-General Problems Physical Exam Vital Signs Vital Signs - First Documented 09/04/22 09/04/22 09/05/22 16:08 19:50 00:03 Temp 36.4 Pulse 98 Resp 18 B/P (MAP) 144/84 (104) Pulse Ox 98 O2 Delivery Room Air O2 Flow Rate 2.00 Capillary Refill : Less Than 3 Seconds General Appearance: WD/WN, mild distress Eyes: Bilateral Eye PERRL, Bilateral Eye EOMI HEENT: PERRL/EOMI; No scleral icterus (R), No scleral icterus (L); other (NG tube in place) Neck: non-tender, supple Respiratory: lungs clear, normal breath sounds, no respiratory distress, no accessory muscle use Cardiovascular: no murmur, other (regular rate, irregular rhythm) Peripheral Pulses: 2+ Dorsalis Pedis (R), 2+ Left Dors-Pedis (L), 2+ Radial Pulses (R), 2+ Radial Pulses (L) Gastrointestinal: soft, abnormal bowel sounds (in LLQ - none due to colostomy), tenderness (to RLQ), other (colostomy in place) Rectal: deferred Extremities: swelling (mild leg swelling bilaterally), other (tenderness to anterior left leg) Neurologic/Psychiatric: alert, oriented x 3 Skin: normal color, warm/dry Data Review Labs Laboratory Tests 09/04/22 16:30: White Blood Count 7.7, Red Blood Count 3.94, Hemoglobin 11.7, Hematocrit 35, Mean Corpuscular Volume 88, Mean Corpuscular Hemoglobin 30, Mean Corpuscular Hemoglobin Concent 34, Red Cell Distribution Width 12.7, Platelet Count 304, Mean Platelet Volume 9.6, Immature Granulocyte % (Auto) 0, Neutrophils (%) (Auto) 64, Lymphocytes (%) (Auto) 23, Monocytes (%) (Auto) 9, Eosinophils (%) (Auto) 3, Basophils (%) (Auto) 0, Neutrophils # (Auto) 5.0, Lymphocytes # (Auto) 1.8, Monocytes # (Auto) 0.7, Eosinophils # (Auto) 0.2, Basophils # (Auto) 0.0, Immature Granulocyte # (Auto) 0.0, Sodium Level 137, Potassium Level 3.3L, Chloride Level 99, Carbon Dioxide Level 26, Anion Gap 12, Blood Urea Nitrogen 10, Creatinine 0.78, Estimat Glomerular Filtration Rate 77, BUN/Creatinine Ratio 13, Glucose Level 115H, Calcium Level 9.6, Corrected Calcium 10.1, Total Bilirubin 0.4, Aspartate Amino Transf (AST/SGOT) 12, Alanine Aminotransferase (ALT/SGPT) 8, Alkaline Phosphatase 59, Total Protein 6.9, Albumin 3.4 09/05/22 06:15: White Blood Count 6.3, Red Blood Count 3.96, Hemoglobin 11.8, Hematocrit 35, Mean Corpuscular Volume 88, Mean Corpuscular Hemoglobin 30, Mean Corpuscular Hemoglobin Concent 34, Red Cell Distribution Width 12.8, Platelet Count 282, Mean Platelet Volume 9.5, Immature Granulocyte % (Auto) 1, Neutrophils (%) (Auto) 63, Lymphocytes (%) (Auto) 22, Monocytes (%) (Auto) 10, Eosinophils (%) (Auto) 4, Basophils (%) (Auto) 1, Neutrophils # (Auto) 4.0, Lymphocytes # (Auto) 1.4, Monocytes # (Auto) 0.6, Eosinophils # (Auto) 0.3, Basophils # (Auto) 0.0, Immature Granulocyte # (Auto) 0.0, Sodium Level 139, Potassium Level 3.5L, Chloride Level 102, Carbon Dioxide Level 23, Anion Gap 14, Blood Urea Nitrogen 7, Creatinine 0.65, Estimat Glomerular Filtration Rate 89, BUN/Creatinine Ratio 11, Glucose Level 106H, Calcium Level 8.9 Radiology NAME: ULKE ELLISON [facility] REC#: [id number] PT STATUS: REG ER : 1940 PHYSICIAN: TERE LENTZ MD ADMIT DATE: 09/04/22/ER Signed Date of Exam:09/04/22 ACUTE ABD SERIES INDICATION: Severe abdominal pain. Postoperative, no ostomy output x2-3 days. TECHNIQUE: Single view chest with supine and upright radiograph of the abdomen. CORRELATION STUDY: Chest 06/02/2022, abdomen 06/02/2022 FINDINGS: Frontal radiograph of the chest demonstrates no acute abnormality. Vertically oriented skin bartolo low midline abdomen and pelvis. There is rather prominent gas and fluid distention of the stomach. This appears fairly similar to prior study. There are scattered gas and some air-fluid levels throughout gastrointestinal tract. The overall severity distention appears less pronounced and improved from prior. There does appear to be stool within the colon. Left lower quadrant ostomy ring is noted. Some irregular gas collection particularly in the low abdomen and pelvis suspect extraluminal may be owing to postoperative changes. IMPRESSION: 1. Negative for acute cardiopulmonary abnormality. 2. Rather prominent gas and fluid distention stomach appears generally stable. Additional gas-filled loops of bowel throughout the abdomen may be reflective of a prominent postoperative ileus versus less likely obstruction. However, the overall severity distention is improved from prior. 3. Some irregular gas over the pelvis. May be owing to postoperative change. Ultimately, if there is concern for further assessment, CT imaging would be recommended. Dictated by: Dictated on workstation # [id number] Dict: 09/04/221653 Trans: 09/04/221707 CV [id number] Interpreted by: INGA CATHERINE DO Electronically signed by: INGA CATHERINE DO 09/04/221707 NAME: LUKE ELLISON [facility] REC#: [id number] PT STATUS: REG ER : 1940 PHYSICIAN: TERE LENTZ MD ADMIT DATE: 09/04/22/ER Signed Date of Exam:09/04/22 CT ABDOMEN/PELVIS WO PROCEDURE: CT abdomen and pelvis without contrast. TECHNIQUE: Multiple contiguous axial images were obtained through the abdomen and pelvis without the use of intravenous contrast. Auto Exposure Controls were utilized during the CT exam to meet ALARA standards for radiation dose reduction. INDICATION: Abdominal pain. FINDINGS: The heart size is normal. The lung bases are clear. The liver is normal in size and without focal lesions. Gallbladder is surgically absent. There is no biliary ductal dilatation. The spleen is normal. There is some distention of the stomach. The pancreas and adrenal glands are unremarkable. There is a 1 cm nonobstructing stone in the left kidney. There is moderate atherosclerotic calcification in the aorta. The bowel gas pattern is nonspecific. There is a left lower quadrant ostomy. The bladder is normal. There is no pelvic mass, adenopathy, or free fluid. There are degenerative changes in the spine. There are also postsurgical changes in the lower lumbar spine. IMPRESSION: Moderate distention of the stomach which has an air-fluid level. Degenerative and postsurgical changes in the spine. Left lower quadrant ostomy. No other acute abnormality in the abdomen or pelvis. Dictated by: Dictated on workstation # [id number] Dict: 09/04/227 Trans: 09/04/221821 [id number] Interpreted by: TREVER GUTIERRES MD Electronically signed by: TREVER GUTIERRES MD 09/04/221821 Assessment/Plan Assessment/Plan Assessment/Plan Post operative ileus S/p repair of colo-vesical fistula, repair of parastomal hernia, and extensive lysis of adhesions on 08/30 - POD#8 Continue IVF and pain management. Keep NPO. Begin ambulating as tolerated. SOFIA DUMONT DO 09/05/22 1324: History of Present Illness History of Present Illness Time Seen by Provider: 11:25 History of Present Illness Surgery asked to Consult/Admit pt for Post-op ileus. HPI per ED: Patient is an 82-year-old female who presents to the emergency room with a chief complaint of diffuse abdominal pain however mostly localized to the right side of the abdomen. Patient was just discharged yesterday after having hernia repair and ostomy surgery. 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 She states the pain has worsened significantly in the last 24 hours. She was able to eat a little bit of food around lunchtime at 3:00 today. She did take 10 mg of OXYCONTIN at that time. She states she has not had any output from her ostomy in the last 2 to 3 days. She has a history of colovesical fistula. She states she has been fighting a urinary tract infection for months due to this. No fevers or chills. She is nauseous and is belching a lot. She has had prior hiatal hernia repair. Feels generally weak. She states she thinks she may be constipated. She was not taking as many stool softeners during her inpatient stay over the last week as she had been at home. She was able to take some Colace yesterday however. The pain comes in waves, severe cramps. She also endorses a little blood per rectum, "drips" of blood she thinks from her rectum. No fevers, chills, shortness of breath or cough. Remote smoker having quit 40 years ago. No daily alcohol. When I spoke to her she stated she was doing ok at home eating and then all of sudden had pain and started feeling bad. States she can't vomit because of hiatal hernia repair. Allergies and Home Medications Allergies Coded Allergies: meperidine (Verified Allergy, Unknown, 12/15/08) Patient Home Medication List Home Medication List Reviewed: Yes Ascorbate Calcium (Vitamin C) 500 Mg Tablet, 500 MG PO DAILY, (Reported) Entered as Reported by: MAR SALVADOR on 09/05/221348 Last Action: Reviewed Atenolol (Atenolol) 25 Mg Tablet, 25 MG PO DAILY, (Reported) Entered as Reported by: MAR SALVADOR on 09/05/221348 Last Action: Reviewed Calcium Carbonate (Calcium) 500 Mg Calcium (1250 Mg) Tablet, 500 MG PO HS, (Reported) Entered as Reported by: MAR SALVADOR on 09/05/221348 Last Action: Reviewed Cholecalciferol (Vitamin D3) (Vitamin D3) 25 Mcg (1000 Unit) Capsule, 25 MCG PO DAILY, (Reported) Entered as Reported by: MAR SALVADOR on 09/05/221348 Last Action: Reviewed Digestive 8/L.acidoph/Pectin (Digestive Enzymes Tablet) 50 Million Cell-100 Mg Tablet, 1 EACH PO DAILY, (Reported) Entered as Reported by: MAR SALVADOR on 09/05/221348 Last Action: Reviewed Hydrocodone/Acetaminophen (Hydrocodone-Acetamin 10-325 mg) 10 Mg-325 Mg Tablet, 1 EA PO Q6H PRN for PAIN-MODERATE (5-7), (Reported) Entered as Reported by: MAR SALVADOR on 09/05/221348 Last Action: Reviewed Lactobacillus Acidophilus (Probiotic) 10 Billion Cell Capsule, 1 EACH PO DAILY, (Reported) Entered as Reported by: MAR SALVADOR on 09/05/221348 Last Action: Reviewed Levothyroxine Sodium (Levothyroxine Sodium) 100 Mcg Tablet, 100 MCG PO DAILY, (Reported) Entered as Reported by: MAR SALVADOR on 09/05/221348 Last Action: Reviewed Magnesium (Magnesium) 250 Mg Tablet, 250 MG PO HS, (Reported) Entered as Reported by: MAR SALVADOR on 09/05/221348 Last Action: Reviewed Meloxicam (Meloxicam) 7.5 Mg Tablet, 7.5 MG PO BID, (Reported) Entered as Reported by: KARMEN LAWTON on 08/30/22 4238 Last Action: Reviewed Pantoprazole Sodium (Pantoprazole Sodium) 40 Mg Tablet.dr, 40 MG PO BID, (Reported) Entered as Reported by: MAR SALVADOR on 09/05/221348 Last Action: Reviewed Potassium Chloride (Klor-Con M20) 20 Meq Tab.er.prt, 20 MEQ PO DAILY, (Reported) Entered as Reported by: MAR SALVADOR on 09/05/221348 Last Action: Reviewed Sucralfate (Sucralfate) 1 Gram Tablet, 1 GM PO BID, (Reported) Entered as Reported by: MAR SALVADOR on 09/05/221348 Last Action: Reviewed Tiotropium Brawley (Spiriva Respimat 2.5MCG/ACTUATION) 2.5 Mcg/Actuation Mist.inhal, 2 PUFF IH DAILY Prescribed by: MIKEY CAMP on 06/07/221058 Last Action: Reviewed Triamcinolone Acetonide (Nasacort) 55 Mcg [place]cam[place], 1 SPRAY NSEACH BID, (Reported) Entered as Reported by: MAR SALVADOR on 09/05/221348 Last Action: Reviewed Discontinued Medications ALPRAZolam (ALPRAZolam) 0.25 Mg Tablet, 0.25 MG PO Q4H PRN for ANXIETY Discontinued Reason: No Longer Taking Prescribed by: MIKEY CAMP on 06/07/22 1100 Last Action: Discontinued Ascorbate Calcium (Vitamin C) 500 Mg Tablet, 500 MG PO DAILY Discontinued Reason: No Longer Taking Prescribed by: MIKEY CAMP on 06/07/221058 Last Action: Discontinued Aspirin (Aspirin EC) 81 Mg Tablet.dr, 81 MG PO DAILY Prescribed by: MIKEY CAMP on 06/07/221058 Atenolol (Atenolol) 25 Mg Tablet, 25 MG PO DAILY Discontinued Reason: No Longer Taking Prescribed by: MIKEY CAMP on 06/07/22 105 Last Action: Discontinued Ciprofloxacin HCl (Ciprofloxacin HCl) 500 Mg Tablet, 500 MG PO BID Discontinued Reason: No Longer Taking Prescribed by: PORFIRIO WATT on 08/03/22 1701 Docusate Sodium (Docusate Sodium) 100 Mg Tablet, 100 MG PO DAILY PRN for CONSTIPATION-1ST LINE Discontinued Reason: No Longer Taking Prescribed by: MIKEY CAMP on 06/07/22 105 Last Action: Discontinued Hydrocodone Bit/Acetaminophen (HYDROcodone/APAP 10/325 TABLET) 1 Ea Tab, 1 TAB PO Q6H Discontinued Reason: No Longer Taking Prescribed by: SOFIA DUMONT on 09/03/22 1348 Last Action: Discontinued Levothyroxine Sodium (Levothyroxine Sodium) 100 Mcg Tablet, 100 MCG PO DAILY Discontinued Reason: No Longer Taking Prescribed by: MIKEY CAMP on 06/07/221058 Last Action: Discontinued Ondansetron (Ondansetron Odt) 4 Mg Tab.rapdis, 4 MG SL Q4H PRN for NAUSEA/VOMITING Discontinued Reason: No Longer Taking Prescribed by: SHERRILL ALBARRAN on 09/03/22 1411 Last Action: Discontinued Oxycodone HCl (Oxycodone HCl) 5 Mg Tablet, 5 MG PO Q4H PRN for PAIN-SEVERE (8- 10) Discontinued Reason: No Longer Taking Prescribed by: MIKEY CAMP on 06/07/22 1100 Last Action: Discontinued Pantoprazole Sodium (Pantoprazole Sodium) 40 Mg Tablet.dr, 40 MG PO DAILY Discontinued Reason: No Longer Taking Prescribed by: MIKEY CAMP on 06/07/22 105 Last Action: Discontinued Sucralfate (Carafate) 1 Gram Tablet, 1 GM PO QID Discontinued Reason: No Longer Taking Prescribed by: MIKEY CAMP on 06/07/22 105 Last Action: Discontinued Triamcinolone Acetonide (Nasacort) 55 Mcg [place], 1 SPRAY NSEACH BID Discontinued Reason: No Longer Taking Prescribed by: MIKEY CAMP on 06/07/221058 Last Action: Discontinued Past Qxpkofs-Qqwepg-Krvvex Hx Patient Social History Smoking Status: Former Smoker Alcohol Use?: No Surgeries History of Surgeries: Yes Surgeries: Abdominal (colostomy), Appendectomy, Gallbladder, 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, Orthopedic (knee replacement, back surgery), Tonsillectomy Respiratory History of Respiratory Disorde: Yes Respiratory Disorders: Chronic Bronchitis Cardiovascular History of Cardiac Disorders: Yes Cardiac Disorders: Irregular Heartbeat Neurological History of Neurological Disord: Yes Neurological Disorders: Neuropathy Genitourinary History of Genitourinary Disor: Yes Genitourinary Disorders: UTI-Chronic Gastrointestinal History of Gastrointestinal Di: Yes Gastrointestinal Disorders: Gastroesophageal Reflux, Diverticulosis, Hemorrhoids, Hiatal Hernia Musculoskeletal History of Musculoskeletal Dis: Yes Musculoskeletal Disorders: Arthritis, Chronic Back Pain Endocrine History of Endocrine Disorders: Yes Endocrine Disorders: Hypothyroidsim HEENT History of HEENT Disorders: No Loss of Vision: Denies Hearing Impairment: Denies Cancer History of Cancer: No Psychosocial History of Psychiatric Problem: Yes Behavioral Health Disorders: Anxiety, Depression Integumentary History of Skin or Integumenta: No Reviewed Nursing Assessment Reviewed/Agree w Nursing PMH: Yes Family Medical History Significant Family History: Lung Disease Review of Systems-General Constitutional: No chills, No fever; weakness EENTM: other (NG tube in place); No hearing loss, No blurred vision Respiratory: No cough, No phlegm Cardiovascular: No chest pain; palpitations; No syncope Gastrointestinal: RUQ, LLQ, abdominal pain (RLQ); No jaundice; nausea; No vomiting Genitourinary: No dysuria, No hematuria Musculoskeletal: joint pain, joint swelling (arthritis), other (Left anterior leg pain to palpation ) Skin: dryness; No lesions Psychiatric/Neurological: Headache; Denies Numbness, Denies Tingling; Weakness Physical Exam-General Problems Physical Exam General Appearance: WD/WN, mild distress Eyes: Bilateral Eye PERRL, Bilateral Eye EOMI HEENT: pharynx normal; No scleral icterus (R), No scleral icterus (L) Neck: non-tender, supple Respiratory: lungs clear, normal breath sounds, no respiratory distress, no accessory muscle use Cardiovascular: no murmur, other (regular rate, irregular rhythm) Gastrointestinal: soft, abnormal bowel sounds (in LLQ - none due to colostomy), distended, tenderness (to RLQ), other (colostomy pink and viable, scant output) Rectal: deferred Extremities: swelling (mild leg swelling bilaterally), other (tenderness to anterior left leg) Neurologic/Psychiatric: alert, oriented x 3 Skin: normal color, warm/dry Lymphatic: no adenopathy (neck, axilla or groin) Assessment/Plan Assessment/Plan Assessment/Plan Gastric Distention Nausea Post operative ileus S/p repair of colo-vesical fistula, repair of parastomal hernia, and extensive lysis of adhesions on 08/30 - POD#[address] myself and she has some fluid in the pelvis and around ostomy; both look like postoperative in nature. She has a large amount of stool in cecum and stomach is very distended. She did get some relief with the NGT. She needs to ambulate and can chew gum; both help with return of bowel fuction. Will start IV fluids, NPO, anti-emetics and pain management. Needs to use IS as well. Supervisory-Addendum Brief Verification & Attestation Participated in pt care: history, MDM, physical Personally performed: exam, history, MDM, supervision of care Care discussed with: Medical Student Procedures: n/a Verification and Attestation of Medical Student E/M Service A medical student performed and documented this service. I then reviewed and verified all information documented by the medical student and made modifications to such information, when appropriate. I personally performed a physical exam, medical decision making and then discussed any differences between the notes and made revisions as necessary to create one note. Sofia Dumont , 09/05/22 , 17:08 AKI ROMERO Sep 05, 2022 10:01 SOFIA DUMONT DO Sep 05, 2022 13:24
[2022-09-05] MEDS ORDERED: ACETAMINOPHEN 500 MG TAB (TYLENOL) ONE (11:50)
[2022-09-05] MEDS ORDERED: ACETAMINOPHEN 500 MG TAB (TYLENOL) PO PRN (12:00)
[2022-09-05] MEDS ORDERED: CALC-823 PO (13:49)
[2022-09-05] MEDS ORDERED: ASCO-262 PO (13:49)
[2022-09-05] MEDS ORDERED: SUCR1TAB PO (13:49)
[2022-09-05] MEDS ORDERED: POTA-169 PO (13:49)
[2022-09-05] MEDS ORDERED: CHOL100048 PO (13:49)
[2022-09-05] MEDS ORDERED: MAGN250T31 PO (13:49)
[2022-09-05] MEDS ORDERED: HYDR-3820 PO (13:49)
[2022-09-05] MEDS ORDERED: DIGE1TAB PO (13:49)
[2022-09-05] MEDS ORDERED: TRIA10.8 NSEACH (13:49)
[2022-09-05] MEDS ORDERED: LACT1CAP62 PO (13:49)
[2022-09-05] MEDS ORDERED: PANT40TA52 PO (13:49)
[2022-09-05] MEDS ORDERED: ATEN25TA PO (13:49)
[2022-09-05] MEDS ORDERED: LEVO100T7 PO (13:49)
[2022-09-06] MEDS: D5 1/2 NS W/KCL 20 MEQ/L 1,000 ML IV SCH ×4 (02:13→18:02)
[2022-09-06 03:28] VITALS: BP 169/76
[2022-09-06] MEDS: morphine INJ 4 MG/ML 1 ML (VIAL/SYRINGE) IV PRN ×4 (03:37→12:17)
[2022-09-06] MEDS: ONDANSETRON 4 MG/2 ML (SDV) Z0FRAN IV PRN ×4 (05:19→17:57)
--- NOTE | 2022-09-06 07:27 | Progress Note - Surgery ---
ARLEN RICHEY 09/06/22 0727: Subjective Date Seen by a Provider: Sep 06, 2022 Time Seen by a Provider: 07:05 Subjective/Events-last exam Patient being seen in f/u for post-op ileus. Patient having some worsening pain this morning due to gas and distention. States that at it's worse it is a 7/10. Patient is trying to be conservative with taking her morphine, but feels she will need another dose HERRERA. Patient does also endorse belching. Patient became teary-eyed while talking with me, stating she is tired of being in pain. Overnight RN stated ~25cc of drainage from NG. I do not appreciate any more drainage from the overnight demarcation. Review of Systems General: No Chills, No Night Sweats HEENT: No Head Aches, No Visual Changes Pulmonary: No Dyspnea, No Cough Cardiovascular: No: Chest Pain, Palpitations Gastrointestinal: Abdominal Pain, Constipation; No: Nausea, Vomiting Genitourinary: No Dysuria, No Frequency Neurological: No: Weakness, Numbness Objective Exam Vital Signs Date Time Temp Pulse Resp B/P (MAP) Pulse Ox O2 Delivery O2 Flow Rate FiO2 09/06/22 03:28 36.8 79 18 169/76 (107) 95 Room Air 09/05/22 23:18 36.2 78 18 157/65 (95) 96 Room Air 09/05/22 19:28 36.6 75 18 151/65 (93) 95 Room Air 09/05/22 15:42 36.9 81 18 137/63 (87) 94 Room Air 09/05/22 11:52 36.6 79 18 148/65 (92) 93 Room Air 09/05/22 08:16 Nasal Cannula 2.00 09/05/22 08:00 96 Nasal Cannula 2.00 09/05/22 07:55 96 Nasal Cannula 2.00 I & O 09/06/22 07:00 Intake Total 2000 ml Output Total 3200 ml Balance -1200 ml Capillary Refill : Less Than 3 Seconds General Appearance: WD/WN, Mild Distress, Thin HEENT: PERRL/EOMI Neck: Normal Inspection, Supple Respiratory: Lungs Clear, No Accessory Muscle Use, No Respiratory Distress Cardiovascular: Regular Rate, Rhythm, No Murmur Peripheral Pulses: 2+ Dorsalis Pedis (R), 2+ Left Dors-Pedis (L), 2+ Radial Pulses (R), 2+ Radial Pulses (L) Gastrointestinal: No soft (Firm, non-distended ), No distended; tenderness (In RUQ + RLQ), other (colostomy pink and viable, no output. Skin ointment visible around margins of ostomy) Extremity: No Calf Tenderness, No Pedal Edema Neurologic/Psychiatric: Alert, Oriented x3, Normal Mood/Affect Skin: Normal Color, Warm/Dry Assessment/Plan Assessment/Plan Assessment/Plan Gastric Distention Nausea Post operative ileus S/p repair of colo-vesical fistula, repair of parastomal hernia, and extensive lysis of adhesions on 08/30 - POD#9 NPO, IVF, Pain management, anti-emetics, IS, Mastication w/ gum, Up and Ambulating Patient did report initial relief with NGT. Drainage has slowed considerably. ~350-375cc total output bilious fluid I reviewed the CT myself and she has some fluid in the pelvis and around ostomy; both look like postoperative in nature. She has a large amount of stool in cecum and stomach is very distended. ALEJANDRO COULTER DO 09/06/22 1706: Subjective Time Seen by a Provider: 16:29 Subjective/Events-last exam Pt seen and examined, states she has severe pain and morphine isn't helping. She is starting to have output in her ostomy. Review of Systems General: No Chills, No Night Sweats; Fatigue Pulmonary: No Dyspnea, No Cough Cardiovascular: No: Chest Pain, Palpitations Gastrointestinal: Abdominal Pain, Constipation; No: Nausea, Vomiting Genitourinary: No Dysuria, No Frequency Objective Exam General Appearance: Mild Distress, Thin HEENT: PERRL/EOMI, Other (NGT in place) Respiratory: Lungs Clear, Normal Breath Sounds, No Accessory Muscle Use, No Respiratory Distress Cardiovascular: Regular Rate, Rhythm, No Murmur Gastrointestinal: No soft (Firm, non-distended ), No distended; tenderness (In RUQ + RLQ), other (colostomy pink and viable with output. Skin ointment visible around margins of ostomy) Extremity: No Calf Tenderness, No Pedal Edema Assessment/Plan Assessment/Plan Assessment/Plan Abdominal pain Gastric Distention Nausea Post operative ileus S/p repair of colo-vesical fistula, repair of parastomal hernia, and extensive lysis of adhesions on 08/30 - POD#9 NPO, IVF, Pain management, anti-emetics, IS, Mastication w/ gum, Up and Ambulating Patient did report initial relief with NGT. Drainage has slowed considerably. ~350-375cc total output bilious fluid Supervisory-Addendum Brief Verification & Attestation Participated in pt care: history, MDM, physical Personally performed: exam, history, MDM, supervision of care Care discussed with: Medical Student Procedures: n/a Verification and Attestation of Medical Student E/M Service A medical student performed and documented this service. I then reviewed and verified all information documented by the medical student and made modifications to such information, when appropriate. I personally performed a physical exam, medical decision making and then discussed any differences between the notes and made revisions as necessary to create one note. Alejandro Coulter , 09/06/22 , 17:06 ARLEN RICHEY Sep 06, 2022 07:27 ALEJANDRO COULTER DO Sep 06, 2022 17:06
[2022-09-06] MEDS: PANTOPRAZOLE 40 MG (PROTONIX) VIAL IV SCH (07:35)
[2022-09-06 07:45] VITALS: BP 169/77
[2022-09-06 11:48] VITALS: BP 151/72
--- NOTE | 2022-09-06 15:51 | Progress Note - Hospitalist ---
Subjective HPI/CC On Admission Date Seen by Provider: Sep 06, 2022 Patient is an 82-year-old female with past medical history of colovesical fistula and recent hernia repair with takedown of adhesions who presented to the emergency department due to abdominal pain. She was in the hospital last week and underwent surgery with Dr. Coulter to remove what she reports is a grapefruit sized hernia and to "clean out infection." She states she was doing well and not having pain and was discharged home 2 days ago. She reported to the emergency department that she had not had any output for just 2 or 3 days and her ostomy though to me she reports she never had any output in her ostomy since surgery. Imaging in the emergency room revealed prominent gas and fluid distention of the stomach and then CT revealed moderate distention of her stomach concerning for ileus. An NG tube was placed and she was admitted for further management. This morning she reports feeling ok and pain is somewhat improved. She is toelrating the NGT and declines any numbing medication for her throat. Subjective/Events-last exam Pt reports persistent pain and quite a lot of output from her NGT. Denies any oral intake. Did have some output formostomy though. Normally takes stool softeners and requesting it again. Discussed NPO status and how with NGT in place and on suction it would likely not work. Objective Exam Vital Signs Vital Signs Date Time Temp Pulse Resp B/P (MAP) Pulse Ox O2 Delivery O2 Flow Rate FiO2 09/06/22 11:48 37.0 90 16 151/72 (98) 95 09/06/22 08:00 Nasal Cannula 09/05/22 08:16 2.00 Capillary Refill : Less Than 3 Seconds General Appearance: No Apparent Distress, Chronically ill Respiratory: Lungs Clear, No Respiratory Distress Cardiovascular: Regular Rate, Rhythm, No Murmur Gastrointestinal: Soft, Other (ostomy in place with some small amount of stool noted) Neurologic/Psychiatric: Alert, Oriented x3 Results/Procedures Lab Patient resulted labs reviewed. Imaging: Reviewed Imaging Report Assessment/Plan Assessment and Plan Assess & Plan/Chief Complaint Postoperative ileus Colostomy continue NGT per surgery recommendations Pain regimen- added fentanyl as morphine making her nauseated Discussed with RN that Fentanyl is order for trial and to offer first and morphine only if not improvement Zofran for nausea PPI PICC placed HTN BP well controlled, trend Hypothyroidism Resume synthroid when able to take PO Diagnosis/Problems Diagnosis/Problems (1) Postoperative ileus Status: Acute (2) Colostomy present (3) Hypothyroidism Status: Chronic ANJU PALMER MD Sep 06, 2022 3:51 pm
[2022-09-06 16:00] VITALS: BP 176/80
[2022-09-06] MEDS: fentaNYL INJ 100 MCG/2 ML AMP IVP PRN ×2 (16:00→17:57)
[2022-09-06] MEDS ORDERED: METHYLNALTREXONE 12 MG/0.6 ML (RELISTOR) VIAL SQ NR (16:30)
[2022-09-06 20:21] VITALS: BP 151/71
[2022-09-06 23:32] VITALS: BP 139/64
[2022-09-07] MEDS: D5 1/2 NS W/KCL 20 MEQ/L 1,000 ML IV SCH ×4 (00:38→19:51)
[2022-09-07 04:40] VITALS: BP 127/62
[2022-09-07] MEDS: ONDANSETRON 4 MG/2 ML (SDV) Z0FRAN IV PRN (05:58)
[2022-09-07 06:14] LABS: BASOPHILS % (AUTO) 1 % (0-10); EOSINOPHILS # (AUTO) 0.2 10^3/uL (0.0-0.3); EOSINOPHILS % (AUTO) 3 % (0-10); HEMATOCRIT 37 % (35-52); HEMOGLOBIN 12.6 g/dL (11.5-16.0); LYMPHOCYTES # (AUTO) 1.9 10^3/uL (1.0-4.0); LYMPHOCYTES % (AUTO) 27 % (12-44); MEAN CORPUSCULAR HEMOGLOBIN 30 pg (25-34); MEAN CORPUSCULAR HGB CONC 34 g/dL (32-36); MEAN CORPUSCULAR VOLUME 88 fL (80-99); MEAN PLATELET VOLUME 9.6 fL (9.0-12.2); MONOCYTES # (AUTO) 0.7 10^3/uL (0.0-1.0); MONOCYTES % (AUTO) 10 % (0-12); NEUTROPHILS # (AUTO) 4.1 10^3/uL (1.8-7.8); NEUTROPHILS % (AUTO) 59 % (42-75); PLATELET COUNT 397 10^3/uL (130-400)
[2022-09-07 06:20] LABS: ALBUMIN 3.4 GM/DL (3.2-4.5)
[2022-09-07 06:21] LABS: POTASSIUM 3.5 MMOL/L (3.6-5.0)
[2022-09-07 06:22] LABS: CALCIUM 8.8 MG/DL (8.5-10.1)
[2022-09-07 06:25] LABS: BILIRUBIN,TOTAL 0.4 MG/DL (0.1-1.0)
[2022-09-07 06:27] LABS: CREATININE SERUM 0.76 MG/DL (0.60-1.30)
[2022-09-07 06:29] LABS: MAGNESIUM 1.4 MG/DL (1.6-2.4)
[2022-09-07 07:47] VITALS: BP 154/66
--- NOTE | 2022-09-07 08:15 | Progress Note - Surgery ---
ARLEN RICHEY 09/07/22 0815: Subjective Date Seen by a Provider: Sep 07, 2022 Time Seen by a Provider: 07:20 Subjective/Events-last exam Patient resting comfortably in bed. Had lots of BM last night. Had bag replaced ~6 times overnight and this morning. States that she sneezed once and NG tube came out and had to be reinserted. Would like NG tube out if possible. No longer belching/feeling distended. No longer in pain. States she feels much better. NG tube has ~200 ml of bilious fluid. Review of Systems General: No Chills, No Night Sweats HEENT: No Head Aches, No Visual Changes; Sore Throat (NG related), Other (sore nasopharnyx due to NG tube) Pulmonary: No Dyspnea, No Cough Cardiovascular: No: Chest Pain, Palpitations Gastrointestinal: No: Nausea, Vomiting, Abdominal Pain Genitourinary: No Dysuria, No Frequency Neurological: No: Weakness, Numbness Objective Exam Vital Signs Date Time Temp Pulse Resp B/P (MAP) Pulse Ox O2 Delivery O2 Flow Rate FiO2 09/07/22 07:47 36.5 87 18 154/66 (95) 97 09/07/22 04:40 90 16 127/62 (83) 12 Room Air 09/06/22 23:32 36.7 91 16 139/64 (89) 97 Room Air 09/06/22 20:21 37.4 97 16 151/71 (97) 96 Room Air 09/06/22 16:00 37.1 110 16 176/80 (112) 96 Room Air 09/06/22 11:48 37.0 90 16 151/72 (98) 95 I & O 09/07/22 07:00 Intake Total 0 ml Output Total 4900 ml Balance -4900 ml Capillary Refill : Less Than 3 Seconds General Appearance: No Apparent Distress, WD/WN (occasional Premature complex), Mild Distress, Thin HEENT: PERRL/EOMI, Other (NGT in place) Neck: Normal Inspection, Supple Respiratory: Lungs Clear, Normal Breath Sounds, No Accessory Muscle Use, No Respiratory Distress Cardiovascular: Regular Rate, Rhythm, No Murmur Peripheral Pulses: 2+ Dorsalis Pedis (R), 2+ Left Dors-Pedis (L), 2+ Radial Pulses (R), 2+ Radial Pulses (L) Gastrointestinal: soft (Firm, non-distended ); No distended; tenderness (improved from yesterday ), other (colostomy pink and viable with output. Skin ointment visible around margins of ostomy. Stool in ostomy bag) Extremity: No Calf Tenderness, No Pedal Edema Neurologic/Psychiatric: Alert, Oriented x3 Skin: Normal Color, Warm/Dry Results Lab Laboratory Tests 09/07/22 06:06: White Blood Count 7.0, Red Blood Count 4.21, Hemoglobin 12.6, Hematocrit 37, Mean Corpuscular Volume 88, Mean Corpuscular Hemoglobin 30, Mean Corpuscular Hemoglobin Concent 34, Red Cell Distribution Width 12.9, Platelet Count 397, Mean Platelet Volume 9.6, Immature Granulocyte % (Auto) 0, Neutrophils (%) (Auto) 59, Lymphocytes (%) (Auto) 27, Monocytes (%) (Auto) 10, Eosinophils (%) (Auto) 3, Basophils (%) (Auto) 1, Neutrophils # (Auto) 4.1, Lymphocytes # (Auto) 1.9, Monocytes # (Auto) 0.7, Eosinophils # (Auto) 0.2, Basophils # (Auto) 0.0, Immature Granulocyte # (Auto) 0.0, Sodium Level 136, Potassium Level 3.5L, Ch loride Level 104, Carbon Dioxide Level 20L, Anion Gap 12, Blood Urea Nitrogen 7, Creatinine 0.76, Estimat Glomerular Filtration Rate 79, BUN/Creatinine Ratio 9, Glucose Level 102, Calcium Level 8.8, Corrected Calcium 9.3, Magnesium Level 1.4L, Total Bilirubin 0.4, Aspartate Amino Transf (AST/SGOT) 13, Alanine Aminotransferase (ALT/SGPT) 8, Alkaline Phosphatase 66, Total Protein 7.0, Albumin 3.4 Assessment/Plan Assessment/Plan Assessment/Plan Abdominal pain Gastric Distention Nausea Post operative ileus S/p repair of colo-vesical fistula, repair of parastomal hernia, and extensive lysis of adhesions on 11 - POD#9 Patient markedly improved today. Will remove NG tube and access tolerance. If going okay will allow clear liquids and then slowly progress diet as tolerated. IVF and up and ambulating when possible. Patient unable to chew gum 2/2 dentures. ALEJANDRO COULTER DO 09/07/22 1004: Subjective Time Seen by a Provider: 09:39 Subjective/Events-last exam Pt seen and examined, states she is feeling better but is not sure if her abdomen is less distended. Multiple BMs in bag and NGT output is very little. States pain is better also. Review of Systems General: No Chills, No Night Sweats Pulmonary: No Dyspnea, No Cough Cardiovascular: No: Chest Pain, Palpitations Gastrointestinal: No: Nausea, Vomiting, Abdominal Pain Objective Exam General Appearance: No Apparent Distress, Thin HEENT: Moist Mucous Membranes Respiratory: Lungs Clear, Normal Breath Sounds, No Accessory Muscle Use, No Respiratory Distress Cardiovascular: Regular Rate, Rhythm, No Murmur Gastrointestinal: soft (Firm, non-distended ), distended (? mildly), tenderness (improved from yesterday ), other (colostomy pink and viable with output. Skin ointment visible around margins of ostomy. Stool in ostomy bag) Assessment/Plan Assessment/Plan Assessment/Plan Gastric Distention Nausea Post operative ileus S/p repair of colo-vesical fistula, repair of parastomal hernia, and extensive lysis of adhesions on 08/30 - POD#9 Patient markedly improved today. Will remove NG tube and access tolerance. If going okay will allow clear liquids and then slowly progress diet as tolerated. IVF and up and ambulating when possible. Patient unable to chew gum 2/2 dentures. Supervisory-Addendum Brief Verification & Attestation Participated in pt care: history, MDM, physical Personally performed: exam, history, MDM, supervision of care Care discussed with: Medical Student Procedures: n/a Verification and Attestation of Medical Student E/M Service A medical student performed and documented this service. I then reviewed and verified all information documented by the medical student and made modifications to such information, when appropriate. I personally performed a physical exam, medical decision making and then discussed any differences between the notes and made revisions as necessary to create one note. Alejandro Coulter , 09/07/22 , 10:04 ARLEN RICHEY Sep 07, 2022 08:15 ALEJANDRO COULTER DO Sep 07, 2022 10:04
[2022-09-07] MEDS: PANTOPRAZOLE 40 MG (PROTONIX) VIAL IV SCH (09:37)
--- NOTE | 2022-09-07 10:47 | Progress Note - Hospitalist ---
Subjective HPI/CC On Admission Date Seen by Provider: Sep 07, 2022 Patient is an 82-year-old female with past medical history of colovesical fistula and recent hernia repair with takedown of adhesions who presented to the emergency department due to abdominal pain. She was in the hospital last week and underwent surgery with Dr. Coulter to remove what she reports is a grapefruit sized hernia and to "clean out infection." She states she was doing well and not having pain and was discharged home 2 days ago. She reported to the emergency department that she had not had any output for just 2 or 3 days and her ostomy though to me she reports she never had any output in her ostomy since surgery. Imaging in the emergency room revealed prominent gas and fluid distention of the stomach and then CT revealed moderate distention of her stomach concerning for ileus. An NG tube was placed and she was admitted for further management. This morning she reports feeling ok and pain is somewhat improved. She is toelrating the NGT and declines any numbing medication for her throat. Subjective/Events-last exam Pt reports doing much better. Had multiple bowel movements yesterday after relistor. No further pain. Objective Exam Vital Signs Vital Signs Date Time Temp Pulse Resp B/P (MAP) Pulse Ox O2 Delivery O2 Flow Rate FiO2 09/07/22 07:47 36.5 87 18 154/66 (95) 97 09/07/22 04:40 Room Air 09/05/22 08:16 2.00 Capillary Refill : Less Than 3 Seconds General Appearance: No Apparent Distress, WD/WN Respiratory: Lungs Clear, No Respiratory Distress Cardiovascular: Regular Rate, Rhythm, No Murmur Gastrointestinal: Normal Bowel Sounds, Soft Neurologic/Psychiatric: Alert, Oriented x3 Results/Procedures Lab Laboratory Tests 09/07/22 06:06 Patient resulted labs reviewed. Imaging: Reviewed Imaging Report Assessment/Plan Assessment and Plan Assess & Plan/Chief Complaint Postoperative ileus Colostomy NGT removed this AM- doing well Started on clear liquids Pain improved Zofran for nausea PPI PICC placed HTN BP trended up, resume atenolol Hypothyroidism Resume synthroid today Diagnosis/Problems Diagnosis/Problems (1) Postoperative ileus Status: Acute (2) Colostomy present (3) Hypothyroidism Status: Chronic ANJU PALMER MD Sep 07, 2022 10:47 am
[2022-09-07] MEDS ORDERED: DOCUSATE SODIUM 100 MG (COLACE) CAP PO NR (11:00)
[2022-09-07 12:00] VITALS: BP 130/60
[2022-09-07 16:12] VITALS: BP 121/74
[2022-09-07] MEDS: FLUTICASONE NASAL SPRAY (FLONASE) 16 GM BTL NS SCH (19:51)
[2022-09-07] MEDS: DOCUSATE SODIUM 100 MG (COLACE) CAP PO SCH (19:51)
[2022-09-07 20:00] VITALS: BP 138/64
[2022-09-07] MEDS ORDERED: TRIAMCINOLONE ACETONIDE NSEACH SCH (21:00)
[2022-09-07] MEDS ORDERED: PANTOPRAZOLE 40 MG (PROTONIX) TAB PO SCH (21:00)
[2022-09-08] VITALS: BP 135/63
[2022-09-08] MEDS: D5 1/2 NS W/KCL 20 MEQ/L 1,000 ML IV SCH ×3 (02:40→21:19)
[2022-09-08 03:31] VITALS: BP 142/63
[2022-09-08 05:27] LABS: BASOPHILS % (AUTO) 1 % (0-10); EOSINOPHILS # (AUTO) 0.2 10^3/uL (0.0-0.3); EOSINOPHILS % (AUTO) 4 % (0-10); HEMATOCRIT 30 % (35-52); LYMPHOCYTES # (AUTO) 1.4 10^3/uL (1.0-4.0); LYMPHOCYTES % (AUTO) 26 % (12-44); MEAN CORPUSCULAR HEMOGLOBIN 30 pg (25-34); MEAN CORPUSCULAR HGB CONC 33 g/dL (32-36); MEAN CORPUSCULAR VOLUME 89 fL (80-99); MEAN PLATELET VOLUME 9.7 fL (9.0-12.2); MONOCYTES # (AUTO) 0.5 10^3/uL (0.0-1.0); MONOCYTES % (AUTO) 9 % (0-12); NEUTROPHILS # (AUTO) 3.1 10^3/uL (1.8-7.8); NEUTROPHILS % (AUTO) 59 % (42-75); PLATELET COUNT 309 10^3/uL (130-400); WHITE BLOOD COUNT 5.3 10^3/uL (4.3-11.0)
[2022-09-08 05:39] LABS: ALBUMIN 2.6 GM/DL (3.2-4.5)
[2022-09-08 05:40] LABS: POTASSIUM 5.9 MMOL/L (3.6-5.0)
[2022-09-08 05:41] LABS: CALCIUM 7.6 MG/DL (8.5-10.1)
[2022-09-08 05:42] LABS: TOTAL PROTEIN 5.2 GM/DL (6.4-8.2)
[2022-09-08 05:44] LABS: BILIRUBIN,TOTAL 0.2 MG/DL (0.1-1.0)
[2022-09-08 05:46] LABS: CREATININE SERUM 0.8 MG/DL (0.60-1.30)
[2022-09-08 05:48] LABS: MAGNESIUM 1.3 MG/DL (1.6-2.4)
[2022-09-08 06:42] LABS: BASOPHILS % (AUTO) 1 % (0-10); EOSINOPHILS # (AUTO) 0.3 10^3/uL (0.0-0.3); EOSINOPHILS % (AUTO) 5 % (0-10); HEMATOCRIT 34 % (35-52); HEMOGLOBIN 11.3 g/dL (11.5-16.0); LYMPHOCYTES # (AUTO) 1.4 10^3/uL (1.0-4.0); LYMPHOCYTES % (AUTO) 23 % (12-44); MEAN CORPUSCULAR HEMOGLOBIN 30 pg (25-34); MEAN CORPUSCULAR HGB CONC 34 g/dL (32-36); MEAN CORPUSCULAR VOLUME 88 fL (80-99); MEAN PLATELET VOLUME 9.5 fL (9.0-12.2); MONOCYTES # (AUTO) 0.5 10^3/uL (0.0-1.0); MONOCYTES % (AUTO) 8 % (0-12); NEUTROPHILS # (AUTO) 3.8 10^3/uL (1.8-7.8); NEUTROPHILS % (AUTO) 63 % (42-75); PLATELET COUNT 306 10^3/uL (130-400); WHITE BLOOD COUNT 6.1 10^3/uL (4.3-11.0)
[2022-09-08 07:07] LABS: ALANINE AMINOTRANSFERASE < 6 U/L (0-55); ALKALINE PHOSPHATASE 56 U/L (40-136); BILIRUBIN,TOTAL 0.3 MG/DL (0.1-1.0); BUN/CREATININE RATIO 4; CALCIUM 8.4 MG/DL (8.5-10.1); CARBON DIOXIDE 20 MMOL/L (21-32); CHLORIDE 108 MMOL/L (98-107); GFR ESTIMATED 87; GLUCOSE 87 MG/DL (70-105); MAGNESIUM 1.5 MG/DL (1.6-2.4); POTASSIUM 3.7 MMOL/L (3.6-5.0); SODIUM 139 MMOL/L (135-145); TOTAL PROTEIN 5.9 GM/DL (6.4-8.2)
[2022-09-08] MEDS: UMECLIDINIUM BROMIDE (INCRUSE ELLIPTA) 7'S IH SCH ×2 (07:26→07:27)
[2022-09-08 08:04] VITALS: BP 137/73
[2022-09-08] MEDS: PANTOPRAZOLE 40 MG (PROTONIX) VIAL IV SCH (08:33)
[2022-09-08] MEDS: LEVOTHYROXINE 100 MCG (LEVOTHROID) TAB PO SCH (08:33)
[2022-09-08] MEDS: LACTOBACILLUS ACIDOPHILUS (PROBIOTIC) CAPSULE PO SCH ×2 (08:33)
[2022-09-08] MEDS: DOCUSATE SODIUM 100 MG (COLACE) CAP PO SCH ×2 (08:33→19:34)
[2022-09-08] MEDS: ATENOLOL 25 MG (TENORMIN) TAB PO SCH (08:33)
[2022-09-08] MEDS: FLUTICASONE NASAL SPRAY (FLONASE) 16 GM BTL NS SCH ×2 (08:34→19:35)
--- NOTE | 2022-09-08 08:43 | Progress Note - Surgery ---
ARLEN RICHEY 09/08/22 0843: Subjective Date Seen by a Provider: Sep 08, 2022 Time Seen by a Provider: 07:50 Subjective/Events-last exam Patient eating some broth when I cam into the room. States she is feeling much better. Feels like she would like her diet progressed to some soft foods. If she tolerates those she would like to go home today. Patient has been getting up and ambulating and using IS. Patient is attempting to order more colostomy supplies today before she goes home. Still passing plenty of stool. States her colostomy bag was cleaned out twice last night. Review of Systems General: No Chills, No Night Sweats HEENT: No Head Aches, No Visual Changes Pulmonary: No Dyspnea, No Cough Cardiovascular: No: Chest Pain, Palpitations Gastrointestinal: No: Nausea, Vomiting, Abdominal Pain Genitourinary: No Dysuria, No Frequency Neurological: No: Weakness, Numbness Objective Exam Vital Signs Date Time Temp Pulse Resp B/P (MAP) Pulse Ox O2 Delivery O2 Flow Rate FiO2 09/08/22 08:04 36.2 88 16 137/73 (94) 92 Room Air 09/08/22 07:27 97 Room Air 09/08/22 03:31 36.4 78 20 142/63 (89) 97 Room Air 09/08/22 00:00 36.4 78 18 135/63 (87) 98 Room Air 09/07/22 20:00 36.4 67 20 138/64 (88) 97 Room Air 09/07/22 19:50 Room Air 09/07/22 19:01 Room Air 09/07/22 16:12 36.4 70 18 121/74 (90) 96 Room Air 09/07/22 12:00 37.0 83 18 130/60 (83) 98 I & O 09/08/22 07:00 Intake Total 800 ml Output Total 5275 ml Balance -4475 ml Capillary Refill : Less Than 3 Seconds General Appearance: No Apparent Distress, WD/WN HEENT: PERRL/EOMI Neck: Normal Inspection, Supple Respiratory: Lungs Clear, Normal Breath Sounds, No Accessory Muscle Use, No Respiratory Distress Cardiovascular: Regular Rate, Rhythm, No Murmur Peripheral Pulses: 2+ Dorsalis Pedis (R), 2+ Left Dors-Pedis (L), 2+ Radial Pulses (R), 2+ Radial Pulses (L) Gastrointestinal: soft (Firm, non-distended ), tenderness (mild to moderate palpation ), other (colostomy pink and viable with output. Skin ointment visible around margins of ostomy. Stool in ostomy bag) Extremity: No Calf Tenderness, No Pedal Edema Neurologic/Psychiatric: Alert, Oriented x3 Skin: Normal Color, Warm/Dry Results Lab Laboratory Tests 09/08/22 05:19: White Blood Count 5.3, Red Blood Count 3.37L, Hemoglobin 10.0#L, Hematocrit 30L, Mean Corpuscular Volume 89, Mean Corpuscular Hemoglobin 30, Mean Corpuscular Hemoglobin Concent 33, Red Cell Distribution Width 12.9, Platelet Count 309, Mean Platelet Volume 9.7, Immature Granulocyte % (Auto) 1, Neutrophils (%) (Auto) 59, Lymphocytes (%) (Auto) 26, Monocytes (%) (Auto) 9, Eosinophils (%) (Auto) 4, Basophils (%) (Auto) 1, Neutrophils # (Auto) 3.1, Lymphocytes # (Auto) 1.4, Monocytes # (Auto) 0.5, Eosinophils # (Auto) 0.2, Basophils # (Auto) 0.0, Immature Granulocyte # (Auto) 0.0, Sodium Level 133L, Potassium Level 5.9H, Chloride Level 108H, Carbon Dioxide Level 19L, Anion Gap 6, Blood Urea Nitrogen 3L, Creatinine 0.80, Estimat Glomerular Filtration Rate 74, BUN/Creatinine Ratio 4, Glucose Level 548*H, Calcium Level 7.6L, Corrected Calcium 8.7, Magnesium Level 1.3L, Total Bilirubin 0.2, Aspartate Amino Transf (AST/SGOT) 11, Alanine Aminotransferase (ALT/SGPT) 6, Alkaline Phosphatase 47, Total Protein 5.2L, Albumin 2.6L 09/08/22 06:04: Glucometer 97 09/08/22 06:35: White Blood Count 6.1, Red Blood Count 3.81, Hemoglobin 11.3L, Hematocrit 34L, M heidi Corpuscular Volume 88, Mean Corpuscular Hemoglobin 30, Mean Corpuscular Hemoglobin Concent 34, Red Cell Distribution Width 12.9, Platelet Count 306, Mean Platelet Volume 9.5, Immature Granulocyte % (Auto) 1, Neutrophils (%) (Auto) 63, Lymphocytes (%) (Auto) 23, Monocytes (%) (Auto) 8, Eosinophils (%) (Auto) 5, Basophils (%) (Auto) 1, Neutrophils # (Auto) 3.8, Lymphocytes # (Auto) 1.4, Monocytes # (Auto) 0.5, Eosinophils # (Auto) 0.3, Basophils # (Auto) 0.0, Immature Granulocyte # (Auto) 0.0, Sodium Level 139, Potassium Level 3.7, Chloride Level 108H, Carbon Dioxide Level 20L, Anion Gap 11, Blood Urea Nitrogen 3L, Creatinine 0.70, Estimat Glomerular Filtration Rate 87, BUN/Creatinine Ratio 4, Glucose Level 87, Calcium Level 8.4L, Corrected Calcium 9.2, Magnesium Level 1.5L, Total Bilirubin 0.3, Aspartate Amino Transf (AST/SGOT) 12, Alanine Aminotransferase (ALT/SGPT) < 6, Alkaline Phosphatase 56, Total Protein 5.9L, Albumin 3.0L Assessment/Plan Assessment/Plan Assessment/Plan Gastric Distention Nausea Post operative ileus S/p repair of colo-vesical fistula, repair of parastomal hernia, and extensive lysis of adhesions on 11 - POD#11 Patient continues to improve. Tolerating diet and NG tube. Plan on progressing diet, if tolerated patient can go home as she would like to go home. Patient is planning on progressing diet slower this time than last, as she does not wish to return. Discontinue IVF, up and ambulating, IS use. ALEJANDRO COULTER DO 09/08/22 1140: Subjective Time Seen by a Provider: 09:38 Subjective/Events-last exam Pt seen and examined, states she is feeling much better than before. Still having multiple large BMs in ostomy. Review of Systems General: No Chills, No Night Sweats Pulmonary: No Dyspnea, No Cough Cardiovascular: No: Chest Pain, Palpitations Gastrointestinal: No: Nausea, Vomiting, Abdominal Pain Objective Exam General Appearance: No Apparent Distress, Anxious HEENT: PERRL/EOMI Respiratory: Lungs Clear, Normal Breath Sounds, No Accessory Muscle Use, No Respiratory Distress Cardiovascular: Regular Rate, Rhythm, No Murmur Gastrointestinal: soft, tenderness (mild to moderate palpation ), other (colostomy pink and viable with output. Skin ointment visible around margins of ostomy. Stool in ostomy bag) Assessment/Plan Assessment/Plan Assessment/Plan Gastric Distention Nausea Post operative ileus S/p repair of colo-vesical fistula, repair of parastomal hernia, and extensive lysis of adhesions on 08/30 - POD#11 Patient continues to improve. Tolerating diet and NG tube. Plan to start soft diet, if tolerated patient can go home as she would like to go home (probably tomorrow am). Patient is planning on progressing diet slower this time than last, as she does not wish to return. Encourage IS and ambulation with increased fluids. Discontinue IVF, up and ambulating, IS use. Supervisory-Addendum Brief Verification & Attestation Participated in pt care: history, MDM, physical Personally performed: exam, history, MDM, supervision of care Care discussed with: Medical Student Procedures: n/a Verification and Attestation of Medical Student E/M Service A medical student performed and documented this service. I then reviewed and verified all information documented by the medical student and made modific ations to such information, when appropriate. I personally performed a physical exam, medical decision making and then discussed any differences between the notes and made revisions as necessary to create one note. Alejandro Coulter , 09/08/22 , 11:40 ARLEN RICHEY Sep 08, 2022 08:43 ALEJANDRO COULTER DO Sep 08, 2022 11:40
[2022-09-08] MEDS ORDERED: NON-FORMULARY MEDICATION 1 EA EA (Tiotropium Bromide (Spiriva Respimat 2.5MCG/ACTUATION) 2 IH SCH (09:00)
[2022-09-08 11:26] VITALS: BP 138/71
[2022-09-08 15:16] VITALS: BP 138/63
[2022-09-08 19:29] VITALS: BP 147/71
[2022-09-09] VITALS: BP 148/68
[2022-09-09 04:00] VITALS: BP 147/77
[2022-09-09 06:03] LABS: BASOPHILS # (AUTO) 0.1 10^3/uL (0.0-0.1); BASOPHILS % (AUTO) 1 % (0-10); EOSINOPHILS # (AUTO) 0.3 10^3/uL (0.0-0.3); EOSINOPHILS % (AUTO) 3 % (0-10); HEMATOCRIT 34 % (35-52); HEMOGLOBIN 11.5 g/dL (11.5-16.0); LYMPHOCYTES % (AUTO) 26 % (12-44); MEAN CORPUSCULAR HEMOGLOBIN 30 pg (25-34); MEAN CORPUSCULAR HGB CONC 34 g/dL (32-36); MEAN CORPUSCULAR VOLUME 88 fL (80-99); MEAN PLATELET VOLUME 9.3 fL (9.0-12.2); MONOCYTES # (AUTO) 0.5 10^3/uL (0.0-1.0); MONOCYTES % (AUTO) 7 % (0-12); NEUTROPHILS # (AUTO) 4.8 10^3/uL (1.8-7.8); NEUTROPHILS % (AUTO) 62 % (42-75); PLATELET COUNT 362 10^3/uL (130-400); WHITE BLOOD COUNT 7.7 10^3/uL (4.3-11.0)
[2022-09-09 06:28] LABS: ALBUMIN 3.1 GM/DL (3.2-4.5); POTASSIUM 3.6 MMOL/L (3.6-5.0)
[2022-09-09 06:29] LABS: CALCIUM 8.6 MG/DL (8.5-10.1)
[2022-09-09 06:30] LABS: TOTAL PROTEIN 6.2 GM/DL (6.4-8.2)
[2022-09-09 06:32] LABS: BILIRUBIN,TOTAL 0.3 MG/DL (0.1-1.0)
[2022-09-09 06:34] LABS: CREATININE SERUM 0.7 MG/DL (0.60-1.30)
[2022-09-09 06:37] LABS: MAGNESIUM 1.4 MG/DL (1.6-2.4)
--- NOTE | 2022-09-09 07:27 | Progress Note - Surgery ---
[facility] 09/09/22 0727: Subjective Date Seen by a Provider: Sep 09, 2022 Time Seen by a Provider: 07:22 Subjective/Events-last exam Today pt reports doing well on soft diet last night with minimal pain. Her BMs have slowed down and she only had 2 last night without blood or pain. She has not been taking pain meds. Denies nausea, vomiting, CP, SOB, sweats/chills. Review of Systems General: No Chills, No Night Sweats HEENT: No Visual Changes, No Eye Pain Pulmonary: No Dyspnea, No Cough Cardiovascular: No: Chest Pain, Palpitations Gastrointestinal: No: Nausea, Vomiting Genitourinary: No Dysuria, No Frequency Musculoskeletal: No: neck pain, shoulder pain Neurological: No: Weakness, Numbness Objective Exam Vital Signs Date Time Temp Pulse Resp B/P (MAP) Pulse Ox O2 Delivery O2 Flow Rate FiO2 09/09/22 04:00 36.3 77 16 147/77 (100) 97 Room Air 09/09/22 00:00 36.7 85 16 148/68 (94) 97 Room Air 09/08/22 20:00 Room Air 09/08/22 19:54 98 Room Air 09/08/22 19:29 36.8 76 19 147/71 (96) 98 Room Air 09/08/22 15:16 36.8 76 18 138/63 (88) 96 Room Air 09/08/22 11:26 36.5 65 18 138/71 (93) 97 Room Air 09/08/22 08:04 36.2 88 16 137/73 (94) 92 Room Air 09/08/22 08:00 Room Air 09/08/22 07:27 97 Room Air I & O 09/09/22 07:00 Intake Total 1022 ml Output Total 2875 ml Balance -1853 ml Capillary Refill : Less Than 3 Seconds General Appearance: No Apparent Distress, WD/WN HEENT: PERRL/EOMI, Pharynx Normal Neck: Full Range of Motion, Normal Inspection Respiratory: Chest Non Tender, Lungs Clear, Normal Breath Sounds, No Accessory Muscle Use, No Respiratory Distress Cardiovascular: Regular Rate, Rhythm, No Murmur Peripheral Pulses: 2+ Radial Pulses (R), 2+ Radial Pulses (L) Gastrointestinal: soft, tenderness (incisional), other (colostomy pink and viable with output; incision c/d/i) Extremity: No Calf Tenderness, No Pedal Edema Neurologic/Psychiatric: Alert, Oriented x3 Skin: Normal Color, Warm/Dry Lymphatic: No Adenopathy Results Lab Laboratory Tests 09/09/22 05:55: White Blood Count 7.7, Red Blood Count 3.88, Hemoglobin 11.5, Hematocrit 34L, Mean Corpuscular Volume 88, Mean Corpuscular Hemoglobin 30, Mean Corpuscular Hemoglobin Concent 34, Red Cell Distribution Width 12.8, Platelet Count 362, Mean Platelet Volume 9.3, Immature Granulocyte % (Auto) 1, Neutrophils (%) (Auto) 62, Lymphocytes (%) (Auto) 26, Monocytes (%) (Auto) 7, Eosinophils (%) (Auto) 3, Basophils (%) (Auto) 1, Neutrophils # (Auto) 4.8, Lymphocytes # (Auto) 2.0, Monocytes # (Auto) 0.5, Eosinophils # (Auto) 0.3, Basophils # (Auto) 0.1, Immature Granulocyte # (Auto) 0.1, Sodium Level 139, Potassium Level 3.6, Chloride Level 106, Carbon Dioxide Level 22, Anion Gap 11, Blood Urea Nitrogen 3L, Creatinine 0.70, Estimat Glomerular Filtration Rate 87, BUN/Creatinine Ratio 4, Glucose Level 87, Calcium Level 8.6, Corrected Calcium 9.3, Magnesium Level 1.4L, Total Bilirubin 0.3, Aspartate Amino Transf (AST/SGOT) 10, Alanine Aminotransferase (ALT/SGPT) 8, Alkaline Phosphatase 60, Total Protein 6.2L, Albumin 3.1L Assessment/Plan Assessment/Plan Assessment/Plan Gastric Distention- improved Nausea Post operative ileus S/p repair of colo-vesical fistula, repair of parastomal hernia, and extensive lysis of adhesions on 08/30 Patient continues to improve Tolerating soft diet Encourage IS and ambulation with increased fluids Likely home today and f/u in office for staple removal MONICA CLIFFORD DO 09/09/22 1154: Subjective Subjective/Events-last exam Doing well. Pain controlled. Having bowel function. No new complaints. Wanting to go home. Denies n/v fever sweats chills shortness of breath or chest pain. Objective Exam General Appearance: No Apparent Distress, WD/WN HEENT: PERRL/EOMI, Normal ENT Inspection Neck: Normal Inspection, Non Tender Respiratory: Chest Non Tender, No Accessory Muscle Use, No Respiratory Distress Cardiovascular: Regular Rate, Rhythm, No JVD Gastrointestinal: soft, tenderness (incisional), other (colostomy pink and viable with output; incision c/d/i) Extremity: No Calf Tenderness Neurologic/Psychiatric: Alert, Oriented x3 Skin: Normal Color, Warm/Dry Lymphatic: No Adenopathy Assessment/Plan Assessment/Plan Assessment/Plan Gastric Distention- improved Nausea Post operative ileus S/p repair of colo-vesical fistula, repair of parastomal hernia, and extensive lysis of adhesions on 08/30 Patient continues to improve Tolerating soft diet as tolerates since having bowel function. Encourage IS and ambulation with increased fluids Home today and f/u in office at next appointment previously scheduled. Supervisory-Addendum Brief Verification & Attestation Participated in pt care: history, MDM, physical Personally performed: exam, history, MDM, supervision of care Care discussed with: Medical Student Procedures: n/a Results interpretation: Verified all documentation Verification and Attestation of Medical Student E/M Service A medical student performed and documented this service in my presence. I reviewed and verified all information documented by the medical student and made modifications to such information, when appropriate. I personally performed the physical exam and medical decision making. Monica Clifford, Sep 09, 2022,11:54 KAM LUDWIG Sep 09, 2022 07:27 MONICA CLIFFORD DO Sep 09, 2022 11:54
[2022-09-09 07:31] VITALS: BP 129/65
[2022-09-09] MEDS ORDERED: PANTOPRAZOLE 40 MG (PROTONIX) TAB PO SCH (09:00)
[2022-09-09] MEDS: ATENOLOL 25 MG (TENORMIN) TAB PO SCH (09:24)
[2022-09-09] MEDS: DOCUSATE SODIUM 100 MG (COLACE) CAP PO SCH (09:24)
[2022-09-09] MEDS: LEVOTHYROXINE 100 MCG (LEVOTHROID) TAB PO SCH (09:24)
[2022-09-09] MEDS: LACTOBACILLUS ACIDOPHILUS (PROBIOTIC) CAPSULE PO SCH ×2 (09:24→09:25)
[2022-09-09] MEDS: FLUTICASONE NASAL SPRAY (FLONASE) 16 GM BTL NS SCH (09:25)
[2022-09-09 11:34] VITALS: BP 128/62
[2022-09-09] MEDS: D5 1/2 NS W/KCL 20 MEQ/L 1,000 ML IV SCH (11:48)
--- NOTE | 2022-09-09 11:57 | Discharge Inst-Simple/Standard ---
Discharge Inst-Standard Patient Instructions/Follow Up Plan of Care/Instructions/FU: Dr Coulter at next scheduled appointment. Activity as Tolerated: No Discharge Diet: Regular Diet Other Inst to Patient Follow up Appt: Keep next appointment with Dr. Coulter. Instructions: No lifting greater than 10 pounds. No strenuous activity. May shower in 24 hours, no tub bath or soaking. Use incentive spirometer at home as directed. No Smoking Skin/Wound Care: Keep area clean and dry. Symptoms to Report: Appetite Changes, Extremity Discoloration, Numbness/Tingling, Swelling Increas ed, Bleeding Excessive, Eyesight Changes, Pain Increased, Urine Color Change, Constipation(Persistent), Fever over 101 degree F, Pain/Pressure in chest, Urinating Difficulty, Cough Up/Vomit Blood, Heart Beat Irreg/Pounding, Pain/Pressure in jaw, Vaginal Bleeding Increase, Cramps in feet or legs, Lightheadedness, Pain/Pressure in shoulder, Diarrhea(Persistent), Memory Changes Suddenly, Questions/Concerns, Weight gain consecutive days, Dizziness/Fainting, Nausea/Vomiting, Shortness of Breath, Weight gain over 2 pounds If questions or concerns contact your physician Or seek help at emergency department. MONICA COYLE DO Sep 09, 2022 11:57
[2022-09-09 13:43] VITALS: BP 128/62
== END 2022-09-09 13:43 | disposition home or self-care (01) | DRG 394 ==
LOC: EDUNIT# 15:51 → ER 15:53 → 4TH 18:24
PROVIDERS: ADMIT Surgery; ATTEND Surgery
PROC: 0D9670Z Drainage of Stomach with Drainage Device, Via Natural or Artificial Opening (ICD-10-PCS; principal; 2022-09-04)
DX: K91.89 Other postprocedural complications and disorders of digestive system (principal); K56.7 Ileus, unspecified; Z93.3 Colostomy status; J44.9 Chronic obstructive pulmonary disease, unspecified; K21.9 Gastro-esophageal reflux disease without esophagitis; I10 Essential (primary) hypertension; E78.00 Pure hypercholesterolemia, unspecified; E03.9 Hypothyroidism, unspecified; M19.91 Primary osteoarthritis, unspecified site; M79.7 Fibromyalgia; F41.9 Anxiety disorder, unspecified; F32.A Depression, unspecified; Z87.891 Personal history of nicotine dependence
CPT/HCPCS: 36415; 36569; 74022; 74176; 76937; 80048; 80053; 82947; 83735; 85025; 94640

== ENCOUNTER → 2023-03-21 | Outpatient (CLI) | payer MEDICARE, OTHER ==
[~2023-03-21] MED LIST changes: +CALC-823 PO; +CHOL100048 PO; +DIATRIZOATE MEGLUM/SODIUM 37% 120 ML (GASTROGRAFIN) RC ONE; +DIGE1TAB PO; +HYDR-3820 PO; +LACT1CAP62 PO; +MAGN250T31 PO; +SUCR1TAB PO
--- NOTE | 2023-03-22 10:35 | Diagnostic Imaging Report ---
INDICATION: Current colostomy. The study was performed to evaluate the rectal stump prior to colostomy reversal. A rectal tip was placed and balloon was inflated. Gastrografin contrast was passed into the rectum in retrograde fashion through the rectal tip. Only a small amount of rectum could be passed. 81 seconds of fluoroscopic time was utilized. There appear to be diverticula of the sigmoid. The rectum is unremarkable. No mass is seen. There are postop changes to the lower lumbar spine. IMPRESSION: The rectal stump is unremarkable. There is uncomplicated diverticulosis of the sigmoid. Dictated by: Dictated on workstation # [id number]
== END ==
LOC: RAD 07:22
PROVIDERS: ATTEND Colon & Rectal Surgery
DX: K57.30 Diverticulosis of large intestine without perforation or abscess without bleeding (principal); Z93.3 Colostomy status
CPT/HCPCS: 74270

== ENCOUNTER 2023-08-26 13:14 | Emergency (ER) | payer MEDICARE, OTHER ==
[~2023-08-26] VITALS: Ht 157.5 cm; Wt 76.2 kg
[~2023-08-26 13:14] MED LIST changes: -DIATRIZOATE MEGLUM/SODIUM 37% 120 ML (GASTROGRAFIN) RC ONE
--- NOTE | 2023-08-26 13:46 | ED Integumentary General ---
General Chief Complaint: Skin/Wound Problems Stated Complaint: INCISSION PROBLEMS Nursing Triage Note: PT AMB TO [facility] WITH GRANDDAUGHTER WITH COMPLAINT OF INCISION ISSUES. STATES HAD HER COLOSTOMY MOVED TO RIGHT SIDE OF ABD . STATES 3 DAYS AGO NOTICED A CHANGED IN HER INCISION. Source: patient Exam Limitations: no limitations (LAUREN MANCILLA APRN) History of Present Illness Date Seen by Provider: Aug 26, 2023 Time Seen by Provider: 13:23 Initial Comments 83-year-old female presents to the ER with concerns regarding her previous colostomy site. The colostomy was moved on July 11. She states that within the week, she noticed a "bubble" at the location of the previous colostomy site. She states that it had been healing normally, but then this fluid-filled pocket developed. She denies known fevers. Denies abdominal pain, nausea, vomiting, diarrhea. Reports some tenderness to the location. (LAUREN MANCILLA APRN) Allergies and Home Medications Allergies Coded Allergies: meperidine (Verified Allergy, Unknown, 12/15/08) Patient Home Medication List Home Medication List Reviewed: Yes (LAUREN MANCILLA APRN) Ascorbate Calcium (Vitamin C) 500 Mg Tablet, 500 MG PO DAILY, (Reported) Entered as Reported by: MAR SALVADOR on 09/05/22 1349 Atenolol (Atenolol) 25 Mg Tablet, 25 MG PO DAILY, (Reported) Entered as Reported by: MAR SALVADOR on 09/05/22 1349 Calcium Carbonate (Calcium) 500 Mg Calcium (1250 Mg) Tablet, 500 MG PO HS, (Reported) Entered as Reported by: MAR SALVADOR on 09/05/22 1349 Cholecalciferol (Vitamin D3) (Vitamin D3) 25 Mcg (1000 Unit) Capsule, 25 MCG PO DAILY, (Reported) Entered as Reported by: MAR SALVADOR on 09/05/22 1349 Digestive 8/L.acidoph/Pectin (Digestive Enzymes Tablet) 50 Million Cell-100 Mg Tablet, 1 EACH PO DAILY, (Reported) Entered as Reported by: MAR SALVADOR on 09/05/22 1349 Hydrocodone/Acetaminophen (Hydrocodone-Acetamin 10-325 mg) 10 Mg-325 Mg Tablet, 1 EA PO Q6H PRN for PAIN-MODERATE (5-7), (Reported) Entered as Reported by: MAR SALVADOR on 09/05/22 1349 Lactobacillus Acidophilus (Probiotic) 10 Billion Cell Capsule, 1 EACH PO DAILY, (Reported) Entered as Reported by: MAR SALVADOR on 09/05/22 134 Levothyroxine Sodium (Levothyroxine Sodium) 100 Mcg Tablet, 100 MCG PO DAILY, (Reported) Entered as Reported by: MAR SALVADOR on 09/05/22 134 Magnesium (Magnesium) 250 Mg Tablet, 250 MG PO HS, (Reported) Entered as Reported by: MAR SALVADOR on 09/05/22 134 Meloxicam (Meloxicam) 7.5 Mg Tablet, 7.5 MG PO BID, (Reported) Entered as Reported by: KARMEN LAWTON on 08/30/22 1458 Pantoprazole Sodium (Pantoprazole Sodium) 40 Mg Tablet.dr, 40 MG PO BID, (Reported) Entered as Reported by: MAR SALVADOR on 09/05/22 134 Potassium Chloride (Klor-Con M20) 20 Meq Tab.er.prt, 20 MEQ PO DAILY, (Reported) Entered as Reported by: MAR SALVADOR on 09/05/22 134 Sucralfate (Sucralfate) 1 Gram Tablet, 1 GM PO BID, (Reported) Entered as Reported by: MAR SALVADOR on 09/05/22 134 Sulfamethoxazole/Trimethoprim (Bactrim Ds Tablet) 1 Each Tablet, 1 EACH PO BID Prescribed by: Lauren Schroeder on 08/26/23 1349 Tiotropium Jordan (Spiriva Respimat 2.5MCG/ACTUATION) 2.5 Mcg/Actuation Mist.inhal, 2 PUFF IH DAILY Prescribed by: MIKEY CAMP on 06/07/22 1059 Triamcinolone Acetonide (Nasacort) 55 Mcg [place], 1 SPRAY NSEACH BID, (Reported) Entered as Reported by: MAR SALVADOR on 09/05/22 134 Review of Systems Review of Systems Constitutional: see HPI (LAUREN MANCILLA [employer]) Past Enfheha-Cawwdm-Emreap Hx Patient Social History Tobacco Use?: No Use of E-Cig and/or Vaping dev: No Substance use?: No Alcohol Use?: No Pt feels they are or have been: No ([employer] [employer]) Immunizations Up To Date Tetanus Booster (TDap): Unknown First/Initial COVID19 Vaccinat: 2020 Second COVID19 Vaccination Odilon: 2020 Third COVID19 Vaccination Date: 2021 ([facility] Seasonal Allergies Seasonal Allergies: Yes ([facility]) Past Medical History Surgery/Hospitalization HX: OSTEOARTHRITIS, CHOLECYSTECTOMY, COPD, GERD, HTN, HIGH CHOLESTEROL, MULTIPLE BACK SURGERIES, APPENDECTOMY, TONSILLECTOMY, HYPOTHYROIDISM., bowel resection, colostomy Surgeries: Yes Abdominal, Appendectomy, Gallbladder, 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, Orthopedic, Tonsillectomy Respiratory: Yes Chronic Bronchitis Currently Using CPAP: No Currently Using BIPAP: No Cardiac: Yes Irregular Heartbeat Neurological: Yes Neuropathy Reproductive Disorders: No [employer] History: 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 Sexually Transmitted Disease: No Genitourinary: Yes UTI-Chronic Gastrointestinal: Yes Gastroesophageal Reflux, Diverticulosis, Hemorrhoids, Hiatal Hernia Musculoskeletal: Yes Arthritis, Chronic Back Pain Endocrine: Yes Hypothyroidsim HEENT: No Cataract Loss of Vision: Denies Hearing Impairment: Denies Cancer: No Psychosocial: Yes Anxiety, Depression Integumentary: No Blood Disorders: No Adverse Reaction/Blood Tranf: No ([facility]) Family Medical History Lung Disease ([facility]) Physical Exam Vital Signs Vital Signs - First Documented 08/26/23 13:20 Temp 37.5 Pulse 86 Resp 16 B/P (MAP) 152/80 (104) Pulse Ox 94 O2 Delivery Room Air (FRANCISCO AGUIRRE MD) Vital Signs Capillary Refill : Less Than 3 Seconds ([facility]) General Appearance: WD/WN, no apparent distress Neck: supple, normal inspection Cardiovascular: regular rate, rhythm Respiratory: lungs clear, normal breath sounds, no respiratory distress, no accessory muscle use Gastrointestinal: normal bowel sounds, non tender, soft Extremities: normal range of motion, normal inspection Neurologic/Psychiatric: alert, normal mood/affect Skin: normal color, warm/dry Skin Problem Location: torso (Left lower abdomen, previous colostomy site) Skin Problem Character: other (Area of fluctuance, feels like seroma or developing abscess no surrounding erythema, area feels slightly warm to touch compared to rest of skin) Lymphatic: no adenopathy (LAUREN MANCILLA APRN) Progress/Results/Core Measures Results/Orders Vital Signs/I&O 08/26/23 08/26/23 13:20 14:06 Temp 37.5 37.5 Pulse 86 86 Resp 16 16 B/P (MAP) 152/80 (104) 152/80 Pulse Ox 94 94 O2 Delivery Room Air Room Air (FRANCISCO AGUIRRE MD) Blood Pressure Mean: 104 Progress Progress Note : Progress Note Patient seen and evaluated, resting comfortably in bed, no acute distress. Based on exam and symptoms, this is possibly a seroma or developing abscess. Surrounding area is not erythematous, patient has minimal tenderness with palpation. I do not want to open this in case it is not infected because this could cause a possible infection. Will start patient on Bactrim. Patient instructed to call her surgeon tomorrow to schedule a follow-up appointment for this week. Her surgery was completed at [facility]. Patient instructed to contact Dr. Dumont, who did her first surgery, if she is not able to get an appointment with the [facility] surgeon week or has difficulty getting to an appointment in [place]. Patient is stable for discharge. Discharge instructions and return precautions provided. (LAUREN MANCILLA APRN) Departure Impression Primary Impression: Abscess Disposition: 01 HOME, SELF-CARE Condition: Stable Departure-Patient Inst. Decision time for Depature: 13:47 (LAUREN MANCILLA APRN) Referrals: MADI MALIK DO (PCP/Family) Primary Care Physician Patient Instructions: Skin Abscess Add. Discharge Instructions: Call your surgeon at [facility] tomorrow to schedule a follow-up appointment for this week. If you have any difficulty getting in with your surgeon this week, call Dr. Dumont so that he can evaluate and monitor this wound. Complete full course of antibiotic as prescribed. Make sure you drink plenty of water while taking this antibiotic. Return if you develop a fever greater than 100.3, the surrounding skin becomes red, you have severe pain, or any other new, concerning, or worsening symptoms. All discharge instructions reviewed with patient and/or family. Voiced understanding. Scripts Sulfamethoxazole/Trimethoprim (Bactrim Ds Tablet) 1 Each Tablet 1 EACH PO BID for 5 Days, #10 TAB 0 Refills Prov: LAUREN MANCILLA Eduardo MONTEMAYOR 08/26/23 ATTENDING PHYSICIAN NOTE: I was physically present as attending physician in the emergency department during the care of this patient. I personally interviewed and examined this patient. It is difficult to determine if the area of concern is a small seroma with stretching of the scar tissue overlying the seroma or an early abscess. There is no inflammation noted over or around the area of concern to suggest infection. Antibiotics were recommended as a precaution until the area can be evaluated directly by Dr. Dumont. (FRANCISCO AGUIRRE MD) Copy Copies To 1: SOFIA DUMONT BRITTANY R APRN Aug 26, 2023 13:46 FRANCISCO AGUIRRE MD Aug 29, 2023 16:44
[2023-08-26] MEDS ORDERED: SULF1TAB38 PO (13:49)
[2023-08-26 14:06] VITALS: BP 152/80
== END 2023-08-26 14:06 | disposition home or self-care (01) ==
LOC: EDUNIT# 13:14 → ER 13:16
DX: L02.211 Cutaneous abscess of abdominal wall (principal)
CPT/HCPCS: 99281